=== PATIENT | male | born 1960 | race Caucasian/White ===

== ENCOUNTER 2024-06-30 23:15 | Emergency (ER) | payer BC, SELFPAY ==
[2024-06-30] VITALS (9 sets, daily range): BP systolic 82–135; BP diastolic 63–88; PULSE 52–71; RESP 16–25; TEMP 37; O2SAT 93–100
--- NOTE | ~2024-06-30 | XR_ITS ---
EXAMINATION: XR pelvis 1-2V DATE: 06/30/2024 21:30 INDICATION: Fall. TECHNIQUE: An anteroposterior view of the pelvis was obtained. COMPARISON: None. FINDINGS: Alignment is normal. No fracture. There is mild osteoarthritis of the hips. There is modera te lumbar spondylosis. IMPRESSION: 1. Mild osteoarthritis of the hips. Reviewed, dictated and finalized at location A. ND TRANSPORTATION OPERATOR
--- NOTE | ~2024-06-30 | CT_ITS ---
EXAMINATION: CT brain wo con DATE: 06/30/2024 21:51 INDICATION: Head injury. TECHNIQUE: Computed tomography (CT) of the head was performed without intravenous contrast. The mA wa s adjusted according to patient size. Iterative reconstruction technique was employed. The dose-lengt h product was 681.00 mGy-cm. COMPARISON: None FINDINGS: There is no intracranial hemorrhage, acute infarction, or abnormal intracranial mass lesion . There are scattered areas of low attenuation in the cerebral white matter, which is within normal l imits for the patient's age. The ventricles are normal in size. There is mild mucosal thickening in t he paranasal sinuses. The mastoid air cells are normal. The orbits are normal. IMPRESSION: 1. Normal aging brain. Reviewed, dictated and finalized at location A. PT DEVELOPER IMPRESSION: 1. Normal aging brain.
--- NOTE | ~2024-06-30 | CT_ITS ---
EXAMINATION: CT facial & cervical spine wo DATE: 06/30/2024 21:51 INDICATION: Head injury. TECHNIQUE: Computed tomography (CT) of the maxillofacial region and cervical spine was performed with out intravenous contrast. Automated exposure control and iterative reconstruction technique were empl oyed. The dose-length product was 490.20 mGy-cm. COMPARISON: None FINDINGS: MAXILLOFACIAL CT: There is rightward deviation anterior nasal septum and leftward deviation of posterior nasal septum. No acute fracture. There are old fracture deformities of the nasal bones. There is mild mucosal thick ening in the paranasal sinuses. CERVICAL SPINE CT: There is 9 degrees levocurvature of cervical spine. Vertebral body heights are normal. There is sever cruz decreased disc height at C3-C4, mildly decreased disc height at C4-C5, and severely decreased dis c height at C5-C6 and C6-C7. The following disc levels are specifically discussed: C2-C3: There is no uncovertebral joint osteoarthritis. There is moderate right and mild left facet chapis int osteoarthritis. There is no neural foraminal stenosis. There is no central canal stenosis. C3-C4: There is severe bilateral uncovertebral joint osteoarthritis. There is severe bilateral facet joint osteoarthritis. There is moderate bilateral neural foraminal stenosis. There is mild central ca nal stenosis. C4-C5: There is mild bilateral uncovertebral joint osteoarthritis. There is severe bilateral facet chapis int osteoarthritis. There is mild left neural foraminal stenosis. There is mild central canal stenosi s. C5-C6: There is severe bilateral uncovertebral joint osteoarthritis. There is moderate and severe lef t facet joint osteoarthritis. There is mild bilateral neural foraminal stenosis. There is mild centra l canal stenosis. C6-C7: There is severe bilateral uncovertebral joint osteoarthritis. There is moderate right and mild left facet joint osteoarthritis. There is mild bilateral neural foraminal stenosis. There is mild ce ntral canal stenosis. C7-T1: There is no uncovertebral joint osteoarthritis. There is moderate right and mild left facet chpais int osteoarthritis. There is no neural foraminal stenosis. There is no central canal stenosis. IMPRESSION: 1. No acute fracture. 2. Severe cervical spondylosis. Reviewed, dictated and finalized at location A. INE MEASUREMENTS ENGINEER
--- NOTE | ~2024-06-30 | XR_ITS ---
EXAMINATION: XR chest 1V portable DATE: 06/30/2024 21:30 INDICATION: Syncope. TECHNIQUE: A single frontal view of the chest was obtained. COMPARISON: Chest 2 views 12/14/2018 FINDINGS: The lung volumes are small. No pneumonia, pleural effusion, or pneumothorax. The heart size is normal. IMPRESSION: 1. Small lung volumes. Reviewed, dictated and finalized at location A. UNIT MANAGER IMPRESSION: 1. Small lung volumes.
--- NOTE | 2024-06-30 21:00 | ECG_ITS ---
Test Date: 2024-06-30 21:10:12 Measurements Intervals [place] Rate: 56 P: 28 VA: 145 QRS: 15 QRSD: 114 T: 29 QT: 456 QTc: 442 Interpretive Statements SINUS BRADYCARDIA INCOMPLETE RIGHT BUNDLE BRANCH BLOCK [90+ ms QRS DURATION, TERMINAL R IN V1/V2, 40+ ms S IN I/aVL/V4/V5/V6] MINIMAL ST DEPRESSION [0.025+ mV ST DEPRESSION] No previous ECG available for comparison Electronically Signed On 07-04-2024 16:25:28 AUTO OVERHAULER by Donny Baldwin M.D.
[2024-06-30] MEDS: SODIUM CHLORIDE 0.9% IV 1,000 ML 999 ML IV CONT ×2 (21:11→21:12)
[2024-06-30 21:27] LABS: Basophils Absolute Auto 0.1 K/mm3 (0.0-0.1); Basophils Percent Auto 0.5 % (0.2-1.2); Eosinophils Absolute Auto 0.1 K/mm3 (0-0.3); Eosinophils Percent Auto 0.7 % (0-4.4); Hematocrit 44.8 % (42.0-52.0); Hemoglobin 15.1 g/dL (14.0-18.0); Immature Granulocyte Absolute 0.05 K/mm3 (0.00-0.031); Immature Granulocyte Percent A 0.5 % (0-0.5); Lymphocytes Absolute Auto 2.71 K/mm3 (0.9-3.2); Lymphocytes Percent Auto 24.8 % (18.3-44.2); Mean Corpuscular HGB Conc 33.7 g/dl (32-36); Mean Corpuscular Hemoglobin 31.3 pg (26-34); Mean Corpuscular Volume 92.9 fl (80-100); Mean Platelet Volume 9.7 fl (7.4-10.4); Monocytes Absolute Auto 0.8 K/mm3 (0.1-0.6); Monocytes Percent Auto 6.9 % (2.6-8.5); Neutrophils Absolute Auto 7.3 K/mm3 (1.3-6.7); Neutrophils Percent Auto 66.6 % (45.5-73.1); Platelet Count Result 264 k/mm3 (150-375); Red Blood Count 4.82 M/mm3 (4.6-6.20); Red Cell Distribution Width 12.5 % (11.5-14.5); White Blood Count 10.9 K/mm3 (4.5-10.0)
--- NOTE | 2024-06-30 21:37 | ED_ITS ---
HPI - Syncope General Chief Complaint: Syncope Stated Complaint: SYNCOPAL EPISODE X 2, STRUCK HEAD X 2 History of Present Illness HPI narrative: This is a 64-year-old male with a past medical history including atrial fibrillation on metoprolol and Eliquis. Today presents the emergency depart with several episodes of syncope and head trauma. Patient states that he was at a bar drinking throughout the evening and had several drinks from 4:00 p.m. on words. He went to the bathroom and felt like he was having an episode of lightheadedness while he was urinating. Next thing he knew he was on the ground and had some blood on top of his nasal bridge. Endorses no headache or vision changes but states he had some vague abdominal discomfort. No chest pain, shortness a breath, nausea, vomiting, weakness or fatigue. Was otherwise in his normal state of health. He states he did not take his blood pressure medications are Eliquis this afternoon and presently is awake alert oriented. Does not appear very intoxicated. Has some minor evidence of nasal trauma and a small abrasion to the occipital part of his head but no active bleeding. No epistaxis. Patient is answer all questions appropriately but is noted to be hypotensive with a blood pressure 87/70. Related Data Home Medications ?Medication ?Instructions ?Recorded ?Confirmed ?Last Taken ?Type metoprolol succinate 50 mg 50 mg PO DAILY 07/07/19 03/08/24 Unknown History tablet,extended release 24 hr flecainide 50 mg tablet 50 mg PO Q12H 06/04/20 03/08/24 Unknown History Allergies Allergy/AdvReac Type Severity Reaction Status Date / Time Penicillins Allergy Unknown Skin Verified 06/30/24 21:17 Reaction Review of Systems 2 Review of Systems: As reviewed above in HPI [facility] Surgical History Surgical History H/O vasectomy Social History Social History Smoking status: Never smoker Alcohol intake: current Drinks per week: 5 Substance use: never Substance use type: does not use Do You Feel Safe in your Home?: Yes Lack of Transportation: No Lack of Food: Never True Current Housing: I Have Housing Concerned About Future Housing: No Difficulty Paying Gas/Electric Bills: No Difficulty Paying for Meds: No Currently Unemployed: No Education: High School Diploma/GED Difficulty w/ Childcare or Family Care: No Exam 2 Narrative: GENERAL: Overall well-appearing not in any acute distress, answering all my questions appropriately, slightly intoxicated in appearance. HEAD: [Normocephalic, atraumatic.] EYES: [PERRLA and EOMI.] ENT: Nares clear, no rhinorrhea or epistaxis. Mucous membranes moist. Over the nasal bridge there is a small avulsion flap without any active bleeding, no tissue exposure or any obvious step-offs deformities or displaced fractures. No tenderness over the zygomatic processes, no trismus and had full range of motion of the head neck and jaw NECK: Supple. CHEST: [Clear to auscultation. No respiratory distress.] HEART: [Regular rate and rhythm]. No murmur heard. [Normal peripheral pulses.] ABDOMEN: [Soft, nondistended], [nontender], [No rigidity or guarding] EXTREMITIES: Normal range of motion. [No edema.] SKIN: Warm, dry, no rash. NEURO: [No focal deficits]. Alert and oriented [x3.] Answers all questions appropriately, full strength and sensation throughout arms and legs bilaterally. PSYCH: [Normal mood and affect.] Course Vital Signs Vital signs: Vital Signs Pulse Rate 52 L 06/30/24 20:55 Respiratory Rate 22 H 06/30/24 20:55 Blood Pressure 82/63 L 06/30/24 20:55 Pulse Oximetry 93 06/30/24 20:55 Oxygen Delivery Room Air 06/30/24 20:55 Temperature 37.0 C 06/30/24 21:15 Pulse Rate 70 06/30/24 23:03 Respiratory Rate 16 06/30/24 23:03 Blood Pressure 132/85 06/30/24 23:03 Pulse Oximetry 100 06/30/24 23:03 Oxygen Delivery Room Air 06/30/24 21:15 Procedures Laceration Laceration 1: Date: 07/01/24 Time: 00:21 Site: face Side (If applicable): right Size (cm): 1.0 Description: linear Depth: simple, single layer Local Anesthetic: none Pre-repair: wound explored and irrigated ====== Skin Level ====== Skin layer closed with: dermabond ====== Subcutaneous Layer ====== ====== Muscle Layer ====== ====== Tendon Layer ====== Dressing: Gauze bandage MDM - Syncope MDM Narrative Medical decision making narrative: 64-year-old male with history of delete atrial fibrillation on Eliquis and metoprolol. Today presents to the emergency department after having 2 syncopal events at a bar. Patient states he was drinking throughout the afternoon and went to go the bathroom and while he was having micturition he noted that he got lightheaded and passed out. He woke up on the ground has some minor area of avulsion of the skin to the nasal bridge but no deformity or tenderness in the area. He states he denies any headache, vision changes, nausea vomiting, chest pain, shortness a breath. [place] some abdominal discomfort earlier which is slowly resolved. Is noted to be slightly hypotensive with a blood pressure 87/70 but no tachycardia, tachypnea, fever or hypoxia. He has full strength and sensation of both arms and legs and able to answer all questions appropriately. No signs of focal weakness. No signs of significant trauma aside from the nasal bridge but overall does not appear to have any displaced fractures. Given his intoxication and hypotension a broad workup was ordered to see if there is any trauma potential causes such as chest trauma or pelvic trauma, CT of the head facial bones and spine was ordered. Chest x-ray and pelvis x-ray was ordered as well as a cardiac workup including troponin, EKG a CBC, CMP. He was given a total of 2 L of fluids and alcohol level was also drawn. EKG done at 9:[address] segment elevations, depressions or inversions and appears to be sinus bradycardia without any ectopy or concerning ischemic findings. Workup shows a slight leukocytosis of 10.9 but nonspecific. Normal hemoglobin, normal platelets. Chemistry panel shows a elevated creatinine from baseline likely secondary to pre renal azotemia and dehydration. Normal electrolyte profile. Normal glucose, normal hepatic function panel, negative lactic acid. Alcohol level was negative indicating sobriety. CTs had x-rays were all independently reviewed and interpreted by radiology without any acute process. Patient had significant improvement his blood pressure after a small fluid bolus and he was provide Zofran for nausea which resolved. This time given his remarkably normal workup and improvement vitals I believe he is stable for discharge home at this time given that he likely had an episode of vasovagal syncope probably secondary to micturition and dehydration with alcohol use today based on the historical features. Medical Records Attestation: I reviewed the patient's medical records. Lab Data Attestation: I reviewed the patient's lab results. 06/30/24 21:20 06/30/24 21:20 Labs: Lab Results 06/30/24 Range/Units 21:20 WBC 10.9 H (4.5-10.0) K/mm3 RBC 4.82 (4.6-6.20) M/mm3 Hgb 15.1 (14.0-18.0) g/dL Hct 44.8 (42.0-52.0) % MCV 92.9 (80-100) fl MCH 31.3 (26-34) pg MCHC 33.7 (32-36) g/dl RDW 12.5 (11.5-14.5) % Plt Count 264 (150-375) k/mm3 MPV 9.7 (7.4-10.4) fl Immature Gran % (Auto) 0.5 (0-0.5) % Neut % (Auto) 66.6 (45.5-73.1) % Lymph % (Auto) 24.8 (18.3-44.2) % Valley % (Auto) 6.9 (2.6-8.5) % Eos % (Auto) 0.7 (0-4.4) % Baso % (Auto) 0.5 (0.2-1.2) % Lymph # (Auto) 2.71 (0.9-3.2) K/mm3 Valley # (Auto) 0.8 H (0.1-0.6) K/mm3 Eos # (Auto) 0.1 (0-0.3) K/mm3 Baso # (Auto) 0.1 (0.0-0.1) K/mm3 Abs Immat Gran (auto) 0.05 H (0.00-0.031) K/mm3 Absolute Neuts (auto) 7.3 H (1.3-6.7) K/mm3 Absolute Nucleated RBC 0.000 (0.0-0.012) K/mm3 Nucleated RBC % 0.0 (0.0-0.2) % Sodium 139 (137-145) mmol/L Potassium 3.5 (3.4-5.0) mmol/L Chloride 106 (98-107) mmol/L Carbon Dioxide 23 (22-30) mmol/L Anion Gap 10 (4-12) mmol/L BUN 26 H (9-20) mg/dL Creatinine 1.50 H (0.7-1.3) mg/dL Estim Creat Clear Calc 45 ml/min Estimated GFR 47 L (59 - ) Glucose 123 H (65-110) mg/dL Lactic Acid 1.6 (0.7-2.0) mmol/L Calcium 9.4 (8.4-10.2) mg/dL Magnesium 1.9 (1.6-2.3) mg/dL Total Bilirubin 0.5 (0.2-1.3) mg/dL AST 36 (17-59) U/L ALT 29 (6-50) U/L Alkaline Phosphatase 71 (38-126) U/L Troponin I < 0.012 (0.000-0.034) ng/mL Total Protein 8.0 (6.3-8.2) g/dL Albumin 4.5 (3.5-5.1) g/dL Ethyl Alcohol < 10 (<10) mg/dL Blood Type A Positive Antibody Screen Negative Imaging Data Attestation: I personally reviewed and interpreted this imaging study as follows: My impression: Impressions Chest X-Ray 06/30/24 21:32 IMPRESSION: 1. Small lung volumes. Pelvis X-Ray 06/30/24 21:33 IMPRESSION: 1. Mild osteoarthritis of the hips. Head CT 06/30/24 21:52 IMPRESSION: 1. Normal aging brain. Head/Cervical Spine/Facial Bones CT 06/30/24 21:53 IMPRESSION: 1. No acute fracture. 2. Severe cervical spondylosis. ECG Data EKG #1: Attestation: I personally reviewed and interpreted this ECG as follows: ECG completion date: 07/01/24 ECG completion time: 21:10 Prior ECG tracings: not available for review Interpretation: No ST segment elevations, depressions or inversions. Incomplete right bundle branch block in the septal leads but no acute evidence of ischemia. Regular rate rhythm an axis, QTC 447, LA interval 145, QRS 114 milliseconds. No previous EKG for comparison. Overall sinus bradycardia without acute ischemic changes. Discharge Plan Discharge Clinical Impression: Micturition syncope, Syncope, vasovagal, Acute dehydration, Mild nausea and vomiting, Laceration of nose Patient Disposition: Home, Self-Care Condition: Stable Instructions: Antibiotic Form, Dehydration (ED), Syncope (ED) Additional Instructions: Your cardiac workup and imaging studies are all very normal in reassuring. We have applied some skin glue tear nasal bridge although there are no fractures or significant wound injury. Follow-up with your regular doctor on outpatient basis, return with any new or worsening concerns at any time. Patient Language: Djiboutian Prescriptions: No Action flecainide 50 mg tablet 50 mg PO Q12H metoprolol succinate 50 mg tablet extended release 24 hr 50 mg PO DAILY pantoprazole 40 mg tablet,delayed release (DR/EC) 40 mg PO BID Qty: 180 1RF Eliquis 5 mg tablet 5 mg PO BID Qty: 30 0RF Eliquis 5 mg tablet 5 mg PO BID Qty: 180 1RF Follow-up/Referrals: Galen Osman MD [Primary Care Provider] - Time of Disposition: 00:22
[2024-06-30 21:38] LABS: Alanine Aminotransferase 29 U/L (6-50); Albumin Level 4.5 g/dL (3.5-5.1); Alkaline Phosphatase 71 U/L (38-126); Anion Gap 10 mmol/L (4-12); Aspartate Amino Transferase 36 U/L (17-59); Bilirubin,Total 0.5 mg/dL (0.2-1.3); Blood Urea Nitrogen 26 mg/dL (9-20); Calcium 9.4 mg/dL (8.4-10.2); Carbon Dioxide 23 mmol/L (22-30); Chloride 106 mmol/L (98-107); Estimated CRCL calculation 45 ml/min; Estimated Glomerular Filt Rate 47; Glucose 123 mg/dL (65-110); Magnesium 1.9 mg/dL (1.6-2.3); Potassium 3.5 mmol/L (3.4-5.0); Sodium 139 mmol/L (137-145)
[2024-06-30 21:39] LABS: Ethanol < 10 mg/dL (<10); Lactic Acid Reflex 1.6 mmol/L (0.7-2.0)
[2024-06-30 21:50] LABS: Troponin I < 0.012 ng/mL (0.000-0.034)
[2024-06-30] MEDS: ONDANSETRON INJ 4 MG/2 ML VIAL IV PUSH (22:54)
[2024-07-01 00:01] VITALS: BP 128/74; PULSE 66; RESP 21; O2SAT 98
[2024-07-01 00:16] VITALS: BP 128/69; PULSE 70; RESP 23; O2SAT 99
[2024-07-01 00:31] VITALS: BP 130/85; PULSE 71; RESP 19; O2SAT 99
--- OUTSIDE RECORDS SUMMARY | 2024-07-04 15:18 | XMS_ITS | Encounter Summary ---
Author Organization [facility] Address [address] [place] [address]. [place] [address] [place] [address] Care Team Providers Care Deburrer Name Role Phone Michael Jasso MD Primary Care Provider [phone] Reason for Visit * Auth/Cert Specialty Diagnoses / Procedures Referred By Contac t Referred To Contact Diagnoses APPETITE LOSS WEIGHT LOSS ANOREXIA Procedures EGD/COLON COLONOSCOPY Referral ID Status Reason Start Date Expiration Date Visits Re quested Visits Authorized [id number] 1 1 Encounter Details Date Type Department Care Team (Late st Contact Info) Description 12/22/2018 2:38 PM CDT Anesthesia Event [facility] [place] [address] Michelle Montano MD Anesthesia Record Procedure Summary Procedure Name Responsible Anesthesiologist Anesthesia Start Time Anesthesia Stop Time COLONOSCOPY WITH sigmoid colon and rectal polypectomies Michelle Montano MD 12/22/18 1438 12/22/18 1504 Events Date Time Event Comment 12/22/2018 1331 1331 AN Anesthesia Prepped 1408 AN BOOK JACKET COVER MACHINE OPERATOR Prepped 1438 An Start Patient ID and consent checked and patient reassessed. 1438 An Start Data 1439 Nasal Cannula Applied 1439 Preoxygenation 1441 An Induction 1441 Anesthesia Ready 1501 An Emergence 1503 Nasal Cannula Removed 1504 Post Anesthetic Care Handoff I completed my handoff to the receiving nurse during which we: 1. Identified the patient 2. Identified the responsible provider 3. Reviewed the pertinent medical history 4. Discussed the surgical course 5. Reviewed intra-op anesthesia management and issues during anesthesia 6. Set expectations for post-procedure period 7. Allowed opportunity for questions and acknowledgement of understanding. 1504 an stop data 1504 An Stop Meds Name Total lidocaine (PF) (XYLOCAINE) 2% injection 50 mg propofol (DIPRIVAN) 200 mg/20 mL injecti on 340 mg lactated ringers infusion 300 mL * Agents Name O2 N2O Air Ancillary O2 * Blood No blood administrations on file. Lines, Drains, and Airways Type Details Placement Removal Peripheral IV Placement Date: 01/04; Placement Time: 1342; Placed Outside of This Facility?: No; Size: 20 G; Orientation: Right; Location: Forearm; Site Prep: Chlorhexidine; Local Anesthetic: None; Inserted By: Tia Awad; Removal Date: 12/22/18; Removal Time: 1425; Removal Reason: Infiltrated 12/22/18 1342 by Lawanda Lino RN 12/22/18 1425 by Nereida Starr RN Peripheral IV Placement Date: 01/04; Placement Time: 1425; Placed Outside of This Facility?: No; Size: 20 G; Orientation: Left; Location: Hand; Site Prep: Chlorhexidine, Alcohol; Local Anesthetic: None; Inserted By: nereida starr rn; Insertion attempts: 1; Ultrasound-guided Placement?: No; Patient Tolerance: Tolerated well; Removal Date: 12/22/18; Removal Time: 1538 12/22/18 1425 by Nereida Starr RN 12/22/18 1538 by Farrah Bourne RN documented in this encounter Social History Tobacco Use Types Packs/Day Years Used Date Smoking Tobacco: Never Assessed Sex and Gender Information Value Date Recorded Sex Assigned at Not on file Legal Sex Male 11:04 PM CDT Gender Identity Not on file Sexual Orientation Not on file documented as of this encounter OR Notes * Anesthesia Postprocedure Evaluation - Michelle Montano MD - 12/22/2018 3:25 PM CDT Anesthesia Post-op Note Kulwant Hart Procedure(s): COLONOSCOPY WITH sigmoid colon and rectal polypectomies (N/A ) Anesthesia type: general Vitals: 12/22/18 1525 BP: 115/65 Vitals: 12/22/18 1525 Pulse: 54 Vitals: 12/22/18 1525 Resp: 19 Vitals: 12/22/18 1508 Temp: 36.2 ??C Vitals: 12/22/18 1525 SpO2: 95% Patient Location: Phase II/Outpatient Level of Consciousness: awake, oriented and alert Pain Management: pain being treated or addressed Airway Patency: patent Respiratory Status: spontaneous ventilation, unassisted and room air Cardiovascular Status: acceptable and hemodynamically stable Post-Op Nausea: none Postoperative Hydration: euvolemic Complications: no anesthesia complication * Anesthesia Postprocedure Evaluation - Michelle Montano MD - 12/22/2018 3:02 PM CDT Anesthesia Post-op Note Kulwant Hart Procedure(s): COLONOSCOPY WITH sigmoid colon and rectal polypectomies (N/A ) Anesthesia type: general Vitals: 12/22/18 1502 BP: 98/60 Vitals: 12/22/18 1502 Pulse: 52 Vitals: 12/22/18 1502 Resp: 18 Vitals: 12/22/18 1502 Temp: 36.8 ??C Vitals: 12/22/18 1502 SpO2: 95% Patient Location: PACU Level of Consciousness: awake and alert Pain Management: pain being treated or addressed Airway Patency: patent Respiratory Status: spontaneous ventilation, unassisted and room air Cardiovascular Status: acceptable and hemodynamically stable Post-Op Nausea: none Postoperative Hydration: euvolemic Complications: no anesthesia complication * Anesthesia Preprocedure Evaluation - Michelle Montano MD - 12/22/2018 1:12 PM CDT Anesthesia ROS/MED History Reviewed: Patient summary , Nursing notes , Family history anesthesia, Anesthesia history , Medications Pre-Anesthetic State: alert, awake and responds appropriately no history of anesthetic complications Pulmonary neg pulmonary ROS Cardiovascular (+) arrhythmia (s/p ablation), (A-fib) Neuro/Psych neg neuro/psych ROS GI/Hepatic/Renal (+) GERD Endo/Other neg endo/other ROS GENERAL COMMENTS Physical Evaluation Airway Mallampati: II Neck ROM: normal Dental Pulmonary Cardiovascular Rhythm: regular Anesthesia Plan ASA 2 Induction Anesthesia type: general Informed Consent Anesthetic plan and risks discussed with patient of whom consent was obtained. . documented in this encounter Plan of Treatment Upcoming Encounters Date Type Department Care Team (Late st Contact Info) Description 12/18/2024 3:00 PM CDT Office Visit [facility] - [facility] [address] [place] [address] Sundeep Bernal PA-C [address] [place] [address] documented as of this encounter Visit Diagnoses Not on filedocumented in this encounter Administered Medications Inactive Administered Medications - up to 3 most recent administrations Medication Order MAR Action Action Date Dose Rate Site lactated ringers infusion Intravenous, Continuous PRN, Starting on Alisa 12/22/18 at 1438, Until Alisa 12/22/18 at 1504, Anesthesia Intra-Op New Bag 12/22/2018 2:38 PM CDT lidocaine (PF) (XYLOCAINE) 2 % injection Intravenous, PRN, Starting on Alisa 12/22/18 at 1441, Until Alisa 12/22/18 at 1504, Anesthesia Intra-Op Given 12/22/2018 2:41 PM CDT 50 mg propofol (DIPRIVAN) IV bolus Intravenous, PRN, Starting on Alisa 12/22/18 at 1441, Until Alisa 12/22/18 at 1504, Anesthesia Intra-Op Given 12/22/2018 2:58 PM CDT 30 mg Given 12/22/2018 2:55 PM CDT 20 mg Given 12/22/2018 2:52 PM CDT 50 mg documented in this encounter Care Teams Deburrer Relationship Specialty Start Date End Date Michael Jasso MD [address] [place] [address] PCP - General FAMILY PRACTICE 12/22/18 documented as of this encounter
--- OUTSIDE RECORDS SUMMARY | 2024-07-04 15:18 | XMS_ITS | Encounter Summary ---
Author Organization [facility] Address [address] [place] [address]. [place] [address] [place] [address] Care Team Providers Care Chronic Care Nurse Name Role Phone Michael Jasso MD Primary Care Provider [phone] Reason for Visit * Auth/Cert Specialty Diagnoses / Procedures Referred By Contac t Referred To Contact Diagnoses APPETITE LOSS WEIGHT LOSS ANOREXIA Procedures EGD/COLON COLONOSCOPY Referral ID Status Reason Start Date Expiration Date Visits Re quested Visits Authorized [id number] 1 1 Encounter Details Date Type Department Care Team (Late st Contact Info) Description 12/22/2018 1:40 PM CDT - 12/22/2018 2:10 PM CDT Surgery [facility] [place] [address] Nicola Neri MD [address] [address] COLONOSCOPY WITH sigmoid colon and rectal polypectomies Surgery Details Date/Time Status Location OR Service Patient Class Case Class Case Type Trauma Case? 12/22/2018 1:40 PM Posted [facility] - Elective No Panel 1 Procedure LRB Anes Op Region Wound Class Comments COLONOSCOPY WITH sigmoid colon and rectal polypectomies N/A General Clean Contaminated colon polyps Surgeon Surgeon Role Service Panel Nicola Neri MD Primary Gastroenterology 1 Case Notes SCHEDULED BY FAX 12/16/18 LB documented in this encounter Social History Tobacco Use Types Packs/Day Years Used Date Smoking Tobacco: Never Assessed Sex and Gender Information Value Date Recorded Sex Assigned at Not on file Legal Sex Male 11:04 PM CDT Gender Identity Not on file Sexual Orientation Not on file documented as of this encounter Last Filed Vital Signs Vital Sign Reading Time Taken Comments Blood Pressure 140/67 12/22/2018 1:22 PM CDT Pulse 59 12/22/2018 1:22 PM CDT Temperature 36.2 ??C (97.1 ??F) 12/22/2018 1:22 PM CD T Respiratory Rate 16 12/22/2018 1:22 PM CDT Oxygen Saturation 94% 12/22/2018 1:22 PM CDT Inhaled Oxygen Concentration - - Weight 84.8 kg (187 lb) 12/22/2018 1:22 PM CDT Height 177.8 cm (5' 10 ) 12/22/2018 1:22 PM CDT Body Mass Index 26.83 12/22/2018 1:22 PM CDT documented in this encounter Discharge Instructions * Discharge Instructions* Nicola Neri MD - 12/22/2018 3:05 PM CDT Three polyps removed. Call Dr. Neri for biopsy results in two weeks at [phone] * Attachments The following attachments cannot be sent through Care Everywhere. * Colonoscopy Discharge Instructions ([place]) documented in this encounter Medications at Time of Discharge ELIQUIS 5 MG tablet 1 11/16/2018 flecainide 50 MG tablet 2 11/24/2018 metoprolol succinate ER 50 MG 24 hr tablet Take 50 mg by mouth daily. 0 11/30/2018 pantoprazole EC 40 MG tablet 12/16/2018 documented as of this encounter H&P Notes * Nicola Neri MD - 12/22/2018 3:03 PM CDT Nicola Neri MD, FACG, FACP Attending Provider: Nicola Neri MD PCP: MICHAEL JASSO MD PATIENT: Kulwant Hart : 1960 Date of Visit: 12/22/2018 HPI: Kulwant Hart is an 58-year-old male who presents for anorexia, weight loss and anemia. GI review of systems is negative. No endocarditis risk factors. There is no problem list on file for this patient. Past Medical History: Diagnosis Date ??? GERD (gastroesophageal reflux disease) Past Surgical History: Procedure Laterality Date ??? ATRIAL FIBRILLATION/FLUTTER No family history on file. Social History Socioeconomic History ??? Marital status: Spouse name: Not on file ??? Number of children: Not on file ??? Years of education: Not on file ??? Highest education level: Not on file Occupational History ??? Not on file Social Needs ??? Financial resource strain: Not on file ??? Food insecurity: Worry: Not on file Inability: Not on file ??? Transportation needs: Medical: Not on file Non-medical: Not on file Tobacco Use ??? Smoking status: Not on file Substance and Sexual Activity ??? Alcohol use: Not on file ??? Drug use: Not on file ??? Sexual activity: Not on file Lifestyle ??? Physical activity: Days per week: Not on file Minutes per session: Not on file ??? Stress: Not on file Relationships ??? Social connections: Talks on phone: Not on file Gets together: Not on file Attends confucianism service: Not on file Active member of club or organization: Not on file Attends meetings of clubs or organizations: Not on file Relationship status: Not on file ??? Intimate partner violence: Fear of current or ex partner: Not on file Emotionally abused: Not on file Physically abused: Not on file Forced sexual activity: Not on file Other Topics Concern ??? Not on file Social History Narrative ??? Not on file Current Facility-Administered Medications: ??? lactated ringers infusion, , Intravenous, Continuous, Michelle Montano MD Facility-Administered Medications Ordered in Other Encounters: ??? lactated ringers infusion, , Intravenous, Continuous PRN, Berry P Grove, APPLICATION DEVELOPMENT SPECIALIST ??? lidocaine (PF) (XYLOCAINE) 2 % injection, , Intravenous, PRN, Berry P Grove, APPLICATION DEVELOPMENT SPECIALIST, 50 mg at 12/22/18 1441 ??? propofol (DIPRIVAN) IV bolus, , Intravenous, PRN, Berry P Grove, APPLICATION DEVELOPMENT SPECIALIST, 30 mg at 12/22/18 1458 Allergies Allergen Reactions ??? Penicillins Rash Travel Exposure: Traveled outside of the [place] in the last month: No No current facility-administered medications on file prior to encounter. Current Outpatient Medications on File Prior to Encounter Medication Sig ??? ELIQUIS 5 MG tablet ??? flecainide 50 MG tablet ??? metoprolol succinate ER 50 MG 24 hr tablet Take 50 mg by mouth daily. ??? pantoprazole EC 40 MG tablet Blood pressure 140/67, pulse 59, temperature 97.1 ??F (36.2 ??C), temperature source Temporal, resp. rate 16, height 5' 10 (1.778 m), weight 84.8 kg (187 lb), SpO2 94 %. Physical Exam Constitutional: he appears well-developed and well-nourished. Cardiovascular: Normal rate. Pulmonary/Chest: Breath sounds normal. Abdominal: Soft. There is no tenderness. Musculoskeletal: he exhibits no edema. Assessment & Plan: Colonoscopy NICOLA NERI MD 12/22/2018 documented in this encounter OR Notes * Op Note - Nicola Neri MD - 12/22/2018 3:05 PM CDT NICOLA NERI MD, FACG, FACP COLONOSCOPY This is a 58-year-old male with history of recent Afib ablation and GERD who now presents for colonoscopy for anorexia, weight loss and anemia. GI review of systems is otherwise negative. No endocarditis risk factors. Allergies Allergen Reactions ??? Penicillins Rash Medications: see list. Family history: negative for colon cancer. GENERAL: WDWN patient in NAD. VITALS: Stable. LUNGS: Clear. HEART: RRR S1/S2 normal. ABDOMEN: NABS/NT. The procedure of colonoscopy, its indications, alternatives of barium studies and risks including perforation, bleeding, infection, reaction to medication as well as the possible need for blood or surgery were discussed with the patient prior to the procedure. The patient voices understanding, agrees to proceed and provides informed consent. COLONOSCOPY INDICATION: Anorexia, weight loss and anemia. POST-OP: Three polyps removed. SEDATION: Per Anesthesia PREP: Good. With the patient in the left lateral decubitus position, the Olympus [id number] colonoscope was introduced into the rectum and advanced easily to the Terminal Ileum. Careful inspection of the mucosa was made upon insertion and withdrawal of the endoscope. FINDINGS: Terminal ileum: distal 5 cm normal. Cecum, ascending colon, transverse colon, descending colon: normal. Sigmoid colon: 1.5 cm pedunculated polyp removed with snare polypectomy with excellent hemostasis. Rectum including retroflexion: 1.2 cm and 8 mm sessile polyps removed with snare polypectomy with excellent hemostasis No masses, AVMs, colitis or diverticulosis seen. No complications, blood loss or implants ASSESSMENT AND PLAN: A. Anorexia, weight loss and anemia: no obvious findings to explain; observe. B. Three polyps removed: if adenomatous repeat colonoscopy in three years otherwise screening colonoscopy in 10 years. C. EGD cancelled at request of Cardiology due to proximity to ablation. Thank you very much for allowing me to share in the care of your patient. The patient will follow-up with me in one month. Nicola Neri M.D. documented in this encounter Plan of Treatment Upcoming Encounters Date Type Department Care Team (Late st Contact Info) Description 12/18/2024 3:00 PM CDT Office Visit [facility] Multispecialty Care - [address] [place] [address] Sundeep Bernal PA-C [address] [place] [address] [place] [address] documented as of this encounter Procedures Procedure Name Priority Date/Time Associated Diagnosis Comments COLONOSCOPY WITH BIOPSY 12/22/2018 2:30 PM CDT APPETITE LOSS WEIGHT LOSS ANOREXIA Case Notes SCHEDULED BY FAX 12/16/18 LB PATHOLOGY Routine 12/22/2018 12:00 AM CDT documented in this encounter Results * Pathology (12/22/2018 12:00 AM CDT) COPATH REPORT ? [facility] ? Department of Pathology ? [address] ? [place], [place] ??[address] ? [id number] ? Pathology Report ? Name: KULWANT HART O ? Specimen #: [id number] Age: 7 1960 (Age: 58) ? Location: [facility] Sex: M ? Procedure Date: 12/22/2018 Hospital #: [id number] ? Date Received: 12/23/2018 Date Reported: 12/26/2018 Provider: NICOLA B EDINSON Gross Description: A. ??The specimen is received in formalin labeled with the patient's name (Kulwant Hart), (1960), and sigmoid colon polyp. ??The specimen consists of a nicole-brown, rubbery, nodular, pedunculated polyp that has an overall measurement of 1.3 x 0.7 x 0.6 cm. ??The stalk measures 0.6 cm in length x 0.4 cm in width. ??The resection margin is inked black and the specimen is bisected. The specimen is entirely submitted as A1. B. ??The specimen is received in formalin labeled with the patient's name (Kulwant Hart), (1960), and rectal polyps. ??The specimen consists of two pink-nicole, rubbery, polypoid tissue fragments measuring 0.5 and 0.7 cm in greatest dimension. ??The specimen is intermixed with a scant amount of fecal material. ??The specimen is entirely submitted intact as B1. Microscopic Description: The microscopic examination supports the above ds. FINAL PATHOLOGIC DIAGNOSIS: A. ??SIGMOID COLON POLYP, POLYPECTOMY: ? 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 INKED STALK MARGIN IS NEGATIVE FOR INVOLVEMENT B. ??RECTAL POLYPS, BIOPSY: ? SINGLE FRAGMENT OF TUBULAR ADENOMA WITHOUT HIGH GRADE DYSPLASIA ? SINGLE FRAGMENT OF HYPERPLASTIC POLYP ?? RY VELASQUEZ ??Pathologist lc/12/26/2018 Electronically Signed Out ? [facility] Tissue specimen (specimen) COLON STRUCTURE / Unknown 12/22/2018 2:55 PM CDT Tissue specimen (specimen) COLON STRUCTURE / Unknown 12/22/2018 2:59 PM CDT us Nicola Neri MD PATHOLOGY/CYTOLOGY ORDERABL ES Final Result [facility] [address] [place] [address], [place] [phone] documented in this encounter Visit Diagnoses Not on filedocumented in this encounter Administered Medications Inactive Administered Medications - up to 3 most recent administrations Medication Order MAR Action Action Date Dose Rate Site lactated ringers infusion at 10 mL/hr, Intravenous, Continuous, Starting on Alisa 12/22/18 at 1400, Until Alisa 12/22/18 at 1739, Infuse at TKO rate, Pre-Op documented in this encounter Active and Recently Administered Medications Times are shown in CDT. Continuous Medication Order 12/20/2018 12/21/2018 12/22/2018 lactated ringers infusion at 10 mL/hr, Intravenous, Continuous, Starting on Alisa 12/22/18 at 1400, Until Alisa 12/22/18 at 1739, Infuse at TKO rate, Pre-Op 1400 (Canceled Entry - Provider: Automatic Discharge Provider - Comment: Automatically canceled at discontinue of medication order) documented in this encounter Care Teams Chronic Care Nurse Relationship Specialty Start Date End Date Michael Jasso MD [address] [place] [address] PCP - General FAMILY PRACTICE 12/22/18 documented as of this encounter
--- OUTSIDE RECORDS SUMMARY | 2024-07-04 15:18 | XMS_ITS | Encounter Summary ---
Author Organization [facility] Address [address] [place] [address]. [place] [address] [place] [address] Care Team Providers Care Slasher Name Role Phone Unavailable Primary Care Provider Unavailabl e Encounter Details Date Type Department Care Team (Late st Contact Info) Description 12/05/[address] [facility] Cardiopulmonary Services [address] [place] [address] Santana Arreola MD [address] [place] [address] [id number] Social History Tobacco Use Types Packs/Day Years Used Date Smoking Tobacco: Never Assessed Sex and Gender Information Value Date Recorded Sex Assigned at Not on file Legal Sex Male 11:04 PM CDT Gender Identity Not on file Sexual Orientation Not on file documented as of this encounter Plan of Treatment Upcoming Encounters Date Type Department Care Team (Late st Contact Info) Description 12/18/2024 3:00 PM CDT Office Visit [facility] Medical Group Multispecialty Care - [facility] [address] [facility] [place] [address] Sundeep Bernal PA-C 3 [facility] [address] [place] [address] documented as of this encounter Visit Diagnoses Diagnosis Palpitations documented in this encounter
--- OUTSIDE RECORDS SUMMARY | 2024-07-04 15:18 | XMS_ITS | Clinical Summary ---
Author Organization [facility] Address [address] [place] [address]. [place], [place] [address] [place] [address] Care Team Providers Care Writer Name Role Phone Michael Jasso MD Primary Care Provider [phone] Allergies Active Allergy Reactions Criticality Noted Date Comments Penicillins Rash Low 12/22/2018 Medications ELIQUIS 5 MG tablet 1 11/16/2018 Active flecainide 50 MG tablet 2 11/24/2018 Active metoprolol succinate ER 50 MG 24 hr tablet Take 50 mg by mouth daily. 0 11/30/2018 Active pantoprazole EC 40 MG tablet 12/16/2018 Active Social History Tobacco Use Types Packs/Day Years Used Date Smoking Tobacco: Never Assessed Sex and Gender Information Value Date Recorded Sex Assigned at Not on file Legal Sex Male 11:04 PM CDT Gender Identity Not on file Sexual Orientation Not on file Last Filed Vital Signs Vital Sign Reading Time Taken Comments Blood Pressure 115/65 12/22/2018 3:25 PM CDT Pulse 54 12/22/2018 3:25 PM CDT Temperature 36.2 ??C (97.1 ??F) 12/22/2018 3:08 PM CD T Respiratory Rate 19 12/22/2018 3:25 PM CDT Oxygen Saturation 95% 12/22/2018 3:25 PM CDT Inhaled Oxygen Concentration - - Weight 84.8 kg (187 lb) 12/22/2018 1:22 PM CDT Height 177.8 cm (5' 10 ) 12/22/2018 1:22 PM CDT Body Mass Index 26.83 12/22/2018 1:22 PM CDT Plan of Treatment Upcoming Encounters Date Type Department Care Team (Late st Contact Info) Description 12/18/2024 3:00 PM CDT Office Visit [facility] Medical [facility] Multispecialty Care - [facility] 3 [facility] [address] [place] [address] Sundeep Bernal PA-C 3 [facility] [address] [place] [address] Health Maintenance Due Date Last Done Comments Colorectal Cancer Screening Colonoscopy (10 Years) 1960 Annual Physical 01/28/1963 Hepatitis C 01/28/1978 DTaP, Tdap and Td Vaccines ( 1 - Tdap) 01/28/1979 Zoster Vaccines (1 of 2) 01/28/2010 RSV Immunization or 60+ Years (1 - 1-dose 60+ series) 2020 COVID-19 Vaccine ( - 2023-2 5 season) 2024 Influenza Adult (#1) 2024 Meningococcal Vaccine Aged Out No lizeth demian eligible based on patient's age to complete this topic Pneumococcal Vaccine: Pediat rics (0 to 5 Years) and At-Risk Patients (6 to 64 Years) Aged Out No longer eligible b ased on patient's age to complete this topic RSV Immunizations Under 20 Months Aged Out No longer eligible based on patient's age to complete this topic Insurance Care Teams Writer Relationship Specialty Start Date End Date Michael Jasso MD [address] [place] [address] PCP - General FAMILY PRACTICE 12/22/18
--- OUTSIDE RECORDS SUMMARY | 2024-07-04 15:18 | XMS_ITS | Encounter Summary ---
Author Organization [facility] Address [facility] [place] [address] [place] [address] Care Team Providers Care Remote Sensing Analyst Name Role Phone Unavailable Primary Care Provider Unavailabl e Encounter Details Date Type Department Care Team (Late st Contact Info) Description 09/14/2011 Abstract [facility] [address] [place] [address] Michael Jasso MD [address] [place] [address] Social History Tobacco Use Types Packs/Day Years [...] Description 12/18/2024 3:00 PM CDT Office Visit [facility] Medical [facility] Multispecialty Care - [facility] 3 [facility] [place] [address] Sundeep Bernal PA-C 3 [facility] [address] [place] [address] documented as of this encounter Visit Diagnoses Diagnosis Sensorineural hearing loss Sensorineural hearing loss, unspecified documented in this encounter
--- OUTSIDE RECORDS SUMMARY | 2024-07-04 15:18 | XMS_ITS | Encounter Summary ---
Author Organization [facility] Address [address] [place] [address]. [place] [address] [place] [address] Care Team Providers Care Assistant Grocery Name Role Phone Michael Jasso MD Primary Care Provider [phone] Reason for Visit * Reason Onset Date Comments Surgical Clearance 08/28/2022 Lvm for patie nt to let him know to hold his aspirin for 5 days prior to his procedure. Told patient if he has any questions to please call our office. Encounter Details Date Type Department Care Team (Late st Contact Info) Description 08/28/2022 Telephone [facility] Medical [facility] Multispecialty Care - [facility] 3 [facility] [place] [address] Andres Fowler MD 3 [facility] [address] [place] [address] Surgical Clearance (Lvm for patient to let him know to hold his aspirin for 5 days prior to his procedure. Told patient if he has any questions to please call our office.) Social History Tobacco Use Types Packs/Day Years Used Date Smoking Tobacco: Never Assessed Sex and Gender Information Value Date Recorded Sex Assigned at Not on file Legal Sex Male 11:04 PM CDT Gender Identity Not on file Sexual Orientation Not on file documented as of this encounter Progress Notes * Lavern Cruz MA - 08/28/2022 2:20 PM CST Lvm for patient to let him know to hold his aspirin for 5 days prior to his procedure. Told patientif he has any questions to please call our office. PORT APPLICATION EXAMINER documented in this encounter Plan of Treatment Upcoming Encounters Date Type Department Care Team (Late st Contact Info) Description 12/18/2024 3:00 PM CDT Office Visit [facility] Medical Group Multispecialty Care - [address] [place] [address] Sundeep Bernal PA-C 3 [facility] [address] [place] [address] documented as of this encounter Visit Diagnoses Not on filedocumented in this encounter Care Teams Assistant Grocery Relationship Specialty Start Date End Date Michael Jasso MD [address] [place] [address] PCP - General FAMILY PRACTICE 12/22/18 documented as of this encounter
--- OUTSIDE RECORDS SUMMARY | 2024-07-04 15:18 | XMS_ITS | Encounter Summary ---
Author Organization [facility] Address [address] [place] [address]. [place] [address] [place] [address] Care Team Providers Care Combatant Swimmer Name Role Phone Michael Jasso MD Primary Care Provider [phone] Reason for Visit * Auth/Cert Specialty Diagnoses / Procedures Referred By Contac t Referred To Contact Diagnoses APPETITE LOSS WEIGHT LOSS ANOREXIA Procedures EGD/COLON COLONOSCOPY Referral ID Status Reason Start Date Expiration Date Visits Re quested Visits Authorized [id number] 1 1 Encounter Details Date Type Department Care Team (Latest Contact Info) Description 12/22/2018 12:29 PM CDT - 12/22/2018 3:39 PM CDT Hospital Encounter [facility] [place] [address] Nicola Neri MD [address] [address] Discharge Disposition: Home or Self Care (Routine Discharge) Social History Tobacco Use Types Packs/Day Years [...] for biopsy results in two weeks at [phone] * Attachments The following attachments cannot be sent through Care Everywhere. * Colonoscopy Discharge Instructions (Icelandic) documented in this encounter Medications at Time [...] file Gets together: Not on file Attends taoism service: Not on file Active member of [...] , Intravenous, Continuous PRN, Berry P Grove, BUFFET WAITER/WAITRESS ??? lidocaine (PF) (XYLOCAINE) 2 % injection, , Intravenous, PRN, Berry P Grove, BUFFET WAITER/WAITRESS, 50 mg at 12/22/18 1441 ??? propofol (DIPRIVAN) IV bolus, , Intravenous, PRN, Berry P Grove, BUFFET WAITER/WAITRESS, 30 mg at 12/22/18 1458 Allergies Allergen [...] the left lateral decubitus position, the Olympus [id number] colonoscope was introduced into the rectum and [...] Description 12/18/2024 3:00 PM CDT Office Visit [facility] Multispecialty Care - [facility] 3 [facility] [place] [address] Sundeep Bernal PA-C 3 [facility] [address] [place] [address] documented as of this encounter Procedures Procedure Name Priority Date/Time Associated Diagnosis Comments COLONOSCOPY WITH BIOPSY 12/22/2018 2:30 PM CDT APPETITE LOSS WEIGHT LOSS ANOREXIA Case Notes SCHEDULED BY FAX 12/16/18 LB PATHOLOGY Routine 12/22/2018 12:00 AM CDT documented in this encounter Results * Pathology (12/22/2018 12:00 AM CDT) COPATH REPORT ? [facility] ? Department of Pathology ? [address] [facility]. ? [place], [place] ??[address] ? [id number] ? Pathology Report ? Name: KULWANT HART ? Specimen #: [id number] Age: 7 1960 (Age: 58) ? Location: [facility] Sex: M ? Procedure Date: 12/22/2018 [facility] #: [id number] ? Date Received: 12/23/2018 Date Reported: 12/26/2018 Provider: NICOLA NERI Gross Description: A. ??The specimen is received [...] OF HYPERPLASTIC POLYP ?? RY VELASQUEZ ??Pathologist king/12/26/2018 Electronically Signed Out ? [facility] Tissue specimen (specimen) COLON STRUCTURE / Unknown 12/22/2018 2:55 PM CDT Tissue specimen (specimen) COLON STRUCTURE / Unknown 12/22/2018 2:59 PM CDT Nicola Neri MD PATHOLOGY/CYTOLOGY ORDERABL ES Final Result [facility] [address] [place] [address], documented in this encounter Visit Diagnoses Not [...] order) documented in this encounter Care Teams Combatant Swimmer Relationship Specialty Start Date End Date Michael Jasso MD [address] [place] [address] PCP - General FAMILY PRACTICE 12/22/18 documented as of this encounter
--- OUTSIDE RECORDS SUMMARY | 2024-07-04 15:19 | XMS_ITS | Clinical Summary ---
Author Organization [facility] Address [address], [address] [address] Phone Care Team Providers Care Estate Planning Paralegal Name Role Phone Michael Jasso MD Primary Care Provider [phone] Immunizations Immunization Administration Dates Next Due Covid-19, Mrna, Lnp-s, PF, 5 0 mcg/0.25 mL dose (Moderna) 07/23/2021 Social History Tobacco Use Types Packs/Day Years Used Date Smoking Tobacco: Never Assessed Sex and Gender Information Value Date Recorded Sex Assigned at Not on file Legal Sex Male 3:45 PM CDT Gender Identity Not on file Sexual Orientation Not on file Plan of Treatment Health Maintenance Due Date Last Done Comments Hepatitis C Virus (HCV) Screening 1960 TdaP Immunization 1960 Colonoscopy 01/28/2005 Colorectal Cancer Screening 01/28/2005 Cologuard 01/28/2010 Immunochemical Fecal Occult Blood 01/28/2010 Zoster Immunization (1 of 2) 01/28/2010 PSA Discussion 01/28/2015 Influenza Immunization (#1) 2024 06/04/2020 SARS-COV-2 Immunization ( season) 2024 07/23/2021, 10/08/2020, 09/10/2020 Respiratory Syncytial Virus (RSV) Immunization (Adult) (1 - 1-dose 75+ series) 01/28/2035 DTaP/Tdap/Td Immunization Discontinued 06/04/2020 Hepatitis B Immunization Aged Out No longer eligible based on patient's age to complete this topic Meningococcal Immunization (ACWY) Aged Out No longer eligible based on patient's age to complete this topic Pneumococcal Immunization Combined Aged Out No longer eligible based on patient's age to complete this topic Rotavirus Immunization Aged Out No lo nger eligible based on patient's age to complete this topic Insurance [facility] Care Teams Estate Planning Paralegal Relationship Specialty Start Date End Date Michael Jasso MD [address] [place] [address] PCP - General Family Medicine 12/27/18
--- OUTSIDE RECORDS SUMMARY | 2024-07-04 15:19 | XMS_ITS | Encounter Summary ---
Author Organization [facility] Address [address] [place] [id number] Care Team Providers Care Middle School Technology Teacher Name Role Phone Michael Jasso MD Primary Care Provider [phone] Encounter Details Date Type Department Care Team (Late st Contact Info) Description 07/23/2021 6:00 PM FOOT TENDER Immunization [place] [facility] 2 Mobile Immunization [address] [address] Need for vaccination (Primary Dx) Social History Tobacco Use Types Packs/Day Years Used Date Smoking Tobacco: Never Assessed Sex and Gender Information Value Date Recorded Sex Assigned at Not on file Legal Sex Male 3:45 PM CDT Gender Identity Not on file Sexual Orientation Not on file documented as of this encounter Plan of Treatment Not on file documented as of this encounter Visit Diagnoses Diagnosis Need for vaccination- Primary Need for prophylactic vaccination and inoculation against unspecified single disease documented in this encounter Care Teams Middle School Technology Teacher Relationship Specialty Start Date End Date Michael Jasso MD [address] [place] [address] PCP - General Family Medicine 12/27/18 documented as of this encounter
--- OUTSIDE RECORDS SUMMARY | 2024-07-04 15:20 | XMS_ITS | Encounter Summary ---
Author Organization [facility] Healthcare Address [address] [place] [address] Care Team Providers Care Detective Lieutenant Name Role Phone Nasra Jasso MD Primary Care Provider [phone] Encounter Details Date Type Department Care Team (Late st Contact Info) Description 12/28/2023 2:15 PM CDT Office Visit Arrhythmia Center [address] [facility] [address] [place] [id number] Etelvina Loyola, MIAH [address] [address] Cardiac arrhythmia, unspecified cardiac arrhythmia type (Primary Dx) Social History Tobacco Use Types Packs/Day Years Used Date Smoking Tobacco: Never Smokeless Tobacco: Never Tobacco Cessation:Counseling Given: Not Answered Alcohol Use Standard Drinks/Week Comments Yes 0 (1 standard drink = 0.6 oz pur e alcohol) weekends Sex and Gender Information Value Date Recorded Sex Assigned at Not on file Legal Sex Male 8:32 PM SMASH HAND Gender Identity Not on file Sexual Orientation Not on file documented as of this encounter Last Filed Vital Signs Vital Sign Reading Time Taken Comments Blood Pressure 122/60 12/28/2023 2:23 PM CDT Pulse 54 12/28/2023 2:23 PM CDT Temperature - - Respiratory Rate - - Oxygen Saturation - - Inhaled Oxygen Concentration - - Weight 90.3 kg (199 lb) 12/28/2023 2:23 PM CDT Height 180.3 cm (5' 11 ) 12/28/2023 2:23 PM CDT Body Mass Index 27.75 12/28/2023 2:23 PM CDT documented in this encounter Progress Notes * Etelvina Loyola, CHAPERON - 12/28/2023 2:15 PM CDT Images from the original note were not included. Patient ID: Kulwant Hart is a 63 y.o. male Chief Complaint Atrial fibrillation History of catheter ablation HPI Kulwant Hart presents in follow-up today after his recent ablation. He is a 63-year-old male who has a history of paroxysmal atrial fibrillation status post pulmonary vein isolation in January of 2018. He had experienced multiple episodes of recurrent tachycardia with rates in the 200s. He underwent pulmonary vein isolation and cavotricuspid isthmus ablation previously. He also has a past history of mononucleosis and SVT. He underwent repeat radiofrequency catheter ablation of paroxysmal atrial fibrillation, linear focal left atrial ablation, catheter ablation of left septal atrial tachycardia, and ablation of cavotricuspid isthmus on 11/15/2018. Shortly thereafter on he had an episode of atrial fibrillation and arrived at [facility] for further evaluation. At that time he was rate controlled and will back into sinus rhythm. He was discharged on his same dose of flecainide and anticoagulation as well. He was last seen 1 year ago. Since that time he states he has been doing well. He denies any shortness of breath, dizziness, or syncope. He remains active without difficulty. EKG on my review today demonstrates sinus rhythm (54) with normal QRS duration and QT interval Past Medical History: Diagnosis Date A-fib (CMS/HCC) ([facility]) Arrhythmia Infectious mononucleosis age 18 Mononucleosis; Comments: N 03/21/2014 - Supraventricular tachycardia (HCC) Family History Problem Relation Age of Onset Heart attack Father 53 Myocardial infarction; /Myocardial infarction; Cause of : Myocardial infarction Other Paternal Grandfather Cardiac arrhythmias; Hypertension Mother Hypertension; Sudden Other Sudden ; Cause of : Sudden Social History Tobacco Use Smoking status: Never Smoker Smokeless tobacco: Never Used Substance Use Topics Alcohol use: Yes Comment: weekends Current Outpatient Medications: apixaban (ELIQUIS) 5 mg tablet, Take 1 tablet (5 mg total) by mouth 2 (two) times a day, Disp: 180 tablet, Rfl: 3 flecainide (TAMBOCOR) 50 mg tablet, TAKE 1 TABLET TWICE A DAY, Disp: 180 tablet, Rfl: 3 metoprolol XL (TOPROL-XL) 50 mg extended release tablet, TAKE 1 TABLET DAILY, Disp: 90 tablet, Rfl:[address] (PROTONIX) 40 mg EC tablet, 2 (two) times a day, Disp: , Rfl: Review of Systems Constitutional: Negative. HENT: Negative. Eyes: Negative. Respiratory: Negative. Cardiovascular: Negative. Gastrointestinal: Negative. Endocrine: Negative. Genitourinary: Negative. Skin: Negative. Neurological: Negative. Hematological: Negative. Psychiatric/Behavioral: Negative. Physical Exam Constitutional: No distress. Head: Normocephalic. Nose: Nose normal. Mouth/Throat: Mucous membranes are normal. Eyes: EOM are normal. Neck: Normal range of motion. Cardiovascular: Regular rhythm, S1 normal and S2 normal. Pulmonary/Chest: Effort normal and breath sounds normal. Abdominal: Soft. Normal appearance. Neurological: alert, oriented to person, place, and time and easily aroused. Skin: warm and dry. Psychiatric: normal mood and affect. Musculoskeletal: No joint inflammation Assessment/Plan Diagnoses and all orders for this visit: Cardiac arrhythmia, unspecified cardiac arrhythmia type (Primary) - ECG 12 lead Impression: 1. Paroxysmal atrial fibrillation status post catheter ablation of PAF, linear left focal atrial ablation, and catheter ablation of left septal atrial tachycardia as well as ablation of cavotricuspidisthmus dependent flutter on 11/15/2018. Previously he underwent pulmonary vein isolation in January 2018. Doing well with no recent episodes. 2. Encounter for antiarrhythmic drug monitoring. He remains on flecainide at this time with acceptable EKG intervals. No changes on his EKG today that would prohibit the use of flecainide 3. Encounter for anticoagulation management. He remains anticoagulated on Eliquis 5 mg twice daily.He denies any issues with bleeding remains compliant with his anticoagulation Plan: No changes to his medications were made at this office visit Will check a CBC as he remains on anticoagulation. Will also check a BMP as he remains on flecainide. He can follow up in 1 year for office visit and 12 lead EKG Etelvina Loyola NP [facility] documented in this encounter Plan of Treatment Not on file documented as of this encounter Procedures Procedure Name Priority Date/Time Associated Diagnosis Comments ECG 12-LEAD Routine 12/28/2023 Cardiac arrhythmia, unspecified cardiac arrhythmia type documented in this encounter Results * ECG 12 lead (12/28/2023) Etelvina Loyola NP ECG ORDERABLES Final Resu lt documented in this encounter Visit Diagnoses Diagnosis Cardiac arrhythmia, unspecified cardiac arrhythmia type- Primary documented in this encounter Care Teams Detective Lieutenant Relationship Specialty Start Date End Date Nasra Jasso MD [address] [place] [address] PCP - General 10/16/16 documented as of this encounter
--- OUTSIDE RECORDS SUMMARY | 2024-07-04 15:20 | XMS_ITS | Clinical Summary ---
Author Organization [facility] Address [address] [facility] [address] Care Team Providers Care Associate Sales Representative Name Role Phone Nasra Jasso MD Primary Care Provider [phone] Allergies Active Allergy Reactions Criticality Noted Date Comments Penicillins Rash Medium Reaction: RASH, Medications pantoprazole DR (PROTONIX) 40 mg EC tablet 2 (two) times a day 08/14/2021 Active apixaban (ELIQUIS) 5 mg tabletIndications :atrial fibrillation Take 1 tablet (5 mg total) by mouth 2 (two) times a day 180 tablet 3 12/23/2022 Active metoprolol XL (TOPROL-XL) 50 mg extended release tablet TAKE 1 TABLET DAILY 90 tablet 3 07/20/2023 Active flecainide (TAMBOCOR) 50 mg tablet TAKE 1 TABLET TWICE A DAY 180 tablet 3 08/10/2023 Active Active Problems Problem Noted Date Diagnosed Date Paroxysmal atrial fibrillation ([facility]/HCC) 019 Overview (11/02/2018): Added automatically from request for surgery [id number] S/P ablation of atrial fibrillation 03/04/2018 snf current use of antiarrhythmic drug 05/2017 Assessment & Plan (12/22/2018 10:19 AM CDT): He remains on flecainide 50 mg twice daily. His EKG today does not demonstrate any changes that would prohibit the use of flecainide. Assessment & Plan (10/24/2017 10:42 AM CDT): 12-lead ECG today does not demonstrate any changes that would prohibit continued use of flecainide. We will continue the patient on the same dose and schedule. As long as the patient continues on this medication, an ECG should be performed at least every 6 months to monitor for toxicity. Our goal will be to discontinue this medication 1 month following ablation. Assessment & Plan (03/29/2017 4:03 PM CDT): 12-lead ECG today does not demonstrate any changes that would prohibit continued use of flecainide. We will continue the patient on the same dose and schedule. As long as the patient continues on this medication, an ECG should be performed at least every 6 months to monitor for toxicity. Anticoagulation management encounter 03/29/2017 Assessment & Plan (12/22/2018 10:19 AM CDT): He remains anticoagulated on Eliquis 5 mg twice daily. It is recommended he remain anticoagulated for thromboprophylaxis. Assessment & Plan (03/04/2018 7:48 AM CDT): The patient has a [id number] score of 0 (annualized risk of stroke approximately 0%). 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 I have conceded that he may discontinue apixaban at this time. The patient will follow-up with me in 2 months for an office visit and twelve- lead ECG. Assessment & Plan (10/24/2017 10:44 AM CDT): The patient has a [id number]-BIMs score of 2 (annualized risk of stroke 2%). I have therefore recommended that he remain anticoagulated for thromboprophylaxis. Assessment & Plan (03/29/2017 4:04 PM CDT): The patient has a INZ0VF4-GHSj score of 0 (annualized risk of stroke approximately 0%). The patient will continue on aspirin, and we will re-evaluate the need for anticoagulation in the future. The patient will follow-up with me in 6 months for an office visit and twelve- lead ECG, unless he decides to proceed to ablation. Atrial fibrillation ([facility]/HCC) 01/03/2015 Overview (10/23/2016): A Fib Assessment & Plan (12/22/2018 10:20 AM CDT): He is status post repeat ablation on 11/15/2018 which included catheter ablation of left septal atrial tachycardia. He is also having a workup from GI at this time regarding his abdominal pain that predated his ablation. Would recommend and have spoken with his [facility]cu nurse about holding off on upper endoscopy for another month post ablation. He is going to have a colonoscopy today. Assessment & Plan (08/01/2018 4:37 PM CLINICAL DATA RESEARCH): The patient is 6 months status post ablation for paroxysmal atrial fibrillation/tachycardia. He continues to do well, without recurrent sustained atrial arrhythmia. He is experiencing asymptomatic atrial ectopy. I have conceded that the patient may discontinue metoprolol at this time. We will continue close follow-up for arrhythmia and treat recurrent / new arrhythmia expectantly. The patient has a [id number]-CIDo score of 0 (annualized risk of stroke approximately 0%). The patient will continue on aspirin, and we will re-evaluate the need for anticoagulation in the future. The patient will follow-up with me in 6 months for an office visit and twelve- lead ECG. Assessment & Plan (03/04/2018 7:35 AM CDT): The patient is 1 month status post ablation for paroxysmal atrial fibrillation /atrial tachycardia. He is doing very well and has not experienced recurrent arrhythmia postprocedure. I recommended that he discontinue flecainide at this time. We will continue close follow-up for arrhythmia and treat recurrent / new arrhythmia expectantly. Assessment & Plan (10/24/2017 10:42 AM CDT): The patient has highly symptomatic paroxysmal atrial fibrillation. He has responded well to flecainide, but has experienced intermittent tachycardia. He would like to consider radiofrequency catheter ablation as we discussed in the past. Today, we discussed the rationale for atrial fibrillation ablation, including the steps involved in ablation. I detailed the risks of the procedure, including vascular injury/hematoma, myocardial injury/perforation, stroke, myocardial infarction, pulmonary vein stenosis, thermal esophageal injury, and . I estimated a 70-80% chance of freedom from long-term atrial arrhythmia, and the patient understands that occasionally a second procedure is necessary. Prior to ablation, I recommended that the patient undergo CT scanning with reconstruction of the left atrium, to assist with mapping and ablation. My office will make the appropriate arrangements. Assessment & Plan (03/29/2017 4:03 PM CDT): The patient has paroxysmal atrial fibrillation/tachycardia. He is doing well with flecainide, but he has experienced breakthrough arrhythmia in the past. Previously, we discussed ablation, and the patient is still considering this course of action. We again discussed the risks and benefits of the procedure at length. If the patient wishes to undergo ablation, he will contact my office to schedule. Otherwise, we will continue routine follow-up. Paroxysmal supraventricular tachycardia 01/24/20 14 Overview (10/23/2016): Paroxysmal supraventricular tachycardia Surgical History Surgery Date Site/Laterality Comments CARDIAC ELECTROPHYSIOLOGY MA PPING AND ABLATION 01/16/2018 - 02/15/2018 afib ablation Medical History Medical History Date Comments Infectious mononucleosis age 18 Mononuc leosis; Comments: BCN 03/21/2014 - Arrhythmia A-fib (CMS/HCC) (HCC) Supraventricular tachycardia ([facility]) Family History Medical History Relation Name Comments Heart attack Father Myocardial infa rction; /Myocardial infarction; Cause of : Myocardial infarction Hypertension Mother Hypertension; Sudden Other 2 Sudden ; C ause of : Sudden Other Paternal Grandfather Cardiac arrhythmias; Relation Name Status Comments Father Mother Other 1 Other 2 Paternal Grandfather Social History Tobacco Use Types Packs/Day Years Used Date Smoking Tobacco: Never Smokeless Tobacco: Never Tobacco Cessation:Counseling Given: Not Answered Alcohol Use Standard Drinks/Week Comments Yes 0 (1 standard drink = 0.6 oz pur e alcohol) weekends Sex and Gender Information Value Date Recorded Sex Assigned at Not on file Legal Sex Male 8:32 PM CLINICAL DATA RESEARCH Gender Identity Not on file Sexual Orientation Not on file Obstetrics History Last Filed Vital Signs Vital Sign Reading Time Taken Comments Blood Pressure 122/60 12/28/2023 2:23 PM CDT Pulse 54 12/28/2023 2:23 PM CDT Temperature 36.5 ??C (97.7 ??F) 11/16/2018 8:39 AM CD T Respiratory Rate 19 11/16/2018 8:39 AM CDT Oxygen Saturation 95% 11/16/2018 8:39 AM CDT Inhaled Oxygen Concentration - - Weight 90.3 kg (199 lb) 12/28/2023 2:23 PM CDT Height 180.3 cm (5' 11 ) 12/28/2023 2:23 PM CDT Body Mass Index 27.75 12/28/2023 2:23 PM CDT Plan of Treatment Health Maintenance Due Date Last Done Comments Colon Cancer Screening-Colonoscopy 1960 Depression Screening 1960 Hepatitis C Screening 1960 Prostate Cancer Screening-PSA 1960 Hepatitis B Screening 01/28/1978 Regular Well Visit/Exam 18-64 01/28/1978 Zoster Vaccine (1 of 2) 01/28/2010 DTaP/Tdap/Td Vaccine (1 - Tdap) 06/05/2020 06/04/2020 Influenza Vaccine (#1) 2024 06/04/2020 Covid-19 Vaccine Discontinued 07/23/2021, 09/10/2020 Pneumococcal vaccine <65 Aged Out No longer eligible based on patient's age to complete this topic Insurance [facility] CHOICE OOS BLUE ACC CHOICE OOS Advance Directives For more information, please contact: [phone] * Full Code (Latest Code Status on File) Date Activated Date Inactivated Comments 01/28/2018 6:18 PM 2018 1:46 PM Care Teams Associate Sales Representative Relationship Specialty Start Date End Date Nasra Jasso MD [address] [place] [address] PCP - General 10/16/16
--- OUTSIDE RECORDS SUMMARY | 2024-07-04 15:20 | XMS_ITS | Referral Summary ---
Author Organization [facility] Address [address] [place] [address] Care Team Providers Care Cost Estimating Engineer Name Role Phone Nasra Jasso MD Primary Care Provider [phone] Allergies Active Allergy Reactions Criticality Noted Date [...] Noted Date Diagnosed Date Paroxysmal atrial fibrillation ([facility]/HCC) 019 Overview (11/02/2018): Added automatically from request for surgery [id number] S/P ablation of atrial fibrillation 03/04/2018 residential current use of antiarrhythmic drug 05/2017 Assessment [...] 7:48 AM CDT): The patient has a [id number]-RGAx score of 0 (annualized risk of stroke [...] 10:44 AM CDT): The patient has a MBF5KP7-RWJr score of 2 (annualized risk of stroke 2%). I have therefore recommended that he remain anticoagulated for thromboprophylaxis. Assessment & Plan (03/29/2017 4:04 PM CDT): The patient has a [id number]-RAUb score of 0 (annualized risk of stroke approximately 0%). The patient will continue on aspirin, and we will re-evaluate the need for anticoagulation in the future. The patient will follow-up with me in 6 months for an office visit and twelve- lead ECG, unless he decides to proceed to ablation. Atrial fibrillation ([facility]/HCC) 01/03/2015 Overview (10/23/2016): A Fib Assessment & Plan (12/22/2018 10:20 AM CDT): He is status post repeat ablation on 11/15/2018 which included catheter ablation of left septal atrial tachycardia. He is also having a workup from GI at this time regarding his abdominal pain that predated his ablation. Would recommend and have spoken with his rocket engine mechanic about holding off on upper endoscopy for another month post ablation. He is going to have a colonoscopy today. Assessment & Plan (08/01/2018 4:37 PM SULKY DRIVER): The patient is 6 months status post ablation for paroxysmal atrial fibrillation/tachycardia. He continues to do well, without recurrent sustained atrial arrhythmia. He is experiencing asymptomatic atrial ectopy. I have conceded that the patient may discontinue metoprolol at this time. We will continue close follow-up for arrhythmia and treat recurrent / new arrhythmia expectantly. The patient has a [id number]-GEBf score of 0 (annualized risk of stroke [...] 01/24/20 14 Overview (10/23/2016): Paroxysmal supraventricular tachycardia Social History Tobacco Use Types Packs/Day Years Used Date Smoking Tobacco: Never Smokeless Tobacco: Never Tobacco Cessation:Counseling Given: Not Answered Alcohol Use Standard Drinks/Week Comments Yes 0 (1 standard drink = 0.6 oz pur e alcohol) weekends Sex and Gender Information Value Date Recorded Sex Assigned at Not on file Legal Sex Male 8:32 PM SULKY DRIVER Gender Identity Not on file Sexual Orientation [...] 12/28/2023 2:23 PM CDT Plan of Treatment Not on file Insurance Advance Directives For more information, please contact: [phone] * Full Code (Latest Code Status on File) Date Activated Date Inactivated Comments 01/28/2018 6:18 PM 2018 1:46 PM Care Teams Cost Estimating Engineer Relationship Specialty Start Date End Date Nasra Jasso MD [address] [place] [address] PCP - General 10/16/16
--- OUTSIDE RECORDS SUMMARY | 2024-07-04 15:20 | XMS_ITS | Encounter Summary ---
Author Organization [facility] Healthcare Address [address] [place] [address] Care Team Providers Care Supervisor Electronics Assembly Name Role Phone Nasra Jasso MD Primary Care Provider [phone] Encounter Details Date Type Department Care Team (Late st Contact Info) Description 12/29/2023 Telephone Arrhythmia Center [address] [facility] [address] [place] [phone] Etelvina Loyola, ORACLE FINANCIALS DEVELOPER [address] [facility] [address], [place] [id number] Social History Tobacco Use Types Packs/Day Years Used Date Smoking Tobacco: Never Smokeless Tobacco: Never Alcohol Use Standard Drinks/Week Comments Yes 0 (1 standard drink = 0.6 oz pur e alcohol) weekends Sex and Gender Information Value Date Recorded Sex Assigned at Not on file Legal Sex Male 8:32 PM PHOTOGRAPHIC DEVELOPER AND PRINTER Gender Identity Not on file Sexual Orientation Not on file documented as of this encounter Miscellaneous Notes * Telephone Encounter - Mara Peck MA - 12/29/2023 3:24 PM CDT Spoke with patient he is aware of need to get labs drawn in next couple weeks. Lab orders placed for [facility]. * Telephone Encounter - Mara Peck MA - 12/29/2023 3:24 PM CDT ----- Message from Etelvina Loyola NP sent at 12/29/2023 8:48 AM CDT ----- Regarding: Labs Please call patient and have him get a BMP and CBC in the next 2-3 weeks. I forgot to order them at his office visit. We just made to make sure he still has normal kidney function while on flecainide and that his hemoglobin hematocrit are normal as he remains on a blood thinner documented in this encounter Plan of Treatment Scheduled Orders Name Type Priority Associated Diagnoses Orde r Schedule Basic metabolic panel Lab Routine Paroxysmal atrial fibrillation (CMS/HCC) (HCC) Expected: 12/29/2023 (Approximate), Expires: 02/28/2024 CBC without differential Lab Routine Paroxysmal atrial fibrillation (CMS/HCC) (HCC) Expected: 12/29/2023 (Approximate), Expires: 02/28/2024 documented as of this encounter Visit Diagnoses Diagnosis Paroxysmal atrial fibrillation (CMS/HCC) (HCC)- Primary Atrial fibrillation documented in this encounter Care Teams Supervisor Electronics Assembly Relationship Specialty Start Date End Date Nasra Jasso MD [address] [place] [address] PCP - General 10/16/16 documented as of this encounter
--- OUTSIDE RECORDS SUMMARY | 2024-07-04 15:21 | XMS_ITS | Encounter Summary ---
Author Organization [facility] Medical Group Address [address] [facility] [address] [place] [address] Care Team Providers Care Account Services Representative Name Role Phone Nasra Jasso MD Primary Care Provider [phone] Reason for Referral * (Routine) - Closed Specialty Diagnoses / Procedures Referred By Contac t Referred To Contact Procedures Transthoracic Echo Complete W Doppler/CF [facility] [address] [place] [phone] Phone: tel: fax: Referral ID Status Reason Start Date Expiration Date Visits Re quested Visits Authorized [id number] Closed 12/23/2018 07/03/2020 1 1 Encounter Details Date Type Department Care Team (Late st Contact Info) Description 12/23/2018 Orders Only [facility] [address] [place] [phone] Barbara Currie MD [address] [place] [address] Social History Tobacco Use Types Packs/Day Years Used Date Smoking Tobacco: Never Smokeless Tobacco: Never Alcohol Use Standard Drinks/Week Comments Yes 0 (1 standard drink = 0.6 oz pur e alcohol) weekends Sex and Gender Information Value Date Recorded Sex Assigned at Not on file 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 Gender Identity Not on file Sexual Orientation Not on file documented as of this encounter Plan of Treatment Not on file documented as of this encounter Procedures Procedure Name Priority Date/Time Associated Diagnosis Comments TRANSTHORACIC ECHO (TTE) COM PLETE W DOPPLER/CF Routine 12/15/2018 documented in this encounter Results * Transthoracic Echo Complete W Doppler/CF (12/15/2018) Anatomical Region Laterality Modality Ultrasound us Historical Provider CV ECHO PROCEDURES Final Result documented in this encounter Visit Diagnoses Not on filedocumented in this encounter Care Teams Account Services Representative Relationship Specialty Start Date End Date Nasra Jasso MD [address] [place] [address] PCP - General 10/16/16 documented as of this encounter
--- OUTSIDE RECORDS SUMMARY | 2024-07-04 15:21 | XMS_ITS | Encounter Summary ---
Author Organization [facility] Medical Group Address [address] [facility] [address] [place] [address] Care Team Providers Care Payroll And Benefits Specialist Name Role Phone Nasra Jasso MD Primary Care Provider [phone] Encounter Details Date Type Department Care Team (Late st Contact Info) Description 01/24/2019 Telephone Arrhythmia Center [address] [facility] [address] [place] [address] Betito Luo MD [address] [facility] [place] [address] [place] [address] Social History Tobacco Use Types Packs/Day Years Used Date Smoking Tobacco: Never Smokeless Tobacco: Never Alcohol Use Standard Drinks/Week Comments Yes 0 (1 standard drink = 0.6 oz pur e alcohol) weekends Sex and Gender Information Value Date Recorded Sex Assigned at Not on file 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 Gender Identity Not on file Sexual Orientation Not on file documented as of this encounter Ordered Prescriptions Prescription Sig Dispense Quantity Refills Last Filled Start Date End Date flecainide (TAMBOCOR) 50 mg tablet Take 1 tablet (50 mg total) by mouth 2 (two) times a day 180 tablet 2 01/25/2019 10/04/2019 metoprolol XL (TOPROL-XL) 50 mg 24 hr tablet Take 1 tablet (50 mg total) by mouth daily 90 tablet 2 01/25/2019 10/23/2019 apixaban (ELIQUIS) 5 mg tabletIndications: atrial fibrillation Take 1 tablet (5 mg total) by mouth 2 (two) times a day 180 tablet 2 01/25/2019 05/05/2019 documented in this encounter Miscellaneous Notes * Addendum Note - Mana Batres MA - 01/25/2019 12:14 PM CDTAddended by: MANA BATRES on: 01/25/2019 12:14 PM Modules accepted: Orders * Telephone Encounter - Casandra Chadwick MA - 01/24/2019 10:02 AM CDT Pt needs refills on Metoprolol, Eliquis and Flecanide. He has enough pills to last him until Wednesday. He would prefer to have a 90 day supply from [facility]. Please call him to discuss regarding getting refills by Wednesday. documented in this encounter Plan of Treatment Not on file documented as of this encounter Visit Diagnoses Not on filedocumented in this encounter Discontinued Medications Medication Sig Discontinue Reason Start Date End Da te apixaban (ELIQUIS) 5 mg tabletIndications:atrial fibrillation Take 1 tablet (5 mg total) by mouth 2 (two) times a day Reorder 11/16/2018 01/25/2019 metoprolol XL (TOPROL-XL) 50 mg 24 hr tablet Take 1 tablet (50 mg total) by mouth daily Reorder 11/30/2018 01/25/2019 flecainide (TAMBOCOR) 50 mg tablet Take 50 mg by mouth 2 (two) times a day Reorder 10/27/2018 01/25/2019 documented as of this encounter Care Teams Payroll And Benefits Specialist Relationship Specialty Start Date End Date Nasra Jasso MD [address] [place] [address] PCP - General 10/16/16 documented as of this encounter
--- OUTSIDE RECORDS SUMMARY | 2024-07-04 15:21 | XMS_ITS | Encounter Summary ---
Author Organization [facility] Medical Group Address [address] [facility] [address] [place] [address] Care Team Providers Care Audit Analyst Name Role Phone Nasra Jasso MD Primary Care Provider [phone] Reason for Visit * Reason Comments Atrial Fibrillation Encounter Details Date Type Department Care Team (Late st Contact Info) Description 09/20/2019 2:00 PM CONTROLLED AREA CHECKER Office Visit Arrhythmia Center [address] [facility] [address] [place] [address] Etelvina Loyola, MIAH [address] [facility] [place] [address] [place] [address] Atrial fibrillation, unspecified type (CMS/HCC) (Primary Dx) Social History Tobacco Use Types Packs/Day Years Used Date Smoking Tobacco: Never Smokeless Tobacco: Never Alcohol Use Standard Drinks/Week Comments Yes 0 (1 standard drink = 0.6 oz pur e alcohol) weekends Sex and Gender Information Value Date Recorded Sex Assigned at Not on file Legal 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 male Chief Complaint Atrial fibrillation HPI Kulwant Hart presents in follow-up today after his recent ablation. He is a 59-year-old male who has a history of paroxysmal atrial fibrillation status post pulmonary vein isolation in January of 2018. Recently he had experienced multiple episodes of recurrent tachycardia [...] episode of atrial fibrillation and arrived at [facility] for further evaluation. At that time he was rate controlled and will back into sinus rhythm. He was discharged on his same dose of flecainide and anticoagulation as well. He was last seen in February of 2019. Since that time he states he has been feeling well. He denies any palpitations, shortness of breath, dizziness, or syncope. He remains active without difficulty.. EKG on my review today demonstrates sinus rhythm (79) with normal QRS duration and QT interval Past Medical History: Diagnosis Date ??? A-fib (CMS/HCC) ??? Arrhythmia ??? Infectious mononucleosis age 18 Mononucleosis; Comments: BCN 03/21/2014 - ??? Supraventricular tachycardia (CMS/HCC) Family History Problem Relation Age of Onset ??? Heart attack Father 53 Myocardial infarction; /Myocardial infarction; Cause of : Myocardial infarction ??? Other Paternal Grandfather Cardiac arrhythmias; ??? Hypertension Mother Hypertension; ??? Sudden Other Sudden ; Cause of : Sudden Social History Tobacco Use ??? Smoking status: Never Smoker ??? Smokeless tobacco: Never Used Substance Use Topics ??? Alcohol use: Yes Comment: weekend Current Outpatient Medications: ??? apixaban (ELIQUIS) 5 mg tablet, Take 1 tablet (5 mg total) by mouth 2 (two) times a day, Disp: 180 tablet, Rfl: 2 ??? flecainide (TAMBOCOR) 50 mg tablet, Take 1 tablet (50 mg total) by mouth 2 (two) times a day, Disp: 180 tablet, Rfl: 2 ??? metoprolol XL (TOPROL-XL) 50 mg 24 hr tablet, Take 1 tablet (50 mg total) by mouth daily, Disp:90 tablet, Rfl: 2 ??? omeprazole (PriLOSEC) 20 mg capsule, Take 20 mg by mouth daily , Disp: , Rfl: 1 Review of Systems Constitutional: Negative. HENT: Negative. [...] Diagnoses and all orders for this visit: Atrial fibrillation, unspecified type (CMS/HCC) (Primary) - ECG 12 lead Impression: 1. [...] remains compliant with his anticoagulation Plan: No recent episodes AF per his report Continue current medications including flecainide and anticoagulation Follow-up in 6 months for an office visit and 12 lead EKG ROLLED AREA CHECKER documented in this encounter Plan of Treatment Not on file documented as of this encounter Procedures Procedure Name Priority Date/Time Associated Diagnosis Comments ECG 12-LEAD Routine 09/20/2019 Atrial fibrillation, unspecified type (CMS/HCC) documented in this encounter Results * ECG 12 lead (09/20/2019) Etelvina Loyola NP ECG ORDERABLES Edited Res ult - Final documented in this encounter Visit Diagnoses Diagnosis Atrial fibrillation, unspecified type (HCC)- Primary documented in this encounter Discontinued Medications Medication Sig Discontinue Reason Start Date End Da te aspirin 81 mg enteric coated tablet Take 81 mg by mouth daily Therapy completed 09/20/2019 documented as of this encounter Care Teams Audit Analyst Relationship Specialty Start Date End Date Nasra Jasso MD [address] [place] [address] PCP - General 10/16/16 documented as of this encounter
--- OUTSIDE RECORDS SUMMARY | 2024-07-04 15:21 | XMS_ITS | Encounter Summary ---
Author Organization [facility] Medical Group Address [address] [facility] [address] [place] [address] Care Team Providers Care Installer Name Role Phone Nasra Jasso MD Primary Care Provider [phone] Reason for Visit * Reason Comments Atrial Fibrillation Encounter Details Date Type Department Care Team (Late st Contact Info) Description 11/13/2021 3:00 PM CDT Office Visit Arrhythmia Center [address] [facility] [address] [place] [address] Etelvina Loyola, MIAH [address] [facility] [place] [address], [place] [address] Paroxysmal atrial fibrillation (CMS/HCC) (HCC) Social History Tobacco Use Types Packs/Day Years Used Date Smoking Tobacco: Never Smokeless Tobacco: Never Alcohol Use Standard Drinks/Week Comments Yes 0 (1 standard drink = 0.6 oz pur e alcohol) weekends Sex and Gender Information Value Date Recorded Sex Assigned at Not on file 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 Gender Identity Not on file Sexual Orientation Not on file documented as of this encounter Last Filed Vital Signs Vital Sign Reading Time Taken Comments Blood Pressure 122/60 11/13/2021 3:00 PM CDT Pulse 54 11/13/2021 3:00 PM CDT Temperature - - Respiratory Rate - - Oxygen Saturation - - Inhaled Oxygen Concentration - - Weight 89 kg (196 lb 3.2 oz) 11/13/2021 3:00 PM CDT Height 167.6 cm (5' 6 ) 11/13/2021 3:00 PM CDT Body Mass Index 31.67 11/13/2021 3:00 PM CDT documented in this encounter Progress Notes * Etelvina Loyola, MUFFLE OPERATOR - 11/13/2021 3:00 PM CDT Patient ID: Kulwant Hart is a 61 y.o. male Chief Complaint Atrial fibrillation HPI Kulwant Hart presents in follow-up today after his recent ablation. He is a 61-year-old male who has a history of paroxysmal [...] episode of atrial fibrillation and arrived at [facility] for further evaluation. At that time he was rate controlled and will back into sinus rhythm. He was discharged on his same dose of flecainide and anticoagulation as well. Since he was last seen he has been doing well. He remains on flecainide. No recent episodes of AF. EKG on my review today demonstrates sinus rhythm (58) with normal QRS duration and QT interval He denies any recent hospitalizations or major medical events. He remains active without difficulty. Past Medical History: Diagnosis Date ??? A-fib (CMS/HCC) ??? Arrhythmia ??? Infectious mononucleosis age 18 Mononucleosis; Comments: N 03/21/2014 - ??? Supraventricular tachycardia (CMS/HCC) Family [...] Use Topics ??? Alcohol use: Yes Comment: weekends Current Outpatient Medications: ??? apixaban (ELIQUIS) 5 mg tablet, Take 1 tablet (5 mg total) by mouth 2 (two) times a day, Disp: 180 tablet, Rfl: 2 ??? flecainide (TAMBOCOR) 50 mg tablet, TAKE 1 TABLET TWICE A DAY, Disp: 180 tablet, Rfl: 3 ??? metoprolol XL (TOPROL-XL) 50 mg extended release tablet, TAKE 1 TABLET DAILY, Disp: 90 tablet,Rfl: 3 ??? omeprazole (PriLOSEC) 20 mg capsule, Take [...] and affect. Musculoskeletal: No joint inflammation Assessment/Plan There are no diagnoses linked to this encounter. Impression: 1. Paroxysmal atrial fibrillation status post catheter ablation of PAF, linear left focal atrial ablation, and catheter ablation of left septal atrial tachycardia as well as ablation of cavotricuspidisthmus dependent flutter on 11/15/2018. Previously he underwent pulmonary vein isolation in January 2018. Doing well with no recent episodes. Remains on flecainide 2. Encounter for antiarrhythmic drug monitoring. He [...] medications were made at this office visit He can follow up in 1 year for an office visit and 12 lead EKG documented in this encounter Plan of Treatment Not on file documented as of this encounter Visit Diagnoses Diagnosis Paroxysmal atrial fibrillation (CMS/HCC) (HCC) Atrial fibrillation documented in this encounter Discontinued Medications Medication Sig Discontinue Reason Start Date End Da te omeprazole (PriLOSEC) 20 mg capsule Take 20 mg by mouth daily Therapy completed 10/27/2018 11/13/2021 documented as of this encounter Historical Medications * This list may reflect changes made after this encounter. pantoprazole DR (PROTONIX) 40 mg EC tablet 2 (two) times a day 08/14/2021 added in this encounter Care Teams Installer Relationship Specialty Start Date End Date Nasra Jasso MD [address] [place] [address] PCP - General 10/16/16 documented as of this encounter
--- OUTSIDE RECORDS SUMMARY | 2024-07-04 15:21 | XMS_ITS | Encounter Summary ---
Author Organization [facility] Medical Group Address [address] [facility] [address] [place] [address] Care Team Providers Care Improvement Auditor Name Role Phone Nasra Jasso MD Primary Care Provider [phone] Encounter Details Date Type Department Care Team (Late st Contact Info) Description 08/25/2019 Telephone Arrhythmia Center [address] [facility] [address] [place] [address] Etelvina Loyola, RN [facility] [address] [facility] [place] [address] [place], [place] [id number] Social History Tobacco Use Types Packs/Day Years Used Date Smoking Tobacco: Never Smokeless Tobacco: Never Alcohol Use Standard Drinks/Week Comments Yes 0 (1 standard drink = 0.6 oz pur e alcohol) weekends Sex and Gender Information Value Date Recorded Sex Assigned at Not on file 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 He will call to confirm this because he was driving. STAPLER documented in this encounter Plan of Treatment Not on file documented as of this encounter Visit Diagnoses Not on filedocumented in this encounter Care Teams Improvement Auditor Relationship Specialty Start Date End Date Nasra Jasso MD [address] [place] [address] PCP - General 10/16/16 documented as of this encounter
--- OUTSIDE RECORDS SUMMARY | 2024-07-04 15:21 | XMS_ITS | Encounter Summary ---
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
--- OUTSIDE RECORDS SUMMARY | 2024-07-04 15:21 | XMS_ITS | Encounter Summary ---
Author Organization [facility] Medical Group Address [address] [facility] [address] [place] [address] Care Team Providers Care Director Of Teaching And Learning Name Role Phone Nasra Jasso MD Primary Care Provider [phone] Reason for Visit * Reason Comments Atrial Fibrillation Encounter Details Date Type Department Care Team (Late st Contact Info) Description 09/18/2020 2:00 PM TRANSFER TABLE OPERATOR HELPER Office Visit Arrhythmia Center [address] [facility] [address] [place] [address] Etelvina Loyola, MIAH [address] [facility] [place] [place] [address] Atrial fibrillation, unspecified type (CMS/HCC) (Primary Dx) Social History Tobacco Use Types Packs/Day Years Used Date Smoking Tobacco: Never Smokeless Tobacco: Never Alcohol Use Standard Drinks/Week Comments Yes 0 (1 standard drink = 0.6 oz pur e alcohol) weekends Sex and Gender Information Value Date Recorded Sex Assigned at Not on file Legal Sex Male 8:32 PM TRANSFER TABLE OPERATOR HELPER Gender Identity Not on file Sexual Orientation Not on file documented as of this encounter Last Filed Vital Signs Vital Sign Reading Time Taken Comments Blood Pressure 110/70 09/18/2020 2:07 PM TRANSFER TABLE OPERATOR HELPER Pulse 58 09/18/2020 2:07 PM TRANSFER TABLE OPERATOR HELPER Temperature - - Respiratory Rate - - Oxygen Saturation - - Inhaled Oxygen Concentration - - Weight 85.3 kg (188 lb) 09/18/2020 2:07 PM TRANSFER TABLE OPERATOR HELPER Height 167.6 cm (5' 6 ) 09/18/2020 2:07 PM TRANSFER TABLE OPERATOR HELPER Body Mass Index 30.34 09/18/2020 2:07 PM TRANSFER TABLE OPERATOR HELPER documented in this encounter Progress Notes * Etelvina Loyola, HOUSE WRECKER - 09/18/2020 2:00 PM CST Patient ID: Kulwant Hart is a 60 y.o. male Chief Complaint Atrial fibrillation HPI Kulwant Hart presents in follow-up today after his recent ablation. He is a 60-year-old male who has a history of paroxysmal [...] episode of atrial fibrillation and arrived at [facility] for further evaluation. At that time he was rate controlled and will back into sinus rhythm. He was discharged on his same dose of flecainide and anticoagulation as well. He was last seen 6 months ago. Since that time he had been feeling month. At last office visit I discussed discontinuation of flecainide. At that time he preferred to stay on. EKG on my review today demonstrates sinus rhythm (58) with normal QRS duration and QT interval He denies any recent hospitalizations or major medical events. No orthopnea, PND, dizziness, or syncope. He remains active without difficulty. Past Medical [...] TAKE 1 TABLET DAILY, Disp: 90 tablet, Rfl: 3 ??? omeprazole (PriLOSEC) 20 mg capsule, [...] bleeding remains compliant with his anticoagulation Plan: Continue current medications and management plan Follow-up in 6 months for an office visit and 12 lead EKG SFER TABLE OPERATOR HELPER documented in this encounter Plan of Treatment Not on file documented as of this encounter Procedures Procedure Name Priority Date/Time Associated Diagnosis Comments ECG 12-LEAD Routine 09/18/2020 Atrial fibrillation, unspecified type (CMS/HCC) documented in this encounter Results * ECG 12 lead (09/18/2020) Etelvina Loyola NP ECG ORDERABLES Final Resu lt documented in this encounter Visit Diagnoses Diagnosis Atrial fibrillation, unspecified type (HCC)- Primary documented in this encounter Care Teams Director Of Teaching And Learning Relationship Specialty Start Date End Date Nasra Jasso MD [address] [place] [address] PCP - General 10/16/16 documented as of this encounter
--- OUTSIDE RECORDS SUMMARY | 2024-07-04 15:21 | XMS_ITS | Encounter Summary ---
Author Organization [facility] Address [address] [place] [address] Care Team Providers Care Weights And Measures Sealer Name Role Phone Nasra Jasso MD Primary Care Provider [phone] Reason for Visit * Reason Comments Atrial Fibrillation Encounter Details Date Type Department Care Team (Late st Contact Info) Description 12/23/2022 2:00 PM CDT Office Visit Arrhythmia Center [address] [facility] [facility] [address] [place] [id number] Etelvina Loyola, MIAH [address] [facility] [address], [place] [address] Paroxysmal atrial fibrillation (CMS/HCC) (HCC) (Primary Dx) Social History Tobacco Use Types Packs/Day Years Used Date Smoking Tobacco: Never Smokeless Tobacco: Never Alcohol Use Standard Drinks/Week Comments Yes 0 (1 standard drink = 0.6 oz pur e alcohol) weekends Sex and Gender Information Value Date Recorded Sex Assigned at Not on file 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 Gender Identity Not on file Sexual Orientation Not on file documented as of this encounter Last Filed Vital Signs Vital Sign Reading Time Taken Comments Blood Pressure 102/62 12/23/2022 1:52 PM CDT Pulse 53 12/23/2022 1:52 PM CDT Temperature - - Respiratory Rate - - Oxygen Saturation - - Inhaled Oxygen Concentration - - Weight 91.2 kg (201 lb) 12/23/2022 1:52 PM CDT Height 167.6 cm (5' 6 ) 12/23/2022 1:52 PM CDT Body Mass Index 32.44 12/23/2022 1:52 PM CDT documented in this encounter Ordered Prescriptions Prescription Sig Dispense Quantity Refills Last Filled Start Date End Date apixaban (ELIQUIS) 5 mg tabletIndications:a trial fibrillation Take 1 tablet (5 mg total) by mouth 2 (two) times a day 180 tablet 3 12/23/2022 documented in this encounter Progress Notes * Etelvina Loyola, MIAH - 12/23/2022 2:00 PM CDT Images from the original note were not included. Patient ID: Kulwant Hart is a 62 y.o. male Chief Complaint Atrial fibrillation History of ablation HPI Kulwant Hart presents in follow-up today after his recent ablation. He is a 62-year-old male who has a history of paroxysmal [...] episode of atrial fibrillation and arrived at [facility] for further evaluation. At that time he was rate controlled and will back into sinus rhythm. He was discharged on his same dose of flecainide and anticoagulation as well. Since he was last seen he has been doing well. He remains on flecainide. No recent episodes of AF. Remains active without difficulty. No shortness of breath, dizziness, or syncope. No orthopnea or PND EKG on my review today demonstrates sinus rhythm (54) with normal QRS duration and QT interval Past Medical History: Diagnosis Date A-fib (CMS/HCC) (HCC) Arrhythmia Infectious mononucleosis age 18 Mononucleosis; Comments: [facility] 03/21/2014 - Supraventricular tachycardia (CMS/HCC) (HCC) Family History Problem Relation Age of Onset Heart attack Father 53 Myocardial infarction; /Myocardial infarction; Cause of : Myocardial infarction Other Paternal Grandfather Cardiac arrhythmias; Hypertension Mother Hypertension; Sudden Other Sudden ; Cause of : Sudden Social History Tobacco Use Smoking status: Never Smoker Smokeless tobacco: Never Used Substance Use Topics Alcohol use: Yes Comment: weekends Current Outpatient Medications: flecainide (TAMBOCOR) 50 mg tablet, TAKE 1 TABLET TWICE A DAY, Disp: 180 tablet, Rfl: 3 metoprolol XL (TOPROL-XL) 50 mg extended release tablet, TAKE 1 TABLET DAILY, Disp: 90 tablet, Rfl:[address] (PROTONIX) 40 mg EC tablet, 2 (two) times a day, Disp: , Rfl: apixaban (ELIQUIS) 5 mg tablet, Take 1 tablet (5 mg total) by mouth 2 (two) times a day, Disp: 180 tablet, Rfl: 3 Review of Systems Constitutional: Negative. HENT: Negative. [...] Diagnoses and all orders for this visit: Paroxysmal atrial fibrillation (CMS/HCC) ([facility]) (Primary) - ECG 12 lead Other orders - apixaban (ELIQUIS) 5 mg tablet; Take 1 tablet (5 mg total) by mouth 2 (two) times a day Impression: 1. Paroxysmal atrial fibrillation status post catheter ablation of PAF, linear left focal atrial ablation, and catheter ablation of left septal atrial tachycardia as well as ablation of cavotricuspidisthmus dependent flutter on 11/15/2018. Previously he underwent pulmonary vein isolation in January 2018. Doing well with no recent episodes. Remains on flecainide. [place] remains low 2. Encounter for antiarrhythmic drug monitoring. He [...] an office visit and 12 lead EKG Continue current management plan Etelvina Loyola NP [facility] Arrhythmia Center documented in this encounter Plan of Treatment Not on file documented as of this encounter Procedures Procedure Name Priority Date/Time Associated Diagnosis Comments ECG 12-LEAD Routine 12/28/2022 Paroxysmal atrial fibrillation (CMS/HCC) (HCC) documented in this encounter Results * ECG 12 lead (12/28/2022) Etelvina Loyola NP ECG ORDERABLES Final Resu lt documented in this encounter Visit Diagnoses Diagnosis Paroxysmal atrial fibrillation (CMS/HCC) (HCC)- Primary Atrial fibrillation documented in this encounter Discontinued Medications Medication Sig Discontinue Reason Start Date End Da te apixaban (ELIQUIS) 5 mg tabletIndications:atrial fibrillation Take 1 tablet (5 mg total) by mouth 2 (two) times a day Reorder 05/08/2019 12/23/2022 documented as of this encounter Care Teams Weights And Measures Sealer Relationship Specialty Start Date End Date Nasra Jasso MD [address] [place] [address] PCP - General 10/16/16 documented as of this encounter
--- OUTSIDE RECORDS SUMMARY | 2024-07-04 15:21 | XMS_ITS | Encounter Summary ---
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
--- OUTSIDE RECORDS SUMMARY | 2024-07-04 15:21 | XMS_ITS | Encounter Summary ---
Author Organization [facility] Address [address] [place] [address] Care Team Providers Care Dock Hand Name Role Phone Nasra Jasso MD Primary Care Provider [phone] Reason for Visit * Reason Comments Atrial Fibrillation Encounter Details Date Type Department Care Team (Late st Contact Info) Description 03/01/2019 2:30 PM CDT Office Visit Arrhythmia Center [address] [place] [address] Etelvina Loyola, MIAH [address] [facility] [address] [place] [address] Atrial fibrillation, unspecified type (CMS/HCC) (Primary Dx) Social History Tobacco Use Types Packs/Day Years Used Date Smoking Tobacco: Never Smokeless Tobacco: Never Alcohol Use Standard Drinks/Week Comments Yes 0 (1 standard drink = 0.6 oz pur e alcohol) weekends Sex and Gender Information Value Date Recorded Sex Assigned at Not on file Legal Sex Male 8:[address] Gender Identity Not on file Sexual Orientation Not on file documented as of this encounter Last Filed Vital Signs Vital Sign Reading Time Taken Comments Blood Pressure 110/78 03/01/2019 2:43 PM CDT Pulse - - Temperature - - Respiratory Rate - - Oxygen Saturation - - Inhaled Oxygen Concentration - - Weight 85.3 kg (188 lb) 03/01/2019 2:43 PM CDT Height 167.6 cm (5' 6 ) 03/01/2019 2:43 PM CDT Body Mass Index 30.34 03/01/2019 2:43 PM CDT documented in this encounter Progress Notes * Etelvina Loyola, BRAZE OPERATOR - 03/01/2019 2:30 PM CDT Patient ID: Kulwant Hart is a 59 y.o. male Chief Complaint Atrial fibrillation HPI Kulwant Hart presents in follow-up today after his recent ablation. He is a 58-year-old male who has a history of paroxysmal [...] episode of atrial fibrillation and arrived at [facility] for further evaluation. At that time he was rate controlled and will back into sinus rhythm. He was discharged on his same dose of flecainide and anticoagulation as well. He was last seen in December of 2018. Since that time he states he has been feeling well. He denies anyrecent episodes of atrial fibrillation. EKG on my review today demonstrates sinus rhythm (82) with normal QRS duration and QT interval Past Medical History: Diagnosis Date ??? A-fib (CMS/HCC) ??? Arrhythmia ??? Infectious mononucleosis age 18 Mononucleosis; Comments: [facility] 03/21/2014 - ??? Supraventricular tachycardia (CMS/HCC) Family [...] by mouth 2 (two) times a day, Disp:180 tablet, Rfl: 2 ??? aspirin 81 mg enteric coated tablet, Take 81 mg by mouth daily, Disp: , Rfl: ??? flecainide (TAMBOCOR) 50 mg tablet, Take [...] at this time with acceptable EKG intervals. 3. Encounter for anticoagulation management. He remains anticoagulated on Eliquis 5 mg twice daily.He denies any issues with bleeding remains compliant with his anticoagulation Plan: Continue current medications Follow-up in 6 months for an office visit and 12 lead EKG documented in this encounter Plan of Treatment Not on file documented as of this encounter Procedures Procedure Name Priority Date/Time Associated Diagnosis Comments ECG 12-LEAD Routine 03/01/2019 Atrial fibrillation, unspecified type (CMS/HCC) documented in this encounter Results * ECG 12 lead (03/01/2019) Etelvina Loyola BRAZE OPERATOR ECG ORDERABLES Edited Res ult - Final documented in this encounter Visit Diagnoses Diagnosis Atrial fibrillation, unspecified type (HCC)- Primary documented in this encounter Care Teams Dock Hand Relationship Specialty Start Date End Date Nasra Jasso MD [address] [place] [address] PCP - General 10/16/16 documented as of this encounter
--- OUTSIDE RECORDS SUMMARY | 2024-07-04 15:21 | XMS_ITS | Encounter Summary ---
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
--- OUTSIDE RECORDS SUMMARY | 2024-07-04 15:21 | XMS_ITS | Encounter Summary ---
Author Organization [facility] Address [address] [place] [address] Care Team Providers Care Welt Wheeler Name Role Phone Nasra Jasso MD Primary Care Provider [phone] Reason for Visit * Reason Comments Atrial Fibrillation Encounter Details Date Type Department Care Team (Latest Contact Info) Description 12/22/2018 9:30 AM CDT Office Visit Arrhythmia Center [address] [place] [address] Etelvina Loyola, MIAH [address] [facility] [address] [place] [address] S/P ablation of atrial fibrillation (Primary Dx); Atrial fibrillation, unspecified type (CMS/HCC); jail current use of antiarrhythmic drug; Anticoagulation management encounter Social History Tobacco Use Types Packs/Day Years Used Date Smoking Tobacco: Never Smokeless Tobacco: Never Alcohol Use Standard Drinks/Week Comments Yes 0 (1 standard drink = 0.6 oz pur e alcohol) weekends Sex and Gender Information Value Date Recorded Sex Assigned at Not on file 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 male. Kulwant Hart presents in follow-up today after [...] episode of atrial fibrillation and arrived at [facility] for further evaluation. At that time he was rate controlled and will back into sinus rhythm. He was discharged on his same dose of flecainide and anticoagulation as well. He also had complained of some abdominal pain that predated his ablation. He was followed by GI during that hospitalization. I received a call last week from him stating he was going to undergo an upper and lower endoscopy today actually. I recommended the patient hold off on upper endoscopy because of his recent ablation for another month. Currently he remains in sinus rhythm. EKG on my review today demonstrates sinus rhythm (58) with normal QRS duration and QT interval. Review of Systems Constitutional: Negative. HENT: Negative. Eyes: Negative. Respiratory: Negative. Cardiovascular: Negative. Gastrointestinal: Positive for abdominal pain. Endocrine: Negative. Genitourinary: Negative. Musculoskeletal: Negative. Skin: Negative. Allergic/Immunologic: Negative. Neurological: Negative. Hematological: Negative. Psychiatric/Behavioral: Negative. Physical Exam Constitutional: He is oriented to person, place, and time. He appears well- developed and well-nourished. HENT: Head: Normocephalic and atraumatic. Eyes: Conjunctivae and EOM are normal. Neck: Normal range of motion. Neck supple. Cardiovascular: Normal rate, regular rhythm, normal heart sounds and intact distal pulses. Pulmonary/Chest: Effort normal and breath sounds normal. Abdominal: Soft. Bowel sounds are normal. Musculoskeletal: Normal range of motion. Neurological: He is alert and oriented to person, place, and time. Skin: Skin is warm and dry. Psychiatric: He has a normal mood and affect. His behavior is normal. Judgment and thought content normal. Vitals reviewed. documented in this encounter Miscellaneous Notes * Assessment & Plan Note - Etelvina Loyola NP - 12/22/2018 10:19 AM CDT Associated Problem(s): Atrial fibrillation (CMS/HCC) (HCC) He is status post repeat ablation on 11/15/2018 which included catheter ablation of left septal atrial tachycardia. He is also having a workup from GI at this time regarding his abdominal pain that predated his ablation. Would recommend and have spoken with his jewelry estimator about holding off on upper endoscopy for another month post ablation. He is going to have a colonoscopy today. * Assessment & Plan Note - Etelvina Loyola NP - 12/22/2018 10:19 AM CDT Associated Problem(s): Anticoagulation management encounter He remains anticoagulated on Eliquis 5 mg twice daily. It is recommended he remain anticoagulated for thromboprophylaxis. * Assessment & Plan Note - Etelvina Loyola NP - 12/22/2018 10:19 AM CDT Associated Problem(s): jail current use of antiarrhythmic drug He remains on flecainide 50 mg twice daily. His EKG today does not demonstrate any changes that would prohibit the use of flecainide. documented in this encounter Plan of Treatment Not on file documented as of this encounter Visit Diagnoses Diagnosis S/P ablation of atrial fibrillation- Primary Other postprocedural status Atrial fibrillation, unspecified type (HCC) jail current use of antiarrhythmic drug Anticoagulation management encounter Encounter for therapeutic drug monitoring documented in this encounter Care Teams Welt Wheeler Relationship Specialty Start Date End Date Nasra Jasso MD [address] [place] [address] PCP - General 10/16/16 documented as of this encounter
--- OUTSIDE RECORDS SUMMARY | 2024-07-04 15:21 | XMS_ITS | Encounter Summary ---
Author Organization [facility] Address [address] [place] [address] Care Team Providers Care Kaiawhina Name Role Phone Nasra Jasso MD Primary Care Provider [phone] Reason for Visit * Reason Onset Date Comments Eliquis samples 06/07/2019 Encounter Details Date Type Department Care Team (Late st Contact Info) Description 06/07/2019 Telephone Arrhythmia Center [address] [place] [address] Betito Luo MD [address] [facility] [address] [place] [address] Eliquis samples Social History Tobacco Use Types Packs/Day Years Used Date Smoking Tobacco: Never Smokeless Tobacco: Never Alcohol Use Standard Drinks/Week Comments Yes 0 (1 standard drink = 0.6 oz pur e alcohol) weekends Sex and Gender Information Value Date Recorded Sex Assigned at Not on file 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 Told him I have samples for him but he wants to see if his pcp has samples. It is [place] to home. SHEET CLEANER * Telephone Encounter - Malathi Shields - 06/07/2019 3:34 PM CST Pt in need of Eliquis samples if available until Rx is received Mon per [facility]. SHEET CLEANER documented in this encounter Plan of Treatment Not on file documented as of this encounter Visit Diagnoses Not on filedocumented in this encounter Care Teams Kaiawhina Relationship Specialty Start Date End Date Nasra Jasso MD [address] [place] [address] PCP - General 10/16/16 documented as of this encounter
--- OUTSIDE RECORDS SUMMARY | 2024-07-04 15:21 | XMS_ITS | Encounter Summary ---
Author Organization [facility] Address [address] [place] [address] Care Team Providers Care Bladder Changer Name Role Phone Nasra Jasso MD Primary Care Provider [phone] Reason for Visit * Reason Onset Date Comments hold AC 09/03/2022 Encounter Details Date Type Department Care Team (Late st Contact Info) Description 09/03/2022 Telephone Arrhythmia Center [address] [place] [phone] Betito Luo MD [address] [facility] [address], [place] [address] hold AC Social History Tobacco Use Types Packs/Day Years Used Date Smoking Tobacco: Never Smokeless Tobacco: Never Alcohol Use Standard Drinks/Week Comments Yes 0 (1 standard drink = 0.6 oz pur e alcohol) weekends Sex and Gender Information Value Date Recorded Sex Assigned at Not on file 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 PUNCHER * Telephone Encounter - Etelvina Loyola NP - 09/04/2022 10:00 AM HOOP PUNCHER Yes, hold for 2 days PUNCHER * Telephone Encounter - JaylancarlosMalathi - 09/03/2022 2:12 PM CST Pt to have tooth extraction, needs ok to hold Eliquis prior and how long? PUNCHER documented in this encounter Plan of Treatment Not on file documented as of this encounter Visit Diagnoses Not on filedocumented in this encounter Care Teams Bladder Changer Relationship Specialty Start Date End Date Nasra Jasso MD [address] [place] [address] PCP - General 10/16/16 documented as of this encounter
--- OUTSIDE RECORDS SUMMARY | 2024-07-04 15:22 | XMS_ITS | Encounter Summary ---
Author Organization [facility] Facility Care Team Providers Care Resourcing Consultant Name Role Phone Nasra Jasso MD Primary Care Provider [phone] Encounter Details Date Type Department Care Team (Latest Contact Info) Description 05/23/2014 6:26 AM CARBIDE TOOL DIE MAKER - 05/23/2014 6:00 PM CARBIDE TOOL DIE MAKER Hospital Encounter [facility] Valerio, Betito Morillo MD [address] [address] Paroxysmal supraventricular tachycardia (HCC); Atrial fibrillation (CMS/HCC) (HCC); Personal history of allergy to penicillin Social History Tobacco Use Types Packs/Day Years Used Date Smoking Tobacco: Never Assessed Sex and Gender Information Value Date Recorded Sex Assigned at Not on file Legal Sex Male 8:32 PM CARBIDE TOOL DIE MAKER Gender Identity Not on file Sexual Orientation Not on file documented as of this encounter Last Filed Vital Signs Vital Sign Reading Time Taken Comments Blood Pressure - - Pulse - - Temperature - - Respiratory Rate - - Oxygen Saturation - - Inhaled Oxygen Concentration - - Weight 87.9 kg (193 lb 12.8 oz) 05/23/2014 7:14 AM CARBIDE TOOL DIE MAKER Height 180.3 cm (5' 10.98 ) 05/23/2014 7:14 AM Silvestre WATT Body Mass Index 27.04 05/23/2014 7:14 AM CARBIDE TOOL DIE MAKER documented in this encounter Medications at Time of Discharge flecainide (TAMBOCOR) 150 mg tablet take 1 tablet by oral route every 12 hours 180 3 05/23/2014 09/26/2017 documented as of this encounter Plan of Treatment Not on file documented as of this encounter Procedures Procedure Name Priority Date/Time Associated Diagnosis Comments PLASMA BASIC METABOLIC PANEL Routine 05/23/2014 7:10 AM CARBIDE TOOL DIE MAKER BLOOD CELL COUNT (CBC), MORPHOLOGIC EXAM Routine 05/23/2014 7:09 AM CARBIDE TOOL DIE MAKER PLASMA PROTHROMBIN TIME (PT) Routine 05/23/2014 7:08 AM CARBIDE TOOL DIE MAKER PLASMA PARTIAL THROMBOPLASTIN TIME (PTT) Routine 05/23/2014 7:08 AM CARBIDE TOOL DIE MAKER ELECTROCARDIOGRAPHY (ECG) 05/23/2014 DISCHARGE LABORATORY CUMULATIVE REPORT 05/23/2014 documented in this encounter Results * (ABNORMAL) Plasma basic metabolic panel (05/23/2014 7:10 AM CARBIDE TOOL DIE MAKER) Sodium 137 136 - 146 mmol/L HISTORICAL RESULTS K, pl 4.5 3.3 - 4.9 mmol/L HISTORICAL RESULTS Chloride 105 98 - 108 mmol/L HISTORICAL RESULTS CO2 25 22 - 33 mmol/L HISTORICAL RESULTS BUN 19(H) 7 - 18 mg/dl HISTORICAL RESULTS Glucose 101 70 - 140 mg/dl HISTORICAL RESULTS Comment: Glucose is assumed to be non-fasting. ?? Fasting Glucose normal ranges are: 0 days - 2 months: ? 40 mg/dL - 100 mg/dL 2 months - 999 years: ?70 mg/dL - 99 mg/dL Creatinine 0.99 0.50 - 1.50 mg/dl HISTORICAL RESULTS eGFR >60 ml/min/1.7 3 m2 HISTORICAL RESULTS Comment: GFR Reference Range: = > 60 mL/min/1.73 m2 This result has been calculated assuming the patient is Non-. ??If the patient is , please multiply this result by 1.21. The GFR value is not recommended for medication dose adjustment for renal function, creatinine clearance values should be used. Calcium 9.6 8.5 - 10.5 mg/dl HISTORICAL RESULTS Plasma 05/23/2014 7:10 AM CARBIDE TOOL DIE MAKER Betito Luo MD LAB BLOOD ORDERABLES Fi nal Result HISTORICAL RESULTS * (ABNORMAL) Blood cell count (CBC), morphologic exam (05/23/2014 7:09 AM CARBIDE TOOL DIE MAKER) WBC 7.8 4.5 - 11.0 K/cumm HISTORICAL RESULTS RBC 4.84 4.50 - 6.20 M/cumm HISTORICAL RESULTS Hgb 15.2 13.0 - 17.0 g/dl HISTORICAL RESULTS Hct 44.8 39.0 - 52.0 % HISTORICAL RESULTS MCV 92.6 80.0 - 100.0 fl HISTORICAL RESULTS MCH 31.3 27.0 - 33.0 pg HISTORICAL RESULTS MCHC 33.8 32.0 - 36.0 g/dl HISTORICAL RESULTS Rdw 12.6 11.5 - 14.5 % HISTORICAL RESULTS Platelets 222 140 - 400 K/cumm HISTORICAL RESULTS MPV 8.1 7.4 - 10.4 fl HISTORICAL RESULTS Neutrophils 65.1 42.0 - 75.0 % HISTORICAL RESULTS Lymphocytes 20.1(L) 21.0 - 51.0 % HISTORICAL RESULTS Monos 11.1(H) 2.0 - 9.0 % HISTORICAL RESULTS Eosinophils 2.1 0.0 - 10.0 % HISTORICAL RESULTS Basophils 1.6(H) 0.0 - 1.0 % HISTORICAL RESULTS Neutrophils, abs 5.1 1.8 - 7.7 K/cumm HISTORICAL RESULTS Lymphocytes, abs 1.6 1.0 - 4.8 K/cumm HISTORICAL RESULTS Monocytes, absolute 0.9(H) 0.0 - 0.8 K/cumm HISTORICAL RESULTS Eosinophils, abs 0.2 0.0 - 0.5 K/cumm HISTORICAL RESULTS Basophils, abs 0.1 0.0 - 0.2 K/cumm HISTORICAL RESULTS Blood specimen (specimen) 05/23/2014 7:09 AM CARBIDE TOOL DIE MAKER Betito Luo MD LAB BLOOD ORDERABLES Fi nal Result HISTORICAL RESULTS * Plasma prothrombin time (PT) (05/23/2014 7:08 AM CARBIDE TOOL DIE MAKER) Pathologist [facility] Prothrombin time (PT) 13.2 11.7 - 14.8 seconds HISTORICAL RESULTS INR 1.0 0.9 - 1.2 HISTORICAL RESULTS Comment: INDICATION: ORTHOPEDIC Total Hip and Knee Arthroplasty ?1.8 to 2.6 Hip Fracture ?1.8 to 2.6 CARDIOLOGY Atrial Fibrillation ? 2.0 to 3.0 Cardiomyopathy ?2.0 to 3.0 Myocardial Infarction ?2.0 to 3.0 Bioprosthetic Heart Valve ? 2.0 to 3.0 Mechanical Valve Replacement ?2.[address] Eren Mechanical Aortic Valve ?2.0 to 3.0 TREATMENT OF VENOUS THRMBOSIS Deep Vein Thrombosis ? 2.0 to 3.0 Pulmonary Embolism ? 2.0 to 3.0 Plasma 05/23/2014 7:08 AM CARBIDE TOOL DIE MAKER us Betito Luo MD LAB BLOOD ORDERABLES Fi nal Result HISTORICAL RESULTS * Plasma partial thromboplastin time (PTT) (05/23/2014 7:08 AM CARBIDE TOOL DIE MAKER) Pathologist [facility] APTT 30.5 24.0 - 36.1 seconds HISTORICAL RESULTS Comment: ? Therapeutic Heparin Range: ??60-100 seconds Plasma 05/23/2014 7:08 AM CARBIDE TOOL DIE MAKER us Betito Luo MD LAB BLOOD ORDERABLES Fi nal Result HISTORICAL RESULTS * DISCHARGE LABORATORY CUMULATIVE REPORT (05/23/2014) Narrative 05/23/2014 Ordered by an unspecified provider. Historical Provider LAB BLOOD ORDERABLES Jayla l Result * ELECTROCARDIOGRAPHY (ECG) (05/23/2014) Narrative 05/23/2014 Ordered by an unspecified provider. Historical Provider ECG ORDERABLES Final Res ult documented in this encounter Visit Diagnoses Diagnosis Paroxysmal supraventricular tachycardia (HCC) Paroxysmal supraventricular tachycardia Atrial fibrillation (CMS/HCC) (HCC) Atrial fibrillation Personal history of allergy to penicillin documented in this encounter Care Teams Resourcing Consultant Relationship Specialty Start Date End Date Nasra Jasso MD [address] [place] [address] PCP - General 03/22/14 01/02/15 documented as of this encounter
--- OUTSIDE RECORDS SUMMARY | 2024-07-04 15:22 | XMS_ITS | Encounter Summary ---
Author Organization [facility] Address [address] [place] [address] Care Team Providers Care Shank Tapper Name Role Phone Nasra Jasso MD Primary Care Provider [phone] Encounter Details Date Type Department Care Team (Late st Contact Info) Description 03/01/2018 Telephone Ar[facility]hythmia [facility] [address] [facility] [facility] [address] [place] [address] Mana Bautista RMA Social History Tobacco Use Types Packs/Day Years Used Date Smoking Tobacco: Never Smokeless Tobacco: Never Alcohol Use Standard Drinks/Week Comments Yes 0 (1 standard drink = 0.6 oz pur e alcohol) weekends Sex and Gender Information Value Date Recorded Sex Assigned at Not on file Legal Sex Male 8:32 PM COAL HANDLER Gender Identity Not on file Sexual Orientation Not on file documented as of this encounter Miscellaneous Notes * Telephone Encounter - Mana Bautista MA - 03/01/2018 11:11 AM CDT Nile has been approved documented in this encounter Plan of Treatment Not on file documented as of this encounter Visit Diagnoses Not on filedocumented in this encounter Care Teams Shank Tapper Relationship Specialty Start Date End Date Nasra Jasso MD [address] [place] [address] PCP - General 10/16/16 documented as of this encounter
--- OUTSIDE RECORDS SUMMARY | 2024-07-04 15:22 | XMS_ITS | Encounter Summary ---
Author Organization [facility] Address [address] [place] [address] Care Team Providers Care Fox Raiser Name Role Phone Nasra Jasso MD Primary Care Provider [phone] Encounter Details Date Type Department Care Team (Late st Contact Info) Description 10/31/2018 Telephone Arrhythmia Center [address] [place] [address] Betito Luo MD [address] [place] [address] Social History Tobacco Use Types Packs/Day Years Used Date Smoking Tobacco: Never Smokeless Tobacco: Never Alcohol Use Standard Drinks/Week Comments Yes 0 (1 standard drink = 0.6 oz pur e alcohol) weekends Sex and Gender Information Value Date Recorded Sex Assigned at Not on file Legal Sex Male 8:32 PM GRADUATE NURSE Gender Identity Not on file Sexual Orientation Not on file documented as of this encounter Miscellaneous Notes * Telephone Encounter - Mana Bautista MA - 11/02/2018 2:55 PM CDT Monitor rewsults scanned in. Dr. Keven sanchez(Afib) * Telephone Encounter - Mana Bautista MA - 10/31/2018 9:16 AM CDT I spoke with Mr. Hart and he called over the weekend HCG(exchange line) do to racing HR. He was put back on Flecainide 50 mg bid and ASA 325 mg qd. I will check with Dr. Luo and see if we need to do his EKG before OV on 11/10 or to see him sooner. documented in this encounter Plan of Treatment Not on file documented as of this encounter Visit Diagnoses Not on filedocumented in this encounter Care Teams Fox Raiser Relationship Specialty Start Date End Date Nasra Jasso MD [address] [place] [address] PCP - General 10/16/16 documented as of this encounter
--- OUTSIDE RECORDS SUMMARY | 2024-07-04 15:22 | XMS_ITS | Encounter Summary ---
Author Organization [facility] Facility Care Team Providers Care Emergency Detail Driver Name Role Phone Nasra Jasso MD Primary Care Provider [phone] Encounter Details Date Type Department Care Team (Latest Contact Info) Description 10/27/2018 Travel Social History Tobacco Use Types Packs/Day Years Used Date Smoking Tobacco: Never Smokeless Tobacco: Never Alcohol Use Standard Drinks/Week Comments Yes 0 (1 standard drink = 0.6 oz pur e alcohol) weekends Sex and Gender Information Value Date Recorded Sex Assigned at Not on file Legal Sex Male 8:32 PM DRAFTER DETAIL Gender Identity Not on file Sexual Orientation Not on file documented as of this encounter Plan of Treatment Not on file documented as of this encounter Visit Diagnoses Not on filedocumented in this encounter Care Teams Emergency Detail Driver Relationship Specialty Start Date End Date Nasra Jasso MD [address] [place] [address] PCP - General 10/16/16 documented as of this encounter
--- OUTSIDE RECORDS SUMMARY | 2024-07-04 15:22 | XMS_ITS | Encounter Summary ---
Author Organization [facility] Address [address] [place] [address] Care Team Providers Care Dope Maintenance Worker Name Role Phone Nasra Jasso MD Primary Care Provider [phone] Encounter Details Date Type Department Care Team (Late st Contact Info) Description 01/28/2018 7:52 AM CDT Anesthesia Event [facility] [place] [address] Tony Mcconnell MD [address] [place], [place] [id number] Anesthesia Record Procedure Summary Procedure Name Responsible Anesthesiologist Anesthesia Start Time Anesthesia Stop Time ABLATION ATRIAL FIBRILLATION (A-FIB) VIA PULMONARY VEIN ISOLATION 04224 with Carto and ICE Tony Mcconnell MD 01/28/18 0752 01/28/18 1151 Events Date Time Event Comment 01/28/2018 0655 0752 An Start 0752 An Start Data 0808 An Induction The patient was reevaluated immediately before moderate or deep sedation use and before anesthesia induction. 0810 An Intubation 0816 Anesthesia Ready 0836 Quick Note Catheter transe ptal 0852 Quick Note ACT 107 0905 Quick Note Ablation begun 0925 Quick Note ACT 351 1005 Quick Note ACT 402 1127 An Extubation 1142 an stop data 1146 Handoff to RN I completed my handoff to the receiving nurse during which we: 1. Patient identified 2. Responsible provider identified 3. Pertinent medical history reviewed 4. Procedure type and surgical course discussed 5. Intraoperative anesthetic management and any significant issues discussed 6. Expectations and concerns for postop period discussed 7. Questions solicited from receiving nurse 8. Patient disposition at the time of handoff: PACU 1151 An Stop 1209 Release from care Meds Name Total fentaNYL 100 mcg propofol 250 mg rocuronium 70 mg ePHEDrine 10 mg glycopyrrolate 0.4 mg neostigmine 2.5 mg ondansetron 4 mg dexamethasone 4 mg/ml 10 mg heparin 1,000 unit/ml 18,000 Units famotidine 20 mg protamine 50 mg sodium chloride 0.9% infusion 500 mL * Agents Name O2% Inspired O2 Air Sevoflurane Inspired Sevoflurane * Blood No blood administrations on file. Lines, Drains, and Airways Type Details Placement Removal Peripheral IV Placement Date: 01/28/18; Placement Time: 700; Catheter Size: 20 G; Orientation: Left; Location: Forearm; Site Prep: Chlorhexidine; Inserted by: PATRIC AGUILA; Insertion Attempts: 1; Patient Tolerance: Tolerated well; Removal Date: 01/29/18; Removal Time: 1034 01/28/18 07 by Dale Littlejohn RN 01/29/18 103 by Marty Gale RN ETT Placement Date: 01/28/18; Placement Time: 809 (created via procedure documentation); Mask Ventilation: 2; Technique: Direct laryngoscopy; Type: ETT - single; Single Lumen Tube Size: 8 mm; Cuffed: Yes; Laryngoscope: Anna; Blade Size: 4; Location: Oral; Grade View: Grade IIa; Insertion Attempts: 1; Placement Verification: Auscultation, Capnometry; Airway Comment: One attempt by Dr. Cabello; Removal Date: 01/28/18; Removal Time: 11301/28/18 0810 by Carri Chester CRNA 01/28/18 113 by Carri Chester CRNA Venous Sheath Placement Date: 01/28/18; Placement Time: 827; Hand Hygiene: Yes; Site Prep: Chlorhexidine; Sterile Barrier Used: Yes; Inserted by: Dr. Luo; Removal Date: 01/28/18; Removal Time: 1116 01/28/18 0828 by Dale Littlejohn RN 01/28/18 111 by Lynne Vu RN Venous Sheath Placement Date: 01/28/18; Placement Time: 0828; Hand Hygiene: Yes; Site Prep: Chlorhexidine; Sterile Barrier Used: Yes; Inserted by: Dr. Luo; Removal Date: 01/28/18; Removal Time: 1116 01/28/18 0828 by Dale Littlejohn RN 01/28/18 1116 by Lynne Vu RN Venous Sheath Placement Date: 01/28/18; Placement Time: 0833; Hand Hygiene: Yes; Site Prep: Chlorhexidine; Sterile Barrier Used: Yes; Inserted by: Dr. Luo; Removal Date: 01/28/18; Removal Time: 1112 01/28/18 0833 by Dale Littlejohn RN 01/28/18 1112 by Lynne Vu RN Venous Sheath Placement Date: 01/28/18; Placement Time: 0836; Hand Hygiene: Yes; Site Prep: Chlorhexidine; Sterile Barrier Used: Yes; Inserted by: Dr. Luo; Removal Date: 01/28/18; Removal Time: 1112 01/28/18 0836 by Dale Littlejohn RN 01/28/18 1112 by Lynne Vu RN Oral/Nasal Airway Placement Date: 01/28/18; Placement Time: 1124; Airway Size: 10; Insertion Attempts: 1; Removal Date: 01/28/18; Removal Time: 1130 01/28/18 1124 by Carri Chester CRNA 01/28/18 1130 by Carri Chester CRNA RETIRED Surgical Site 01/28/18; 1148; Right; Groin; 01/29/18; 1035 01/28/18 1148 by Mamta Escalante RN 01/29/18 1035 by Marty Gale RN documented in this encounter Social History Tobacco Use Types Packs/Day Years Used Date Smoking Tobacco: Never Smokeless Tobacco: Never Alcohol Use Standard Drinks/Week Comments Yes 0 (1 standard drink = 0.6 oz pur e alcohol) weekends Sex and Gender Information Value Date Recorded Sex Assigned at Not on file 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 Gender Identity Not on file Sexual Orientation Not on file documented as of this encounter OR Notes * Anesthesia Postprocedure Evaluation - Tony Mcconnell MD - 01/28/2018 12:08 PM CDT Patient: Kulwant Hart Procedure Summary Date: 01/28/18 Room / Location: [facility] CATH/EP LAB C / [facility] CARDIAC BIAS 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 VERTICAL Anesthesia Start: 075 Anesthesia Stop: 115 Procedures: ABLATION ATRIAL FIBRILLATION (A-FIB) VIA PULMONARY VEIN ISOLATION 09516 with Carto and ICE (N/A ) 3D MAPPING OF TACHYCARDIA (+) 23667 (N/A ) LEFT VENTRICLE PACING AND RECORDING 31064 (N/A ) ABLATION ATRIAL FIBRILLATION ADDITIONAL LINE OR FOCI (+) 32089 (N/A ) ABLATE ADDTN'L ARRHYTHMIA, ATRIAL OR VENTRICULAR (+) 63241 (N/A ) Diagnosis: (AFIB) Provider: Betito Luo MD Responsible Provider: Tony Mcconnell MD Anesthesia Type: general ASA Status: 3 Anesthesia Type: general Last vitals BP 122/94 (01/28/18 1200) Temp 36.9 ??C (98.4 ??F) (01/28/18 1148) Pulse 72 (01/28/18 1200) Resp 15 (01/28/18 1200) SpO2 100 % (01/28/18 1200) Anesthesia Post Evaluation Patient location during evaluation: PACU Level of consciousness: follows simple commands and fully awake Pain management: adequate Airway patency: adequate Anesthetic complications: no Cardiovascular status: acceptable and hemodynamically stable Respiratory status: acceptable Hydration status: acceptable Pt is: normothermic Nausea/Vomiting status: none * Anesthesia Postprocedure Evaluation - Tony Mcconnell MD - 01/28/2018 12:08 PM CDT Patient: Kulwant Hart Procedure Summary Date: 01/28/18 Room / Location: [facility] CATH/EP LAB C / [facility] 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 VERTICAL Anesthesia Start: 751 Anesthesia Stop: 1151 Procedures: ABLATION ATRIAL FIBRILLATION (A-FIB) VIA PULMONARY VEIN ISOLATION 36531 with Carto and ICE (N/A ) 3D MAPPING OF TACHYCARDIA (+) 96691 (N/A ) LEFT VENTRICLE PACING AND RECORDING 92528 (N/A ) ABLATION ATRIAL FIBRILLATION ADDITIONAL LINE OR FOCI (+) 39904 (N/A ) ABLATE ADDTN'L ARRHYTHMIA, ATRIAL OR VENTRICULAR (+) 62630 (N/A ) Diagnosis: (AFIB) Provider: Betito Luo MD Responsible Provider: Tony Mcconnell MD Anesthesia Type: general ASA Status: 3 Anesthesia Type: general Last vitals BP 122/94 (01/28/18 1200) Temp 36.9 ??C (98.4 ??F) (01/28/18 1148) Pulse 72 (01/28/18 1200) Resp 15 (01/28/18 1200) SpO2 100 % (01/28/18 1200) Anesthesia Post Evaluation * Anesthesia Procedure Notes - Carri Chester CRNA - 01/28/2018 8:19 AM CDT Associated Order(s): ANESTHESIA INTUBATION Airway Patient location: OR Urgency: elective Date/time: 01/28/2018 8:10 AM Indications for airway management: anesthesia Difficult airway: no Staff: Placed by: SR. LOGISTICS ANALYST: CARRI CHESTER Emergent airway documentation: Risks and benefits discussed: yes Consent obtained: yes Consent given by: patient Airway prep: Preoxygenated: yes Patient position: sniffing Mask difficulty assessment: 2 - vent by mask + OA or adjuvant Spontaneous ventilation during airway: absent Sedation level during airway: GA Final airway details: Final airway type: endotracheal airway Tube type: ETT ETT size: 8.0 mm Cuffed: yes Technique used for successful ETT placement: direct laryngoscopy Insertion site: oral Blade type: Anna Blade size: 4 Cormack-Lehane (direct): grade IIa - partial view of glottis Cuff inflated with: air ETT to lips: 24 cm Placement verified by: auscultation and CO2 detection Airway secured with: silk tape Number of attempts: 1 Additional comments: One attempt by Dr. Cabello * Anesthesia Preprocedure Evaluation - Tony Mcconnell MD - 01/28/2018 6:55 AM CDT Anesthesia Evaluation Kulwant Hart is a 58 y.o. male Procedure(s): ABLATION ATRIAL FIBRILLATION (A-FIB) VIA PULMONARY VEIN ISOLATION 45695 with Carto and ICE Patient Active Problem List Diagnosis ??? Paroxysmal supraventricular tachycardia (CMS/HCC) ??? Atrial fibrillation (CMS/HCC) ??? 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 Anticoagulation management encounter Past Medical History: Diagnosis Date ??? A-fib (CMS/HCC) ??? Arrhythmia ??? Infectious mononucleosis age 18 Mononucleosis; Comments: BCN 03/21/2014 - History reviewed. No pertinent surgical history. Allergies Allergen Reactions ??? Penicillins Rash Reaction: RASH, HOME MEDICATIONS : flecainide (TAMBOCOR) 150 mg tablet metoprolol XL (TOPROL-XL) 25 mg [address] (PROTONIX) 40 mg EC tablet Current Facility-Administered Medications: ??? sodium chloride 0.9% infusion, 15 mL/hr, intravenous, Continuous Social History Smoking Status ??? Never Smoker Smokeless Tobacco ??? Never Used Alcohol Use ??? Yes Comment: weekends Drug Use No Family History Problem Relation Age of Onset ??? Heart attack Father 53 Myocardial infarction; /Myocardial infarction; Cause of : Myocardial infarction ??? Other Paternal Grandfather Cardiac arrhythmias; ??? Hypertension Mother Hypertension; ??? Sudden Other Sudden ; Cause of : Sudden PAT Physical Exam Airway Exam: Mallampati: I Cervical ROM: FROM Cardiovascular Exam: Rate: bradycardia Pulmonary Exam: LCTA EENT Exam: trachea midline Dental Exam: Appears intact Current state: Patient's current state is cooperative. There were no vitals filed for this visit. PT: No results found for requested labs within last 720 hours. INR: No results found for requested labs within last 720 hours. APTT: No results found for requested labs within last 720 hours. Hgb A1C: No results found for requested labs within last 720 hours. CBC RBC: No results found for requested labs within last 720 hours. RDW: No results found for requested labs within last 720 hours. MCHC: No results found for requested labs within last 720 hours. MCH: No results found for requested labs within last 720 hours. MCV: No results found for requested labs within last 720 hours. Hct: No results found for requested labs within last 720 hours. Hgb: No results found for requested labs within last 720 hours. WBC: No results found for requested labs within last 720 hours. MPV: No results found for requested labs within last 720 hours. Platelets: No results found for requested labs within last 720 hours. RDW CV: No results found for requested labs within last 720 hours. RDW Sd: No results found for requested labs within last 720 hours. BMP Glucose: No results found for requested labs within last 720 hours. Calcium: No results found for requested labs within last 720 hours. Sodium: No results found for requested labs within last 720 hours. Potassium: No results found for requested labs within last 720 hours. CO2: No results found for requested labs within last 720 hours. Chloride: No results found for requested labs within last 720 hours. BUN: No results found for requested labs within last 720 hours. Creatinine: 01/26/2018: 1.5 mg/dL* DOS Physical Exam Medical history, medications, and allergies reviewed. Attestation: This PAT evaluation 01/28/2018. Airway Exam: Mallampati: III Cervical ROM: FROM Cardiovascular Exam: Rate: bradycardia Pulmonary Exam: LCTA EENT Exam: trachea midline Anesthesia Plan ASA 3 My patient is approved for the Anesthesia Controlled Medication protocol when under care of a SR. LOGISTICS ANALYST Planned anesthesia: General/TIVA Team communication plan: LMA and mask Induction: Induction: intravenous. Postoperative Plan: No plan for postoperative opioid use. No postoperative mechanical ventilation intended. Informed Consent: Discussed plan with SR. LOGISTICS ANALYST. Anesthesia plan and risks discussed with patient. Consent and Attending signature: I and/or my designee have discussed the anesthesia plan, benefits, possible alternatives, parental presence at time of induction (if indicated), and clinically relevant risks that may include dental injury, unintentional awareness, and/or other complications. The patient and/or parent/legal guardian understand, and agree to proceed. All questions answered. documented in this encounter Plan of Treatment Not on file documented as of this encounter Procedures Procedure Name Priority Date/Time Associated Diagnosis Comments SD AN ELECTIVE ENDOTRACHEAL AIRWAY Routine 01/28/2018 8:19 AM CDT Procedure Note - Carri Chester CRNA - 01/28/2018 8:19 AM CDTThis note is in progress. Airway Patient location: OR Urgency: elective Date/time: 01/28/2018 8:10 AM Indications for airway management: anesthesia Difficult airway: no Staff: Placed by: SR. LOGISTICS ANALYST: CARRI CHESTER Emergent airway documentation: Risks and benefits discussed: yes Consent obtained: yes Consent given by: patient Airway prep: Preoxygenated: yes Patient position: sniffing Mask difficulty assessment: 2 - vent by mask + OA or adjuvant Spontaneous ventilation during airway: absent Sedation level during airway: GA Final airway details: Final airway type: endotracheal airway Tube type: ETT ETT size: 8.0 mm Cuffed: yes Technique used for successful ETT placement: direct laryngoscopy Insertion site: oral Blade type: Anna Blade size: 4 Cormack-Lehane (direct): grade IIa - partial view of glottis Cuff inflated with: air ETT to lips: 24 cm Placement verified by: auscultation and CO2 detection Airway secured with: silk tape Number of attempts: 1 Additional comments: One attempt by Dr. Cabello documented in this encounter Visit Diagnoses Not on filedocumented in this encounter Administered Medications Inactive Administered Medications - up to 3 most recent administrations Medication Order MAR Action Action Date Dose Rate Site dexamethasone (DECADRON) injection intravenous, Administer over 1 Minutes, As needed, Starting on Wed01/28/18 at 0815, Anesthesia Intra-op Given 01/28/2018 8:15 AM CDT 10 mg ePHEDrine injection intravenous, As needed, Starting on Wed01/28/18 at 1007, Anesthesia Intra-op Given 01/28/2018 10:07 AM CDT 10 mg famotidine (PEPCID) injection Administer over 2 Minutes, As needed, heartburn, Starting on Wed01/28/18 at 0938, Anesthesia Intra-op Given 01/28/2018 9:38 AM CDT 20 mg fentaNYL (SUBLIMAZE) preservative free injection intravenous, As needed, Starting on Wed01/28/18 at 0800, Anesthesia Intra-op Given 01/28/2018 8:11 AM CDT 50 mcg Given 01/28/2018 8:00 AM CDT 50 mcg glycopyrrolate (ROBINUL) injection intravenous, As needed, Starting on Wed01/28/18 at 1107, Anesthesia Intra-op Given 01/28/2018 11:07 AM CDT 0.4 mg heparin 1,000 unit/mL injection As needed, Starting on Wed01/28/18 at 0831, Anesthesia Intra-op Given 01/28/2018 8:52 AM CDT 3,000 Units Given 01/28/2018 8:31 AM CDT 15,000 Units neostigmine injection intravenous, As needed, Starting on Wed01/28/18 at 1107, Anesthesia Intra-op Given 01/28/2018 11:07 AM CDT 2.5 mg ondansetron (ZOFRAN) injection intravenous, As needed, nausea, vomiting, Starting on Wed01/28/18 at 1112, Anesthesia Intra-op Given 01/28/2018 11:12 AM CDT 4 mg propofol (DIPRIVAN) IV intravenous, As needed, Starting on Wed01/28/18 at 0808, Anesthesia Intra-op Given 01/28/2018 9:06 AM CDT 50 mg Given 01/28/2018 8:11 AM CDT 50 mg Given 01/28/2018 8:08 AM CDT 150 mg protamine injection As needed, Starting on Wed01/28/18 at 1050, Anesthesia Intra-op, Indications: Heparin ToxicityIndications:Heparin Toxicity Given 01/28/2018 10:50 AM CDT 50 mg rocuronium (ZEMURON) injection intravenous, As needed, Starting on Wed01/28/18 at 0809, Anesthesia Intra-op Given 01/28/2018 8:56 AM CDT 20 mg Given 01/28/2018 8:09 AM CDT 50 mg sodium chloride 0.9% infusion 15 mL/hr, intravenous, Continuous, Starting on Wed01/28/18 at 0830 New Bag 01/28/2018 11:30 AM CDT New Bag 01/28/2018 7:01 AM CDT documented in this encounter Orders Procedures Count Last Ordered Date First Orde red Date ANESTHESIA INTUBATION 01/28/2018 documented in this encounter Care Teams Dope Maintenance Worker Relationship Specialty Start Date End Date Nasra Jasso MD [address] [place] [address] PCP - General 10/16/16 documented as of this encounter
--- OUTSIDE RECORDS SUMMARY | 2024-07-04 15:22 | XMS_ITS | Encounter Summary ---
Author Organization [facility] Address [address] [place] [address] Care Team Providers Care Electrical Transmission Engineer Name Role Phone Nasra Jasso MD Primary Care Provider [phone] Reason for Referral * Diagnostic Imaging (Routine) - Closed Specialty Diagnoses / Procedures Referred By Contac t Referred To Contact Radiology Diagnoses Paroxysmal atrial fibrillation (CMS/HCC) (HCC) Procedures CT Heart Morphology W Contrast Betito Luo MD Phone: tel: fax: [facility] [address] [place] [address] Referral ID Status Reason Start Date Expiration Date Visits Re quested Visits Authorized [id number] Closed 01/06/2018 07/18/2019 1 1 Encounter Details Date Type Department Care Team (Late st Contact Info) Description 01/06/2018 Orders Only Arrhythmia Center 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 ??Dimensions as detailed above. ??No thrombus in the left atrium. Electronically signed by: MD Yanick OTOOLE 01/27/2018 3:18 PM CDT EXAM: ??CT HEART, PRE-ABLATION HISTORY: ??Atrial fibrillation. ??Assess pulmonary vein anatomy. COMPARISON: ??No prior studies available. TECHNIQUE: CT images were obtained of the chest using cardiac gated acquisition after intravenous infusion of 95 mL of Optiray 350. Thin-section axial images were sent to a separate 3-D workstation for three-dimensional reconstructions of the left atrial anatomy. Thin-slab map imaging was performed as well. FINDINGS: LEFT ATRIAL ANATOMY: The patient has variant left atrial anatomy with 3 right and 2 left pulmonary veins. ??The right inferior pulmonary vein measures 2.2 x 2.2 cm at its orifice. ??The distance from its orifice to the 1st major branch vessel is 3.5 mm. ??The right middle pulmonary vein measures 1.1 x 0.9 cm at its orifice. ??The distance from its orifice to the 1st major branch vessel is 3.8 mm. ??The right superior pulmonary vein measures 2.4 x 2.6 cm at its orifice. ??The distance from its orifice to the 1st major branch vessel is 4.1 mm. ??The left inferior pulmonary vein measures 1.0 x 1.3 cm. ??The distance from the orifice to the 1st major branch vessel is 5.2 mm. ??The left superior pulmonary vein measures 1.3 x 2.4 cm. ??The distance from the orifice to the 1st major branch vessel is 12.7 mm. There is no thrombus in the left atrial appendage or within the left atrium itself. CHEST FINDINGS: Dependent atelectasis. ??No mass or consolidation in the visualized lungs. ??No mediastinal or hilar lymphadenopathy. ??Heart size is normal. ??No significant coronary artery calcification. ??No pericardial effusion. ??The upper abdomen is unremarkable as visualized. ??There are mild degenerative changes in the spine. ??There are no destructive osseous lesions. Procedure Note Gilberto Flores MD - 01/27/2018 EXAM: CT HEART, PRE-ABLATION HISTORY: Atrial fibrillation. Assess pulmonary vein anatomy. COMPARISON: No prior studies available. TECHNIQUE: CT images were obtained of the chest using cardiac gated acquisition after intravenous infusion of 95 mL of Optiray 350. Thin-section axial images were sent to a separate 3-D workstation for three-dimensional reconstructions of the left atrial anatomy. Thin-slab map imaging was performed as well. FINDINGS: LEFT ATRIAL ANATOMY: The patient has variant left atrial anatomy with 3 right and 2 left pulmonary veins. The right inferior pulmonary vein measures 2.2 x 2.2 cm at its orifice. The distance from its orifice to the 1st major branch vessel is 3.5 mm. The right middle pulmonary vein measures 1.1 x 0.9 cm at its orifice. The distance from its orifice to the 1st major branch vessel is 3.8 mm. The right superior pulmonary vein measures 2.4 x 2.6 cm at its orifice. The distance from its orifice to the 1st major branch vessel is 4.1 mm. The left inferior pulmonary vein measures 1.0 x 1.3 cm. The distance from the orifice to the 1st major branch vessel is 5.2 mm. The left superior pulmonary vein measures 1.3 x 2.4 cm. The distance from the orifice to the 1st major branch vessel is 12.7 mm. There is no thrombus in the left atrial appendage or within the left atrium itself. CHEST FINDINGS: Dependent atelectasis. No mass or consolidation in the visualized lungs. No mediastinal or hilar lymphadenopathy. Heart size is normal. No significant coronary artery calcification. No pericardial effusion. The upper abdomen is unremarkable as visualized. There are mild degenerative changes in the spine. There are no destructive osseous lesions. IMPRESSION: 1. 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 Dimensions as detailed above. No thrombus in the left atrium. Electronically signed by: GILBERTO FLORES MD us Betito Luo MD IMG CT PROCEDURES Final Result documented in this encounter Visit Diagnoses Diagnosis Paroxysmal atrial fibrillation (CMS/HCC) (HCC)- Primary Atrial fibrillation Paroxysmal atrial fibrillation (CMS/HCC) (HCC) Atrial fibrillation documented in this encounter Care Teams Electrical Transmission Engineer Relationship Specialty Start Date End Date Nasra Jasso MD [address] [place] [id number] PCP - General 10/16/16 documented as of this encounter
--- OUTSIDE RECORDS SUMMARY | 2024-07-04 15:22 | XMS_ITS | Encounter Summary ---
Author Organization [facility] Address [address] [place] [address] Care Team Providers Care Water Pump Assembler Name Role Phone Nasra Jasso MD Primary Care Provider [phone] Encounter Details Date Type Department Care Team (Late st Contact Info) Description 10/22/2017 Telephone Arrhythmia Center [address] [place] [address] Betito Luo MD [address] [place] [address] Social History Tobacco Use Types Packs/Day Years Used Date Smoking Tobacco: Never Smokeless Tobacco: Never Alcohol Use Standard Drinks/Week Comments Yes 0 (1 standard drink = 0.6 oz pur e alcohol) Sex and Gender Information Value Date Recorded Sex Assigned at Not on file 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 documented in this encounter Plan of Treatment Not on file documented as of this encounter Visit Diagnoses Not on filedocumented in this encounter Care Teams Water Pump Assembler Relationship Specialty Start Date End Date Nasra Jasso MD [address] [place] [address] PCP - General 10/16/16 documented as of this encounter
--- OUTSIDE RECORDS SUMMARY | 2024-07-04 15:22 | XMS_ITS | Encounter Summary ---
Author Organization [facility] Address [address] [place] [address] Care Team Providers Care Craps Dealer Name Role Phone Nasra Jasso MD Primary Care Provider [phone] Encounter Details Date Type Department Care Team (Late st Contact Info) Description 11/15/2018 12:38 PM CDT Anesthesia Event [facility] [address] [place] [address] Gamal Saldivar MD [address] [place], [place] [id number] Christen Moon CRNA [address] [place], [place] [id number] Anesthesia Record Procedure Summary Procedure Name Responsible Anesthesiologist Anesthesia Start Time Anesthesia Stop Time ABLATION ATRIAL FIBRILLATION (A-FIB) VIA PULMONARY VEIN ISOLATION 19157 Gamal Saldivar MD 11/15/18 1238 11/15/18 1618 Events Date Time Event Comment 11/15/2018 1141 1238 An Start 1239 An Start Data 1248 An Induction The patient was reevaluated immediately before moderate or deep sedation use and before anesthesia induction. 1250 An Intubation 1252 Anesthesia Ready 1333 Quick Note Intermittent pa cing 1556 An Extubation 1605 an stop data 1614 Handoff to RN I completed my handoff [...] disposition at the time of handoff: PACU 1614 An Stop Meds Name Total midazolam 2 mg fentaNYL 25 mcg propofol 200 mg rocuronium 90 mg phenylephrine syringe 100 mcg/ml 200 mcg glycopyrrolate 0.8 mg neostigmine 5 mg ondansetron 4 mg heparin 1,000 unit/ml 23,000 Units isoproterenol (ISUPREL) 1,00 0 mcg in sodium chloride 0.9% 250 mL (4 mcg/mL) infusion 106 mcg protamine 50 mg sodium chloride 0.9% infusion 1,350 mL * Agents Name O2 Air Sevoflurane Inspired Sevoflurane * Blood No blood administrations on file. Lines, Drains, and Airways Type Details Placement Removal Peripheral IV Placement Date: 11/15/18; Placement Time: 1206; Catheter Size: 20 G; Orientation: Left; Location: Forearm; Removal Date: 11/16/18; Removal Time: 1109 11/15/18 1206 by Fiordaliza Martinez RN 11/16/18 1109 by Malathi Hoskins NP ETT Placement Date: 11/15/18; Placement Time: 1250 (created via procedure documentation); Mask Ventilation: 1; Technique: Direct laryngoscopy; Type: ETT - single; Single Lumen Tube Size: 8 mm; Cuffed: Yes; Laryngoscope: Anna; Blade Size: 4; Location: Oral; Grade View: Grade I; Insertion Attempts: 1; Placement Verification: Auscultation, Capnometry; Removal Date: 11/15/18; Removal Time: 1556 11/15/18 1250 by Christen Moon CRNA 11/15/18 1556 by Christen Moon CRNA External Urinary Device 11/15/18; 1258; Randal Littlejohn; 11/16/18 11/15/18 1258 by Dale Littlejohn RN 11/16/18 0000 by Malathi Hoskins NP Venous Sheath Placement Date: 11/15/18; Placement Time: 1313; Hand Hygiene: Yes; Site Prep: Chlorhexidine; Sterile Barrier Used: Yes; Inserted by: Dr. Luo; Removal Date: 11/15/18; Removal Time: 1541 11/15/18 1313 by Dale Littlejohn RN 11/15/18 1541 by Iris Higuera RT Venous Sheath Placement Date: 11/15/18; Placement Time: 1313; Hand Hygiene: Yes; Site Prep: Chlorhexidine; Sterile Barrier Used: Yes; Inserted by: Dr. Luo; Removal Date: 11/15/18; Removal Time: 1540 11/15/18 1313 by Dale Littlejohn, RN 11/15/18 1540 by Iris Higuera RT Venous Sheath Placement Date: 11/15/18; Placement Time: 1319; Hand Hygiene: Yes; Site Prep: Chlorhexidine; Sterile Barrier Used: Yes; Inserted by: Dr. Luo; Removal Date: 11/15/18; Removal Time: 1535 11/15/18 1319 by Dale Littlejohn, RN 11/15/18 1535 by Iris Higuera RT Venous Sheath Placement Date: 11/15/18; Placement Time: 1323; Hand Hygiene: Yes; Site Prep: Chlorhexidine; Sterile Barrier Used: Yes; Inserted by: Dr. Luo; Removal Date: 11/15/18; Removal Time: 1535 11/15/18 1323 by Dale Littlejohn, RN 11/15/18 1535 by Iris Higuera, RT documented in this encounter Social History Tobacco Use Types Packs/Day Years Used Date Smoking Tobacco: Never Smokeless Tobacco: Never Alcohol Use Standard Drinks/Week Comments Yes 0 (1 standard drink = 0.6 oz pur e alcohol) weekends Sex and Gender Information Value Date Recorded Sex Assigned at Not on file Legal Sex Male 8:32 PM CONTRACT ASSOCIATE Gender Identity Not on file Sexual Orientation Not on file documented as of this encounter OR Notes * Anesthesia Postprocedure Evaluation - Benji Lindsey MD - 11/15/2018 4:54 PM CDT Patient: Kulwant Hart Procedure Summary Date: 11/15/18 Room / Location: [facility] CATH/EP LAB C / [facility] CARDIAC BLOCK GREASER Anesthesia Start: 1238 Anesthesia Stop: 1614 Procedures: ABLATION ATRIAL FIBRILLATION (A-FIB) VIA PULMONARY VEIN ISOLATION 87186 (N/A ) 3D MAPPING OF TACHYCARDIA (+) 94161 (N/A ) LEFT VENTRICLE PACING AND RECORDING 16190 (N/A ) ABLATION ATRIAL FIBRILLATION ADDITIONAL LINE OR FOCI (+) 14014 (N/A ) POST DRUG PROGRAM STIM AND PACING (+) 31741 (N/A ) ABLATE ADDTN'L ARRHYTHMIA, ATRIAL OR VENTRICULAR (+) 09971 (N/A ) Diagnosis: Paroxysmal atrial fibrillation (CMS/HCC) (Paroxysmal atrial fibrillation (CMS/HCC) [I48.0]) Provider: Betito Luo MD Responsible Provider: Gamal Saldivar MD Anesthesia Type: general ASA Status: 3 Anesthesia Type: general Last vitals BP 126/86 Pulse 60 Temp 36.1 ??C (97 ??F) (Temporal) Resp 14 SpO2 97% Anesthesia Post Evaluation Patient location during evaluation: PACU Patient participation: complete - patient participated Level of consciousness: fully awake Pain score: 0 Pain management: adequate Airway patency: adequate Evidence of recall: no Anesthetic complications: no Cardiovascular status: acceptable and hemodynamically stable Respiratory status: acceptable Hydration status: acceptable Pt is: normothermic Nausea/Vomiting status: none * Anesthesia Procedure Notes - Christen Moon CRNA - 11/15/2018 1:05 PM CDTAssociated Order(s): Airway Airway Patient location: OR Urgency: elective Date/time: 11/15/2018 12:50 PM Indications for airway management: anesthesia Difficult airway: no Staff: Placed by: INDUSTRIAL TRUCK OPERATOR: Christen Moon CRNA Emergent airway documentation: Consent given by: patient Airway prep: Preoxygenated: yes Patient position: sniffing Mask difficulty assessment: 1 - vent by mask Spontaneous ventilation during airway: absent Sedation level during airway: GA Final airway details: Final airway type: endotracheal airway Tube type: ETT ETT size: 8.0 mm Cuffed: yes Technique used for successful ETT placement: direct laryngoscopy Devices/Methods used in placement: intubating stylet Insertion site: oral Blade type: Anna Blade size: 4 Cormack-Lehane (direct): grade I - full view of glottis Cuff volume: 6 mL Cuff inflated with: air ETT to teeth: 23 cm Placement verified by: auscultation and CO2 detection Airway secured with: silk tape Number of attempts: 1no * Anesthesia Preprocedure Evaluation - Gamal Saldivar MD - 11/15/2018 11:30 AM CDT Anesthesia Evaluation Kulwant Hart is a 58 y.o. male Procedure(s): Atrial Flutter ablation(SVT) 14678 NPO after MN HISTORY Past Medical History Neurological Neuro/Psych system: negative Cardiovascular + Atrial fibrillation/flutter (prior EP study/Afib Ablation, 01/28/18) - Gastrointestinal + GERD - on daily therapy. Functional Capacity Functional capacity: 6-10 METs Review of Systems Pertinent negatives: productive cough; wheezing; SOB; recent cold/flu; fever; chest pain; heartburnand nausea Patient Active Problem List Diagnosis ??? Paroxysmal supraventricular tachycardia (CMS/HCC) ??? Atrial fibrillation (CMS/HCC) ??? FDC current use of antiarrhythmic drug ??? Anticoagulation management encounter ??? S/P ablation of atrial fibrillation ??? Paroxysmal atrial fibrillation (CMS/HCC) Past Medical History: Diagnosis Date ??? A-fib (CMS/HCC) ??? Arrhythmia ??? Infectious mononucleosis age 18 Mononucleosis; Comments: BCN 03/21/2014 - ??? Supraventricular tachycardia (CMS/HCC) Past Surgical History: Procedure Laterality Date ??? CARDIAC ELECTROPHYSIOLOGY MAPPING AND ABLATION 01/2018 afib ablation Allergies Allergen Reactions ??? Penicillins Rash Reaction: RASH, HOME MEDICATIONS : aspirin 81 mg enteric coated tablet flecainide (TAMBOCOR) 50 mg tablet metoprolol XL (TOPROL-XL) 25 mg 24 hr tablet omeprazole (PriLOSEC) 20 mg capsule No current outpatient medications on file. Social History Tobacco Use Smoking Status Never Smoker Smokeless Tobacco Never Used Substance and Sexual Activity Alcohol Use Yes Comment: weekends Substance and Sexual Activity Drug Use No Family History Problem Relation [...] requested labs within last 720 hours. Creatinine: No results found for requested labs within last 720 hours. DOS Physical Exam Medical history, medications, and allergies reviewed. Attestation: This PAT evaluation 11/15/2018. Airway Exam: Mallampati: II Cervical ROM: FROM TM distance: >4 Cardiovascular Exam: Rate: regular Rhythm: regular Pulmonary Exam: LCTA, bilat EENT Exam: trachea midline Dental Exam: Appears intact Current state: Patient's current state is cooperative and interactive. Anesthesia Plan ASA 3 My patient is approved for the Anesthesia Controlled Medication protocol when under care of a INDUSTRIAL TRUCK OPERATOR Planned anesthesia: General Team communication plan: oral ET tube Induction: Induction: intravenous. Postoperative Plan: No plan for postoperative opioid use. No postoperative mechanical ventilation intended. Informed Consent: Anesthesia plan and risks discussed with patient. [...] Procedure Name Priority Date/Time Associated Diagnosis Comments CO AN PROCEDURE PLACEHOLDER Routine 11/15/2018 1:05 PM CDT Procedure Note - Christen Moon CRNA - 11/15/2018 1:05 PM CDTThis note is in progress. Airway Patient location: OR Urgency: elective Date/time: 11/15/2018 12:50 PM Indications for airway management: anesthesia Difficult airway: no Staff: Placed by: INDUSTRIAL TRUCK OPERATOR: Christen Moon CRNA Emergent airway documentation: Consent given by: patient Airway prep: Preoxygenated: yes Patient position: sniffing Mask difficulty assessment: 1 - vent by mask Spontaneous ventilation during airway: absent Sedation level during airway: GA Final airway details: Final airway type: endotracheal airway Tube type: ETT ETT size: 8.0 mm Cuffed: yes Technique used for successful ETT placement: direct laryngoscopy Devices/Methods used in placement: intubating stylet Insertion site: oral Blade type: Anna Blade size: 4 Cormack-Lehane (direct): grade I - full view of glottis Cuff volume: 6 mL Cuff inflated with: air ETT to teeth: 23 cm Placement verified by: auscultation and CO2 detection Airway secured with: silk tape Number of attempts: 1no CO AN ELECTIVE ENDOTRACHEAL AIRWAY Routine 11/15/2018 1:05 PM CDT Procedure Note - Christen Moon CRNA - 11/15/2018 1:05 PM CDTThis note is in progress. Airway Patient location: OR Urgency: elective Date/time: 11/15/2018 12:50 PM Indications for airway management: anesthesia Difficult airway: no Staff: Placed by: INDUSTRIAL TRUCK OPERATOR: Christen Moon CRNA Emergent airway documentation: Consent given by: patient Airway prep: Preoxygenated: yes Patient position: sniffing Mask difficulty assessment: 1 - vent by mask Spontaneous ventilation during airway: absent Sedation level during airway: GA Final airway details: Final airway type: endotracheal airway Tube type: ETT ETT size: 8.0 mm Cuffed: yes Technique used for successful ETT placement: direct laryngoscopy Devices/Methods used in placement: intubating stylet Insertion site: oral Blade type: Anna Blade size: 4 Cormack-Lehane (direct): grade I - full view of glottis Cuff volume: 6 mL Cuff inflated with: air ETT to teeth: 23 cm Placement verified by: auscultation and CO2 detection Airway secured with: silk tape Number of attempts: 1no documented in this encounter Visit Diagnoses Not on filedocumented in this encounter Administered Medications Inactive Administered Medications - up to 3 most recent administrations Medication Order MAR Action Action Date Dose Rate Site fentaNYL (SUBLIMAZE) preservative free injection intravenous, As needed, Starting on Wed11/15/18 at 1248, Anesthesia Intra-op Given 11/15/2018 12:48 PM CDT 25 mcg glycopyrrolate (ROBINUL) injection intravenous, Administer over 1 Minutes, As needed, Starting on Wed11/15/18 at 1545, Anesthesia Intra-op Given 11/15/2018 3:55 PM CDT 0.4 mg Given 11/15/2018 3:45 PM CDT 0.4 mg heparin 1,000 unit/mL injection As needed, Starting on Wed11/15/18 at 1314, Anesthesia Intra-op Given 11/15/2018 2:25 PM CDT 3,000 Units Given 11/15/2018 1:57 PM CDT 3,000 Units Given 11/15/2018 1:39 PM CDT 5,000 Units isoproterenol (ISUPREL) 1,000 mcg in sodium chloride 0.9% 250 mL (4 mcg/mL) infusion Continuous PRN, Starting on Wed11/15/18 at 1457, Anesthesia Intra-op Rate/Dose Change 11/15/2018 3:16 PM CDT 10 mcg/min 150 mL/hr Rate/Dose Change 11/15/2018 3:10 PM CDT 5 mcg/min 75 mL/h r New Bag 11/15/2018 2:57 PM CDT 2 mcg/min 30 mL/hr midazolam (VERSED) preservative free injection intravenous, Administer over 2 Minutes, As needed, Starting on Wed11/15/18 at 1242, Anesthesia Intra-op Given 11/15/2018 12:42 PM CDT 2 mg neostigmine injection intravenous, Administer over 3 Minutes, As needed, Starting on Wed11/15/18 at 1545, Anesthesia Intra-op Given 11/15/2018 3:55 PM CDT 2 mg Given 11/15/2018 3:45 PM CDT 3 mg ondansetron (ZOFRAN) injection intravenous, Administer over 2 Minutes, As needed, Starting on Wed11/15/18 at 1530, Anesthesia Intra-op Given 11/15/2018 3:30 PM CDT 4 mg phenylephrine (JASMIN-SYNEPHRINE) 1 mg/10 mL (100 mcg/mL) in sodium chloride 0.9% (premix) intravenous, As needed, Starting on Wed11/15/18 at 1357, Anesthesia Intra-op Given 11/15/2018 1:57 PM CDT 200 mcg propofol (DIPRIVAN) IV intravenous, As needed, Starting on Wed11/15/18 at 1248, Anesthesia Intra-op Given 11/15/2018 12:48 PM CDT 200 mg protamine injection As needed, Starting on Wed11/15/18 at 1526, Anesthesia Intra-op, Indications: Heparin ToxicityIndications:Heparin Toxicity Given 11/15/2018 3:26 PM CDT 50 mg rocuronium (ZEMURON) injection intravenous, As needed, Starting on Wed11/15/18 at 1248, Anesthesia Intra-op Given 11/15/2018 3:04 PM CDT 20 mg Given 11/15/2018 2:04 PM CDT 10 mg Given 11/15/2018 1:29 PM CDT 20 mg sodium chloride 0.9% infusion 15 mL/hr, intravenous, Continuous, Starting on Wed11/15/18 at 1230 New Bag 11/15/2018 3:43 PM CDT New Bag 11/15/2018 2:17 PM CDT New Bag 11/15/2018 12:39 PM CDT documented in this encounter Orders Procedures Count Last Ordered Date First Orde red Date Airway 1 11/15/2018 documented in this encounter Care Teams Craps Dealer Relationship Specialty Start Date End Date Nasra Jasso MD [address] [place] [address] PCP - General 10/16/16 documented as of this encounter
--- OUTSIDE RECORDS SUMMARY | 2024-07-04 15:22 | XMS_ITS | Encounter Summary ---
Author Organization [facility] Address [address] [place] [address] Care Team Providers Care Commercial Real Estate Attorney Name Role Phone Nasra Jasso MD Primary Care Provider [phone] Reason for Visit * (Routine) - Closed Specialty Diagnoses / Procedures Referred By Contac t Referred To Contact Diagnoses Paroxysmal atrial fibrillation (CMS/HCC) (HCC) Procedures [facility] Mobile Cardiac Telemetry Event Monitor Deirdre Baca MD Phone: tel: fax: [facility] Referral ID Status Reason Start Date Expiration Date Visits Re quested Visits Authorized [id number] Closed 10/27/2018 05/07/2020 1 1 Encounter Details Date Type Department Care Team (Latest Contact Info) Description 10/27/2018 11:45 AM CDT Ancillary Procedure [facility] Cardiology [address] [place] [id number] Paroxysmal atrial fibrillation (CMS/HCC) Social History Tobacco Use Types Packs/Day Years Used Date Smoking Tobacco: Never Smokeless Tobacco: Never Alcohol Use Standard Drinks/Week Comments Yes 0 (1 standard drink = 0.6 oz pur e alcohol) weekends Sex and Gender Information Value Date Recorded Sex Assigned at Not on file Legal Sex Male 8:32 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 Indication Paroxysmal atrial fibrillation. Ordering Physician Dr. Baca. A total of 16 transmissions were posted. The patient was enrolled for 7 days with initial baseline transmission showing sinus rhythm, heart rate of 70 beats per minute. High average heart rate of 240 beats per minute and low average heart rate of 60 beats per minute. Nine mainly triggered events were posted including symptoms of dizziness/lightheadedness, rapid heart rate/palpitations/flutter, other. Highest average heart rate for atrial fibrillation/flutter was 240 beats per minute. No pauses greater than 3 seconds. Occasional premature atrial contractions, atrial couplets, atrial runs as well as episodes of atrial fibrillation with rapid ventricular response as well as wide complex tachycardia were noted. Wide complex tachycardia was up to a rate of 240 beats per minute. All of the his symptom events were correlated of wide complex tachycardia with elevated heart rate near or above 200 beats per minute. Conclusion Sinus rhythm with PACs, atrial runs, atrial fibrillation with rapid ventricular response, atrial flutter, as well as wide complex tachycardia which is likely atrial fibrillation/flutter with aberrancy, but cannot exclude ventricular tachycardia. These were associated with his symptom events. Of note, he is scheduled for ablation/EP study tomorrow by Dr. Luo. Job ID/VF Job ID: [id number] documented in this encounter Plan of Treatment Pending Results Name Type Priority Associated Diagnoses Date /Time [facility] Mobile Cardiac Telemetry Event Monitor Cardiac Services Routine Paroxysmal atrial fibrillation (CMS/HCC) 10/27/2018 11:06 AM CDT documented as of this encounter Visit Diagnoses Diagnosis Paroxysmal atrial fibrillation (CMS/HCC) (HCC) Atrial fibrillation documented in this encounter Care Teams Commercial Real Estate Attorney Relationship Specialty Start Date End Date Nasra Jasso MD [address] [place] [address] PCP - General 10/16/16 documented as of this encounter
--- OUTSIDE RECORDS SUMMARY | 2024-07-04 15:22 | XMS_ITS | Encounter Summary ---
Author Organization [facility] Address [address] [place] [address] Care Team Providers Care Skidder Name Role Phone Nasra Jasso MD Primary Care Provider [phone] Encounter Details Date Type Department Care Team (Late st Contact Info) Description 12/19/2018 Telephone Arrhythmia Center [address] [place] [address] Etelvina Loyola NP [address] [place], [place] [id number] Social History Tobacco Use Types Packs/Day Years Used Date Smoking Tobacco: Never Smokeless Tobacco: Never Alcohol Use Standard Drinks/Week Comments Yes 0 (1 standard drink = 0.6 oz pur e alcohol) weekends Sex and Gender Information Value Date Recorded Sex Assigned at Not on file Legal Sex Male 8:32 PM CROP ROLLER Gender Identity Not on file Sexual Orientation Not on file documented as of this encounter Miscellaneous Notes * Telephone Encounter - Betty Eaton MA - 12/19/2018 4:25 PM CDT Spoke with pt and advised of Etelvina Loyola NP's response. Pt voiced understanding * Telephone Encounter - Etelvina Loyola NP - 12/19/2018 2:16 PM CDT Please let patient know I have spoken with his GI doctor. He will not have the EGD on . He will go ahead and have the colonoscopy. I have spoken with the GI doctor and I have not recommended an EGD for 1 more month. Please let patient know he should continue to hold his Eliquis as he will still be having his colonoscopy. * Telephone Encounter - Betty Eaton MA - 12/19/2018 1:16 PM CDT Pt called to let Etelvina know that Dr. Neri at [facility] is the physician who wants toschedule his EGD & Colonoscopy. documented in this encounter Plan of Treatment Not on file documented as of this encounter Visit Diagnoses Not on filedocumented in this encounter Care Teams Skidder Relationship Specialty Start Date End Date Nasra Jasso MD [address] [place] [address] PCP - General 10/16/16 documented as of this encounter
--- OUTSIDE RECORDS SUMMARY | 2024-07-04 15:22 | XMS_ITS | Encounter Summary ---
Author Organization [facility] Address [address] [place] [address] Care Team Providers Care Brim Stitcher Name Role Phone Nasra Jasso MD Primary Care Provider [phone] Reason for Visit * Reason Comments Atrial Fibrillation Encounter Details Date Type Department Care Team (Late st Contact Info) Description 07/28/2018 4:00 PM OVEN TECHNICIAN Office Visit Ar[facility] [address] [place] [address] Betito Luo MD [address] [place] [address] Paroxysmal atrial fibrillation (CMS/HCC) (Primary Dx); S/P ablation of atrial fibrillation Social History Tobacco Use Types Packs/Day Years Used Date Smoking Tobacco: Never Smokeless Tobacco: Never Alcohol Use Standard Drinks/Week Comments Yes 0 (1 standard drink = 0.6 oz pur e alcohol) weekends Sex and Gender Information Value Date Recorded Sex Assigned at Not on file Legal Sex Male 8:32 PM OVEN TECHNICIAN Gender Identity Not on file Sexual Orientation Not on file documented as of this encounter Last Filed Vital Signs Vital Sign Reading Time Taken Comments Blood Pressure 130/88 07/28/2018 4:20 PM OVEN TECHNICIAN Pulse 72 07/28/2018 4:20 PM OVEN TECHNICIAN Temperature - - Respiratory Rate - - Oxygen Saturation - - Inhaled Oxygen Concentration - - Weight 89.8 kg (198 lb) 07/28/2018 4:20 PM OVEN TECHNICIAN Height 180.3 cm (5' 11 ) 07/28/2018 4:20 PM OVEN TECHNICIAN Body Mass Index 27.62 07/28/2018 4:20 PM OVEN TECHNICIAN documented in this encounter Progress Notes * Betito Luo MD - 07/28/2018 4:00 PM CST [facility] [address] [place] [address], [address] [place], [place] [address] Patient Name: Kulwant Hart Date of : 1960 Primary Physician: Nasra Jasso MD This note was dictated with voice-recognition software, and systems mechanic errors may be present. Subjective/Objective Patient ID: Kulwant Hart is a 58 y.o. male Chief Complaint Atrial Fibrillation HPI Mr. Hart presented to the [facility] on 07/28/2018, for follow-up regarding his atrial tachycardia/fibrillation. He is a 58 y.o. male with a history of dyslipidemia and reflux. On 05/23/2014, the patient underwent EP study for narrow complex tachycardia. This demonstrated thepresence of left atrial tachycardia transitioning to atrial fibrillation. We did not target this arrhythmia for ablation, and the patient was started on flecainide. The patient did well until recently, when he experienced increasingly frequent symptoms of atrial arrhythmia while on flecainide. On 01/28/2018, the patient underwent radiofrequency catheter ablation for atrial fibrillation. The lesion set consisted of bilateral pulmonary vein isolation and linear left atrial ablation (roof line, posterior line). Ablation was also performed in the cavotricuspid isthmus. We last saw the patient in February 2018. Interim history has not been significant for any additionalhospitalizations, emergency room visits, or other major medical events. The patient presents today for scheduled routine outpatient followup. Presently, the patient is doing well. He has been off flecainide for the last 6 months. He has experienced atrial ectopy, but this is asymptomatic. He has not noted episodes of atrial fibrillation/flutter. He denies syncope, near syncope, dizziness. He believes that his beta-marbella is causing fatigue. ... 12-lead ECG & Rhythm Strip: 07/28/2018: Sinus rhythm with PACs (72). Normal MT, QRS, and QT interval ECG HISTORY: 03/03/2018: Sinus rhythm (55). Normal MT, QRS duration, and QT interval. 10/21/2017: Sinus rhythm (50). Normal MT, QRS, and QT interval 03/25/2017: Sinus rhythm (47). Normal MT, QRS duration (118 msec). Normal QT interval. Allergies Allergen Reactions ??? Penicillins Rash Reaction: RASH, No current outpatient prescriptions on file. Past Medical History: Past Medical History: Diagnosis Date ??? A-fib (CMS/HCC) ??? Arrhythmia ??? Infectious mononucleosis age 18 Mononucleosis; Comments: BCN 03/21/2014 - ??? Supraventricular tachycardia (CMS/HCC) Family History: Family History Problem Relation Age of Onset ??? Heart attack Father 53 Myocardial infarction; /Myocardial infarction; Cause of : Myocardial infarction ??? Other Paternal Grandfather Cardiac arrhythmias; ??? Hypertension Mother Hypertension; ??? Sudden Other Sudden ; Cause of : Sudden Social History: Social History Social History ??? Marital status: Spouse name: N/A ??? Number of children: N/A ??? Years of education: N/A Occupational History ??? Not on file. Social History Main Topics ??? Smoking status: Never Smoker ??? Smokeless tobacco: Never Used ??? Alcohol use Yes Comment: weekends ??? Drug use: No ??? Sexual activity: Not on file Other Topics Concern ??? Not on file Social History Narrative ??? No narrative on file Review of Systems Constitutional: Negative. HENT: Negative. Eyes: Negative. Respiratory: Negative. Cardiovascular: Negative. Gastrointestinal: Negative. Genitourinary: Negative. Musculoskeletal: Negative. Neurological: Negative. Hematological: Negative. Physical Exam BP 130/88 Pulse 72 Ht 180.3 cm (5' 11 ) Wt 89.8 kg (198 lb) BMI 27.62 kg/m?? GENERAL: No distress. Pleasant and cooperative with the examination and interview HEENT: Pupils are equal and round. Oropharynx clear and moist. NECK: No JVD. Carotids are normal in volume, contour, and upstroke CARDIOVASCULAR: LV apical impulse nondisplaced. Rhythm is regular. No S3, S4, or murmur. PULMONARY: Clear to auscultation bilaterally, without wheeze. ABDOMEN: Soft, nontender, nondistended, normal bowel sounds. No rebound or guarding. EXTREMITIES: No edema. Pulses are 2+ and symmetric. NEURO: Alert and oriented x3. Cranial nerves II-XII intact and symmetric. No focal findings. PSYCHIATRIC: Normal mood and affect. Assessment/Plan Diagnoses and all orders for this visit: Paroxysmal atrial fibrillation (CMS/HCC) (Primary) Assessment & Plan: The patient is 6 months status post ablation for paroxysmal atrial fibrillation/tachycardia. He continues to do well, without recurrent sustained atrial arrhythmia. He is experiencing asymptomatic atrial ectopy. I have conceded that the patient may discontinue metoprolol at this time. We will continue close follow-up for arrhythmia and treat recurrent / new arrhythmia expectantly. The patient has a [id number] score of 0 (annualized risk of stroke approximately 0%). The patientwill continue on aspirin, and we will re-evaluate the need for anticoagulation in the future. The patient will follow-up with me in 6 months for an office visit and twelve- lead ECG. Orders: - ECG 12 lead; Future S/P ablation of atrial fibrillation Betito Luo MD 07/28/2018 TECHNICIAN documented in this encounter Miscellaneous Notes * Assessment & Plan Note - Betito Luo MD - 08/01/2018 4:35 PM OVEN TECHNICIAN Associated Problem(s): Atrial fibrillation (CMS/HCC) (HCC) The patient is 6 months status post ablation for paroxysmal atrial fibrillation/tachycardia. He continues to do well, without recurrent sustained atrial arrhythmia. He is experiencing asymptomatic atrial ectopy. I have conceded that the patient may discontinue metoprolol at this time. We will continue close follow-up for arrhythmia and treat recurrent / new arrhythmia expectantly. The patient has a [id number] score of 0 (annualized risk of stroke approximately 0%). The patientwill continue on aspirin, and we will re-evaluate the need for anticoagulation in the future. The patient will follow-up with me in 6 months for an office visit and twelve- lead ECG. TECHNICIAN documented in this encounter Plan of Treatment Not on file documented as of this encounter Visit Diagnoses Diagnosis Paroxysmal atrial fibrillation (CMS/HCC) (HCC)- Primary Atrial fibrillation S/P ablation of atrial fibrillation Other postprocedural status documented in this encounter Discontinued Medications Medication Sig Discontinue Reason Start Date End Da te metoprolol XL (TOPROL-XL) 25 mg 24 hr tablet Take 1 tablet (25 mg total) by mouth daily. Therapy completed 05/30/2018 07/28/2018 documented as of this encounter Care Teams Brim Stitcher Relationship Specialty Start Date End Date Nasra Jasso MD [address] [place] [address] PCP - General 10/16/16 documented as of this encounter
--- OUTSIDE RECORDS SUMMARY | 2024-07-04 15:22 | XMS_ITS | Encounter Summary ---
Author Organization [facility] Healthcare Address [address] [place] [address] Care Team Providers Care Anime Artist Name Role Phone Nasra Jasso MD Primary Care Provider [phone] Encounter Details Date Type Department Care Team (Latest Contact Info) Description 01/28/2018 6:10 AM CDT - 2018 11:41 AM CDT Hospital Encounter [facility] [address] [place] [id number] Betito Luo MD [address] [address] Paroxysmal supraventricular tachycardia (CMS/HCC) (Primary Dx) Discharge Disposition: Discharge to home or self care Social History Tobacco Use Types Packs/Day Years Used Date Smoking Tobacco: Never Smokeless Tobacco: Never Alcohol Use Standard Drinks/Week Comments Yes 0 (1 standard drink = 0.6 oz pur e alcohol) weekends Sex and Gender Information Value Date Recorded Sex Assigned at Not on file Legal Sex Male 8:32 PM [employer] Gender Identity Not on file Sexual Orientation Not on file documented as of this encounter Last Filed Vital Signs Vital Sign Reading Time Taken Comments Blood Pressure 119/71 2018 8:39 AM CDT Pulse 60 2018 8:39 AM CDT Temperature 36.6 ??C (97.8 ??F) 2018 4:55 AM CD T Respiratory Rate 16 2018 4:55 AM CDT Oxygen Saturation 97% 2018 4:55 AM CDT Inhaled Oxygen Concentration - - Weight 87.1 kg (192 lb) 01/28/2018 7:06 AM CDT Height 180.3 cm (5' 11 ) 01/28/2018 7:06 AM CDT Body Mass Index 26.78 01/28/2018 7:06 AM CDT documented in this encounter Discharge Instructions * Discharge Instructions* Marty Gale RN - 2018 11:21 AM CDT Images from the original note were not included. Apixaban (By mouth) Apixaban (a-PIX-a-ban) Treats and prevents blood clots. This medicine is a blood thinner. Brand Name(s):Nile There may be other brand names for this medicine. When This Medicine Should Not Be Used: This medicine is not right for everyone. Do not use it if you had an allergic reaction to apixaban or you have active bleeding. How to Use This Medicine: Tablet ?? Your doctor will tell you how much medicine to use. Do not use more than directed. ?? If you are not able to swallow the tablets whole, they may be crushed and mixed in water, 5% dextrose in water (D5W), apple juice, or applesauce. The crushed tablets may be mixed with 60 mL of water or D5W dose and given through a nasogastric tube (NGT). ?? This medicine should come with a Medication Guide. Ask your pharmacist for a copy if you do not have one. ?? Missed dose: Take a dose as soon as you remember. If it is almost time for your next dose, wait until then and take a regular dose. Do not take extra medicine to make up for a missed dose. ?? Store the medicine in a closed container at room temperature, away from heat, moisture, and direct light. Drugs and Foods to Avoid: Ask your doctor or pharmacist before using any other medicine, including sgew-ein-ciawgyr medicines, vitamins, and herbal products. ?? Some medicines can affect how apixaban works. Tell your doctor if you are using any of the following: ?? Carbamazepine, clarithromycin, itraconazole, ketoconazole, phenytoin, rifampin, ritonavir, Daren's wort ?? Blood thinner (including clopidogrel, heparin, prasugrel, warfarin) ?? Medicine to treat depression ?? NSAID pain or arthritis medicine (including aspirin, celecoxib, diclofenac, ibuprofen, naproxen) Warnings While Using This Medicine: ?? Tell your doctor if you are or , or if you have kidney disease, liver disease, bleeding problems, or an artificial heart valve. ?? Do not stop using this medicine suddenly without asking your doctor. You might have a higher risk of stroke for a short time after you stop using this medicine. ?? This medicine increases your risk for bleeding that can become serious if not controlled. You may also bruise easily, and it may take longer than usual for bleeding to stop. ?? This medicine may increase your risk for blood clots in your spine or back if you undergo an epidural or spinal puncture. This could lead to paralysis. Tell your doctor if you ever had spine problems or back surgery. ?? Tell any doctor or dentist who treats you that you are using this medicine. With your doctor's supervision, you may need to stop using this medicine several days before you have surgery or medicaltests. ?? Your doctor will do lab tests at regular visits to check on the effects of this medicine. Keep all appointments. ?? Keep all medicine out of the reach of children. Never share your medicine with anyone. Possible Side Effects While Using This Medicine: Call your doctor right away if you notice any of these side effects: ?? Allergic reaction: Itching or hives, swelling in your face or hands, swelling or tingling in your mouth or throat, chest tightness, trouble breathing ?? Change in how much or how often you urinate, red or pink urine ?? Chest pain, trouble breathing ?? Coughing up blood, vomiting blood or material that looks like coffee grounds ?? Numbness, tingling, or muscle weakness in your legs or feet ?? Red or black, tarry stools ?? Unusual bleeding, bruising, or weakness If you notice other side effects that you think are caused by this medicine, tell your doctor. Call your doctor for medical advice about side effects. You may report side effects to FDA at 6-665-KCF-6134 ?? 2016 [employer]. Information is for End User's use only and may not be sold, redistributed or otherwise used for commercial purposes. The above information is an rehab aid only. It is not intended as medical advice for individual conditions or treatments. Talk to your doctor, nurse or pharmacist before following any medical regimen to see if it is safe and effective for you. Cardiac Ablation WHAT YOU NEED TO KNOW: A cardiac ablation is a procedure to treat an arrhythmia, or abnormal heart rhythm. Your heart rhythm is controlled by electrical pathways in your heart. During cardiac ablation, energy is sent to the area of your heart that has an electrical problem. The energy causes a tiny area of the heart muscle to scar. This stops the electrical problem and allows your heart to beat regularly. DISCHARGE INSTRUCTIONS: Medicines: You may need any of the following: ?? Pain medicine takes away or decreases pain. Do not wait until the pain is severe before you takeyour medicine. ?? Blood thinners help prevent blood clots. A clot can cause a life-threatening problem, such as a stroke or heart attack. You will need both injections and pills. Once your blood tests show that thepills are working, you may be able to stop the injections. ?? Antiarrhythmics help slow your heartbeat and make it more normal. ?? Steroids decrease inflammation. ?? Antiulcer medicine helps decrease the amount of acid that is normally made by the stomach. You may need to take this medicine to help the lining of your stomach heal or prevent an ulcer. ?? Take your medicine as directed. Contact your healthcare provider if you think your medicine is not helping or if you have side effects. Tell him or her if you are allergic to any medicine. Keep a list of the medicines, vitamins, and herbs you take. Include the amounts, and when and why you take them. Bring the list or the pill bottles to follow-up visits. Carry your medicine list with you in case of an emergency. Follow up with your healthcare provider or paper grader in 7 to 10 days or as directed: You will need regular blood clotting tests to monitor your blood thinner medications. You will also need EKGs to check your heart rate and rhythm. Write down your questions so you remember to ask them during your visits. Wound care: Carefully wash your catheter insertion site as directed. Dry the area and put on new, clean bandages. Change your bandages when they get wet or dirty. You may bathe 24 hours after your procedure, or as directed. Holter monitor: You may need to use a Holter monitor to check your heart rate and rhythm at home. Ask how and when to use it. If you have questions, ask your healthcare provider for more information about Holter monitors. Activity: Do not lift anything heavier than 20 pounds or climb stairs for up to 2 days after the procedure, or as directed. Contact your healthcare provider or paper grader if: ?? You have a fever or chills. ?? Your catheter site is red, swollen, or draining pus. ?? You have a cough that does not go away. ?? You have questions or concerns about your condition or care. Seek care immediately or call 911 if: ?? Blood soaks through your bandage. ?? The bruise at the catheter site starts to get bigger, or the area has new swelling. ?? Your heartbeat is fast or irregular. ?? Your arm or leg feels warm, tender, and painful. It may look swollen and red. ?? You feel lightheaded or faint. ?? You cough up blood. ?? You have a seizure. ?? You have trouble thinking or speaking clearly. ?? You become weak on one side of your face or body. ?? You feel short of breath or have chest pain. ?? 2016 [employer]. Information is for End User's use only and may not be sold, redistributed or otherwise used for commercial purposes. All illustrations and images included in CareNotes?? are the copyrighted property of [employer]. or [employer]. The above information is an rehab aid only. It is not intended as medical advice for individual conditions or treatments. Talk to your doctor, nurse or pharmacist before following any medical regimen to see if it is safe and effective for you. documented in this encounter Medications at Time of Discharge apixaban (ELIQUIS) 5 mg tabletIndications: atrial fibrillation Take 1 tablet (5 mg total) by mouth 2 (two) times a day. 120 tablet 2018 02/22/2018 flecainide (TAMBOCOR) 150 mg tablet Take 1 tablet (150 mg total) by mouth every 12 (twelve) hours. 180 tablet 3 10/21/2017 03/03/2018 metoprolol XL (TOPROL-XL) 25 mg 24 hr tablet Take 1 tablet (25 mg total) by mouth daily. 90 tablet 3 10/21/2017 05/30/[address] (PROTONIX) 40 mg EC tablet Take 1 tablet (40 mg total) by mouth daily. 90 tablet 1 12/02/2017 03/03/2018 documented as of this encounter Ordered Prescriptions Prescription Sig Dispense Quantity Refills Last Filled Start Date End Date apixaban (ELIQUIS) 5 mg tabletIndications: atrial fibrillation Take 1 tablet (5 mg total) by mouth 2 (two) times a day. 120 tablet 2018 02/22/2018 documented in this encounter Discharge Disposition Disposition Code Departure Means Destination Discharge to home or self care documented in this encounter Progress Notes * Rosales Larsen MD - 2018 9:53 AM CDT Progress Note Patient Name: Kulwant Hart Date of : 1960 Primary Physician: Nasra Jasso MD Admission Date: 01/28/2018 Subjective CHIEF COMPLAINT--- I HAD ATRIAL FIBRILLATION AND ABLATION YESTERDAY Patient had no acute events overnight, and denies palpitations or shortness of breath. No palpitations no chest pain no shortness of breath no lightheadedness. Ambulated. Voided. Feels great after ablation. I confirmed patient received Eliquis last night and this morning. The patient given detailed discharge instructions. Greater than 30 min spent Current Facility-Administered Medications: ??? acetaminophen (TYLENOL) tablet 650 mg, 650 mg, oral, Q4H PRN, Betito Luo MD ??? apixaban (ELIQUIS) tablet 5 mg, 5 mg, oral, BID, Betito Luo MD, 5 mg at 01/29/18838 ??? flecainide (TAMBOCOR) tablet 150 mg, 150 mg, oral, Q12H, Betito Luo MD, 150 mg at 01/29/18838 ??? metoprolol XL (TOPROL-XL) extended release tablet 25 mg, 25 mg, oral, Daily, Betito Luo MD, 25 mg at 07/14/18 0839 ??? ondansetron (ZOFRAN) injection 4 mg, 4 mg, intravenous, Q4H PRN, Betito Luo MD ??? oxyCODONE (ROXICODONE) tablet 5 mg, 5 mg, oral, Q4H PRN, Betito Luo MD ??? pantoprazole DR (PROTONIX) extended release tablet 40 mg, 40 mg, oral, BID, Betito Luo MD, 40 mg at 01/29/18 0839 ??? sodium chloride 0.9% flush 0.5-20 mL, 0.5-20 mL, intra-catheter, Q8H CLEMENT, Betito Luo MD, 10 mL at 01/29/18 0843 ??? sodium chloride 0.9% flush 0.5-20 mL, 0.5-20 mL, intra-catheter, PRN, Betito Luo MD Objective Intake/Output Summary (Last 24 hours) at 01/29/18 0953 Last data filed at 01/29/18 0458 Gross per 24 hour Intake 730 ml Output 200 ml Net 530 ml Physical Exam Vitals: 01/29/18 0040 01/29/18 0300 01/29/18 0455 01/29/18 0839 BP: 104/59 99/72 119/71 BP Location: Right arm Left arm Patient Position: Pulse: 64 61 65 60 Resp: 17 16 Temp: 36.9 ??C (98.4 ??F) 36.6 ??C (97.8 ??F) TempSrc: Oral Oral SpO2: 99% 97% Weight: Height: Constitutional: No distress. Comfortable sitting in chair Head: Normocephalic. Nose: Nose normal. Mouth/Throat: Mucous membranes are normal. Eyes: EOM are normal. Neck: Normal range of motion. Cardiovascular: Regular rhythm, S1 normal and S2 normal. No rub no murmur. Pulmonary/Chest: Effort normal and breath sounds normal. A few rales right base clear with cough Abdominal: Soft. Normal appearance. Neurological: alert, oriented to person, place, and time and easily aroused. Skin: warm and dry. Psychiatric: normal mood and affect. Musculoskeletal: No joint inflammation Right and left groin sites without hematoma bleeding or swelling. No leg swelling Diagnostics Recent Labs Lab Units 01/28/18 0656 WHITE BLOOD CELLS K/cumm 6.4 HEMOGLOBIN g/dL 15.2 HEMATOCRIT % 45.2 PLATELETS K/cumm 206 Recent Labs Lab Units 01/28/18 0656 SODIUM mmol/L 141 POTASSIUM PLASMA mmol/L 4.7 CHLORIDE mmol/L 103 CO2 mmol/L 27 ANIONGAP mmol/L 11 GLUCOSE mg/dL 109 BUN SERUM mg/dL 27* CREATININE mg/dL 1.11 CALCIUM mg/dL 9.8 Telemetry shows sinus rhythm and intermittent junctional rhythm. No AF Assessment/Plan Impression: 1. Atrial fibrillation. Doing well now status post PVI. Satisfactory progress. Importance of anticoagulation and warning signs outlined to the patient. He understands. I have given patient a prescription for Eliquis and samples have been given. Patient instructed to contact me at any time for any problems after discharge Plan: 1. Discharge today 2. Eliquis 5 mg b.i.d. 3. Continue flecainide 4. Follow-up [address] Valerio Larsen MD 2018 9:53 AM documented in this encounter H&P Notes * Etelvina Loyola, MIAH - 01/28/2018 7:28 AM CDT H&P Note Patient Name: Kulwant Hart Date of : 1960 Primary Physician: Nasra Jasso MD Admission Date: 01/28/2018 Problem List Patient Active Problem List Diagnosis ??? Paroxysmal supraventricular tachycardia (CMS/HCC) ??? Atrial fibrillation (CMS/HCC) ??? [facility] current use of antiarrhythmic drug ??? Anticoagulation management encounter HPI Kulwant Hart is a 58 y.o. male here for AF and ablation. He has a history of PAF and EP study in 2013 demonstrating narrow complex tachycardia, left atrial tachycardia, transitioning into afib,. He was then started on flecainide. He has recently experienced intermittent symptoms on flecainide. Past Medical History Past Medical History: Diagnosis Date ??? A-fib (CMS/HCC) ??? Arrhythmia ??? Infectious mononucleosis age 18 Mononucleosis; Comments: ODILIA 03/21/2014 - Past Surgical History History reviewed. No pertinent surgical history. Medications Scheduled Meds: Home Meds: HOME MEDICATIONS : flecainide (TAMBOCOR) 150 mg tablet metoprolol XL (TOPROL-XL) 25 mg [address] (PROTONIX) 40 mg EC tablet Continuous Infusions: sodium chloride 0.9% 15 mL/hr PRN Meds:. Allergies Allergies Allergen Reactions ??? Penicillins Rash Reaction: RASH, Family History Family History Problem Relation Age of Onset ??? Heart attack Father 53 Myocardial infarction; /Myocardial infarction; Cause of : Myocardial infarction ??? Other Paternal Grandfather Cardiac arrhythmias; ??? Hypertension Mother Hypertension; ??? Sudden Other Sudden ; Cause of : Sudden Social History Social History Social History ??? Marital status: [...] No narrative on file Review of Systems Review of Systems Constitutional: Negative. HENT: Negative. Eyes: Negative. Respiratory: Negative. Cardiovascular: Negative. Gastrointestinal: Negative. Genitourinary: Negative. Musculoskeletal: Negative. Skin: Negative. Neurological: Negative. Endo/Heme/Allergies: Negative. Psychiatric/Behavioral: Negative. Objective BP 129/89 Pulse (!) 45 Resp 16 Ht 180.3 cm (5' 11 ) Wt 87.1 kg (192 lb) SpO2 98% BMI 26.78 kg/m?? Condition: Alert, appears in no acute distress Physical Exam Physical Exam Constitutional: He is oriented to [...] is normal. Judgment and thought content normal. Diagnostics ECG SR(47) IVCD Assessment/Plan 58 y.o. male seen for symptomatic paroxysmal atrial fibrillation PLAN:EPS/AF RFA. The risks and benefits have been explained to the patient and he is agreeable to proceed. Care plan discussed with the patient. Etelvina Loyola NP 01/28/2018 7:28 AM documented in this encounter Miscellaneous Notes * Plan of Care - Casper Jason RN - 2018 12:59 AM CDT Goals: Telemonitoring continuous, monitor puncture sites, VS Q4. Summary: Cardiac: ??? Ability to maintain an adequate cardiac output will improve Progressing ??? Complications related to the disease process, condition or treatment will be avoided or minimized Progressing Health Behavior: ??? Understanding of discharge needs will improve Progressing Lack of Knowledge: ??? Ability to develop a pain control plan will improve Progressing ??? Ability to identify pain intensity on a pain scale and rate it consistently will improve Progressing ??? Ability to notify healthcare provider of pain before it becomes unmanageable or unbearable willimprove Progressing Lack of Knowledge: ??? Ability to state ways to decrease the risk of falls will improve Progressing Medication: ??? Satisfaction with pain management regimen will improve Progressing Safety: ??? Will remain free from falls Progressing ??? Will remain free from injury from falls Progressing ??? Will remain free from falls and injury in home environment Progressing Sensory: ??? Ability to identify factors that increase the pain will improve Progressing ??? Pain level will decrease Progressing * Plan of Care - Hair Ceron RN - 01/28/2018 5:51 PM CDT Cardiac: ??? Ability to maintain an adequate cardiac output will improve Not Progressing ??? Complications related to the disease process, condition or treatment will be avoided or minimized Not Progressing Health Behavior: ??? Understanding of discharge needs will improve Not Progressing Lack of Knowledge: ??? Ability to develop a pain control plan will improve Not Progressing ??? Ability to identify pain intensity on a pain scale and rate it consistently will improve Not Progressing ??? Ability to notify healthcare provider of pain before it becomes unmanageable or unbearable willimprove Not Progressing Lack of Knowledge: ??? Ability to state ways to decrease the risk of falls will improve Not Progressing Medication: ??? Satisfaction with pain management regimen will improve Not Progressing Safety: ??? Will remain free from falls Not Progressing ??? Will remain free from injury from falls Not Progressing ??? Will remain free from falls and injury in home environment Not Progressing Sensory: ??? Ability to identify factors that increase the pain will improve Not Progressing ??? Pain level will decrease Not Progressing Goals: Clinical Goals for the Shift: remain pain free sob fee - off bedrest - free of falls Summary: pt denies pain or sob - off bedrest - free of falls - poss dc tmrew * Perioperative Nursing Note - Mamta Lester RN - 01/28/2018 2:56 PM CDT Family notified of room * Perioperative Nursing Note - Mamta Lester RN - 01/28/2018 1:15 PM CDT Family updated * Op Note - Betito Luo MD - 01/28/2018 7:52 AM CDT Images from the original note were not included. Patient Name: Kulwant Hart Date of : 1960 Primary Physician: Nasra Jasso MD Procedure Date: 01/28/2018 Procedure Electrophysiology Study, with RA, LA, CS, and LV Pacing Radiofrequency Catheter Ablation of Paroxysmal Atrial Fibrillation / Pulmonary Vein Isolation Linear/focal Left Atrial Ablation Radiofrequency Catheter Ablation of Cavotricuspid Isthmus-dependent flutter Three-dimensional Electroanatomic Mapping and Navigation Transseptal left heart catheterization Intracardiac Echocardiography Patient History Mr. Hart is a 58-year-old male with a history of paroxysmal atrial fibrillation/atypical atrial flutter that has been refractory to flecainide therapy. He presents today for ablation of his atrial arrhythmia. We discussed the risks and benefits, and the patient would like to proceed. As the patient presented in sinus rhythm, transesophageal echocardiography was not necessary prior to the procedure. Method After informed consent was obtained, the patient was brought to the EP lab in a post-absorptive, non-sedated state. The patient was found to be in NSR at the study???s outset. Peripheral IV access was established. Continuous electrocardiography, blood pressure, and pulse oximetry monitoring was initiated and cardioversion patch electrodes were positioned on the chest and back. Anesthesia servicesinitiated sedation and general endotracheal anesthesia. An esophageal temperature probe was placed.The patient???s bilateral inguinal areas were prepared and draped in sterile fashion. Local anesthesia was given at the bilateral femoral access sites. Venous access was achieved with modified Seldinger technique. Four venous sheaths were placed. A multipolar catheter was advanced to the coronary sinus. Heparin was administered and a strict ACT timer was maintained to achieve ACT greater than or equal to 350 seconds. An 8 Arabic deflectable phased-array ultrasound catheter was advanced to the center right atrium, and intracardiac echocardiography (ICE) was used to visualize the intraatrial septum and fossa ovalis in preparation for transseptalleft heart catheterization. Two transseptal punctures were performed using a SafeSept Needle-free transseptal wire with ICE and fluoroscopic guidance. After entrance into left atrium was confirmed, two sheaths (Mobicath deflectable and SL1) were advanced into the left atrium. The sheaths were flushed with a constant infusion of heparinized saline throughout the case. A 20-pole mapping catheter (Lasso) and Smart Touch irrigated pressure- sensing ablation catheter were positioned in the left atrium. Electroanatomic 3D mapping (of the LA and PVs) and catheter ablation were performed as described below. The CARTO3 mapping system and fast-anatomical contact mapping (FAM) were used to define the anatomy of the pulmonary veins, their ostia, and the left atrial appendage. Radiofrequency ablation was performed, and two wide-area circumferential lesions were created around the left and right pulmonary veins. Additional linear ablation was performed as described below. The ablation catheter was navigated into the LV, and an electrophysiology study to exclude additional arrhythmia was performed. Additional ablation in the RA / cavotricuspid isthmus was performed. Catheters and sheaths were pulled back from the left atrium and a duodecapolar catheter (Aternity) was advanced to the lateral and high right atrium. FAM was used to define the relevant right atrial anatomy. Radiofrequency ablation was performed in the cavotricuspid isthmus and continued until bidirectional block was confirmed. Prior to the procedure???s conclusion, the ultrasound catheter was used to confirm that significantpericardial effusion was not present. Catheters were withdrawn, the sheaths were repositioned to the IVC, and a test dose of protamine sulfate was given. A total dose of 50 mg was administered (titrated to ACT < 200). All sheaths were removed, hemostasis was assured with manual compression, and the patient was taken to the recovery area in stable condition. Access Sites: Right femoral vein: 2 sheaths (11.5 Fr Mobicath deflectable, 8.5 Fr SL1 long) Left femoral vein: 2 sheaths (6.5 Fr, 8.5 Fr) Conduction Intervals Post-ablation A-A A-H H-V P-R QRS dur QT V-V 988 - - 180 82 422 988 AV Conduction Post-ablation VA Block at 650 msec (concentric, decremental) AVWB at 400 msec Refractory Periods Post-ablation Retro VA ERP 700/500 AVN ERP 600/450, 450/220 No arrhythmia was inducible post-ablation. Electroanatomic Mapping / Voltage mapping After transseptal access was obtained, a manually-deflected 3.5mm Smart Touch Thermocool irrigated ablation catheter was placed in the left atrium. A three- dimensional map of the left atrium, appendage, and pulmonary veins was constructed (using both the mapping catheter and ablation catheter) withfast anatomical mapping. Continuous voltage mapping of the left atrium was performed using the CONFIDENSE module of CARTO3. Healthy tissue was defined by areas of greater than 0.4 mV; dense scar was defined by areas of less than 0.1 mV. The patient was found to have minimal scarring involving the posterior left atrium. Following ablation, voltage mapping was repeated, demonstrating electrical sile nce of the areas ablated. Radiofrequency Ablation Radiofrequency energy was applied to create two wide-area circumferential lesions encircling the right and left pulmonary ostia. RF was applied in power control mode (temperature limit = 43 deg C, irrigation = 30cc/min) with a target power 30-40W. RF was applied until a force-time integral (FTI) >400 was achieved (with attention to abatement of local electrogram and appropriate impedance changes). All lesions were limited to <30 sec at a single site. Special attention was given to identifying the location of the PV ostia (using impedance mapping and electroanatomic mapping) to ensure ablation in the antral region. Ablation continued until the lasso catheter, positioned sequentially in each targeted pulmonary vein antrum, demonstrated electrical silence. During ablation along the posterior left atrium, an esophageal temperature probe was advanced to closest fluoroscopic proximity to the ablation catheter. Temperature was monitored in order to preventthermal esophageal injury. When temperature increases were noted, ablation was discontinued immediately and did not resume until the temperature regressed to normal. Prior to ablation at the anterior aspect of the RSPV, high output pacing was performed along the intended path of ablation. Phrenic nerve stimulation was not found. Post ablation, the ablation catheter was navigated into the pulmonary vein ostia on the distal sideof the circumferential lesions. Exit block was demonstrated with high output pacing, showing dissociation of the atria. Voltage mapping was repeated. The Lasso catheter demonstrated that all pulmonary veins were electrically silent. PA and PA/superior views of the left atrium following ablation. Bilateral pulmonary vein isolation/wide area circumferential ablation and linear ablation lesions are shown. Left Atrial Roof line / Posterior line Additional substrate modification / left atrial ablation was deemed necessary and was performed. Linear ablation was performed, with a roof line constructed connecting the superior excursions of the bilateral pulmonary vein isolation lesions. Linear ablation was also performed in the posterior left atrium, with a line connecting the inferior aspects of the bilateral WACA lesions (roughly parallel to the roof line). Following linear ablation, electrical silence was observed and documented throughout the area of the posterior left atrium bounded by these lesions. Isthmus-dependent Right Atrial Flutter / Cavotricuspid Isthmus Ablation As right atrial flutter was intermittently present during the study, we proceeded to map and ablatein the RA. A duodecapolar catheter was positioned in the high and lateral RA. FAM was used to define the right atrial anatomy, including the tricuspid valve annulus, SVC, IVC, and coronary sinus. Using the ablation catheter via the long sheath, a line was constructed from the tricuspid annulus to the IVC in the 6:00 position (STATELESS clock). The line was constructed during CS pacing, and bidirectional block was achieved. The ablation line was mapped to ensure widely spaced double potentials. KELLER view of the electroanatomic maps of the RA and LA following ablation. In addition to ablation in the left atrium, cavotricuspid isthmus ablation is shown. Ablation Summary Total ablation time: 3014 seconds (50.2 minutes) Estimated Blood Loss <50 mL Complications None Conclusions 1. Successful ablation for AF with electrical isolation of all four pulmonary veins 2. Linear/focal left atrial ablation 3. Successful ablation of cavotricuspid isthmus 4. Electrophysiology study (with CS, RA, LA and LV pacing), negative for sustained inducible arrhythmia Recommendations 1. Admit to monitored bed for observation overnight 2. Bedrest / straight leg precautions for 4 hours 3. Start apixaban 5 mg twice daily; continue at least one month 4. Continue flecainide at least one month 5. Anticipate discharge in AM; Will follow-up in the [facility] in 4-6 weeks Betito Luo MD [facility] documented in this encounter Plan of Treatment Not on file documented as of this encounter Procedures Procedure Name Priority Date/Time Associated Diagnosis Comments ECG 12-LEAD Routine 2018 10:40 AM CDT Paroxysmal supraventricular tachycardia (CMS/HCC) ECG 12-LEAD Routine 01/28/2018 12:18 PM CDT ACTIVATED CLOTTING TIME Routine 01/29/20 11:14 AM CDT ABLATE ADDTL ARRHYTHMIA ATRIA OR VENT Routine 01/28/2018 10:48 AM CDT ATRIAL FIBRILLATION ABLATION ADDITIONAL LINE OR FOCI Routine 01/28/2018 10:48 AM CDT LEFT VENTRICLE PACING AND RECORDING Routine 01/28/2018 10:48 AM CDT 3D MAPPING OF TACHYCARDIA Routine 01/28/2018 10:48 AM CDT ELECTROPHYSIOLOGIC EVALUATION (EPS) / ATRIAL FIBRILLATION ABLATION VIA PULMONARY VEIN ISOLATION Routine 01/28/2018 10:48 AM CDT ACTIVATED CLOTTING TIME Routine 01/29/20 18 10:06 AM CDT ACTIVATED CLOTTING TIME Routine 01/29/20 18 9:29 AM CDT ACTIVATED CLOTTING TIME Routine 01/29/20 18 8:55 AM CDT EGFR STAT 01/28/2018 6:56 AM CDT DIFFERENTIAL AUTO STAT 01/28/2018 6:5 6 AM CDT CBC WITH AUTO DIFFERENTIAL STAT 01/28/2018 6:56 AM CDT BASIC METABOLIC PANEL STAT 01/28/2018 6:56 AM CDT ECG 12-LEAD STAT 01/28/2018 6:33 AM CDT documented in this encounter Results * ECG 12 lead (2018 10:40 AM CDT) Patient age 58 years [facility] Interpretation Text SUPRAVENTRICULAR BRADYCARDIANONSPECIFIC ST ABNORMALITYABNORMAL RHYTHM ECGPREVIOUS TRACIN01/28/[address] ABNORMALITY is now improved [facility] Comment:Physician Interprete r Dr. Benji Pierson M.D. [facility] Ventricular Rate EKG/Min 58 /min [facility] P Wave Duration ms [facility] QRS-Interval (MSEC) 105 ms [facility] NV-Interval (MSEC) ms [facility] QT Interval 444 ms [facility] QTc 440 ms [facility] QTC Interval ms [facility] P Simpson deg [facility] QRS Simpson -4 deg [facility] T Simpson 25 deg [facility] 2018 10:4 0 AM CDT Betito Luo MD ECG ORDERABLES Final R esult [facility] * ECG 12 lead (01/28/2018 12:18 PM CDT) Patient age 58 years [facility] Interpretation Text SUPRAVENTRICULAR RHYTHMLEFT AXIS DEVIATIONMODERATE INTRAVENTRICULAR CONDUCTION DELAYMODERATE ST DEPRESSION,, CONSIDER ANTERIOR/ANTEROLATE RAL ISCHEMIAPROLONGED QT INTERVALABNORMAL ECGPREVIOUS TRACIN01/28/2018 06.33 [facility] Comment:Physician Interprete r Dr. Santana Bazan M.D. Ventricular Rate EKG/Min 74 /min [facility] P Wave Duration ms [facility] QRS-Interval (MSEC) 116 ms [facility] NV-Interval (MSEC) ms [facility] QT Interval 447 ms [facility] QTc 471 ms [facility] QTC Interval ms [facility] P Simpson deg [facility] QRS Simpson -38 deg [facility] T Simpson -5 deg [facility] 01/28/2018 12:1 8 PM CDT Notinfile Unknown ECG ORDERABLES Final Result Performing Organization Address [facility] Co de Phone Number [facility] * Activated Clotting Time (01/28/2018 11:14 AM CDT) ACT, POC 185 sec [facility] Comment: The normal clotting time for nonheparinized individual is approximately 120 seconds.Most Cardiac Cath / PTCA heparinized patients average 300-400 seconds. An ACT <200 seconds is necessary in order to pull the arterial sheath in PTCA. The normal range of ACT for the heparinized patient to be placed CPB is 400-800 seconds. Blood specimen (specimen) 01/28/2018 11:14 AM CDT 01/28/2018 11:14 AM CDT Narrative [facility] - 01/28/2018 11:53 AM CDT us Betito Luo MD LAB BLOOD ORDERABLES Fi nal Result Performing Organization Address [facility] Co de Phone Number [facility] [address] [place] [place] [address] * ELECTROPHYSIOLOGIC EVALUATION (EPS) / ATRIAL FIBRILLATION ABLATION VIA PULMONARY VEIN ISOLATION, 3DMAPPING OF TACHYCARDIA, LEFT VENTRICLE PACING AND RECORDING, ATRIAL FIBRILLATION ABLATION ADDITIONAL LINE OR FOCI, ABLATE ADDTL ARRHYTHMIA ATRIA OR VENT (01/28/2018 10:48 AM CDT) Anatomical Region Laterality Modality X-Ray Angiograph y Betito Luo MD CV ELECTROPHYSIOLOGY [facility] Final Result * Activated Clotting Time (01/28/2018 10:06 AM CDT) ACT, POC 402 sec [facility] Comment: The normal clotting time for nonheparinized individual is approximately 120 seconds.Most Cardiac Cath / PTCA heparinized patients average 300-400 seconds. An ACT <200 seconds is necessary in order to pull the arterial sheath in PTCA. The normal range of ACT for the heparinized patient to be placed CPB is 400-800 seconds. Blood specimen (specimen) 01/28/2018 10:06 AM CDT 01/28/2018 10:06 AM CDT Narrative [facility] - 01/28/2018 11:53 AM CDT Betito Luo MD LAB BLOOD ORDERABLES Fi nal Result Performing Organization Address [facility] Co de Phone Number [facility] [address] [place] [address] * Activated Clotting Time (01/28/2018 9:29 AM CDT) ACT, POC 351 sec [facility] Comment: The normal clotting time for nonheparinized individual is approximately 120 seconds.Most Cardiac Cath / PTCA heparinized patients average 300-400 seconds. An ACT <200 seconds is necessary in order to pull the arterial sheath in PTCA. The normal range of ACT for the heparinized patient to be placed CPB is 400-800 seconds. Blood specimen (specimen) 01/28/2018 9:29 AM CDT 01/28/2018 9:29 AM CDT Narrative [facility] - 01/28/2018 11:53 AM CDT Betito Luo MD LAB BLOOD ORDERABLES Fi nal Result Performing Organization Address [facility] de Phone Number [facility] [address] [facility] [place] [address] * Activated Clotting Time (01/28/2018 8:55 AM CDT) [facility] ACT, POC 307 sec [facility] Comment: The normal clotting time for nonheparinized individual is approximately 120 seconds.Most Cardiac Cath / PTCA heparinized patients average 300-400 seconds. An ACT <200 seconds is necessary in order to pull the arterial sheath in PTCA. The normal range of ACT for the heparinized patient to be placed CPB is 400-800 seconds. Blood specimen (specimen) 01/28/2018 8:55 AM CDT 01/28/2018 8:55 AM CDT Narrative [facility] - 01/28/2018 11:53 AM CDT Betito Luo MD LAB BLOOD ORDERABLES Fi nal Result Performing Organization Address [facility] de Phone Number [facility] [address] [facility] [place] [address] * eGFR (01/28/2018 6:56 AM CDT) [facility] eGFR 73 mL/min/1.7 3 m2 [facility] Comment: Interpretive Data Reference Interval Normal ?>/= 90 mL/min/1.73m2 Mildly decreased* ? 60 - 89 mL/min/1.73m2 Mildly to moderately decreased ?45 - 59 mL/min/1.73m2 Moderately to severely decreased ??30 - 44 mL/min/1.73m2 Severely decreased ?15 - 29 mL/min/1.73m2 Kidney Failure ?< 15 ??mL/min/1.73m2 *Relative to young adult level If -Montserratian multiply value by 1.16. Estimated glomerular filtration rate is determined by the CKD-EPI equation recommended by the National Kidney Foundation (KDIGO 2012 Clinical Practice Guideline for the Evaluation and Management of Chronic Kidney Disease. Kidney Intnl Suppl Jul 2012;3:1). The CKD-EPI equation should not be used for patients with unstable renal function and has not been validated in children and those over 70. Current interpretive data was last reviewed 2016. Blood specimen (specimen) 01/28/2018 6:56 AM CDT 01/28/2018 6:58 AM CDT Narrative [facility] - 01/28/2018 7:26 AM CDT us Betito Luo MD LAB BLOOD ORDERABLES Fi nal Result [facility] [address] Department [place] [address] * Differential, auto (01/28/2018 6:56 AM CDT) Neutrophil abs 3.4 1.7 - 6.5 K/cumm [facility] Imm gran abs 0.0 0.0 - 0.1 K/cumm [facility] Lymphocyte abs 1.9 0.8 - 3.3 K/cumm [facility] Monocyte abs 0.8 0.2 - 0.8 K/cumm [facility] Eosinophil abs 0.2 0.0 - 0.5 K/cumm [facility] Basophil abs 0.0 0.0 - 0.1 K/cumm [facility] Neutrophil pct 53.4 % [facility] Comment: Interpretive Data Percent cell count reference ranges are not reported, since discordance with absolute values may lead to misinterpretation of CBC data. Current Interpretive Data was last revised on 2017. Imm gran pct 0.6 % [facility] Comment: Interpretive Data Percent cell count reference ranges are not reported, since discordance with absolute values may lead to misinterpretation of CBC data. Current Interpretive Data was last revised on 2017. Lymphocyte pct 29.6 % [facility] Comment: Interpretive Data Percent cell count reference ranges are not reported, since discordance with absolute values may lead to misinterpretation of CBC data. Current Interpretive Data was last revised on 2017. Monocyte pct 13.1 % [facility] Comment: Interpretive Data Percent cell count reference ranges are not reported, since discordance with absolute values may lead to misinterpretation of CBC data. Current Interpretive Data was last revised on 2017. Eosinophil pct 2.5 % [facility] Comment: Interpretive Data Percent cell count reference ranges are not reported, since discordance with absolute values may lead to misinterpretation of CBC data. Current Interpretive Data was last revised on 2017. Basophil pct 0.8 % [facility] Comment: Interpretive Data Percent cell count reference ranges are not reported, since discordance with absolute values may lead to misinterpretation of CBC data. Current Interpretive Data was last revised on 2017. Blood specimen (specimen) 01/28/2018 6:56 AM CDT 01/28/2018 6:58 AM CDT Narrative [facility] - 01/28/2018 7:05 AM CDT us Betito Luo MD LAB BLOOD ORDERABLES Fi nal Result [facility] [address] Department [place] [address] * CBC with auto differential (01/28/2018 6:56 AM CDT) WBC 6.4 3.8 - 9.9 K/cumm [facility] Hgb 15.2 13.0 - 17.5 g/dL [facility] Hct 45.2 38.9 - 50.3 % [facility] Plt 206 150 - 400 K/cumm [facility] MPV 10.1 9.1 - 12.3 fL [facility] RBC 4.79 4.30 - 5.80 M/cumm [facility] MCV 94.4 81.3 - 96.4 fL [facility] MCH 31.7 27.1 - 33.3 pg [facility] MCHC 33.6 32.3 - 35.7 g/dL [facility] RDW CV 12.9 11.1 - 14.9 % [facility] RDW SD 44.2 35.7 - 48.1 fL [facility] NRBC abs 0.00 0.00 - 0.01 K/cumm [facility] Blood specimen (specimen) 01/28/2018 6:56 AM CDT 01/28/2018 6:58 AM CDT Narrative [facility] - 01/28/2018 7:05 AM CDT If most recent labs were drawn prior to 4 AM, draw only prior to initiating procedure. us Betito Luo MD LAB BLOOD ORDERABLES nal Result [facility] [address] Department [place] [address] * (ABNORMAL) Basic metabolic panel (01/28/2018 6:56 AM CDT) Sodium 141 135 - 145 mmol/L [facility] Potassium, pl 4.7 3.3 - 4.9 mmol/L [facility] Chloride 103 97 - 110 mmol/L [facility] CO2 27 22 - 32 mmol/L [facility] Anion gap 11 2 - 15 mmol/L [facility] BUN 27(H) 8 - 25 mg/dL [facility] Creatinine 1.11 0.80 - 1.30 mg/dL [facility] Glucose 109 70 - 199 mg/dL [facility] Comment: Interpretive Data Fasting glucose >/= 126 mg/dl is diagnostic for diabetes. ?? Fasting is defined as no caloric intake for at least 8 hours. Fasting glucose between 100 mg/dl to 125 mg/dl is diagnostic of prediabetes. In a patient with classic symptoms of hyperglycemia or hyperglycemic crisis, a random glucose >/= 200 mg/dl is diagnostic for diabetes. In the absence of unequivocal hyperglycemia, results should be confirmed by repeat testing. The classification and Diagnosis of Diabetes Diabetes Care 2017;40 (Suppl. 1):S11. Current interpretive data was last revised 2017. Calcium 9.8 8.5 - 10.3 mg/dL [facility] Blood specimen (specimen) 01/28/2018 6:56 AM CDT 01/28/2018 6:58 AM CDT Narrative [facility] - 01/28/2018 7:26 AM CDT us Betito Luo MD LAB BLOOD ORDERABLES Fi nal Result Performing Organization Address [facility] Co de Phone Number [facility] [address] Department [place] [address] * ECG 12 lead (01/28/2018 6:33 AM CDT) Patient age 58 years [facility] Interpretation Text SINUS BRADYCARDIAINCOMPLETE RIGHT BUNDLE BRANCH BLOCKBORDERLINE ECGPREVIOUS TRACIN05/23/2014 06.56 [facility] Comment:Physician Interprete r Dr. Santana Bazan M.D. Ventricular Rate EKG/Min 44 /min [facility] P Wave Duration 151 ms [facility] QRS-Interval (MSEC) 117 ms [facility] NV-Interval (MSEC) 195 ms [facility] QT Interval 497 ms [facility] QTc 469 ms [facility] QTC Interval ms [facility] P Simpson 37 deg [facility] QRS Simpson 1 deg [facility] T Simpson 13 deg [facility] 01/28/2018 6:33 AM CDT us Betito Luo MD ECG ORDERABLES Final R esult Performing Organization Address [facility] Co de Phone Number [facility] documented in this encounter Visit Diagnoses Diagnosis Paroxysmal supraventricular tachycardia (HCC)- Primary Paroxysmal supraventricular tachycardia documented in this encounter Administered Medications Inactive Administered Medications - up to 3 most recent administrations Medication Order MAR Action Action Date Dose Rate Site apixaban (ELIQUIS) tablet 5 mg 5 mg, oral, 2 times daily, First dose on Wed01/28/18 at 2100, Recovery (CV), May crush and suspend in 60 ml of water, D5W, apple juice or apple sauce. If on heparin infusion, discontinue heparin infusion upon first administration of apixaban., Indications: atrial fibrillationIndications:atrial fibrillation Given 2018 8:39 AM CDT 5 mg Given 01/28/2018 9:47 PM CDT 5 mg flecainide (TAMBOCOR) tablet 150 mg 150 mg, oral, Every 12 hours, First dose (after last modification) on Wed01/28/18 at 2100, Recovery (CV) Given 2018 8:39 AM CDT 150 mg Given 01/28/2018 9:47 PM CDT 150 mg metoprolol XL (TOPROL-XL) extended release tablet 25 mg 25 mg, oral, Daily, First dose on Wed01/28/18 at 1700, Recovery (CV), Do not crush or chew Given 2018 8:39 AM CDT 25 mg Given 01/28/2018 6:06 PM CDT [address] (PROTONIX) extended release tablet 40 mg 40 mg, oral, 2 times daily, First dose on Wed01/28/18 at 2100, Recovery (CV), Do not crush or chew, Indications: Mucositis ProphylaxisIndications:Mucositis Prophylaxis Given 2018 8:39 AM CDT 40 mg Given 01/28/2018 9:47 PM CDT 40 mg sodium chloride 0.9% flush 0.5-20 mL 0.5-20 mL, intra-catheter, Every 8 hours scheduled, First dose on Wed01/28/18 at 1400, Recovery (CV), Flush volume based on line type and size. , Indications: FlushingIndications:Flushing Given 2018 8:43 AM CDT 10 mL Given 01/28/2018 10:00 PM CDT 10 mL Given 01/28/2018 6:06 PM CDT 10 mL documented in this encounter Active and Recently Administered Medications Times are shown in CDT. Scheduled Medication Order 01/27/2018 01/28/2018 2018 apixaban (ELIQUIS) tablet 5 mg 5 mg, oral, 2 times daily, First dose on Wed01/28/18 at 2100, Recovery (CV), May crush and suspend in 60 ml of water, D5W, apple juice or apple sauce. If on heparin infusion, discontinue heparin infusion upon first administration of apixaban., Indications: atrial fibrillation 2146 (Given - Provider: Casper Jason RN) 0839 (Given - Provider: Marty Gale RN) flecainide (TAMBOCOR) tablet 150 mg 150 mg, oral, Every 12 hours, First dose (after last modification) on Wed01/28/18 at 2100, Recovery (CV) 214 (Given - Provider: Casper Jason RN) 0839 (Given - Provider: Marty Gale RN) metoprolol XL (TOPROL-XL) extended release tablet 25 mg 25 mg, oral, Daily, First dose on Wed01/28/18 at 1700, Recovery (CV), Do not crush or chew 180 (Given - Provider: Hair Ceron RN) 0839 (Given - Provider: Marty Gale RN) pantoprazole DR (PROTONIX) extended release tablet 40 mg 40 mg, oral, 2 times daily, First dose on Wed01/28/18 at 2100, Recovery (CV), Do not crush or chew, Indications: Mucositis Prophylaxis 2146 (Given - Provider: Casper Jason RN) 0839 (Given - Provider: Marty Gale RN) sodium chloride 0.9% flush 0.5-20 mL 0.5-20 mL, intra-catheter, Every 8 hours scheduled, First dose on Wed01/28/18 at 1400, Recovery (CV), Flush volume based on line type and size. , Indications: Flushing 1806 (Given - Provider: Hair Ceron RN)2200 (Given - Provider: Casper Jason RN) 0843 (Given - Provider: Marty Gale RN) Continuous Medication Order 01/27/2018 01/28/2018 2018 sodium chloride 0.9% infusion (CANCELED) 15 mL/hr, intravenous, Continuous, Starting on Wed01/28/18 at 0830 0701 (New Bag - Provider: Rosa Chester CRNA)1130 (New Bag - Provider: Carri Chester CRNA) PRN Medication Order 01/27/2018 01/28/2018 2018 acetaminophen (TYLENOL) tablet 650 mg 650 mg, oral, Every 4 hours PRN, 1st line for pain, Starting on Wed01/28/18 at 1059, Recovery (CV), Indications: Pain heparin 2 unit/mL in sodium chloride 0.9% (CANCELED) As needed, Starting on Wed01/28/18 at 1106, Intra-Procedure (CV) 1106 (Given - Provider: Betito Luo MD - Comment: Side port flushes and irrigation for ablation) heparin 2,000 unit/1,000 mL (2 unit/mL) sodium chloride 0.9% (premix) (CANCELED) As needed, Starting on Wed01/28/18 at 0837, Intra-Procedure (CV) 0837 (Given - Provider: Betito Luo MD - Comment: Back table flush) ioversol (OPTIRAY 320) injection (CANCELED) As needed, Starting on Wed01/28/18 at 0837, Intra-Procedure (CV) 0837 (Given - Provider: Betito Luo MD) lidocaine (XYLOCAINE) 20 mg/mL (2 %) injection (CANCELED) As needed, Starting on Wed01/28/18 at 0825, Intra-Procedure (CV), Indications: Administration of Local Anesthesia 0825 (Given - Provider: Betito Luo MD - Comment: eliceo iverson) ondansetron (ZOFRAN) injection 4 mg 4 mg, intravenous, Every 4 hours PRN, nausea, vomiting, Starting on Wed01/28/18 at 1059, Recovery (CV), Indications: Nausea and Vomiting oxyCODONE (ROXICODONE) tablet 5 mg 5 mg, oral, Every 4 hours PRN, 2nd line for pain, Starting on Wed01/28/18 at 1059, Recovery (CV), May administer 1 hour after 1st line agent for uncontrolled or increasing pain., Indications: Pain sodium chloride 0.9% flush 0.5-20 mL 0.5-20 mL, intra-catheter, As needed, line care, Starting on Wed01/28/18 at 1059, Recovery (CV), Flush volume based on line type and size. Flush before and after each use. , Indications: Flushing documented in this encounter Orders Medications Ordered That Michael ht Not Have Been Administered Count Last Ordered Date First Ordered Date acetaminophen (TYLENOL) tablet 650 mg 1 flecainide (TAMBOCOR) tablet 150 mg 1 01/28 heparin 2 unit/mL in sodium chloride 0.9% 1 01/28/2018 heparin 2,000 unit/1,000 mL (2 unit/mL) sodium chloride 0.9% (premix) 1 01/28/2018 ioversol (OPTIRAY 320) injection 1 01/29/20 lidocaine (XYLOCAINE) 20 mg/ mL (2 %) injection 1 01/28/2018 ondansetron (ZOFRAN) injection 4 mg 1 01/28 oxyCODONE (ROXICODONE) tablet 5 mg 1 2017 sodium chloride 0.9% flush 0.5-20 mL 1 01/16 sodium chloride 0.9% infusion 1 01/28/2018 Diet Count Last Ordered Date First Orde red Date ADULT DISCHARGE DIET 1 2018 Nursing Count Last Ordered Date First Orde red Date DISCHARGE ACTIVITY 2 2018 DISCHARGE CALL PROVIDER 6 2018 DISCHARGE DRESSING 1 2018 FOLLOW UP WITH PROVIDER 1 2018 Admission Count Last Ordered Date First Orde red Date ASSIGN PATIENT STATUS 1 01/28/2018 Transfer Count Last Ordered Date First Orde red Date TRANSFER PATIENT 2 01/28/2018 CORE MEASURES Count Last Ordered Date First Ord ered Date REASON FOR NO VTE PROPHYLAXIS AT ADMISSION 1 01/28/2018 documented in this encounter Care Teams Anime Artist Relationship Specialty Start Date End Date Nasra Jasso MD [address] [place] [address] PCP - General 10/16/16 documented as of this encounter
--- OUTSIDE RECORDS SUMMARY | 2024-07-04 15:22 | XMS_ITS | Encounter Summary ---
Author Organization [facility] Healthcare Address [address] [place] [address] Care Team Providers Care Bioinformatics Research Technician Name Role Phone Nasra Jasso MD Primary Care Provider [phone] Encounter Details Date Type Department Care Team (Latest Contact Info) Description 11/15/2018 10:57 AM CDT - 11/16/2018 11:56 AM CDT Hospital Encounter [facility] [address] [place] [id number] Betito Luo MD [address] [address] Paroxysmal atrial fibrillation ([facility]/HCC) Discharge Disposition: Discharge to home or self care Social History Tobacco Use Types Packs/Day Years Used Date Smoking Tobacco: Never Smokeless Tobacco: Never Alcohol Use Standard Drinks/Week Comments Yes 0 (1 standard drink = 0.6 oz pur e alcohol) weekends Sex and Gender Information Value Date Recorded Sex Assigned at Not on file 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 Gender Identity Not on file Sexual Orientation Not on file documented as of this encounter Last Filed Vital Signs Vital Sign Reading Time Taken Comments Blood Pressure 105/73 11/16/2018 8:39 AM CDT Pulse 58 11/16/2018 8:39 AM CDT Temperature 36.5 ??C (97.7 ??F) 11/16/2018 8:39 AM CD T Respiratory Rate 19 11/16/2018 8:39 AM CDT Oxygen Saturation 95% 11/16/2018 8:39 AM CDT Inhaled Oxygen Concentration - - Weight 85.3 kg (188 lb) 11/15/2018 5:49 PM CDT Height 167.6 cm (5' 6 ) 11/15/2018 5:49 PM CDT Body Mass Index 30.34 11/15/2018 5:49 PM CDT documented in this encounter Discharge Instructions * Attachments The following attachments cannot be sent through Care Everywhere. * Apixaban (By mouth) (Bangladeshi) * Cardiac Ablation (Discharge Care) (Bangladeshi) documented in this encounter Medications at Time of Discharge apixaban (ELIQUIS) 5 mg tabletIndications: atrial fibrillation Take 1 tablet (5 mg total) by mouth 2 (two) times a day 60 tablet 1 11/16/2018 01/25/2019 aspirin 81 mg enteric coated tablet Take 81 mg by mouth daily 09/20/2019 flecainide (TAMBOCOR) 50 mg tablet Take 50 mg by mouth 2 (two) times a day 2 10/27/2018 01/25/2019 metoprolol XL (TOPROL-XL) 25 mg 24 hr tablet Take 50 mg by mouth daily 11/25/2018 omeprazole (PriLOSEC) 20 mg capsule Take 20 mg by mouth daily 1 10/27/2018 11/13/2021 documented as of this encounter Ordered Prescriptions Prescription Sig Dispense Quantity Refills Last Filled Start Date End Date apixaban (ELIQUIS) 5 mg tabletIndications: atrial fibrillation Take 1 tablet (5 mg total) by mouth 2 (two) times a day 60 tablet 1 11/16/2018 01/25/2019 documented in this encounter Discharge Disposition Disposition Code Departure Means Destination Discharge to home or self care documented in this encounter Progress Notes * Etelvina Loyola NP - 11/16/2018 9:24 AM CDT Progress Note Patient Name: Kulwant Hart Date of : 1960 Primary Physician: Nasra Jasso MD Admission Date: 11/15/2018 Subjective Kulwant Hart is a 58 y.o. male seen on rounds this morning. He had no acute events overnight, and denies chest pain or shortness of breath at this time. Follow up today for atrial flutter. Post EPS and ablation Objective Intake/Output Summary (Last 24 hours) at 11/16/2018 0924 Last data filed at 11/16/2018 0850 Gross per 24 hour Intake 1590 ml Output 745 ml Net 845 ml Review of Systems Constitutional: Negative. HENT: Negative. Eyes: Negative. Respiratory: Negative. Cardiovascular: Negative. Gastrointestinal: Negative. Genitourinary: Negative. Musculoskeletal: Negative. Skin: Negative. Neurological: Negative. Endo/Heme/Allergies: Negative. Psychiatric/Behavioral: Negative. BP 105/73 (BP Location: Right arm) Pulse 58 Temp 36.5 ??C (97.7 ??F) (Oral) Resp 19 Ht 167.6 cm (5' 6 ) Wt 85.3 kg (188 lb) SpO2 95% BMI 30.34 kg/m?? Physical Exam Constitutional: He is oriented to [...] is normal. Judgment and thought content normal. Bilateral groin sites wnl, no bleeding, sutures removed without difficulty Diagnostics Recent Labs Lab Units 11/15/18 1212 WBC K/cumm 5.8 HEMOGLOBIN g/dL 14.5 HEMATOCRIT % 42.7 Recent Labs Lab Units 11/15/18 1212 CO2 mmol/L 24 CREATININE mg/dL 0.99 GLUCOSE mg/dL 98 CALCIUM mg/dL 9.9 Problem List 1. Atrial flutter, post ablation Assessment/Plan Discharge home. Follow up in 4 weeks will be arranged. Eliquis 5mg BID Care plan discussed with the patient. Etelvina Loyola NP 11/16/2018 9:24 AM documented in this encounter H&P Notes * Betito Luo MD - 11/15/2018 12:30 PM CDT [facility] [address] [facility], [address] [place] [address] Patient Name: Kulwant Hart Date of : 1960 Primary Physician: Nasra Jasso MD Admission Date: 11/15/2018 This note was dictated with voice-recognition software, and high school library media specialist errors may be present. . . . Clinical Cardiac Electrophysiology Consultation Chief Complaint / Reason for Consultation: Atrial tachycardia/fibrillation History of Present Illness: Mr. Hart is a 58 y.o. male with a history of paroxysmal atrial fibrillation/status post pulmonaryvein isolation in January 2018. The patient presents today for repeat ablation. Previously, the patient underwent pulmonary vein isolation, posterior wall box isolation, and cavotricuspid isthmus ablation. Recently, he has experienced multiple episodes of recurrent tachycardia. Allergies Allergen Reactions ??? Penicillins Rash Reaction: RASH, Current Facility-Administered Medications: ??? Saline lock IV, , , Once AND sodium chloride 0.9% flush 0.5-20 mL, 0.5- 20 mL, intra-catheter, Q8H CLEMENT AND sodium chloride 0.9% flush 0.5-20 mL, 0.5-20 mL, intra-catheter, PRN, Betito Luo MD ??? sodium chloride 0.9% infusion, 15 mL/hr, intravenous, Continuous, Betito Luo MD Past Medical History: Past Medical History: Diagnosis [...] of : Sudden Social History: Social History Socioeconomic History ??? Marital status: [...] on file Tobacco Use ??? Smoking status: Never Smoker ??? Smokeless tobacco: Never Used Substance and Sexual Activity ??? Alcohol use: Yes Comment: weekends ??? Drug use: No ??? Sexual activity: Not on file Lifestyle ??? Physical activity: Days per week: Not on file Minutes per session: Not on file ??? Stress: Not on file Relationships ??? Social connections: Talks on phone: Not on file Gets together: Not on file Attends hoahaoism service: Not on file Active member of [...] Social History Narrative ??? Not on file Review of Systems: CONST: No fevers, chills, fatigue. No weight loss or gain. EENT: No blurred vision or diplopia. No cough, coryza, or congestion. HEART: As per HPI LUNGS: No shortness of breath, hemoptysis, recent URI or pneumonia. GI: No nausea, vomiting, abdominal pain, diarrhea, constipation, melena or hematochezia. : No irritative or obstructive urinary symptoms. MUSCULOSKELETAL: No warm or effusive joints, arthritic pains. Ambulatory. NEURO: No numbness, paresthesia, history of seizure, stroke, or TIA. PSYCHIATRIC: No mood or affective disorders DERM/INTEGUMENTARY: No rash. ENDOCRINE: No polyuria, polyphagia, polydipsia. No warm or cold intolerance. All other systems were reviewed and found to be negative, except as per HPI. Physical Examination: BP 122/88 Pulse 63 Temp 36.5 ??C (97.7 ??F) (Tympanic) Resp 18 GENERAL: No distress. Pleasant and cooperative with [...] focal findings. PSYCHIATRIC: Normal mood and affect. Labs: Recent Labs Lab Units 11/15/18 1212 WBC K/cumm 5.8 HEMOGLOBIN g/dL 14.5 HEMATOCRIT % 42.7 Telemetry: Sinus rhythm Impression: Post-ablation atrial tachycardia, paroxysmal Plan: 1. EP study and ablation today. We will plan on evaluating the previous ablation lesion set and correcting any areas of breakthrough. We will also plan on induction with isoproterenol. Risks and benefits were discussed. Betito Luo M.D., M.P.H., [facility] 11/15/2018 12:30 PM documented in this encounter Miscellaneous Notes * Plan of Care - Malathi Hoskins NP - 11/16/2018 11:35 AM CDT Problem: Health Behavior: Goal: Understanding of discharge needs will improve Outcome: Completed Goal: Ability to state signs and symptoms to report to health care provider will improve Outcome: Completed Problem: Activity: Goal: Risk for activity intolerance will decrease Outcome: Completed Problem: Lack of Knowledge: Goal: Knowledge of diagnostic tests will improve Outcome: Completed Goal: Knowledge of disease or condition will improve Outcome: Completed Goal: Knowledge of safety precautions will improve Outcome: Completed Goal: Knowledge of the prescribed therapeutic regimen will improve Outcome: Completed Problem: Physical Regulation: Goal: Ability to maintain clinical measurements within normal limits will improve Outcome: Completed Problem: Safety: Goal: Ability to remain free from injury will improve Outcome: Completed Goal: Will remain free from falls Outcome: Completed Problem: Self-Care: Goal: Ability to participate in self-care as condition permits will improve Outcome: Completed Problem: Sensory: Goal: Pain level will decrease Outcome: Completed Goal: Ability to develop a pain control plan will improve Outcome: Completed Summary: VSS, patient denies pain. Discussed precautions and care for bilateral groin site. Pt advised to call surgeons office if oozing continues or if he begins to develop a hematoma. Pt and verbalizes understanding. * Plan of Care - Kenyetta Jaime RN - 11/16/2018 11:29 AM CDT Met w/ patient and at bedside as noted per chart patient being discharged home on Eliquis. Patient s/p ablation yesterday. Awake and alert. Patient and state Eliquis is new medication for patient and Dr. Luo gave patient > one month supply of Eliquis samples. Patient stated Dr. Luo informed him he will likely be on Eliquis x 1 month. No further intervention By this case manage r regarding Eliquis required. * Plan of Care - Malathi Hoskins NP - 11/16/2018 10:56 AM CDT Goals: Clinical Goals for the Shift: VSS, monitor HR/Rhythm, bedrest until 2200- monitor groin sites, get sleep Summary: VSS, no c/o pain. * Plan of Care - Kylah Elena RN - 11/16/2018 4:16 AM CDT Goals: Clinical Goals for the Shift: VSS, monitor HR/Rhythm, bedrest until 2200- monitor groin sites, get sleep Summary: VSS, Sinus Donald, RA . Bedrest until 2200- patient moving well. Groin sites- clean, dry, intact- soft, nontender. Tylenol for mild headache, adequate urine output. Discharge today. Problem: Health Behavior: Goal: Understanding of discharge needs will improve Outcome: Progressing Goal: Ability to state signs and symptoms to report to health care provider will improve Outcome: Progressing Problem: Activity: Goal: Risk for activity intolerance will decrease Outcome: Progressing Problem: Lack of Knowledge: Goal: Knowledge of diagnostic tests will improve Outcome: Progressing Goal: Knowledge of disease or condition will improve Outcome: Progressing Goal: Knowledge of safety precautions will improve Outcome: Progressing Goal: Knowledge of the prescribed therapeutic regimen will improve Outcome: Progressing Problem: Physical Regulation: Goal: Ability to maintain clinical measurements within normal limits will improve Outcome: Progressing Problem: Safety: Goal: Ability to remain free from injury will improve Outcome: Progressing Goal: Will remain free from falls Outcome: Progressing Problem: Self-Care: Goal: Ability to participate in self-care as condition permits will improve Outcome: Progressing Problem: Sensory: Goal: Pain level will decrease Outcome: Progressing Goal: Ability to develop a pain control plan will improve Outcome: Progressing * Perioperative Nursing Note - Berkley Mallory RN - 11/15/2018 4:35 PM CDT EKG done in PACU as ordered. * Op Note - Betito Luo MD - 11/15/2018 12:38 PM CDT Images from the original note were not included. Patient Name: Kulwant Hart Date of : 1960 Primary Physician: Nasra Jasso MD Procedure Date: 11/15/2018 Procedure Repeat Radiofrequency Catheter Ablation of Paroxysmal Atrial Fibrillation / Pulmonary Vein Isolation Linear/focal Left Atrial Ablation Radiofrequency Catheter Ablation of Left Septal Atrial Tachycardia Radiofrequency Catheter Ablation of Cavotricuspid Isthmus Three-dimensional Electroanatomic Mapping and Navigation Transseptal left heart catheterization Intracardiac Echocardiography Electrophysiology Study, with RA, LA, CS, and LV Pacing, negative for inducible arrhythmia Isoproterenol infusion Patient History Mr. Hart is a 58-year-old male with a history of highly symptomatic paroxysmal atrial fibrillation. In January 2018, the patient underwent ablation for his atrial arrhythmia after he continued to experience symptoms despite ongoing flecainide therapy. The lesion set consisted of bilateral pulmonary vein isolation, left posterior wall isolation (box), and cavotricuspid isthmus ablation. Recently, th e patient experienced recurrence of post-ablation atrial tachycardia, and he presents today for repeat ablation. We discussed the risks and benefits, and the patient would like to proceed. As the patient presented in sinus rhythm, transesophageal echocardiography was not necessary prior to the procedure. Method After informed consent was obtained, the patient was brought to the EP lab in a post-absorptive, non-sedated state. The patient was in sinus rhythm at the study's outset. Peripheral IV access was established. Continuous electrocardiography, blood pressure, and pulse oximetry monitoring was initiated and cardioversion patch electrodes were positioned on the chest and back. Anesthesia services initiated sedation and general endotracheal anesthesia. An esophageal temperature probe was placed. The patient???s bilateral inguinal areas were prepared and [...] or equal to 350 seconds. An 8 German deflectable phased-array ultrasound catheter was advanced to [...] throughout the case. A 20-pole mapping catheter (Aldagen) and Smart Touch irrigated pressure-sensing ablation catheter were positioned in the left atrium. Electroanatomic 3D mapping (of the LA and PVs) and catheter ablation were performed as described below. The CARTO3 mapping system and fast-anatomical contact mapping (FAM) were used to define the anatomy of the pulmonary veins, their ostia, and the left atrial appendage. Radiofrequency ablation was performed, and and the pulmonary veins were re-isolate in by segmental circumferential ablation. Additional linear ablation was performed as described below. The patient had spontaneous atrial tachycardia throughout the procedure. This was thought to represent his clinical tachycardia. Activation mapping was performed during tachycardia using the proximalcoronary sinus electrogram as a reference. Earliest activation was found in the anterior/septal aspect of the left atrium. Ablation was performed here, with termination of tachycardia. This arrhythmia was no longer present throughout the remainder of the procedure. Following ablation, the ablation catheter was navigated into the LV, and an electrophysiology studyto exclude additional arrhythmia was performed. No additional arrhythmia was inducible. Isoproterenol was started and titrated to a high dose (10 mcg/minute). Tachycardia remained noninducible. Additional ablation in the RA / cavotricuspid isthmus was performed. Catheters and sheaths were pulled back from the left atrium and a duodecapolar catheter (Swipp) was advanced to the lateral and high [...] A-H H-V P-R QRS dur QT V-V 1264 - - 158 99 425 1264 AV Conduction Post-ablation VA Block at 600 ms (concentric, decremental) AVWB at 340 ms Refractory Periods Post-ablation Retro VA ERP </= 700/260 AVN ERP </= 600/230, </= 450/220 AERP 400/210/210 Post-ablation / Isoproterenol AERP 350/180/180 No arrhythmia was inducible post-ablation. Electroanatomic Mapping [...] areas of less than 0.1 mV. The previous ablation lesion set was evaluated for competence: - The LSPV/LIPV pair were completely isolated - The RIPV and tl RIPV/RSPV had conduction; the RSPV proper appeared to be isolated - The roof line (connecting the superior aspects of the right and left WACA lesions) had conduction - The posterior line (connecting the inferior aspects of the right and left WACA lesions) had bidirectional block. - Conduction was present across the previously-ablated cavotricuspid isthmus The patient was found to have minimal scarring involving the left atrium. Following ablation, voltage mapping was repeated, demonstrating electrical silence of the areas ablated. PA views of the electroanatomic map prior to ablation. Voltage data is depicted, with areas in purple having normal electrical activity (greater than 0.3 mV). Areas in red have voltage less than 0.1 mV. Following ablation, electrical silence of the pulmonary veins was confirmed. Radiofrequency Ablation Pulmonary Vein Isolation Radiofrequency energy was applied to segmentally re-isolate the RIPV and tl the RIPV/RSPV. RF was applied in power control mode (temperature limit = 43 deg C, irrigation = 8-15 cc/min)with a target power 25-35W. RF was applied until a force-time integral (FTI) >400 was achieved (with attention to abatement of local electrogram and appropriate impedance changes). All lesions were limited to <30 sec at a single site. Special attention was given to identifying the location ofthe PV ostia (using impedance mapping and electroanatomic mapping) to ensure ablation in the antralregion. Ablation continued until the Pentaray catheter, positioned sequentially in each targeted area, demonstrated electrical silence. During ablation along the [...] that all pulmonary veins were electrically silent. Left Atrial Roof line / Posterior line As conduction was found to be present across the previously-ablated roof line, additional linear left atrial ablation was deemed necessary and was performed. Linear ablation was performed, with a roof line constructed connecting the superior excursions of the bilateral pulmonary vein isolation lesions. Following ablation of the roof line, the entirety of the posterior left atrium was electricallysilent. As the previously-ablated posterior line was found to be competent with bidirectional block, ablation was not required here. Focal Left Atrial Tachycardia / Left Septum The patient was found to have multiple episodes of atrial tachycardia with 1:1 av conduction. Thisarrhythmia occurred spontaneously throughout the procedure. Activation mapping was performed duringtachycardia, and the earliest site of activation was found on the anterior left atrium, left septum. Ablation was performed here, with power titrated to 30-40 W. Tachycardia terminated during ablation. Radiofrequency was applied at adjacent sites. Following ablation, this tachycardia was no longer inducible during the remainder the procedure, despite induction, both on and off high-dose isoproterenol. Left atrial tachycardia, with earliest activation seen on the left atrial aspect of the intra-atrial septum. Isthmus-dependent Right Atrial Flutter / Cavotricuspid Isthmus Ablation As conduction was present in the previously-ablated cavotricuspid isthmus, we proceeded to map and ablate in the RA. A duodecapolar catheter was positioned in the high and lateral RA. FAM was used todefine the right atrial anatomy, including the tricuspid valve annulus, SVC, IVC, and coronary sinus. Using the ablation catheter via the long sheath, a line was constructed from the tricuspid annulus to the IVC in the 6:00 position (MARTA clock). The line was constructed during CS pacing, and bidirectional block was achieved. The ablation line was mapped to ensure widely spaced double potentials. Ablation Summary Total ablation time: 1379 seconds (23.0 minutes) Estimated Blood Loss <50 mL Complications None Conclusions 1. Successful ablation for AF with electrical isolation of all four pulmonary veins 2. Linear/focal left atrial ablation 3. Successful ablation of cavotricuspid isthmus 4. Electrophysiology study (with CS, RA, LA and LV pacing), on and off isoproterenol, negative for sustained inducible arrhythmia Recommendations 1. Admit to monitored bed for observation overnight 2. Bedrest / straight leg precautions for 4 hours 3. Start anticoagulation tonight 4. Anticipate discharge in AM; Will follow-up in the Arrhythmia Center in 4-6 weeks Betito Luo MD MPH [facility] documented in this encounter Plan of Treatment Not on file documented as of this encounter Procedures Procedure Name Priority Date/Time Associated Diagnosis Comments ECG 12-LEAD Routine 11/15/2018 4:34 PM CDT ACTIVATED CLOTTING TIME Routine 11/16/19 19 3:46 PM CDT ABLATE ADDTL ARRHYTHMIA ATRIA OR VENT Routine 11/15/2018 3:27 PM CDT Paroxysmal atrial fibrillation (CMS/HCC) POST DRUG PROGRAM STIM AND PACING Routine 11/15/2018 3:27 PM CDT Paroxysmal atrial fibrillation (CMS/HCC) ATRIAL FIBRILLATION ABLATION ADDITIONAL LINE OR FOCI Routine 11/15/2018 3:27 PM CDT Paroxysmal atrial fibrillation (CMS/HCC) LEFT VENTRICLE PACING AND RECORDING Routine 11/15/2018 3:27 PM CDT Paroxysmal atrial fibrillation (CMS/HCC) 3D MAPPING OF TACHYCARDIA Routine 2018 3:27 PM CDT Paroxysmal atrial fibrillation (CMS/HCC) ELECTROPHYSIOLOGIC EVALUATION (EPS) / ATRIAL FIBRILLATION ABLATION VIA PULMONARY VEIN ISOLATION Routine 11/15/2018 3:27 PM CDT Paroxysmal atrial fibrillation (CMS/HCC) ACTIVATED CLOTTING TIME Routine 11/16/19 19 3:00 PM CDT ACTIVATED CLOTTING TIME Routine 11/16/19 19 2:29 PM CDT ACTIVATED CLOTTING TIME Routine 11/16/19 19 2:01 PM CDT ACTIVATED CLOTTING TIME Routine 11/16/19 1:44 PM CDT EGFR STAT 11/15/2018 12:12 PM CDT DIFFERENTIAL AUTO STAT 11/15/2018 12: 12 PM CDT CBC WITH AUTO DIFFERENTIAL STAT 11/15/2018 12:12 PM CDT BASIC METABOLIC PANEL STAT 11/15/2018 12:12 PM CDT ECG 12-LEAD STAT 11/15/2018 11:58 AM CDT documented in this encounter Results * ECG 12 lead (11/15/2018 4:34 PM CDT) 11/15/2018 4:34 PM CDT Narrative [facility] - 11/16/2018 10:41 AM CDT Vent Rate: 58 bpm RR Interval: 1021 msec MS Interval: 169 msec QRS Duration: 110 msec QT Interval: 447 msec QTC Interval: 444 msec P-R-T [place]: 73 - 61 - 32 degrees SINUS BRADYCARDIA INCOMPLETE RIGHT BUNDLE BRANCH BLOCK MODERATE ST DEPRESSION ABNORMAL ECG Compared with 11/15/2018 at 11:58 a.m. heart rate is faster and PACs are no longer present Electronically Signed By: Raquel Leo MD us Betito Luo MD ECG ORDERABLES Final R esult [facility] * Activated Clotting Time (11/15/2018 3:46 PM CDT) ACT, POC 187 sec [facility] Comment: The normal clotting time for nonheparinized individual is approximately 120 seconds.Most Cardiac Cath / PTCA heparinized patients average 300-400 seconds. An ACT <200 seconds is necessary in order to pull the arterial sheath in PTCA. The normal range of ACT for the heparinized patient to be placed CPB is 400-800 seconds. Blood specimen (specimen) 11/15/2018 3:46 PM CDT 11/15/2018 3:46 PM CDT Narrative [facility] - 11/15/2018 4:14 PM CDT Betito Luo MD LAB BLOOD ORDERABLES Fi nal Result Performing Organization Address [facility] de Phone Number [facility] [address] Department [place] [address] * ELECTROPHYSIOLOGIC EVALUATION (EPS) / ATRIAL FIBRILLATION ABLATION VIA PULMONARY VEIN ISOLATION, 3DMAPPING OF TACHYCARDIA, LEFT VENTRICLE PACING AND RECORDING, ATRIAL FIBRILLATION ABLATION ADDITIONAL LINE OR FOCI, POST DRUG PROGRAM STIM AND PACING, ABLATE ADDTL ARRHYTHMIA ATRIA OR VENT (11/15/20183:27 PM CDT) Anatomical Region Laterality Modality X-Ray Angiograph y Betito Luo MD CV ELECTROPHYSIOLOGY MS OCS Final Result * Activated Clotting Time (11/15/2018 3:00 PM CDT) ACT, POC 362 sec [facility] Comment: The normal clotting time for nonheparinized individual is approximately 120 seconds.Most Cardiac Cath / PTCA heparinized patients average 300-400 seconds. An ACT <200 seconds is necessary in order to pull the arterial sheath in PTCA. The normal range of ACT for the heparinized patient to be placed CPB is 400-800 seconds. Blood specimen (specimen) 11/15/2018 3:00 PM CDT 11/15/2018 3:00 PM CDT Narrative [facility] - 11/15/2018 4:14 PM CDT Betito Luo MD LAB BLOOD ORDERABLES Fi nal Result Performing Organization Address [facility] Co de Phone Number [facility] [address] [place] [address] * Activated Clotting Time (11/15/2018 2:29 PM CDT) Pathologist [facility] ACT, POC 328 sec [facility] Comment: The normal clotting time for nonheparinized individual is approximately 120 seconds.Most Cardiac Cath / PTCA heparinized patients average 300-400 seconds. An ACT <200 seconds is necessary in order to pull the arterial sheath in PTCA. The normal range of ACT for the heparinized patient to be placed CPB is 400-800 seconds. Blood specimen (specimen) 11/15/2018 2:29 PM CDT 11/15/2018 2:29 PM CDT [facility]ative [facility] - 11/15/2018 4:14 PM CDT Betito Luo MD LAB BLOOD ORDERABLES Fi nal Result Performing Organization Address [facility] de Phone Number [facility] [address] [place] [address] * Activated Clotting Time (11/15/2018 2:01 PM CDT) [facility] ACT, POC 328 sec [facility] Comment: The normal clotting time for nonheparinized individual is approximately 120 seconds.Most Cardiac Cath / PTCA heparinized patients average 300-400 seconds. An ACT <200 seconds is necessary in order to pull the arterial sheath in PTCA. The normal range of ACT for the heparinized patient to be placed CPB is 400-800 seconds. Blood specimen (specimen) 11/15/2018 2:01 PM CDT 11/15/2018 2:01 PM CDT Narrative [facility] - 11/15/2018 4:14 PM CDT Betito Luo MD LAB BLOOD ORDERABLES Fi nal Result Performing Organization Address [facility] Co de Phone Number [facility] [address] [place] [address] * Activated Clotting Time (11/15/2018 1:44 PM CDT) [facility] ACT, POC 265 sec [facility] Comment: The normal clotting time for nonheparinized individual is approximately 120 seconds.Most Cardiac Cath / PTCA heparinized patients average 300-400 seconds. An ACT <200 seconds is necessary in order to pull the arterial sheath in PTCA. The normal range of ACT for the heparinized patient to be placed CPB is 400-800 seconds. Blood specimen (specimen) 11/15/2018 1:44 PM CDT 11/15/2018 1:44 PM CDT Narrative [facility] - 11/15/2018 4:14 PM CDT us Betito Luo MD LAB BLOOD ORDERABLES Fi nal Result [facility] [address] Department [place] [address] * eGFR (11/15/2018 12:12 PM CDT) [facility] eGFR 84 mL/min/1.7 3 m2 [facility] Comment: Interpretive Data Reference Interval Normal ?>/= 90 mL/min/1.73m2 Mildly decreased* ? 60 - 89 mL/min/1.73m2 Mildly to moderately decreased ?45 - 59 mL/min/1.73m2 Moderately to severely decreased ??30 - 44 mL/min/1.73m2 Severely decreased ?15 - 29 mL/min/1.73m2 Kidney Failure ?< 15 ??mL/min/1.73m2 *Relative to young adult level If -Mongolian multiply value by 1.16. Estimated glomerular filtration [...] was last reviewed 2016. Blood specimen (specimen) 11/15/2018 12:12 PM CDT 11/15/2018 12:12 PM CDT Narrative [facility] - 11/15/2018 12:43 PM CDT us Betito Luo MD LAB BLOOD ORDERABLES Fi nal Result [facility] [address] Department [place] [address] * Differential, auto (11/15/2018 12:12 PM CDT) Neutrophil abs 3.2 1.7 - 6.5 K/cumm [facility] Imm gran abs 0.0 0.0 - 0.1 K/cumm [facility] Lymphocyte abs 1.9 0.8 - 3.3 K/cumm [facility] Monocyte abs 0.6 0.2 - 0.8 K/cumm [facility] Eosinophil abs 0.1 0.0 - 0.5 K/cumm [facility] Basophil abs 0.0 0.0 - 0.1 K/cumm [facility] Neutrophil pct 54.8 % [facility] Comment: Interpretive Data Percent cell count reference ranges are not reported, since discordance with absolute values may lead to misinterpretation of CBC data. Current Interpretive Data was last revised on 2017. Imm gran pct 0.5 % [facility] Comment: Interpretive Data Percent cell count reference ranges are not reported, since discordance with absolute values may lead to misinterpretation of CBC data. Current Interpretive Data was last revised on 2017. Lymphocyte pct 32.4 % [facility] Comment: Interpretive Data Percent cell count reference ranges are not reported, since discordance with absolute values may lead to misinterpretation of CBC data. Current Interpretive Data was last revised on 2017. Monocyte pct 10.6 % [facility] Comment: Interpretive Data Percent cell count reference ranges are not reported, since discordance with absolute values may lead to misinterpretation of CBC data. Current Interpretive Data was last revised on 2017. Eosinophil pct 1.2 % [facility] Comment: Interpretive Data Percent cell count reference ranges are not reported, since discordance with absolute values may lead to misinterpretation of CBC data. Current Interpretive Data was last revised on 2017. Basophil pct 0.5 % [facility] Comment: Interpretive Data Percent cell count reference ranges are not reported, since discordance with absolute values may lead to misinterpretation of CBC data. Current Interpretive Data was last revised on 2017. Blood specimen (specimen) 11/15/2018 12:12 PM CDT 11/15/2018 12:12 PM CDT Narrative [facility] - 11/15/2018 12:18 PM CDT us Betito Luo MD LAB BLOOD ORDERABLES Fi nal Result [facility] [address] Department [place] [address] * CBC with auto differential (11/15/2018 12:12 PM CDT) WBC 5.8 3.8 - 9.9 K/cumm [facility] Hgb 14.5 13.0 - 17.5 g/dL [facility] Hct 42.7 38.9 - 50.3 % [facility] Plt 186 150 - 400 K/cumm [facility] MPV 10.4 9.1 - 12.3 fL [facility] RBC 4.62 4.30 - 5.80 M/cumm [facility] MCV 92.4 81.3 - 96.4 fL [facility] MCH 31.4 27.1 - 33.3 pg [facility] MCHC 34.0 32.3 - 35.7 g/dL [facility] RDW CV 12.6 11.1 - 14.9 % [facility] RDW SD 43.1 35.7 - 48.1 fL [facility] NRBC abs 0.00 0.00 - 0.01 K/cumm [facility] Blood specimen (specimen) 11/15/2018 12:12 PM CDT 11/15/2018 12:12 PM CDT Narrative [facility] - 11/15/2018 12:18 PM CDT Betito Luo MD LAB BLOOD ORDERABLES Fi nal Result [facility] [address] Department [place] [address] * Basic metabolic panel (11/15/2018 12:12 PM CDT) Sodium 140 135 - 145 mmol/L [facility] Potassium, pl 4.3 3.3 - 4.9 mmol/L [facility] Chloride 105 97 - 110 mmol/L [facility] CO2 24 22 - 32 mmol/L [facility] Anion gap 11 2 - 15 mmol/L [facility] BUN 18 8 - 25 mg/dL [facility] Creatinine 0.99 0.80 - 1.30 mg/dL [facility] Glucose 98 70 - 199 mg/dL [facility] Comment: Interpretive Data Fasting glucose >/= 126 [...] interpretive data was last revised 2017. Calcium 9.9 8.5 - 10.3 mg/dL [facility] Blood specimen (specimen) 11/15/2018 12:12 PM CDT 11/15/2018 12:12 PM CDT Narrative [facility] - 11/15/2018 12:43 PM CDT us Betito Luo MD LAB BLOOD ORDERABLES Fi nal Result Performing Organization Address [facility] Co de Phone Number [facility] [id number] Department [place] [address] * ECG 12 lead (11/15/2018 11:58 AM CDT) 11/15/2018 11:5 8 AM CDT Narrative [facility] - 11/16/2018 9:27 AM CDT Vent Rate: 48 bpm RR Interval: 1225 msec MS Interval: 165 msec QRS Duration: 104 msec QT Interval: 454 msec QTC Interval: 422 msec P-R-T [place]: 54 - -5 - 10 degrees SINUS BRADYCARDIA WITH OCCASIONAL SUPRAVENTRICULAR PREMATURE COMPLEXES INCOMPLETE RIGHT BUNDLE BRANCH BLOCK BORDERLINE ECG Compared with 2018 P-waves are newly seen Electronically Signed By: Raquel Leo MD Betito Luo MD ECG ORDERABLES Final R esult Performing Organization Address [facility] Co de Phone Number [facility] [employer] [facility] documented in this encounter Visit Diagnoses Diagnosis Paroxysmal atrial fibrillation (CMS/HCC) (HCC)- Primary Atrial fibrillation documented in this encounter Admitting Diagnoses Diagnosis Paroxysmal atrial fibrillation (CMS/HCC) (HCC) Atrial fibrillation documented in this encounter Administered Medications Inactive Administered Medications - up to 3 most recent administrations Medication Order MAR Action Action Date Dose Rate Site acetaminophen (TYLENOL) tablet 650 mg 650 mg, oral, Every 4 hours PRN, 1st line for pain, Starting on Wed11/15/18 at 1542, Recovery (CV), Indications: PainIndications:Pain Given 11/16/2018 5:33 AM CDT 650 mg Given 11/15/2018 9:33 PM CDT 650 mg apixaban (ELIQUIS) tablet 5 mg 5 mg, oral, 2 times daily, First dose on Wed11/15/18 at 1945, May crush and suspend in 60 ml of water, D5W, apple juice or apple sauce. If on heparin infusion, discontinue heparin infusion upon first administration of apixaban., Indications: atrial fibrillationIndications:atrial fibrillation Given 11/16/2018 9:31 AM CDT 5 mg Given 11/15/2018 9:29 PM CDT 5 mg flecainide (TAMBOCOR) tablet 50 mg 50 mg, oral, 2 times daily, First dose on Wed11/15/18 at 2100 Given 11/16/2018 9:31 AM CDT 50 mg Given 11/15/2018 9:29 PM CDT 50 mg metoprolol XL (TOPROL-XL) extended release tablet 50 mg 50 mg, oral, Daily, First dose on Wed11/16/18 at 0900, Tablets that are scored may be split, but do not crush, chew, dissolve, open or otherwise manipulate tablet/capsule. Given 11/16/2018 9:31 AM CDT [address] (PROTONIX) extended release tablet 40 mg 40 mg, oral, 2 times daily, First dose on Wed11/15/18 at 2100, Do not crush, chew, cut, dissolve, open or otherwise manipulate tablet/capsule., Indications: Mucositis ProphylaxisIndications:Mucositis Prophylaxis Given 11/16/2018 9:32 AM CDT 40 mg Given 11/15/2018 9:29 PM CDT 40 mg sodium chloride 0.9% flush 0.5-20 mL 0.5-20 mL, intra-catheter, As needed, line care, Starting on Wed11/15/18 at 1542, Recovery (CV), Flush volume based on line type and size. Flush before and after each use. , Indications: FlushingIndications:Flushing Given 11/16/2018 5:34 AM CDT 10 mL Given 11/15/2018 9:33 PM CDT 10 mL sodium chloride 0.9% infusion 15 mL/hr, intravenous, Continuous, Starting on Wed11/15/18 at 1230 New Bag 11/15/2018 3:43 PM CDT New Bag 11/15/2018 2:17 PM CDT New Bag 11/15/2018 12:39 PM CDT documented in this encounter Discontinued Medications Medication Sig Discontinue Reason Start Date End Da te metoprolol XL (TOPROL-XL) 25 mg 24 hr tablet Take 1 tablet (25 mg total) by mouth daily. 09/16/2018 11/14/2018 documented as of this encounter Historical Medications * This list may reflect changes made after this encounter. metoprolol XL (TOPROL-XL) 25 mg 24 hr tablet Take 50 mg by mouth daily 11/25/2018 aspirin 81 mg enteric coated tablet Take 81 mg by mouth daily 09/20/2019 omeprazole (PriLOSEC) 20 mg capsule Take 20 mg by mouth daily 1 10/27/2018 11/13/2021 flecainide (TAMBOCOR) 50 mg tablet Take 50 mg by mouth 2 (two) times a day 2 10/27/2018 01/25/2019 added in this encounter Active and Recently Administered Medications Times are shown in CDT. Scheduled Medication Order 11/14/2018 11/15/2018 11/16/2018 apixaban (ELIQUIS) tablet 5 mg 5 mg, oral, 2 times daily, First dose on Wed11/15/18 at 1945, May crush and suspend in 60 ml of water, D5W, apple juice or apple sauce. If on heparin infusion, discontinue heparin infusion upon first administration of apixaban., Indications: atrial fibrillation 2128 (Given - Provider: Kylah Elena RN - Comment: rescheduled by dayshift) 0931 (Given - Provider: Malathi Hoskins NP) flecainide (TAMBOCOR) tablet 50 mg 50 mg, oral, 2 times daily, First dose on Wed11/15/18 at 2100 2128 (Given - Provider: Kylah Elena RN) 0931 (Given - Provider: Malathi Hoskins NP) metoprolol XL (TOPROL-XL) extended release tablet 50 mg 50 mg, oral, Daily, First dose on Wed11/16/18 at 0900, Tablets that are scored may be split, but do not crush, chew, dissolve, open or otherwise manipulate tablet/capsule. 0931 (Given - Provid er: Malathi Hoskins NP) pantoprazole DR (PROTONIX) extended release tablet 40 mg 40 mg, oral, 2 times daily, First dose on Wed11/15/18 at 2100, Do not crush, chew, cut, dissolve, open or otherwise manipulate tablet/capsule., Indications: Mucositis Prophylaxis 2128 (Given - Provider: Kylah Elena RN) 0932 (Given - Provider: Malathi Hoskins NP) sodium chloride 0.9% flush 0.5-20 mL 0.5-20 mL, intra-catheter, Every 8 hours scheduled, First dose on Wed11/15/18 at 1615, Recovery (CV), Flush volume based on line type and size. , Indications: Flushing 1615 (Due)2135 (Not Given - Provider: Kylah Elena RN - Reason: Other - Comment: recently given) 0534 (Not Given - Provider: Kylah Elena RN - Reason: Other - Comment: Recently given) Continuous Medication Order 11/14/2018 11/15/2018 11/16/2018 sodium chloride 0.9% infusion 15 mL/hr, intravenous, Continuous, Starting on Wed11/15/18 at 1230 1239 (New Bag - Provider: Christen Moon CRNA)1303 (Anesthesia Volume Adjustment - Provider: Christen Moon CRNA)1330 (Anesthesia Volume Adjustment - Provider: Christen Moon CRNA)1416 (Anesthesia Volume Adjustment - Provider: Chrisetn Moon CRNA)1417 (New Bag - Provider: Christen Moon CRNA)1521 (Anesthesia Volume Adjustment - Provider: Christen Moon CRNA)1542 (Anesthesia Volume Adjustment - Provider: Christen Moon CRNA)1543 (New Bag - Provider: Christen Moon CRNA)1614 (Anesthesia Volume Adjustment - Provider: Christen Moon CRNA) PRN Medication Order 11/14/2018 11/15/2018 11/16/2018 acetaminophen (TYLENOL) tablet 650 mg 650 mg, oral, Every 4 hours PRN, 1st line for pain, Starting on Wed11/15/18 at 1542, Recovery (CV), Indications: Pain 2132 (Given - Provider: Kylah Elena RN) 0533 (Given - Provider: Kylah Elena RN) heparin in 0.9% sodium chloride 1000 units/500 mL (2 unit/mL) infusion (premix) (CANCELED) As needed, Starting on Wed11/15/18 at 1301, Intra-Procedure (CV) 1301 (Given - Provider: Betito Luo MD - Comment: pentaray)1301 (Given - Provider: Betito Luo MD - Comment: LA flush line) heparin in 0.9% sodium chloride 2,000 unit/1,000 mL (2 unit/mL) infusion (premix) (CANCELED) As needed, Starting on Wed11/15/18 at 1300, Intra-Procedure (CV) 1300 (Given - Provider: Betito Luo MD - Comment: back table flush)1302 (Given - Provider: Betito Luo MD - Comment: ablation catheter irrigation) ioversol (OPTIRAY 320) injection (CANCELED) As needed, Starting on Wed11/15/18 at 1323, Intra-Procedure (CV) 1323 (Given - Provider: Betito Luo MD - Comment: LA injection) lidocaine (XYLOCAINE) 20 mg/mL (2 %) injection (CANCELED) As needed, Starting on Wed11/15/18 at 1411, Intra-Procedure (CV), Indications: Administration of Local Anesthesia 1310 (Given - Provider: Betito Luo MD)1311 (Given - Provider: Betito Luo MD) ondansetron (ZOFRAN) injection 4 mg 4 mg, intravenous, Administer over 2 Minutes, Every 4 hours PRN, nausea, vomiting, Starting on Wed11/15/18 at 1542, Recovery (CV), Indications: Nausea and Vomiting oxyCODONE (ROXICODONE) tablet 5 mg 5 mg, oral, Every 4 hours PRN, 2nd line for pain, Starting on Wed11/15/18 at 1542, Recovery (CV), May administer 1 hour after 1st line agent for uncontrolled or increasing pain., Indications: Pain sodium chloride 0.9% flush 0.5-20 mL 0.5-20 mL, intra-catheter, As needed, line care, Starting on Wed11/15/18 at 1542, Recovery (CV), Flush volume based on line type and size. Flush before and after each use. , Indications: Flushing 3 (Given - Provider: Kylah Elena MINGO) 0534 (Given - Provider: Kylah Elean, RN) documented in this encounter Orders Medications Ordered That Michael ht Not Have Been Administered Count Last Ordered Date First Ordered Date heparin in 0.9% sodium chlor morelia 1000 units/500 mL (2 unit/mL) infusion (premix) 1 11/15/2018 heparin in 0.9% sodium chlor morelia 2,000 unit/1,000 mL (2 unit/mL) infusion (premix) 1 11/15/2018 ioversol (OPTIRAY 320) injection 1 11/16/19 19 lidocaine (XYLOCAINE) 20 mg/ mL (2 %) injection 1 11/15/2018 ondansetron (ZOFRAN) injection 4 mg 1 11/15 oxyCODONE (ROXICODONE) tablet 5 mg 1 2018 sodium chloride 0.9% flush 0.5-20 mL 3 10/19 sodium chloride 0.9% infusion 1 11/15/2018 Admission Count Last Ordered Date First Orde red Date ASSIGN PATIENT STATUS 1 11/15/2018 Transfer Count Last Ordered Date First Orde red Date TRANSFER PATIENT 2 11/15/2018 CORE MEASURES Count Last Ordered Date First Ord ered Date REASON FOR NO VTE PROPHYLAXIS AT ADMISSION 1 11/15/2018 documented in this encounter Care Teams Bioinformatics Research Technician Relationship Specialty Start Date End Date Nasra Jasso MD [address] [place] [address] PCP - General 10/16/16 documented as of this encounter
--- OUTSIDE RECORDS SUMMARY | 2024-07-04 15:22 | XMS_ITS | Encounter Summary ---
Author Organization [facility] Address [address] [place] [address] Care Team Providers Care Equity Trader Name Role Phone Nasra Jasso MD Primary Care Provider [phone] Reason for Visit * Reason Onset Date Comments Medication question 09/15/2018 Encounter Details Date Type Department Care Team (Late st Contact Info) Description 09/15/2018 Telephone [facility] [address] [place] [address] Betito Luo MD [address] [place] [address] Medication question Social History Tobacco Use Types Packs/Day Years Used Date Smoking Tobacco: Never Smokeless Tobacco: Never Alcohol Use Standard Drinks/Week Comments Yes 0 (1 standard drink = 0.6 oz pur e alcohol) weekends Sex and Gender Information Value Date Recorded Sex Assigned at Not on file Legal 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 Luo it is okay to go back on Metoprolol 25 mg qd. Rx was send to [facility] per patient request. 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 Please advise. 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 He states he's been feeling a little bit of an irregular heart beat off and on and states that Dr. Luo told him this could happen when he saw him last. 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
--- OUTSIDE RECORDS SUMMARY | 2024-07-04 15:22 | XMS_ITS | Encounter Summary ---
Author Organization [facility] Medical Group Address [address] [place] [address] Care Team Providers Care Endless Bed Drum Sander Name Role Phone Nasra Jasso MD Primary Care Provider [phone] Reason for Visit * Reason Comments Atrial Fibrillation Encounter Details Date Type Department Care Team (Late st Contact Info) Description 03/03/2018 4:45 PM CDT Office Visit Arrhythmia Center [address] [place] [address] Betito Luo MD [address] [facility] [address] [place] [address] Paroxysmal atrial fibrillation (CMS/HCC) (Primary Dx); S/P ablation of atrial fibrillation; Anticoagulation management encounter Social History Tobacco Use Types Packs/Day Years Used Date Smoking Tobacco: Never Smokeless Tobacco: Never Alcohol Use Standard Drinks/Week Comments Yes 0 (1 standard drink = 0.6 oz pur e alcohol) weekends Sex and Gender Information Value Date Recorded Sex Assigned at Not on file 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 Gender Identity Not on file Sexual Orientation Not on file documented as of this encounter Last Filed Vital Signs Vital Sign Reading Time Taken Comments Blood Pressure 142/70 03/03/2018 4:29 PM CDT Pulse 55 03/03/2018 4:29 PM CDT Temperature - - Respiratory Rate - - Oxygen Saturation - - Inhaled Oxygen Concentration - - Weight 90.1 kg (198 lb 9.6 oz) 03/03/2018 4:29 P M CDT Height 180.3 cm (5' 11 ) 03/03/2018 4:29 PM CDT Body Mass Index 27.7 03/03/2018 4:29 PM CDT documented in this encounter Progress Notes * Betito Luo MD - 03/03/2018 4:45 PM CDT [facility] [address] [place] [address], [address] [place], [place] [address] Patient Name: Kulwant Hart Date of : 1960 Primary Physician: Nasra Jasso MD This note was dictated with voice-recognition software, and anodizing line operator errors may be present. Subjective/Objective Patient ID: Kulwant Hart is a 58 y.o. male Chief Complaint Atrial Fibrillation HPI Mr. Hart presented to the [facility] on 03/03/2018, for follow-up regarding his atrial tachycardia/fibrillation. He [...] cavotricuspid isthmus. We last saw the patient at the time of his procedure. Interim history has not been significant for any additional hospitalizations, emergency room visits, or other major medical events. The patient presents today for scheduled routine outpatient followup. Presently, the patient is doing well. He is in sinus rhythm. Since his procedure, he reports no complaints. The patient denies palpitations, presyncope, dizziness, or any other symptoms that would suggest the recurrence of atrial fibrillation. He states that his energy level has been noticeably impr ariela and he is far less fatigued at work. ... 12-lead ECG & Rhythm Strip: 03/03/2018: Sinus rhythm (55). Normal GA, QRS duration, and QT interval. ECG HISTORY: 10/21/2017: Sinus rhythm (50). Normal GA, QRS, and QT interval 03/25/2017: Sinus rhythm (47). Normal GA, QRS duration (118 msec). Normal QT interval. Allergies Allergen Reactions ??? Penicillins Rash Reaction: RASH, Current Outpatient Prescriptions: ??? metoprolol XL (TOPROL-XL) 25 mg 24 hr tablet, Take 1 tablet (25 mg total) by mouth daily., Disp: 90 tablet, Rfl: 3 Past Medical History: Past Medical History: Diagnosis Date ??? A-fib (CMS/HCC) ??? Arrhythmia ??? Infectious mononucleosis age 18 Mononucleosis; Comments: ODILIA 03/21/2014 - ??? Supraventricular tachycardia (CMS/HCC) Family [...] Negative. Gastrointestinal: Negative. Endocrine: Negative. Genitourinary: Negative. Musculoskeletal: Negative. Neurological: Negative. Hematological: Negative. Psychiatric/Behavioral: Negative. Physical Exam BP 142/70 (BP Location: Left arm, Patient Position: Sitting) Pulse 55 Ht 180.3 cm (5' 11 ) Wt90.1 kg (198 lb 9.6 oz) BMI 27.70 kg/m?? GENERAL: No distress. Pleasant and cooperative [...] (Primary) Assessment & Plan: The patient is 1 month status post ablation for paroxysmal atrial fibrillation /atrial tachycardia.He is doing very well and has not experienced recurrent arrhythmia postprocedure. I recommended that he discontinue flecainide at this time. We will continue close follow-up for arrhythmia and treat recurrent / new arrhythmia expectantly. Orders: - ECG 12 lead S/P ablation of atrial fibrillation Anticoagulation management encounter Assessment & Plan: The patient has a [id number]-URAa score of 0 (annualized risk of stroke approximately 0%). 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 I have conceded that he may discontinue apixaban at this time. The patient will follow-up with me in 2 months for an office visit and twelve- lead ECG. Betito Luo MD 03/03/2018 documented in this encounter Miscellaneous Notes * Assessment & Plan Note - Betito Luo MD - 03/04/2018 7:35 AM CDT Associated Problem(s): Anticoagulation management encounter The patient has a [id number] score of 0 (annualized risk of stroke approximately 0%). 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 I have conceded that he may discontinue apixaban at this time. The patient will follow-up with me in 2 months for an office visit and twelve- lead ECG. * Assessment & Plan Note - Betito Luo MD - 03/04/2018 7:32 AM CDT Associated Problem(s): Atrial fibrillation (CMS/HCC) (HCC) The patient is 1 month status post ablation for paroxysmal atrial fibrillation /atrial tachycardia.He is doing very well and has not experienced recurrent arrhythmia postprocedure. I recommended that he discontinue flecainide at this time. We will continue close follow-up for arrhythmia and treat recurrent / new arrhythmia expectantly. documented in this encounter Plan of Treatment Not on file documented as of this encounter Procedures Procedure Name Priority Date/Time Associated Diagnosis Comments ECG 12-LEAD Routine 03/03/2018 Paroxysmal atrial fibrillation (CMS/HCC) documented in this encounter Results * ECG 12 lead (03/03/2018) us Betito Luo MD ECG ORDERABLES Final R esult documented in this encounter Visit Diagnoses Diagnosis Paroxysmal atrial fibrillation (CMS/HCC) (HCC)- Primary Atrial fibrillation S/P ablation of atrial fibrillation Other postprocedural status Anticoagulation management encounter Encounter for therapeutic drug monitoring documented in this encounter Discontinued Medications Medication Sig Discontinue Reason Start Date End Da te apixaban (ELIQUIS) 5 mg tabletIndications:atrial fibrillation Take 1 tablet (5 mg total) by mouth 2 (two) times a day. Therapy completed 02/22/2018 03/03/2018 flecainide (TAMBOCOR) 150 mg tablet Take 1 tablet (150 mg total) by mouth every 12 (twelve) hours. Therapy completed 10/21/2017 03/03/[address] (PROTONIX) 40 mg EC tablet Take 1 tablet (40 mg total) by mouth daily. Therapy completed 12/02/2017 03/03/2018 documented as of this encounter Care Teams Endless Bed Drum Sander Relationship Specialty Start Date End Date Nasra Jasso MD [address] [place] [address] PCP - General 10/16/16 documented as of this encounter
--- OUTSIDE RECORDS SUMMARY | 2024-07-04 15:22 | XMS_ITS | Encounter Summary ---
Author Organization [facility] Medical [facility] Address [address] [place] [address] Care Team Providers Care Design Drafter Name Role Phone Nasra Jasso MD Primary Care Provider [phone] Reason for Visit * Reason Onset Date Comments Advice Only 03/15/2018 sx lightheadedne ss Encounter Details Date Type Department Care Team (Late st Contact Info) Description 03/15/2018 Telephone [facility] Cardiology [address] [place] [address] Betito Luo MD [address] [facility] [address] [place] [address] Advice Only (sx lightheadedness ) Social History Tobacco Use Types Packs/Day Years Used Date Smoking Tobacco: Never Smokeless Tobacco: Never Alcohol Use Standard Drinks/Week Comments Yes 0 (1 standard drink = 0.6 oz pur e alcohol) weekends Sex and Gender Information Value Date Recorded Sex Assigned at Not on file 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 Hart back LVM to watch for any longer episodes and give us a call to see if he need to come in for EKG or to see the DrAnabelljust to make sure to take enough fluid. * Telephone Encounter - Merry Herman MA - 03/15/2018 9:08 AM CDT Pt c/o being lightheaded this morning lasted approximately 3 seconds. Pt stated that he has not experienced any other symptoms and feels pretty good. Please advise. documented in this encounter Plan of Treatment Not on file documented as of this encounter Visit Diagnoses Not on filedocumented in this encounter Care Teams Design Drafter Relationship Specialty Start Date End Date Nasra Jasso MD [address] [address] PCP - General 10/16/16 documented as of this encounter
--- OUTSIDE RECORDS SUMMARY | 2024-07-04 15:22 | XMS_ITS | Encounter Summary ---
Author Organization [facility] Medical [facility] Address [address] [place] [address] Care Team Providers Care Bass Singer Name Role Phone Nasra Jasso MD Primary Care Provider [phone] Encounter Details Date Type Department Care Team (Late st Contact Info) Description 10/25/2018 Telephone Arrhythmia Center [address] [place] [address] Betito Luo MD [address] [facility] [address] [place] [address] Social History Tobacco Use Types Packs/Day Years Used Date Smoking Tobacco: Never Smokeless Tobacco: Never Alcohol Use Standard Drinks/Week Comments Yes 0 (1 standard drink = 0.6 oz pur e alcohol) weekends Sex and Gender Information Value Date Recorded Sex Assigned at Not on file 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 Hart and he said here and there he is having some irregular HR that least 2-3 sec. I encourage him to come in for EKG or just take additional 25 mg Metoprolol as needed to see if is helping. He verbalize understand but insist to be seen. I reschedule his appointment to see ST 11/10. documented in this encounter Plan of Treatment Not on file documented as of this encounter Visit Diagnoses Not on filedocumented in this encounter Care Teams Bass Singer Relationship Specialty Start Date End Date Nasra Jasso MD [address] [place] [address] PCP - General 10/16/16 documented as of this encounter
--- OUTSIDE RECORDS SUMMARY | 2024-07-04 15:22 | XMS_ITS | Encounter Summary ---
Author Organization [facility] Medical [facility] Address [address] [place] [address] Care Team Providers Care Fruit Checker Name Role Phone Nasra Jasso MD Primary Care Provider [phone] Reason for Visit * Reason Onset Date Comments Med Refill 02/22/2018 Encounter Details Date Type Department Care Team (Late st Contact Info) Description 02/22/2018 Telephone [facility]hythmia Center [address] [facility] [address] [place] [address] Mana Bautista RMA Med Refill Social History Tobacco Use Types Packs/Day Years Used Date Smoking Tobacco: Never Smokeless Tobacco: Never Alcohol Use Standard Drinks/Week Comments Yes 0 (1 standard drink = 0.6 oz pur e alcohol) weekends Sex and Gender Information Value Date Recorded Sex Assigned at Not on file 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 56 tablet 02/22/2018 03/03/2018 documented in this encounter Miscellaneous Notes * Telephone Encounter - Mana Bautista MA - 03/01/2018 10:36 AM CDT Eliquis has been approved PA# [id number] from 01/30/18 till 02/19/19 * Telephone Encounter - Debbie Ch MA - 02/24/2018 10:54 AM CDT Refill line: [facility] requests status update on PA for Eliquis. I will forward to Mana for further assistance. * Telephone Encounter - Mana Bautista MA - 02/22/2018 8:54 AM CDT Sample given documented in this encounter Plan of Treatment Not on file documented as of this encounter Visit Diagnoses Not on filedocumented in this encounter Discontinued Medications Medication Sig Discontinue Reason Start Date End Da te apixaban (ELIQUIS) 5 mg tabletIndications:atrial fibrillation Take 1 tablet (5 mg total) by mouth 2 (two) times a day. Reorder 2018 02/22/2018 documented as of this encounter Care Teams Fruit Checker Relationship Specialty Start Date End Date Nasra Jasso MD [address] [address] PCP - General 10/16/16 documented as of this encounter
--- OUTSIDE RECORDS SUMMARY | 2024-07-04 15:22 | XMS_ITS | Encounter Summary ---
Author Organization [facility] Medical [facility] Address [address] [place] [address] Care Team Providers Care Forestry Faculty Member Name Role Phone Nasra Jasso MD Primary Care Provider [phone] Encounter Details Date Type Department Care Team (Late st Contact Info) Description 11/01/2018 Telephone [facility] [address] [address] [facility] [address] [place] [id number] Sherrell Weiner NP [address] [place] [address] Social History Tobacco Use Types Packs/Day Years Used Date Smoking Tobacco: Never Smokeless Tobacco: Never Alcohol Use Standard Drinks/Week Comments Yes 0 (1 standard drink = 0.6 oz pur e alcohol) weekends Sex and Gender Information Value Date Recorded Sex Assigned at Not on file 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 Patient appears to be having wide complex tachycardia, afib, SVT, SR, PAC's junctional escape beats. Spoke with Martina at Dr. Luo's office and notified them of patients arrhythmias. Faxed strips attention to Martina at [phone]. * Telephone Encounter - Jigna Paniagua RN - 11/01/2018 11:58 AM CDT Spoke with [facility]. States that patient had an episode of wide complex tachycardia at 240 beats per minutes today at 1107. They will fax strips. * Telephone Encounter - Rimma Olivo - 11/01/2018 11:19 AM CDT [facility] called to report abnormal EKG, cb [phone] documented in this encounter Plan of Treatment Not on file documented as of this encounter Visit Diagnoses Not on filedocumented in this encounter Care Teams Forestry Faculty Member Relationship Specialty Start Date End Date Nasra Jasso MD [address] [place] [address] PCP - General 10/16/16 documented as of this encounter
--- OUTSIDE RECORDS SUMMARY | 2024-07-04 15:22 | XMS_ITS | Encounter Summary ---
Author Organization [facility] Medical [facility] Address [address] [place] [address] Care Team Providers Care Political Science Chair Name Role Phone Nasra Jasso MD Primary Care Provider [phone] Encounter Details Date Type Department Care Team (Late st Contact Info) Description 12/01/2017 Telephone [facility]hythmia Center [address] [facility] [address] [place] [address] Betito Luo MD [address] [facility] [address] [place] [address] Social History Tobacco Use Types Packs/Day Years Used Date Smoking Tobacco: Never Smokeless Tobacco: Never Alcohol Use Standard Drinks/Week Comments Yes 0 (1 standard drink = 0.6 oz pur e alcohol) Sex and Gender Information Value Date Recorded Sex Assigned at Not on file 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 documented in this encounter Plan of Treatment Not on file documented as of this encounter Visit Diagnoses Not on filedocumented in this encounter Care Teams Political Science Chair Relationship Specialty Start Date End Date Nasra Jasso MD [address] [place] [address] PCP - General 10/16/16 documented as of this encounter
--- OUTSIDE RECORDS SUMMARY | 2024-07-04 15:22 | XMS_ITS | Encounter Summary ---
Author Organization [facility] Medical [facility] Address [address] [place] [address] Care Team Providers Care Senior Infrastructure Architect Name Role Phone Nasra Jasso MD Primary Care Provider [phone] Encounter Details Date Type Department Care Team (Late st Contact Info) Description 11/16/2018 Telephone Ar[facility]hythmia Center [address] [facility] [address] [place] [address] Betito Luo MD [address] [facility] [address] [place] [address] Social History Tobacco Use Types Packs/Day Years Used Date Smoking Tobacco: Never Smokeless Tobacco: Never Alcohol Use Standard Drinks/Week Comments Yes 0 (1 standard drink = 0.6 oz pur e alcohol) weekends Sex and Gender Information Value Date Recorded Sex Assigned at Not on file 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 documented in this encounter Plan of Treatment Not on file documented as of this encounter Visit Diagnoses Not on filedocumented in this encounter Care Teams Senior Infrastructure Architect Relationship Specialty Start Date End Date Nasra Jasso MD [address] [place] [address] PCP - General 10/16/16 documented as of this encounter
--- OUTSIDE RECORDS SUMMARY | 2024-07-04 15:22 | XMS_ITS | Encounter Summary ---
Author Organization [facility] Healthcare Address [address] [place] [address] Care Team Providers Care Prosthetic Assistant Name Role Phone Nasra Jasso MD Primary Care Provider Encounter Details Date Type Department Care Team (Late st Contact Info) Description 11/15/2018 12:30 PM CDT - 11/15/2018 2:30 PM CDT Surgery [facility] [address] [place] [id number] Betito Luo MD [address] [address] ABLATION ATRIAL FIBRILLATION (A-FIB) VIA PULMONARY VEIN ISOLATION [address]1606 Surgery Details Date/Time Status Location OR Service Patient Class Case Class Case Type Trauma Case? 11/15/2018 12:30 PM Posted [facility] C[facility] [place] [facility] CCL/ EP C Cardiovascular Outpatient Elective Panel 1 Procedure LRB Anes Op Region Wound Class Comments ABLATION ATRIAL FIBRILLATION (A-FIB) VIA PULMONARY VEIN ISOLATION 34006 N/A General 3D MAPPING OF TACHYCARDIA (+) 42462 N/A LEFT VENTRICLE PACING AND RECORDING 94110 N/A ABLATION ATRIAL FIBRILLATION ADDITIONAL LINE OR FOCI (+) 38610 N/A POST DRUG PROGRAM STIM AND P ACING (+) 99343 N/A ABLATE ADDTN'L ARRHYTHMIA, A TRIAL OR VENTRICULAR (+) 35442 N/A Surgeon Surgeon Role Service Panel Betito Luo MD Primary Cardiovascular 1 Case Notes Orders In BCBS NPR / ref# [id number] / CARTOAflutter Ablation documented in this encounter Social History Tobacco Use Types Packs/Day Years Used Date Smoking Tobacco: Never Smokeless Tobacco: Never Alcohol Use Standard Drinks/Week Comments Yes 0 (1 standard drink = 0.6 oz pur e alcohol) weekends Sex and Gender Information Value Date Recorded Sex Assigned at Not on file 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 * Apixaban (By mouth) (Greenlandic) * Cardiac Ablation (Discharge Care) (Greenlandic) documented in this encounter Medications at Time [...] documented in this encounter Progress Notes * NirEtelvina Pacheco, MIAH - 11/16/2018 9:24 AM CDT Progress Note [...] Luo MD - 11/15/2018 12:30 PM CDT [facility] [address] [place] [address], [address] [address] Patient Name: Kulwant Hart Date of : 1960 Primary Physician: Nasra Jasso MD Admission Date: 11/15/2018 This note was dictated with voice-recognition software, and lawn care specialist errors may be present. . . [...] file Gets together: Not on file Attends jehovah's witness service: Not on file Active member of [...] benefits were discussed. Betito Luo M.D., M.P.H., [facility] 11/15/2018 12:30 PM [...] or equal to 350 seconds. An 8 Sami deflectable phased-array ultrasound catheter was advanced to the center right atrium, and intracardiac echocardiography (ICE) was used to visualize the intraatrial septum and fossa ovalis in preparation for transseptalleft heart catheterization. Two transseptal punctures were performed using a SafeSept Needle-free transseptal wire with ICE and fluoroscopic guidance. After entrance into left atrium was confirmed, two sheaths (MobiTraff Technologyth deflectable and SL1) were advanced into the left atrium. The sheaths were flushed with a constant infusion of heparinized saline throughout the case. A 20-pole mapping catheter (VtagO) and Smart Touch irrigated pressure-sensing ablation catheter [...] the left atrium and a duodecapolar catheter (Enerpulse) was advanced to the lateral and high [...] of atrial tachycardia with 1:1 av conduction. This arrhythmia occurred spontaneously throughout the procedure. Activation mapping was performed during tachycardia, and the earliest site of activation was found on the anterior left atrium, left septum.Ablation was performed here, with power titrated to [...] to the IVC in the 6:00 position (SERBIAN clock). The line was constructed during CS [...] Center in 4-6 weeks Betito Luo MD [facility] documented in this encounter Plan of [...] CDT ACTIVATED CLOTTING TIME Routine 11/16/19 19 1:44 PM CDT EGFR STAT 11/15/2018 12:12 PM CDT DIFFERENTIAL AUTO STAT 11/15/2018 12: 12 PM CDT CBC WITH AUTO DIFFERENTIAL STAT 11/15/2018 12:12 PM CDT BASIC METABOLIC PANEL STAT 11/15/2018 12:12 PM CDT ECG 12-LEAD STAT 11/15/2018 11:58 AM CDT documented in this encounter Results * ECG 12 lead (11/15/2018 4:34 PM CDT) 11/15/2018 4:34 PM CDT Narrative [facility] - 11/16/2018 10:41 AM CDT Vent Rate: 58 bpm RR Interval: 1021 msec HI Interval: 169 msec QRS Duration: 110 msec QT Interval: 447 msec QTC Interval: 444 msec P-R-T [place]: 73 - 61 - 32 degrees SINUS BRADYCARDIA INCOMPLETE RIGHT BUNDLE BRANCH BLOCK MODERATE ST DEPRESSION ABNORMAL ECG Compared with 11/15/2018 at 11:58 a.m. heart rate is faster and PACs are no longer present Electronically Signed By: Raquel Leo MD Betito Luo MD ECG ORDERABLES Final R esult Performing Organization Address [facility] Co de Phone Number [facility] * Activated Clotting Time (11/15/2018 3:46 PM CDT) ACT, POC 187 sec [facility] Comment: The normal clotting time for [...] PM CDT 11/15/2018 3:46 PM CDT Narrative [facility] - 11/15/2018 4:14 PM CDT Betito Luo MD LAB BLOOD ORDERABLES Fi nal Result Performing Organization Address [facility] Co de Phone Number [facility] [address] Department [place] [address] * ELECTROPHYSIOLOGIC EVALUATION (EPS) / ATRIAL FIBRILLATION ABLATION VIA PULMONARY VEIN ISOLATION, 3DMAPPING OF TACHYCARDIA, LEFT VENTRICLE PACING AND RECORDING, ATRIAL FIBRILLATION ABLATION ADDITIONAL LINE OR FOCI, POST DRUG PROGRAM STIM AND PACING, ABLATE ADDTL ARRHYTHMIA ATRIA OR VENT (11/15/20183:27 PM CDT) Anatomical Region Laterality Modality X-Ray Angiograph y Betito Luo MD CV ELECTROPHYSIOLOGY HI OCS Final Result * Activated Clotting Time (11/15/2018 3:00 PM CDT) ACT, POC 362 sec [facility] Comment: The normal clotting time for [...] 3:00 PM CDT 11/15/2018 3:00 PM CDT [facility] - 11/15/2018 4:14 PM CDT Betito Luo MD LAB BLOOD ORDERABLES Fi nal Result Performing Organization Address [facility] de Phone Number [facility] [address] [facility] [employer] [address] * Activated Clotting Time (11/15/2018 2:29 PM CDT) ACT, POC 328 sec [facility] Comment: The normal clotting time for [...] 2:29 PM CDT 11/15/2018 2:29 PM CDT Yanick [facility] - 11/15/2018 4:14 PM CDT Betito Luo MD LAB BLOOD ORDERABLES nal Result Performing Organization Address [facility] de Phone Number [facility] [address] [facility] [place] [place] [address] * Activated Clotting Time (11/15/2018 2:01 PM CDT) ACT, POC 328 sec [facility] Comment: The normal clotting time for [...] PM CDT 11/15/2018 2:01 PM CDT Narrative [facility] - 11/15/2018 4:14 PM CDT Result [facility] Betito Luo MD LAB BLOOD ORDERABLES Fi nal Result Performing Organization Address [facility] de Phone Number [facility] [address] [facility] [place] [place] [address] * Activated Clotting Time (11/15/2018 1:44 PM CDT) [facility] ACT, POC 265 sec [facility] Comment: The normal clotting time for [...] PM CDT 11/15/2018 1:44 PM CDT Narrative [facility] - 11/15/2018 4:14 PM CDT Result [facility] Betito Luo MD LAB BLOOD ORDERABLES Fi nal Result Performing Organization Address [facility] de Phone Number [facility] [address] [facility] [place] [place] [address] * eGFR (11/15/2018 12:12 PM CDT) [facility] eGFR 84 mL/min/1.7 3 m2 [facility] Comment: Interpretive Data Reference Interval Normal ?>/= 90 mL/min/1.73m2 Mildly decreased* ? 60 - 89 mL/min/1.73m2 Mildly to moderately decreased ?45 - 59 mL/min/1.73m2 Moderately to severely decreased ??30 - 44 mL/min/1.73m2 Severely decreased ?15 - 29 mL/min/1.73m2 Kidney Failure ?< 15 ??mL/min/1.73m2 *Relative to young adult level If -[place] multiply value by 1.16. Estimated glomerular filtration [...] PM CDT 11/15/2018 12:12 PM CDT Narrative [facility] - 11/15/2018 12:43 PM CDT us Betito Luo MD LAB BLOOD ORDERABLES Fi nal Result [facility] [address] Department [place] [address] * Differential, auto (11/15/2018 12:12 PM CDT) Neutrophil abs 3.2 1.7 - 6.5 K/cumm [facility] Imm gran abs 0.0 0.0 - 0.1 K/cumm [facility] Lymphocyte abs 1.9 0.8 - 3.3 K/cumm [facility] Monocyte abs 0.6 0.2 - 0.8 K/cumm [facility] Eosinophil abs 0.1 0.0 - 0.5 K/cumm [facility] Basophil abs 0.0 0.0 - 0.1 K/cumm [facility] Neutrophil pct 54.8 % [facility] Comment: Interpretive Data Percent cell count reference ranges are not reported, since discordance with absolute values may lead to misinterpretation of CBC data. Current Interpretive Data was last revised on 2017. Imm gran pct 0.5 % [facility] Comment: Interpretive Data Percent cell count reference ranges are not reported, since discordance with absolute values may lead to misinterpretation of CBC data. Current Interpretive Data was last revised on 2017. Lymphocyte pct 32.4 % [facility] Comment: Interpretive Data Percent cell count reference ranges are not reported, since discordance with absolute values may lead to misinterpretation of CBC data. Current Interpretive Data was last revised on 2017. Monocyte pct 10.6 % [facility] Comment: Interpretive Data Percent cell count reference ranges are not reported, since discordance with absolute values may lead to misinterpretation of CBC data. Current Interpretive Data was last revised on 2017. Eosinophil pct 1.2 % [facility] Comment: Interpretive Data Percent cell count reference ranges are not reported, since discordance with absolute values may lead to misinterpretation of CBC data. Current Interpretive Data was last revised on 2017. Basophil pct 0.5 % [facility] Comment: Interpretive Data Percent cell count reference ranges are not reported, since discordance with absolute values may lead to misinterpretation of CBC data. Current Interpretive Data was last revised on 2017. Blood specimen (specimen) 11/15/2018 12:12 PM CDT 11/15/2018 12:12 PM CDT Narrative [facility] - 11/15/2018 12:18 PM CDT us Betito Luo MD LAB BLOOD ORDERABLES Fi nal Result [facility] [address] Department [place] [address] * CBC with auto differential (11/15/2018 12:12 PM CDT) WBC 5.8 3.8 - 9.9 K/cumm [facility] Hgb 14.5 13.0 - 17.5 g/dL [facility] Hct 42.7 38.9 - 50.3 % [facility] Plt 186 150 - 400 K/cumm [facility] MPV 10.4 9.1 - 12.3 fL [facility] RBC 4.62 4.30 - 5.80 M/cumm [facility] MCV 92.4 81.3 - 96.4 fL [facility] MCH 31.4 27.1 - 33.3 pg [facility] MCHC 34.0 32.3 - 35.7 g/dL [facility] RDW CV 12.6 11.1 - 14.9 % [facility] RDW SD 43.1 35.7 - 48.1 fL [facility] NRBC abs 0.00 0.00 - 0.01 K/cumm [facility] Blood specimen (specimen) 11/15/2018 12:12 PM CDT 11/15/2018 12:12 PM CDT Narrative [facility] - 11/15/2018 12:18 PM CDT us Betito Luo MD LAB BLOOD ORDERABLES Fi nal Result [facility] [address] Department [place] [address] * Basic metabolic panel (11/15/2018 12:12 PM CDT) Sodium 140 135 - 145 mmol/L [facility] Potassium, pl 4.3 3.3 - 4.9 mmol/L [facility] Chloride 105 97 - 110 mmol/L [facility] CO2 24 22 - 32 mmol/L [facility] Anion gap 11 2 - 15 mmol/L [facility] BUN 18 8 - 25 mg/dL [facility] Creatinine 0.99 0.80 - 1.30 mg/dL [facility] Glucose 98 70 - 199 mg/dL [facility] Comment: Interpretive Data Fasting glucose >/= 126 [...] 2017. Calcium 9.9 8.5 - 10.3 mg/dL [facility] Blood specimen (specimen) 11/15/2018 12:12 PM CDT 11/15/2018 12:12 PM CDT Narrative [facility] - 11/15/2018 12:43 PM CDT us Betito Luo MD LAB BLOOD ORDERABLES Fi nal Result Performing Organization Address [facility] Co de Phone Number [facility] [address] Department [place] [address] * ECG 12 lead (11/15/2018 11:58 AM CDT) 11/15/2018 11:5 8 AM CDT Narrative [facility] - 11/16/2018 9:27 AM CDT Vent Rate: 48 bpm RR Interval: 1225 msec HI Interval: 165 msec QRS Duration: 104 msec QT Interval: 454 msec QTC Interval: 422 msec P-R-T [place]: 54 - -5 - 10 degrees SINUS BRADYCARDIA WITH OCCASIONAL SUPRAVENTRICULAR PREMATURE COMPLEXES INCOMPLETE RIGHT BUNDLE BRANCH BLOCK BORDERLINE ECG Compared with 2018 P-waves are newly seen Electronically Signed By: Raquel Leo MD us Betito Luo MD ECG ORDERABLES Final R esult Performing Organization Address [facility] Co de Phone Number [facility] documented in this encounter Visit Diagnoses Diagnosis Paroxysmal atrial fibrillation (CMS/HCC) (HCC)- Primary Atrial fibrillation Paroxysmal atrial fibrillation (CMS/HCC) (HCC) Atrial fibrillation documented in this encounter Admitting [...] Given 11/15/2018 9:29 PM CDT 50 mg heparin in 0.9% sodium chloride 1000 units/500 mL (2 unit/mL) infusion (premix) As needed, Starting on Wed11/15/18 at 1301, Intra-Procedure (CV) Given 11/15/2018 1:01 PM CDT 500 mL Given 11/15/2018 1:01 PM CDT 500 mL heparin in 0.9% sodium chloride 2,000 unit/1,000 mL (2 unit/mL) infusion (premix) As needed, Starting on Wed11/15/18 at 1300, Intra-Procedure (CV) Given 11/15/2018 1:02 PM CDT 1,000 mL Surgical Site Given 11/15/2018 1:00 PM CDT 1,000 mL ioversol (OPTIRAY 320) injection As needed, Starting on Wed11/15/18 at 1323, Intra-Procedure (CV) Given 11/15/2018 1:23 PM CDT 6 mL lidocaine (XYLOCAINE) 20 mg/mL (2 %) injection As needed, Starting on Wed11/15/18 at 1411, Intra-Procedure (CV), Indications: Administration of Local AnesthesiaIndications:Administration of Local Anesthesia Given 11/15/2018 1:11 PM CDT 10 mL Left Groin Given 11/15/2018 1:10 PM CDT 10 mL Ri ght Groin metoprolol XL (TOPROL-XL) extended release tablet 50 [...] Elena RN - Comment: rescheduled by dayshift) 31 (Given - Provider: Malathi Hoskins NP) flecainide [...] Every 8 hours scheduled, First dose on 4/30/19 at 1615, Recovery (CV), Flush volume based [...] Moon CRNA)1416 (Anesthesia Volume Adjustment - Provider: Christen Moon CRNA)1417 (New Bag - Provider: Christen [...] Wed11/15/18 at 1542, Recovery (CV), Indications: Pain 2133 (Given - Provider: Kylah Elena, MINGO) 0533 (Given - Provider: Kylah Elena RN) [...] and after each use. , Indications: Flushing 2133 (Given - Provider: Kylah Elena, MINGO) 0534 (Given - Provider: Kylah Elena RN) documented in this encounter Orders Medications Ordered That Michael ht Not Have Been Administered Count Last Ordered Date First Ordered Date ondansetron (ZOFRAN) injection 4 mg 1 11/15 [...] 11/15/2018 documented in this encounter Care Teams Prosthetic Assistant Relationship Specialty Start Date End Date Nasra Jsaso MD [address] [place] [address] PCP - General 10/16/16 documented as of this encounter
--- OUTSIDE RECORDS SUMMARY | 2024-07-04 15:22 | XMS_ITS | Encounter Summary ---
Author Organization [facility] Address [address] [place] [address] Care Team Providers Care Toilet Products Molder Name Role Phone Nasra Jasso MD Primary Care Provider [phone] Reason for Visit * Reason Comments Atrial Fibrillation Encounter Details Date Type Department Care Team (Latest Contact Info) Description 10/21/2017 4:45 PM CDT Office Visit Ar[facility]ia [facility] 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 Gender Identity Not on file Sexual Orientation Not on file documented as of this encounter Last Filed Vital Signs Vital Sign Reading Time Taken Comments Blood Pressure 138/84 10/21/2017 5:03 PM CDT Pulse 51 10/21/2017 5:03 PM CDT Temperature - - Respiratory Rate - - Oxygen Saturation - - Inhaled Oxygen Concentration - - Weight 90.4 kg (199 lb 3.2 oz) 10/21/2017 5:03 P M CDT Height 177.8 cm (5' 10 ) 10/21/2017 5:03 PM CDT Body Mass Index 28.58 10/21/2017 5:03 PM CDT documented in this encounter Progress Notes * Betito Luo MD - 10/21/2017 4:45 PM CDT This note was dictated with voice-recognition software, and tool setter apprentice errors may be present. Subjective/Objective Patient ID: Kulwant Hart is a 57 y.o. male Chief Complaint Atrial Fibrillation HPI Mr. Hart presented to the [facility] on 10/21/2017, for follow-up regarding atrial tachycardia/fibrillation. He is a 57 y.o. male with a history of dyslipidemia and reflux. On 05/23/2014, the patient underwent EP study for narrow complex tachycardia. This demonstrated thepresence of left atrial tachycardia transitioning to atrial fibrillation. We did not target this arrhythmia for ablation, and the patient was started on flecainide. He has done well, for the most part, but has experienced recurrence on several occasions despite ongoing therapy with flecainide. We last saw the patient in March 2017. Interim history has not been significant for any additional hospitalizations, emergency room visits, or other major medical events. The patient presents today for scheduled routine outpatient followup. At present, the patient is doing well, and presents in sinus rhythm. He reports intermittent shortness of breath (which previously characterized his tachycardia). Palpitations are occasional. He denies syncope, near syncope, or dizziness. He has not experienced chest discomfort. ... 12-lead ECG & Rhythm Strip: 10/21/2017: Sinus rhythm (50). Normal TX, QRS, and QT interval ECG HISTORY: 03/25/2017: Sinus rhythm (47). Normal TX, QRS duration (118 msec). Normal QT interval. Allergies Allergen Reactions ??? Penicillins Rash Reaction: RASH, Current Outpatient Prescriptions: ??? pantoprazole DR (PROTONIX) 40 mg EC tablet, take 1 tablet by oral route every day, Disp: 0, Rfl: 0 ??? flecainide (TAMBOCOR) 150 mg tablet, Take 1 tablet (150 mg total) by mouth every 12 (twelve) hours., Disp: 180 tablet, Rfl: 3 ??? metoprolol XL (TOPROL-XL) 25 mg 24 hr tablet, Take 1 tablet (25 mg total) by mouth daily., Disp: 90 tablet, Rfl: 3 Review of Systems Constitutional: Negative. HENT: Negative. Eyes: Negative. Respiratory: Negative. Cardiovascular: Negative. Endocrine: Negative. Genitourinary: Negative. Musculoskeletal: Negative. Allergic/Immunologic: Negative. Neurological: Negative. Physical Exam BP 138/84 Pulse 51 Ht 177.8 cm (5' 10 ) Wt 90.4 kg (199 lb 3.2 oz) BMI 28.58 kg/m?? GENERAL: No distress. Pleasant and cooperative [...] and all orders for this visit: Paroxysmal SVT (supraventricular tachycardia) (CMS/HCC) (Primary) - ECG 12 lead Paroxysmal atrial fibrillation (CMS/HCC) Assessment & Plan: The patient has highly symptomatic paroxysmal atrial fibrillation. He has responded well to flecainide, but has experienced intermittent tachycardia. He would like to consider radiofrequency catheter ablation as we discussed in the past. Today, we discussed the rationale for atrial fibrillation ablation, including the steps involved in ablation. Idetailed the risks of the procedure, including vascular injury/hematoma, myocardial injury/perforation, stroke, myocardial infarction, pulmonary vein stenosis, thermal esophageal injury, and . Iestimated a 70-80% chance of freedom from long-term atrial arrhythmia, and the patient understands that occasionally a second procedure is necessary. Prior to ablation, I recommended that the patientundergo CT scanning with reconstruction of the left atrium, to assist with mapping and ablation. 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 As long as the patient continues on this medication, an ECG should be performed at least every 6 months to monitor for toxicity. Our goal will be to discontinue this medication 1 month following ablation. Anticoagulation management encounter Assessment & Plan: The patient has a [id number] score of 2 (annualized risk of stroke 2%). I have therefore recommended that he remain anticoagulated for thromboprophylaxis. Betito Luo MD 10/21/2017 documented in this encounter Miscellaneous Notes * Assessment & Plan Note - Betito Luo MD - 10/24/2017 10:42 AM CDT Associated Problem(s): Anticoagulation management encounter The patient has a [id number] score of 2 (annualized risk of stroke 2%). I have therefore recommended that he remain anticoagulated for thromboprophylaxis. * Assessment & Plan Note - Betito Luo MD - 10/24/2017 10:42 AM CDT Associated Problem(s): [facility] current use of antiarrhythmic drug 12-lead ECG today does not demonstrate any changes that would prohibit continued use of flecainide.We will continue the patient on the same dose and schedule. As long as the patient continues on this medication, an ECG should be performed at least every 6 months to monitor for toxicity. Our goal will be to discontinue this medication 1 month following ablation. * Assessment & Plan Note - Betito Luo MD - 10/24/2017 10:39 AM CDT Associated Problem(s): Atrial fibrillation (CMS/HCC) (HCC) The patient has highly symptomatic paroxysmal atrial fibrillation. He has responded well to flecainide, but has experienced intermittent tachycardia. He would like to consider radiofrequency catheter ablation as we discussed in the past. Today, we discussed the rationale for atrial fibrillation ablation, including the steps involved in ablation. Idetailed the risks of the procedure, including vascular injury/hematoma, myocardial injury/perforation, stroke, myocardial infarction, pulmonary vein stenosis, thermal esophageal injury, and . Iestimated a 70-80% chance of freedom from long-term atrial arrhythmia, and the patient understands that occasionally a second procedure is necessary. Prior to ablation, I recommended that the patientundergo CT scanning with reconstruction of the left atrium, to assist with mapping and ablation. My office will make the appropriate arrangements. documented in this encounter Plan of Treatment Not on file documented as of this encounter Procedures Procedure Name Priority Date/Time Associated Diagnosis Comments ECG 12-LEAD Routine 10/21/2017 Paroxysmal SVT (supraventricular tachycardia) (CMS/HCC) documented in this encounter Results * ECG 12 lead (10/21/2017) us Betito Luo MD ECG ORDERABLES Final R esult documented in this encounter Visit Diagnoses Diagnosis Paroxysmal SVT (supraventricular tachycardia) (HCC)- Primary Paroxysmal atrial fibrillation (CMS/HCC) (HCC) Atrial fibrillation penit[facility]iary current use of antiarrhythmic drug Anticoagulation management encounter Encounter for therapeutic drug monitoring documented in this encounter Care Teams Toilet Products Molder Relationship Specialty Start Date End Date Nasra Jasso MD [address] [place] [address] PCP - General 10/16/16 documented as of this encounter
--- OUTSIDE RECORDS SUMMARY | 2024-07-04 15:22 | XMS_ITS | Encounter Summary ---
Author Organization [facility] Address [address] [place] [address] Care Team Providers Care Machine Whitener Name Role Phone Nasra Jasso MD Primary Care Provider [phone] Reason for Referral * Diagnostic Imaging (Routine) - Closed Specialty Diagnoses / Procedures Referred By Contac t Referred To Contact Radiology Diagnoses Paroxysmal atrial fibrillation (CMS/HCC) (HCC) Procedures CT Heart Morphology W Betito Hernandez MD Phone: tel: fax: [id number] [place] [address] Referral ID Status Reason Start Date Expiration Date Visits Re quested Visits Authorized [id number] Closed 01/06/2018 07/18/2019 1 1 Reason for Visit * Diagnostic Imaging (Routine) - Closed Specialty Diagnoses / Procedures Referred By Contwillie t Referred To Contact Radiology Diagnoses Paroxysmal atrial fibrillation (CMS/HCC) (HCC) Procedures CT Heart Morphology W Betito Hernnadez MD Phone: tel: fax: [id number] [place] [address] Referral ID Status Reason Start Date Expiration Date Visits Re quested Visits Authorized [id number] Closed 01/06/2018 07/18/2019 1 1 Encounter Details Date Type Department Care Team (Latest Contact Info) Description 01/26/2018 1:00 PM CDT - 01/26/2018 11:59 PM CDT Hospital Encounter [facility] - [facility] [address] [place] [address] Betito Luo MD [address] [place] [address] Paroxysmal atrial fibrillation (CMS/HCC) Discharge Disposition: Discharge to home or self care Social History Tobacco Use Types Packs/Day Years Used Date Smoking Tobacco: Never Smokeless Tobacco: Never Alcohol Use Standard Drinks/Week Comments Yes 0 (1 standard drink = 0.6 oz pur e alcohol) weekends Sex and Gender Information Value Date Recorded Sex Assigned at Not on file 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 Gender Identity Not on file Sexual Orientation Not on file documented as of this encounter Medications at Time of Discharge [...] 12/02/2017 03/03/2018 documented as of this encounter Discharge Disposition Disposition Code Departure Means Destination Discharge to home or self care documented in this encounter Plan of Treatment Not on file documented as of this encounter Procedures Procedure Name Priority Date/Time Associated Diagnosis Comments CT HEART MORPHOLOGY W CONTRAST Schedule Routine, Read Routine (OP Routine) 01/26/2018 1:57 PM CDT Paroxysmal atrial fibrillation (CMS/HCC) POCT CREATININE FOR CONTRAST EVALUATION Routine 01/26/2018 1:23 PM CDT documented in this encounter Results * CT Heart Morphology W Contrast (01/26/2018 1:57 PM CDT) Anatomical Region Laterality Modality Chest N/A Computed Tomogra phy 01/27/2018 8:22 AM CDT Impressions 01/27/2018 3:18 PM CDT 1. 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 ??Dimensions as detailed above. ??No thrombus in the left atrium. Electronically signed by: GILBERTO FLORES MD Narrative 01/27/2018 3:18 PM CDT EXAM: ??CT HEART, [...] GILBERTO FLORES MD us Betito Luo MD IM CT PROCEDURES Final Result * (ABNORMAL) POCT creatinine for contrast evaluation (01/26/2018 1:23 PM CDT) Creatinine, POC 1.5(A) 0.6 - 1.3 mg/dL QC Pass/Fail Pass Blood specimen (specimen) 01/26/2018 1:23 PM CDT Betito Luo MD POINT OF CARE TEST ZENIA ZHENG Final Result documented in this encounter Visit Diagnoses Diagnosis Paroxysmal atrial fibrillation (CMS/HCC) (HCC) Atrial fibrillation documented in this encounter Administered Medications Inactive Administered Medications - up to 3 most recent administrations Medication Order MAR Action Action Date Dose Rate Site ioversol (OPTIRAY 350) syringe syringe 100 mL 100 mL, intravenous, Once in imaging, contrast, Starting on Wed01/26/18 at 1336, For 1 dose Given 01/26/2018 1:58 PM CDT 95 mL sodium chloride 0.9% flush 125 mL 125 mL, intravenous, Once in imaging, line care, Starting on Wed01/26/18 at 1336, For 1 dose Given 01/26/2018 1:58 PM CDT 40 mL documented in this encounter Care Teams Machine Whitener Relationship Specialty Start Date End Date Nasra Jasso MD [address] [place] [address] PCP - General 10/16/16 documented as of this encounter
--- OUTSIDE RECORDS SUMMARY | 2024-07-04 15:22 | XMS_ITS | Encounter Summary ---
Author Organization [facility] Healthcare Address [address] [place] [address] Care Team Providers Care Truck Driver Flatbed Name Role Phone Nasra Jasso MD Primary Care Provider Encounter Details Date Type Department Care Team (Late st Contact Info) Description 01/28/2018 8:00 AM CDT - 01/28/2018 12:00 PM CDT Surgery [facility] [address] [place] [id number] Betito Luo MD [address] [address] ABLATION ATRIAL FIBRILLATION (A-FIB) VIA PULMONARY VEIN ISOLATION [address] with Carto and ICE Surgery Details Date/Time Status Location OR Service Patient Class Case Class Case Type Trauma Case? 01/28/2018 8:00 AM Posted [facility] MEDICAL OFFICE SECRETARY CCL/ EP C Cardiovascular Outpatient Elective Panel 1 Procedure LRB Anes Op Region Wound Class Comments ABLATION ATRIAL FIBRILLATION (A-FIB) VIA PULMONARY VEIN ISOLATION 58203 with Carto and ICE N/A General 3D MAPPING OF TACHYCARDIA (+) 12556 N/A LEFT VENTRICLE PACING AND RECORDING 59457 N/A ABLATION ATRIAL FIBRILLATION ADDITIONAL LINE OR FOCI (+) 17585 N/A ABLATE ADDTN'L ARRHYTHMIA, A TRIAL OR VENTRICULAR (+) 96856 N/A Surgeon Surgeon Role Service Panel Betito Luo MD Primary Cardiovascular 1 Case Notes Orders InBCBS no auth required per Hugo Cardoza ref# [id number] / CORONER / ICE Special Needs 01/28/2018 at 8:00am documented in this encounter Social History Tobacco Use Types Packs/Day Years Used Date Smoking Tobacco: Never Smokeless Tobacco: Never Alcohol Use Standard Drinks/Week Comments Yes 0 (1 standard drink = 0.6 oz pur e alcohol) weekends Sex and Gender Information Value Date Recorded Sex Assigned at Not on file 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 Brand Name(s):Eliquis There may be other brand names for [...] pharmacist before using any other medicine, including [id number] medicines, vitamins, and herbal products. ?? Some [...] may report side effects to FDA at 4-613-RTC-7044 ?? 2016 [employer]. Information is for End User's use only and may not be sold, redistributed or otherwise used for commercial purposes. The above information is an occupational therapy aide only. It is not intended as medical [...] Follow up with your healthcare provider or astronomy professor in 7 to 10 days or as [...] as directed. Contact your healthcare provider or astronomy professor if: ?? You have a fever or [...] breath or have chest pain. ?? 2016 [employer]. Information is for End User's use only and may not be sold, redistributed or otherwise used for commercial purposes. All illustrations and images included in CareNotes?? are the copyrighted property of [employer] or [employer]. The above information is an occupational therapy aide only. It is not intended as medical [...] BID, Betito Luo MD, 5 mg at 01/29/18 0839 ??? flecainide (TAMBOCOR) tablet 150 mg, 150 mg, oral, Q12H, Betito Luo MD, 150 mg at 01/29/18 0839 ??? metoprolol XL (TOPROL-XL) extended release tablet 25 mg, 25 mg, oral, Daily, Betito Luo MD, 25 mg at 01/29/18 0839 ??? ondansetron (ZOFRAN) injection 4 mg, [...] documented in this encounter H&P Notes * Nir Etelvnia Pacheco, MIAH - 01/28/2018 7:28 AM CDT H&P Note Patient Name: Kulwant Hart Date of : 1960 Primary Physician: Nasra Jasso MD Admission Date: 01/28/2018 Problem List Patient Active Problem List Diagnosis ??? Paroxysmal supraventricular tachycardia (CMS/HCC) ??? Atrial fibrillation (CMS/HCC) ??? buttermaker current use of antiarrhythmic drug ??? Anticoagulation [...] or equal to 350 seconds. An 8 [place] deflectable phased-array ultrasound catheter was advanced to [...] the left atrium and a duodecapolar catheter (Fluorofinder) was advanced to the lateral and high [...] to the IVC in the 6:00 position (ESTONIAN clock). The line was constructed during CS [...] in 4-6 weeks Betito Luo MD MPH [facility] Arrhythmia Center [facility] documented in this encounter Plan of Treatment [...] AM CDT ACTIVATED CLOTTING TIME Routine 01/29/20 9:29 AM CDT ACTIVATED CLOTTING TIME Routine 01/29/20 8:55 AM CDT EGFR STAT 01/28/2018 6:56 AM CDT DIFFERENTIAL AUTO STAT 01/28/2018 6:5 6 AM CDT CBC WITH AUTO DIFFERENTIAL STAT 01/28/2018 6:56 AM CDT BASIC METABOLIC PANEL STAT 01/28/2018 6:56 AM CDT ECG 12-LEAD STAT 01/28/2018 6:33 AM CDT documented in this encounter Results * ECG 12 lead (2018 10:40 AM CDT) Patient age 58 years [facility] Interpretation Text SUPRAVENTRICULAR BRADYCARDIANONSPECIFIC ST ABNORMALITYABNORMAL RHYTHM ECGPREVIOUS TRACIN01/28/[address] ABNORMALITY is now improved [facility] Comment:Physician Interprete r Dr. Benji Pierson M.D. [facility] Ventricular Rate EKG/Min 58 /min [facility] P Wave Duration ms [facility] QRS-Interval (MSEC) 105 ms [facility] IA-Interval (MSEC) ms [facility] QT Interval 444 ms [facility] QTc 440 ms [facility] QTC Interval ms [facility] P [place] deg [facility] QRS [place] -4 deg [facility] T [place] 25 deg [facility] 2018 10:4 0 AM CDT us Betito Luo MD ECG ORDERABLES Final R esult [facility] * ECG 12 lead (01/28/2018 12:18 PM CDT) Patient age 58 years [facility] Interpretation Text SUPRAVENTRICULAR RHYTHMLEFT AXIS DEVIATIONMODERATE INTRAVENTRICULAR CONDUCTION DELAYMODERATE ST DEPRESSION,, CONSIDER ANTERIOR/ANTEROLATE RAL ISCHEMIAPROLONGED QT INTERVALABNORMAL ECGPREVIOUS TRACIN01/28/[address] [facility] Comment:Physician Interprete r Dr. Santana Bazan M.D. Ventricular Rate EKG/Min 74 /min [facility] P Wave Duration ms [facility] QRS-Interval (MSEC) 116 ms [facility] IA-Interval (MSEC) ms [facility] QT Interval 447 ms [facility] QTc 471 ms [facility] QTC Interval ms [facility] P [place] deg [facility] QRS [place] -38 deg [facility] T [place] -5 deg [facility] 01/28/2018 12:1 8 PM CDT us Notinfile Unknown ECG ORDERABLES Final Result Performing Organization Address City/[facility] de Phone Number [facility] * Activated Clotting Time (01/28/2018 11:14 AM CDT) ACT, POC 185 sec [facility] Comment: The normal clotting time for nonheparinized [...] AM CDT 01/28/2018 11:14 AM CDT Narrative [facility] - 01/28/2018 11:53 AM CDT Betito Luo MD LAB BLOOD ORDERABLES Fi nal Result Performing Organization Address [facility] de Phone Number [facility] [address] Department [place] [address] * ELECTROPHYSIOLOGIC EVALUATION (EPS) / ATRIAL FIBRILLATION ABLATION VIA PULMONARY VEIN ISOLATION, 3DMAPPING OF TACHYCARDIA, LEFT VENTRICLE PACING AND RECORDING, ATRIAL FIBRILLATION ABLATION ADDITIONAL LINE OR FOCI, ABLATE ADDTL ARRHYTHMIA ATRIA OR VENT (01/28/2018 10:48 AM CDT) Anatomical Region Laterality Modality X-Ray Angiograph y Betito Luo MD CV ELECTROPHYSIOLOGY IA OCS Final Result * Activated Clotting Time (01/28/2018 10:06 AM CDT) ACT, POC 402 sec [facility] Comment: The normal clotting time for nonheparinized [...] AM CDT 01/28/2018 10:06 AM CDT Narrative [facility] - 01/28/2018 11:53 AM CDT Betito Luo MD LAB BLOOD ORDERABLES Fi nal Result Performing Organization Address [facility] de Phone Number [facility] [address] [place] [address] * Activated Clotting Time (01/28/2018 9:29 AM CDT) ACT, POC 351 sec [facility] Comment: The normal clotting time for nonheparinized [...] AM CDT 01/28/2018 9:29 AM CDT Narrative [facility] 01/28/2018 11:53 AM CDT Betito Luo MD LAB BLOOD ORDERABLES Fi nal Result Performing Organization Address [facility] de Phone Number [facility] [address] [place] [address] * Activated Clotting Time (01/28/2018 8:55 AM CDT) ACT, POC 307 sec [facility] Comment: The normal clotting time for nonheparinized [...] AM CDT 01/28/2018 8:55 AM CDT Narrative [facility] 01/28/2018 11:53 AM CDT us Betito Luo MD LAB BLOOD ORDERABLES Fi nal Result Performing Organization Address [facility] Co la Phone Number [facility] [address] Department [place] [address] * eGFR (01/28/2018 6:56 AM CDT) eGFR 73 mL/min/1.7 3 m2 [facility] Comment: Interpretive Data Reference Interval Normal ?>/= 90 mL/min/1.73m2 Mildly decreased* ? 60 - 89 mL/min/1.73m2 Mildly to moderately decreased ?45 - 59 mL/min/1.73m2 Moderately to severely decreased ??30 - 44 mL/min/1.73m2 Severely decreased ?15 - 29 mL/min/1.73m2 Kidney Failure ?< 15 ??mL/min/1.73m2 *Relative to young adult level If -[place] multiply value by 1.16. Estimated glomerular filtration [...] AM CDT 01/28/2018 6:58 AM CDT Narrative [facility] - 01/28/2018 7:26 AM CDT us Betito Luo MD LAB BLOOD ORDERABLES Fi nal Result [facility] [address] Department [place] [address] * Differential, auto (01/28/2018 6:56 AM CDT) Neutrophil abs 3.4 1.7 - 6.5 K/cumm [facility] Imm gran abs 0.0 0.0 - 0.1 K/cumm [facility] Lymphocyte abs 1.9 0.8 - 3.3 K/cumm [facility] Monocyte abs 0.8 0.2 - 0.8 K/cumm [facility] Eosinophil abs 0.2 0.0 - 0.5 K/cumm [facility] Basophil abs 0.0 0.0 - 0.1 K/cumm [facility] Neutrophil pct 53.4 % [facility] Comment: Interpretive Data Percent cell count reference ranges are not reported, since discordance with absolute values may lead to misinterpretation of CBC data. Current Interpretive Data was last revised on 2017. Imm gran pct 0.6 % [facility] Comment: Interpretive Data Percent cell count reference ranges are not reported, since discordance with absolute values may lead to misinterpretation of CBC data. Current Interpretive Data was last revised on 2017. Lymphocyte pct 29.6 % [facility] Comment: Interpretive Data Percent cell count reference ranges are not reported, since discordance with absolute values may lead to misinterpretation of CBC data. Current Interpretive Data was last revised on 2017. Monocyte pct 13.1 % [facility] Comment: Interpretive Data Percent cell count reference ranges are not reported, since discordance with absolute values may lead to misinterpretation of CBC data. Current Interpretive Data was last revised on 2017. Eosinophil pct 2.5 % [facility] Comment: Interpretive Data Percent cell count reference ranges are not reported, since discordance with absolute values may lead to misinterpretation of CBC data. Current Interpretive Data was last revised on 2017. Basophil pct 0.8 % [facility] Comment: Interpretive Data Percent cell count reference ranges are not reported, since discordance with absolute values may lead to misinterpretation of CBC data. Current Interpretive Data was last revised on 2017. Blood specimen (specimen) 01/28/2018 6:56 AM CDT 01/28/2018 6:58 AM CDT Narrative [facility] - 01/28/2018 7:05 AM CDT Betito Luo MD LAB BLOOD ORDERABLES Fi nal Result Performing Organization Address [facility] Co de Phone Number [facility] [address] Department [place] [address] * CBC with auto differential (01/28/2018 6:56 AM CDT) WBC 6.4 3.8 - 9.9 K/cumm [facility] Hgb 15.2 13.0 - 17.5 g/dL [facility] Hct 45.2 38.9 - 50.3 % [facility] Plt 206 150 - 400 K/cumm [facility] MPV 10.1 9.1 - 12.3 fL [facility] RBC 4.79 4.30 - 5.80 M/cumm [facility] MCV 94.4 81.3 - 96.4 fL [facility] MCH 31.7 27.1 - 33.3 pg [facility] MCHC 33.6 32.3 - 35.7 g/dL [facility] RDW CV 12.9 11.1 - 14.9 % [facility] RDW SD 44.2 35.7 - 48.1 fL [facility] NRBC abs 0.00 0.00 - 0.01 K/cumm [facility] Blood specimen (specimen) 01/28/2018 6:56 AM CDT 01/28/2018 6:58 AM CDT Yanick [facility] - 01/28/2018 7:05 AM CDT If most recent labs were drawn prior to 4 AM, draw only prior to initiating procedure. Betito Luo MD LAB BLOOD ORDERABLES Fi nal Result Performing Organization Address [facility] Co de Phone Number [facility] [address] Department [place] [address] * (ABNORMAL) Basic metabolic panel (01/28/2018 6:56 AM CDT) [facility] Sodium 141 135 - 145 mmol/L [facility] Potassium, pl 4.7 3.3 - 4.9 mmol/L [facility] Chloride 103 97 - 110 mmol/L [facility] CO2 27 22 - 32 mmol/L [facility] Anion gap 11 2 - 15 mmol/L [facility] BUN 27(H) 8 - 25 mg/dL [facility] Creatinine 1.11 0.80 - 1.30 mg/dL [facility] Glucose 109 70 - 199 mg/dL [facility] Comment: Interpretive Data Fasting glucose >/= 126 [...] 2017. Calcium 9.8 8.5 - 10.3 mg/dL [facility] Blood specimen (specimen) 01/28/2018 6:56 AM CDT 01/28/2018 6:58 AM CDT Narrative [facility] - 01/28/2018 7:26 AM CDT us Betito Luo MD LAB BLOOD ORDERABLES Fi nal Result [facility] [address] Department [place] [address] * ECG 12 lead (01/28/2018 6:33 AM CDT) [facility] Patient age 58 years [facility] Interpretation Text SINUS BRADYCARDIAINCOMPLETE RIGHT BUNDLE BRANCH BLOCKBORDERLINE ECGPREVIOUS TRACIN05/23/[address] [facility] Comment:Physician Interprete r Dr. Santana Bazan M.D. Ventricular Rate EKG/Min 44 /min [facility] P Wave Duration [address] [facility] QRS-Interval (MSEC) [address] [facility] IA-Interval (MSEC) [address] [facility] QT Interval [address] [facility] QTc [address] [facility] QTC Interval ms [facility] P [place] [address] [facility] QRS [place] [address] [facility] T [place] [address] [facility] 01/28/2018 6:33 AM CDT us Betito Luo MD ECG ORDERABLES Final R esult [facility] [place] documented in this encounter Visit Diagnoses Not [...] Given 01/28/2018 9:47 PM CDT 150 mg heparin 2 unit/mL in sodium chloride 0.9% As needed, Starting on Wed01/28/18 at 1106, Intra-Procedure (CV) Given 01/28/2018 11:06 AM CDT 820 mL heparin 2,000 unit/1,000 mL (2 unit/mL) sodium chloride 0.9% (premix) As needed, Starting on Wed01/28/18 at 0837, Intra-Procedure (CV) Given 01/28/2018 8:37 AM CDT 1,000 mL ioversol (OPTIRAY 320) injection As needed, Starting on Wed01/28/18 at 0837, Intra-Procedure (CV) Given 01/28/2018 8:37 AM CDT 6 mL lidocaine (XYLOCAINE) 20 mg/mL (2 %) injection As needed, Starting on Wed01/28/18 at 0825, Intra-Procedure (CV), Indications: Administration of Local AnesthesiaIndications:Administra tion of Local Anesthesia Given 01/28/2018 8:25 AM CDT 20 mL Other (Comment) metoprolol XL (TOPROL-XL) extended release tablet 25 [...] flecainide (TAMBOCOR) tablet 150 mg 1 01/28 ondansetron (ZOFRAN) injection 4 mg 1 01/28 [...] 01/28/2018 documented in this encounter Care Teams Truck Driver Flatbed Relationship Specialty Start Date End Date Nasra Jasso MD [address] [place] [address] PCP - General 10/16/16 documented as of this encounter
--- OUTSIDE RECORDS SUMMARY | 2024-07-04 15:22 | XMS_ITS | Encounter Summary ---
Author Organization [facility] Medical Group Address [address] [place] [address] Care Team Providers Care Fresh Work Inspector Name Role Phone Nasra Jasso MD Primary Care Provider [phone] Reason for Visit * Reason Onset Date Comments Appointment 12/21/2018 Encounter Details Date Type Department Care Team (Late st Contact Info) Description 12/21/2018 Telephone Arrhythmia Center [address] [place] [address] Etelvina Loyola, MIAH [address] [place] [address] Appointment Social History Tobacco Use Types Packs/Day Years Used Date Smoking Tobacco: Never Smokeless Tobacco: Never Alcohol Use Standard Drinks/Week Comments Yes 0 (1 standard drink = 0.6 oz pur e alcohol) weekends Sex and Gender Information Value Date Recorded Sex Assigned at Not on file 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 * Telephone Encounter - Malathi Shields - 12/21/2018 3:19 PM CDT Pt states he can not make f/u appt with ST 12/22 at 3:30 because he has his colonoscopy. Is there anyway he can do a morning appt? Otherwise need to find a new time soon for his post ablation f/u. documented in this encounter Plan of Treatment Not on file documented as of this encounter Visit Diagnoses Not on filedocumented in this encounter Care Teams Fresh Work Inspector Relationship Specialty Start Date End Date Nasra Jasso MD [address] [place] [address] PCP - General 10/16/16 documented as of this encounter
--- OUTSIDE RECORDS SUMMARY | 2024-07-04 15:22 | XMS_ITS | Encounter Summary ---
Author Organization [facility] Medical Group Address [address] [place] [address] Care Team Providers Care Physical Science Technician Name Role Phone Nasra Jasso MD Primary Care Provider [phone] Encounter Details Date Type Department Care Team (Late st Contact Info) Description 06/22/2018 Telephone Arrhythmia Center [address] [place] [address] Betito Luo MD [address] 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 Hart called with CC about having some episodes here and there for few min(lightheaded)I will check with Dr. Luo tomorrow and will call him back. WOOD CUTTER documented in this encounter Plan of Treatment Not on file documented as of this encounter Visit Diagnoses Not on filedocumented in this encounter Care Teams Physical Science Technician Relationship Specialty Start Date End Date Nasra Jasso MD [address] [place] [address] PCP - General 10/16/16 documented as of this encounter
--- OUTSIDE RECORDS SUMMARY | 2024-07-04 15:22 | XMS_ITS | Encounter Summary ---
Author Organization [facility] Address [address] [place] [address] Care Team Providers Care National Secretary Name Role Phone Nasra Jasso MD Primary Care Provider [phone] Reason for Visit * Reason Comments Atrial Fibrillation Encounter Details Date Type Department Care Team (Latest Contact Info) Description 03/25/2017 4:30 PM CDT Office Visit Arr[facility]ia Center [address] [address] Betito Luo MD [address] [facility] [address] [place] [address] Paroxysmal atrial fibrillation (CMS/HCC) (Primary Dx); 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; Anticoagulation management encounter Social History Tobacco Use Types Packs/Day Years Used Date Smoking Tobacco: Never Smokeless Tobacco: Never Alcohol Use Standard Drinks/Week Comments Yes 0 (1 standard drink = 0.6 oz pur e alcohol) Sex and Gender Information Value Date Recorded Sex Assigned at Not on file Legal Sex Male 8:32 PM FLIGHT RADIO OPERATOR Gender Identity Not on file Sexual Orientation Not on file documented as of this encounter Last Filed Vital Signs Vital Sign Reading Time Taken Comments Blood Pressure 130/80 03/25/2017 4:39 PM CDT Pulse 47 03/25/2017 4:39 PM CDT Temperature - - Respiratory Rate - - Oxygen Saturation - - Inhaled Oxygen Concentration - - Weight 88.5 kg (195 lb) 03/25/2017 4:39 PM CDT Height 177.8 cm (5' 10 ) 03/25/2017 4:39 PM CDT Body Mass Index 27.98 03/25/2017 4:39 PM CDT documented in this encounter Progress Notes * Betito Luo MD - 03/25/2017 4:30 PM CDT This note was dictated with voice-recognition software, and nurse advisor errors may be present. Subjective/Objective Patient ID: Kulwant Hart is a 57 y.o. male Chief Complaint Atrial Fibrillation HPI Mr. Hart presented to the [facility] on 03/25/2017, for follow-up regarding atrial tachycardia/fibrillation. He is [...] flecainide. We last saw the patient in September 2016. Interim history has not been significant for any additional hospitalizations, emergency room visits, or other major medical events. The patient presents today for scheduled routine outpatient followup. Presently, the patient is doing well. He admits to occasional palpitations and shortness of breath.He has not experienced syncope, near syncope, or dizziness, and he denies chest pain. ... 12-lead ECG & Rhythm Strip: 03/25/2017: Sinus rhythm (47). Normal CA, QRS duration (118 msec). Normal QT interval. Allergies Allergen Reactions ??? Penicillins Rash Reaction: RASH, Current Outpatient Prescriptions: ??? flecainide (TAMBOCOR) 150 mg tablet, take 1 tablet by oral route every 12 hours, Disp: 180, Rfl: 3 ??? metoprolol XL (TOPROL-XL) 25 mg 24 hr tablet, take 1 tablet by oral route every day, Disp: 90, Rfl: 3 ??? pantoprazole DR (PROTONIX) 40 mg EC tablet, take 1 tablet by oral route every day, Disp: 0, Rfl: 0 Review of Systems Constitutional: Negative. HENT: Negative. Eyes: Negative. Respiratory: Negative. Cardiovascular: Negative. Gastrointestinal: Negative. Endocrine: Negative. Genitourinary: Negative. Neurological: Negative. Hematological: Negative. Physical Exam BP 130/80 (BP Location: Right arm, Patient Position: Sitting) Pulse (!) 47 Ht 177.8 cm (5' 10 ) Wt 88.5 kg (195 lb) BMI 27.98 kg/m?? GENERAL: No distress. Pleasant and cooperative [...] Diagnoses and all orders for this visit: 1. Paroxysmal atrial fibrillation (CMS/HCC) (Primary) Assessment & Plan: The patient has paroxysmal atrial fibrillation/tachycardia. He [...] schedule. Otherwise, we will continue routine follow-up. Orders: - ECG 12 lead Clinic Performed 2. 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 As long as the patient continues on this medication, an ECG should be performed at least every 6 months to monitor for toxicity. 3. Anticoagulation management encounter Assessment & Plan: The patient has a LTH7ES1-CZHc score of 0 (annualized risk of stroke approximately 0%). The patientwill continue on aspirin, and we will re-evaluate the need for anticoagulation in the future. The patient will follow-up with me in 6 months for an office visit and twelve- lead ECG, unless he decides to proceed to ablation. Betito Luo MD 03/25/2017 documented in this encounter Miscellaneous Notes * Assessment & Plan Note - Betito Luo MD - 03/29/2017 4:03 PM CDT Associated Problem(s): Anticoagulation management encounter The patient has a LTR1HI5-MEIw score of 0 (annualized risk of stroke approximately 0%). The patientwill continue on aspirin, and we will re-evaluate the need for anticoagulation in the future. The patient will follow-up with me in 6 months for an office visit and twelve- lead ECG, unless he decides to proceed to ablation. * Assessment & Plan Note - Betito Luo MD - 03/29/2017 4:03 PM CDT Associated Problem(s): half-way current use of antiarrhythmic drug 12-lead ECG today does not demonstrate any changes that would prohibit continued use of flecainide.We will continue the patient on the same dose and schedule. As long as the patient continues on this medication, an ECG should be performed at least every 6 months to monitor for toxicity. * Assessment & Plan Note - Betito Luo MD - 03/29/2017 4:02 PM CDT Associated Problem(s): Atrial fibrillation (CMS/HCC) (HCC) The patient has paroxysmal atrial fibrillation/tachycardia. He [...] schedule. Otherwise, we will continue routine follow-up. 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
--- OUTSIDE RECORDS SUMMARY | 2024-07-04 15:22 | XMS_ITS | Encounter Summary ---
Author Organization [facility] Care Team Providers Care Grain Oilseed Or Pasture Farm Worker Name Role Phone Nasra Jasso MD Primary Care Provider [phone] Encounter Details Date Type Department Care Team (Latest Contact Info) Description 11/14/2018 Travel Social History Tobacco Use Types Packs/Day Years Used Date Smoking Tobacco: Never Smokeless Tobacco: Never Alcohol Use Standard Drinks/Week Comments Yes 0 (1 standard drink = 0.6 oz pur e alcohol) weekends Sex and Gender Information Value Date Recorded Sex Assigned at Not on file 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
--- OUTSIDE RECORDS SUMMARY | 2024-07-04 16:43 | XMS_ITS | Encounter Summary ---
Author Organization [facility] Address [address] [place] [address]. [place] [address] [place] [address] Care Team Providers Care Track Hoe Operator Name Role Phone Michael Jasso MD Primary Care Provider [phone] Reason for Visit * Reason Onset Date Comments Surgical Clearance 08/28/2022 Lvm for patie nt to let him know to hold his aspirin for 5 days prior to his procedure. Told patient if he has any questions to please call our office. Encounter Details Date Type Department Care Team (Late st Contact Info) Description 08/28/2022 Telephone [facility] Multispecialty Care - [facility] [address] [place] [id number] Andres Fowler MD [address] [facility] [address] [place] [address] Surgical Clearance (Lvm for patient to let [...] any questions to please call our office. ER AND WRAPPER PACKER documented in this encounter Plan of Treatment Upcoming Encounters Date Type Department Care Team (Late st Contact Info) Description 12/18/2024 3:00 PM CDT Office Visit [facility] Multispecialty Care - [address] [place] [address] Sundeep Bernal PA-C [address] [facility] [address] [place] [address] documented as of this encounter Visit Diagnoses Not on filedocumented in this encounter Care Teams Track Hoe Operator Relationship Specialty Start Date End Date Michael Jasso MD [address] [place] [address] PCP - General FAMILY PRACTICE 12/22/18 documented as of this encounter
--- OUTSIDE RECORDS SUMMARY | 2024-07-04 16:43 | XMS_ITS | Encounter Summary ---
Author Organization [facility] Address [address] [place] [address]. [place] [address] [place] [address] Care Team Providers Care Treatment Plant Mechanic Name Role Phone Michael Jasso MD Primary Care Provider [phone] Reason for Visit * Auth/Cert Specialty Diagnoses / Procedures Referred By Contac t Referred To Contact Diagnoses APPETITE LOSS WEIGHT LOSS ANOREXIA Procedures EGD/COLON COLONOSCOPY Referral ID Status Reason Start Date Expiration Date Visits Re quested Visits Authorized [id number] 1 1 Encounter Details Date Type Department Care Team (Latest Contact Info) Description 12/22/2018 12:29 PM CDT - 12/22/2018 3:39 PM CDT Hospital Encounter [facility] [place] [address] Nicola Neri MD [address] [address] Discharge Disposition: Home or Self Care (Routine [...] for biopsy results in two weeks at [phone] * Attachments The following attachments cannot be sent through Care Everywhere. * Colonoscopy Discharge Instructions (Korean) documented in this encounter Medications at Time [...] file Gets together: Not on file Attends christian service: Not on file Active member of [...] , Intravenous, Continuous PRN, Berry P Grove, FINISHED HARDWARE ERECTOR ??? lidocaine (PF) (XYLOCAINE) 2 % injection, , Intravenous, PRN, Berry P Grove, FINISHED HARDWARE ERECTOR, 50 mg at 12/22/18 1441 ??? propofol (DIPRIVAN) IV bolus, , Intravenous, PRN, Berry P Grove, FINISHED HARDWARE ERECTOR, 30 mg at 12/22/18 1458 Allergies Allergen [...] the left lateral decubitus position, the Olympus [id number] colonoscope was introduced into the rectum and [...] Description 12/18/2024 3:00 PM CDT Office Visit [facility] Multispecialty Care - [facility] [address] [place] [address] Sundeep Bernal PA-C [address] [facility] [address] [place] [address] documented as of this encounter Procedures Procedure Name Priority Date/Time Associated Diagnosis Comments COLONOSCOPY WITH BIOPSY 12/22/2018 2:30 PM CDT APPETITE LOSS WEIGHT LOSS ANOREXIA Case Notes SCHEDULED BY FAX 12/16/18 [facility] PATHOLOGY Routine 12/22/2018 12:00 AM CDT documented in this encounter Results * Pathology (12/22/2018 12:00 AM CDT) COPATH REPORT ? [facility] ? Department of Pathology ? [address] [facility] ? [place], [place] ??[address] ? [id number] ? Pathology Report ? Name: KULWANT HART ? Specimen #: [id number] Age: 7 1960 (Age: 58) ? Location: [facility] Sex: M ? Procedure Date: 12/22/2018 [facility] #: [id number] ? Date Received: 12/23/2018 Date Reported: 12/26/2018 [...] VELASQUEZ ??Pathologist king/12/26/2018 Electronically Signed Out ? [facility] Tissue specimen (specimen) COLON STRUCTURE / Unknown 12/22/2018 2:55 PM CDT Tissue specimen (specimen) COLON STRUCTURE / Unknown 12/22/2018 2:59 PM CDT Nicola Neri MD PATHOLOGY/CYTOLOGY ORDERABL ES Final Result [facility] 3 [place] [address], documented in this encounter Visit Diagnoses Not [...] order) documented in this encounter Care Teams Treatment Plant Mechanic Relationship Specialty Start Date End Date Michael Jasso MD [address] [place] [address] PCP - General FAMILY PRACTICE 12/22/18 documented as of this encounter
--- OUTSIDE RECORDS SUMMARY | 2024-07-04 16:43 | XMS_ITS | Clinical Summary ---
Author Organization [facility] Address [address] [place] [address]. [place], [place] [address] [place] [address] Care Team Providers Care Buggy Driver Name Role Phone Michael Jasso MD Primary Care Provider [phone] Allergies Active Allergy Reactions Criticality Noted Date [...] Description 12/18/2024 3:00 PM CDT Office Visit [facility] Multispecialty Care - [facility] [address] [facility] [place] [address] Sundeep Bernal PA-C [address] [facility] [address] [place] [address] Health Maintenance Due Date Last Done Comments [...] to complete this topic Insurance Care Teams Buggy Driver Relationship Specialty Start Date End Date Michael Jasso MD [address] [place] [address] PCP - General FAMILY PRACTICE 12/22/18
--- OUTSIDE RECORDS SUMMARY | 2024-07-04 16:43 | XMS_ITS | Encounter Summary ---
Author Organization [facility] Address [address] [place] [address]. [place] [address] [place] [address] Care Team Providers Care Biogeographer Name Role Phone Michael Jasso MD Primary Care Provider Reason for Visit * Auth/Cert Specialty Diagnoses / Procedures Referred By Contac t Referred To Contact Diagnoses APPETITE LOSS WEIGHT LOSS ANOREXIA Procedures EGD/COLON COLONOSCOPY Referral ID Status Reason Start Date Expiration Date Visits Re quested Visits Authorized [id number] 1 1 Encounter Details Date Type Department Care Team (Late st Contact Info) Description 12/22/2018 2:38 PM CDT Anesthesia Event [facility] [address] Michelle Montano MD Anesthesia Record Procedure Summary Procedure Name Responsible Anesthesiologist Anesthesia Start Time Anesthesia Stop Time COLONOSCOPY WITH sigmoid colon and rectal polypectomies Michelle Montano MD 12/22/18 1438 12/22/18 1504 Events Date Time Event Comment 12/22/2018 1331 1331 AN Anesthesia Prepped 1408 AN SCRAP IRON LOADER Prepped 1438 An Start Patient ID and [...] 12/18/2024 3:00 PM CDT Office Visit [facility] Mult[facility]pecialty Care - [facility] [address] [facility] [place] [address] Sundeep Bernal PA-C [address] [facility] [address] [place] [address] documented as of this encounter Visit Diagnoses [...] mg documented in this encounter Care Teams Biogeographer Relationship Specialty Start Date End Date Michael Jasso MD [address] [place] [address] PCP - General FAMILY PRACTICE 12/22/18 documented as of this encounter
--- OUTSIDE RECORDS SUMMARY | 2024-07-04 16:43 | XMS_ITS | Encounter Summary ---
Author Organization [facility] Address [facility] [facility] [place] [address] [place] [address] Care Team Providers Care Stockroom Clerk Name Role Phone Unavailable Primary Care Provider Unavailabl e Encounter Details Date Type Department Care Team (Late st Contact Info) Description 09/14/2011 Abstract [facility] [address] [place] [address] Michael Jasso MD [address] [place] [address] Social History Tobacco Use Types Packs/Day Years [...] Description 12/18/2024 3:00 PM CDT Office Visit [facility] Multispecialty Care - [facility] [address] [facility] [place] [address] Sundeep Bernal PA-C [address] [facility] [address] [place] [address] documented as of this encounter Visit Diagnoses Diagnosis Sensorineural hearing loss Sensorineural hearing loss, unspecified documented in this encounter
--- OUTSIDE RECORDS SUMMARY | 2024-07-04 16:43 | XMS_ITS | Encounter Summary ---
Author Organization [facility] Address [address] [place] [address]. [place] [address] [place] [address] Care Team Providers Care Radioactive Waste Disposal Dispatcher Name Role Phone Michael Jasso MD Primary Care Provider [phone] Reason for Visit * Auth/Cert Specialty Diagnoses / Procedures Referred By Contac t Referred To Contact Diagnoses APPETITE LOSS WEIGHT LOSS ANOREXIA Procedures EGD/COLON COLONOSCOPY Referral ID Status Reason Start Date Expiration Date Visits Re quested Visits Authorized [id number] 1 1 Encounter Details Date Type Department Care Team (Late st Contact Info) Description 12/22/2018 1:40 PM CDT - 12/22/2018 2:10 PM CDT Surgery [facility] [place] [address] Nicola Neri MD [address] [address] COLONOSCOPY WITH sigmoid colon and rectal polypectomies Surgery Details Date/Time Status Location OR Service Patient Class Case Class Case Type Trauma Case? 12/22/2018 1:40 PM Posted [facility] 3 [facility] - Elective No Panel [...] for biopsy results in two weeks at [phone] * Attachments The following attachments cannot be sent through Care Everywhere. * Colonoscopy Discharge Instructions (Serbian) documented in this encounter Medications at Time [...] file Gets together: Not on file Attends cheondoism service: Not on file Active member of [...] , Intravenous, Continuous PRN, Berry P Grove, ASSEMBLER SEAT ??? lidocaine (PF) (XYLOCAINE) 2 % injection, , Intravenous, PRN, Berry P Grove, ASSEMBLER SEAT, 50 mg at 12/22/18 1441 ??? propofol (DIPRIVAN) IV bolus, , Intravenous, PRN, Berry P Grove, ASSEMBLER SEAT, 30 mg at 12/22/18 1458 Allergies Allergen [...] the left lateral decubitus position, the Olympus [id number] colonoscope was introduced into the rectum and [...] Description 12/18/2024 3:00 PM CDT Office Visit [facility] Multispecialty Care - [address] [place] [address] Sundeep Bernal PA-C [address] [place] [address] [place] [address] documented as of this encounter Procedures Procedure Name Priority Date/Time Associated Diagnosis Comments COLONOSCOPY WITH BIOPSY 12/22/2018 2:30 PM CDT APPETITE LOSS WEIGHT LOSS ANOREXIA Case Notes SCHEDULED BY FAX 12/16/18 LB PATHOLOGY Routine 12/22/2018 12:00 AM CDT documented in this encounter Results * Pathology (12/22/2018 12:00 AM CDT) COPATH REPORT ? [facility] ? Department of Pathology ? [address] ? [place], [place] ??[address] ? [id number] ? Pathology Report ? Name: KULWANT HART O ? Specimen #: [id number] Age: 7 1960 (Age: 58) ? Location: [facility] Sex: M ? Procedure Date: 12/22/2018 Hospital #: [id number] ? Date Received: 12/23/2018 Date Reported: 12/26/2018 [...] VELASQUEZ ??Pathologist lc/12/26/2018 Electronically Signed Out ? [facility] Tissue specimen (specimen) COLON STRUCTURE / Unknown 12/22/2018 2:55 PM CDT Tissue specimen (specimen) COLON STRUCTURE / Unknown 12/22/2018 2:59 PM CDT us Nicola Neri MD PATHOLOGY/CYTOLOGY ORDERABL ES Final Result [facility] [address] [place] [address], [place] [phone] documented in this encounter Visit Diagnoses Not [...] order) documented in this encounter Care Teams Radioactive Waste Disposal Dispatcher Relationship Specialty Start Date End Date Michael Jasso MD [address] [place] [address] PCP - General FAMILY PRACTICE 12/22/18 documented as of this encounter
--- OUTSIDE RECORDS SUMMARY | 2024-07-04 16:43 | XMS_ITS | Encounter Summary ---
Author Organization [facility] Address [address] [place] [address]. [place] [address] [place] [address] Care Team Providers Care Supervisor Graphite Name Role Phone Unavailable Primary Care Provider Unavailabl e Encounter Details Date Type Department Care Team (Late st Contact Info) Description 12/05/2013 Abstract [facility] Cardiopulmonary Services [address] [place] [address] Santana Arreola MD [address] [place] [address] [id number] Social History Tobacco Use Types Packs/Day Years [...] Description 12/18/2024 3:00 PM CDT Office Visit [facility] Multispecialty Care - [facility] [address] [facility] [place] [address] Sundeep Bernal PA-C [address] [facility] [address] [place] [address] documented as of this encounter Visit Diagnoses Diagnosis Palpitations documented in this encounter
--- OUTSIDE RECORDS SUMMARY | 2024-07-04 16:45 | XMS_ITS | Encounter Summary ---
Author Organization [facility] Address [address] [place] [address] Care Team Providers Care Hammer Driver Name Role Phone Michael Jasso MD Primary Care Provider [phone] Encounter Details Date Type Department Care Team (Late st Contact Info) Description 07/23/2021 6:00 PM PRE KINDERGARTEN TEACHER Immunization [place] [facility] PED - [facility] 2 Mobile Immunization [phone] [address] Need for vaccination (Primary Dx) Social History [...] disease documented in this encounter Care Teams Hammer Driver Relationship Specialty Start Date End Date Michael Jasso MD [address] [place] [address] PCP - General Family Medicine 12/27/18 documented as of this encounter
--- OUTSIDE RECORDS SUMMARY | 2024-07-04 16:45 | XMS_ITS | Clinical Summary ---
Author Organization [facility] Address [address], [address] [address] Phone Care Team Providers Care Switch Engineer Name Role Phone Michael Jasso MD Primary Care Provider [phone] Immunizations Immunization Administration Dates Next Due Covid-19, [...] patient's age to complete this topic Insurance [facility] Care Teams Switch Engineer Relationship Specialty Start Date End Date Michael Jasso MD [address] [place] [address] PCP - General Family Medicine 12/27/18
--- OUTSIDE RECORDS SUMMARY | 2024-07-04 16:46 | XMS_ITS | Encounter Summary ---
Author Organization [facility] Medical Group Address [address] [place] [address] Care Team Providers Care Network Control Supervisor Name Role Phone Nasra Jasso MD Primary Care Provider [phone] Reason for Visit * Reason Comments Atrial Fibrillation Encounter Details Date Type Department Care Team (Late st Contact Info) Description 09/18/2020 2:00 PM NURSING TECH Office Visit [facility] [address] [place] [address] Etelvina Loyola, MIAH [address] [facility] [address] [place] [address] Atrial fibrillation, unspecified type (CMS/HCC) (Primary Dx) Social History Tobacco Use Types Packs/Day Years Used Date Smoking Tobacco: Never Smokeless Tobacco: Never Alcohol Use Standard Drinks/Week Comments Yes 0 (1 standard drink = 0.6 oz pur e alcohol) weekends Sex and Gender Information Value Date Recorded Sex Assigned at Not on file Legal Sex Male 8:32 PM NURSING TECH Gender Identity Not on file Sexual Orientation Not on file documented as of this encounter Last Filed Vital Signs Vital Sign Reading Time Taken Comments Blood Pressure 110/70 09/18/2020 2:07 PM NURSING TECH Pulse 58 09/18/2020 2:07 PM NURSING TECH Temperature - - Respiratory Rate - - Oxygen Saturation - - Inhaled Oxygen Concentration - - Weight 85.3 kg (188 lb) 09/18/2020 2:07 PM NURSING TECH Height 167.6 cm (5' 6 ) 09/18/2020 2:07 PM NURSING TECH Body Mass Index 30.34 09/18/2020 2:07 PM NURSING TECH documented in this encounter Progress Notes * Etelvina Loyola, WHITE SHOE EXAMINER - 09/18/2020 2:00 PM CST Patient ID: [...] episode of atrial fibrillation and arrived at [facility] for further evaluation. At that time he [...] an office visit and 12 lead EKG ING TECH documented in this encounter Plan of Treatment [...] Primary documented in this encounter Care Teams Network Control Supervisor Relationship Specialty Start Date End Date Nasra Jasso MD [address] [place] [address] PCP - General 10/16/16 documented as of this encounter
--- OUTSIDE RECORDS SUMMARY | 2024-07-04 16:46 | XMS_ITS | Encounter Summary ---
Author Organization [facility] Medical Group Address [address] [place] [address] Care Team Providers Care Project Crew Worker Name Role Phone Nasra Jasso MD Primary Care Provider [phone] Reason for Visit * Reason Onset Date Comments Appointment 12/21/2018 Encounter Details Date Type Department Care Team (Late st Contact Info) Description 12/21/2018 Telephone Arrhythmia Center [address] [place] [address] Etelvina Loyola, MIAH [address] [facility] [address] [place] [address] Appointment Social History Tobacco Use Types Packs/Day Years Used Date Smoking Tobacco: Never Smokeless Tobacco: Never Alcohol Use Standard Drinks/Week Comments Yes 0 (1 standard drink = 0.6 oz pur e alcohol) weekends Sex and Gender Information Value Date Recorded Sex Assigned at Not on file Legal Sex Male 8:32 PM TOBACCO GROWER Gender Identity Not on file Sexual Orientation [...] on filedocumented in this encounter Care Teams Project Crew Worker Relationship Specialty Start Date End Date Nasra Jasso MD [address] [place] [address] PCP - General 10/16/16 documented as of this encounter
--- OUTSIDE RECORDS SUMMARY | 2024-07-04 16:46 | XMS_ITS | Encounter Summary ---
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
--- OUTSIDE RECORDS SUMMARY | 2024-07-04 16:46 | XMS_ITS | Encounter Summary ---
Author Organization [facility] Address [address] [place] [address] Care Team Providers Care Clinical Nurse Leader Name Role Phone Nasra Jasso MD Primary Care Provider [phone] Encounter Details Date Type Department Care Team (Late st Contact Info) Description 12/19/2018 Telephone Arrhythmia Center [address] [place] [address] Etelvina Loyola NP [address] [facility] [address] [place], [place] [id number] Social History Tobacco Use Types Packs/Day Years Used Date Smoking Tobacco: Never Smokeless Tobacco: Never Alcohol Use Standard Drinks/Week Comments Yes 0 (1 standard drink = 0.6 oz pur e alcohol) weekends Sex and Gender Information Value Date Recorded Sex Assigned at Not on file Legal Sex Male 8:32 PM SHOPPER'S AIDE Gender Identity Not on file Sexual Orientation [...] let Etelvina know that Dr. Neri at [facility] is the physician who wants toschedule his EGD & Colonoscopy. documented in this encounter Plan of Treatment Not on file documented as of this encounter Visit Diagnoses Not on filedocumented in this encounter Care Teams Clinical Nurse Leader Relationship Specialty Start Date End Date Nasra Jasso MD [address] [place] [address] PCP - General 10/16/16 documented as of this encounter
--- OUTSIDE RECORDS SUMMARY | 2024-07-04 16:46 | XMS_ITS | Encounter Summary ---
Author Organization [facility] Healthcare Address [address] [place] [address] Care Team Providers Care Information Assurance Analyst Name Role Phone Nasra Jasso MD Primary Care Provider [phone] Encounter Details Date Type Department Care Team (Late st Contact Info) Description 12/29/2023 Telephone Arrhythmia Center [address] [facility] [address] [place] [address] Etelvina Loyola, LEASE PURCHASE DRIVER [address] [facility] [address], [place] [id number] Social History Tobacco Use Types Packs/Day Years Used Date Smoking Tobacco: Never Smokeless Tobacco: Never Alcohol Use Standard Drinks/Week Comments Yes 0 (1 standard drink = 0.6 oz pur e alcohol) weekends Sex and Gender Information Value Date Recorded Sex Assigned at Not on file Legal Sex Male 8:32 PM INSULATION TECHNICIAN Gender Identity Not on file Sexual [...] fibrillation documented in this encounter Care Teams Information Assurance Analyst Relationship Specialty Start Date End Date Nasra Jasso MD [address] [place] [address] PCP - General 10/16/16 documented as of this encounter
--- OUTSIDE RECORDS SUMMARY | 2024-07-04 16:46 | XMS_ITS | Encounter Summary ---
Author Organization [facility] Facility Care Team Providers Care Economic Analysis Director Name Role Phone Nasra Jasso MD Primary Care Provider [phone] Encounter Details Date Type Department Care Team (Latest Contact Info) Description 12/22/2018 Travel Social History Tobacco Use Types Packs/Day Years Used Date Smoking Tobacco: Never Smokeless Tobacco: Never Alcohol Use Standard Drinks/Week Comments Yes 0 (1 standard drink = 0.6 oz pur e alcohol) weekends Sex and Gender Information Value Date Recorded Sex Assigned at Not on file Legal Sex Male 8:32 PM CATALYST IMPREGNATOR Gender Identity Not on file Sexual Orientation Not on file documented as of this encounter Plan of Treatment Not on file documented as of this encounter Visit Diagnoses Not on filedocumented in this encounter Care Teams Economic Analysis Director Relationship Specialty Start Date End Date Nasra Jasso MD [address] [place] [address] PCP - General 10/16/16 documented as of this encounter
--- OUTSIDE RECORDS SUMMARY | 2024-07-04 16:46 | XMS_ITS | Encounter Summary ---
Author Organization [facility] Medical Group Address [address] [place] [address] Care Team Providers Care Certification Technician Name Role Phone Nasra Jasso MD Primary Care Provider [phone] Encounter Details Date Type Department Care Team (Late st Contact Info) Description 08/25/2019 Telephone Arrhythmia Center [address] [facility] [address] [place] [address] Etelvina Loyola, HATCH BOSS [address] [facility] [address] [place], [place] [id number] Social History Tobacco Use Types Packs/Day Years Used Date Smoking Tobacco: Never Smokeless Tobacco: Never Alcohol Use Standard Drinks/Week Comments Yes 0 (1 standard drink = 0.6 oz pur e alcohol) weekends Sex and Gender Information Value Date Recorded Sex Assigned at Not on file Legal Sex Male 8:32 PM ANIME DESIGNER Gender Identity Not on file Sexual Orientation Not on file documented as of this encounter Miscellaneous Notes * Telephone Encounter - Kennedi Narayan MA - 08/25/2019 2:36 PM CST I spoke with patient that I moved his apt from 09/05 to 09/13 at 3:00 pm. He will call to confirm this because he was driving. E DESIGNER documented in this encounter Plan of Treatment Not on file documented as of this encounter Visit Diagnoses Not on filedocumented in this encounter Care Teams Certification Technician Relationship Specialty Start Date End Date Nasra Jasso MD [address] [place] [address] PCP - General 10/16/16 documented as of this encounter
--- OUTSIDE RECORDS SUMMARY | 2024-07-04 16:46 | XMS_ITS | Encounter Summary ---
Author Organization [facility] Medical Group Address [address] [place] [address] Care Team Providers Care Metal Ceiling Hanger Name Role Phone Nasra Jasso MD Primary Care Provider [phone] Reason for Visit * Reason Comments Atrial Fibrillation Encounter Details Date Type Department Care Team (Late st Contact Info) Description 03/01/2019 2:30 PM CDT Office Visit Arrhythmia Center [address] [facility] [address] [place] [address] Etelvina Loyola, MIAH [address] [facility] [address] [place] [address] Atrial fibrillation, unspecified type (CMS/HCC) (Primary Dx) Social History Tobacco Use Types Packs/Day Years Used Date Smoking Tobacco: Never Smokeless Tobacco: Never Alcohol Use Standard Drinks/Week Comments Yes 0 (1 standard drink = 0.6 oz pur e alcohol) weekends Sex and Gender Information Value Date Recorded Sex Assigned at Not on file Legal Sex Male 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 At that time [...] ??? Infectious mononucleosis age 18 Mononucleosis; Comments: [facility] 03/21/2014 - ??? Supraventricular tachycardia (CMS/HCC) Family [...] * ECG 12 lead (03/01/2019) Etelvina Loyola YOUTH DEVELOPMENT PROFESSIONAL ECG ORDERABLES Edited Res ult - Final documented in this encounter Visit Diagnoses Diagnosis Atrial fibrillation, unspecified type (HCC)- Primary documented in this encounter Care Teams Metal Ceiling Hanger Relationship Specialty Start Date End Date Nasra Jasso MD [address] [place] [address] PCP - General 10/16/16 documented as of this encounter
--- OUTSIDE RECORDS SUMMARY | 2024-07-04 16:46 | XMS_ITS | Clinical Summary ---
Author Organization [facility] Address [address] [place] [address] Care Team Providers Care Stave Hewer Name Role Phone Nasra Jasso MD Primary Care Provider [phone] Allergies Active Allergy Reactions Criticality Noted Date [...] Noted Date Diagnosed Date Paroxysmal atrial fibrillation ([facility]/HCC) 019 Overview (11/02/2018): Added automatically from request for surgery [id number] S/P ablation of atrial fibrillation 03/04/2018 half-way current use of antiarrhythmic drug 05/2017 Assessment [...] 7:48 AM CDT): The patient has a IRO1HE7-VEAa score of 0 (annualized risk of stroke [...] 10:44 AM CDT): The patient has a XFO9ZP0-KTVv score of 2 (annualized risk of stroke 2%). I have therefore recommended that he remain anticoagulated for thromboprophylaxis. Assessment & Plan (03/29/2017 4:04 PM CDT): The patient has a COG1ZF4-WUNc score of 0 (annualized risk of stroke approximately 0%). The patient will continue on aspirin, and we will re-evaluate the need for anticoagulation in the future. The patient will follow-up with me in 6 months for an office visit and twelve- lead ECG, unless he decides to proceed to ablation. Atrial fibrillation ([facility]/HCC) 01/03/2015 Overview (10/23/2016): A Fib Assessment & Plan (12/22/2018 10:20 AM CDT): He is status post repeat ablation on 11/15/2018 which included catheter ablation of left septal atrial tachycardia. He is also having a workup from GI at this time regarding his abdominal pain that predated his ablation. Would recommend and have spoken with his manager testing about holding off on upper endoscopy for another month post ablation. He is going to have a colonoscopy today. Assessment & Plan (08/01/2018 4:37 PM TRAFFIC WORKFORCE REPRESENTATIVE): The patient is 6 months status post ablation for paroxysmal atrial fibrillation/tachycardia. He continues to do well, without recurrent sustained atrial arrhythmia. He is experiencing asymptomatic atrial ectopy. I have conceded that the patient may discontinue metoprolol at this time. We will continue close follow-up for arrhythmia and treat recurrent / new arrhythmia expectantly. The patient has a CGT3BZ9-ETDn score of 0 (annualized risk of stroke [...] - Arrhythmia A-fib (CMS/HCC) (HCC) Supraventricular tachycardia ([facility]) Family History Medical History Relation [...] on file Legal Sex Male 8:32 PM TRAFFIC WORKFORCE REPRESENTATIVE Gender Identity Not on file Sexual Orientation [...] patient's age to complete this topic Insurance [facility] CHOICE OOS BLUE ACC CHOICE OOS Advance Directives For more information, please contact: [phone] * Full Code (Latest Code Status on File) Date Activated Date Inactivated Comments 01/28/2018 6:18 PM 2018 1:46 PM Care Teams Stave Hewer Relationship Specialty Start Date End Date Nasra Jasso MD [address] [place] [address] PCP - General 10/16/16
--- OUTSIDE RECORDS SUMMARY | 2024-07-04 16:46 | XMS_ITS | Encounter Summary ---
Author Organization [facility] Address [address] [place] [address] Care Team Providers Care Mold Preparer Name Role Phone Nasra Jasso MD Primary Care Provider [phone] Reason for Visit * Reason Onset Date Comments Eliquis samples 06/07/2019 Encounter Details Date Type Department Care Team (Late st Contact Info) Description 06/07/2019 Telephone Arrhythmia Center [address] [facility] [address] [place] [address] Betito Luo MD [address] [facility] [address] [place] [address] Eliquis samples Social History Tobacco Use Types Packs/Day Years Used Date Smoking Tobacco: Never Smokeless Tobacco: Never Alcohol Use Standard Drinks/Week Comments Yes 0 (1 standard drink = 0.6 oz pur e alcohol) weekends Sex and Gender Information Value Date Recorded Sex Assigned at Not on file Legal Sex Male 8:32 PM 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 Told him I have samples for him but he wants to see if his pcp has samples. It is closer to home. COMMUNICATIONS INSTRUCTOR * Telephone Encounter - Malathi Shields - 06/07/2019 3:34 PM CST Pt in need of Eliquis samples if available until Rx is received Mon per [facility]. COMMUNICATIONS INSTRUCTOR documented in this encounter Plan of Treatment Not on file documented as of this encounter Visit Diagnoses Not on filedocumented in this encounter Care Teams Mold Preparer Relationship Specialty Start Date End Date Nasra Jasso MD [address] [place] [address] PCP - General 10/16/16 documented as of this encounter
--- OUTSIDE RECORDS SUMMARY | 2024-07-04 16:46 | XMS_ITS | Encounter Summary ---
Author Organization [facility] Address [address] [facility] [address] [place] [address] Care Team Providers Care Supply Assistant Name Role Phone Nasra Jasso MD Primary Care Provider [phone] Reason for Visit * Reason Comments Atrial Fibrillation Encounter Details Date Type Department Care Team (Late st Contact Info) Description 12/23/2022 2:00 PM CDT Office Visit Arrhythmia Center [address] [facility] [address] [place] [address] Etelvina Loyola, MIAH [address] [facility] [address] [address] Paroxysmal atrial fibrillation (CMS/HCC) (HCC) (Primary Dx) Social History Tobacco Use Types Packs/Day Years Used Date Smoking Tobacco: Never Smokeless Tobacco: Never Alcohol Use Standard Drinks/Week Comments Yes 0 (1 standard drink = 0.6 oz pur e alcohol) weekends Sex and Gender Information Value Date Recorded Sex Assigned at Not on file Legal Sex Male 8:32 PM DEVELOPER DESIGNER Gender Identity Not on file Sexual [...] episode of atrial fibrillation and arrived at [facility] for further evaluation. At that time he [...] for this visit: Paroxysmal atrial fibrillation (CMS/HCC) ([facility]) (Primary) - ECG 12 lead Other orders [...] with no recent episodes. Remains on flecainide. [place] remains low 2. Encounter for antiarrhythmic drug [...] Continue current management plan Etelvina Loyola NP [facility] Arrhythmia Center documented in this [...] documented as of this encounter Care Teams Supply Assistant Relationship Specialty Start Date End Date Nasra Jasso MD [address] [place] [address] PCP - General 10/16/16 documented as of this encounter
--- OUTSIDE RECORDS SUMMARY | 2024-07-04 16:46 | XMS_ITS | Encounter Summary ---
Author Organization [facility] Medical Group Address [address] [facility] [address] [facility] [address] [place] [address] Care Team Providers Care Shook Machine Operator Name Role Phone Nasra Jasso MD Primary Care Provider [phone] Reason for Visit * Reason Comments Atrial Fibrillation Encounter Details Date Type Department Care Team (Late st Contact Info) Description 09/20/2019 2:00 PM GUT SNATCHER Office Visit [facility]ia Center [address] [facility] [facility] [address] [place] [address] Etelvina Loyola, MIAH [address] [facility] [address] [place] [address] Atrial fibrillation, unspecified type (CMS/HCC) (Primary Dx) Social History Tobacco Use Types Packs/Day Years Used Date Smoking Tobacco: Never Smokeless Tobacco: Never Alcohol Use Standard Drinks/Week Comments Yes 0 (1 standard drink = 0.6 oz pur e alcohol) weekends Sex and Gender Information Value Date Recorded Sex Assigned at Not on file Legal Sex Male 8:32 PM GUT SNATCHER Gender Identity Not on file Sexual Orientation Not on file documented as of this encounter Progress Notes * Etelvina Loyola NP - 09/20/2019 2:00 PM CST [...] episode of atrial fibrillation and arrived at [facility] for further evaluation. At that time [...] an office visit and 12 lead EKG SNATCHER documented in this encounter Plan of Treatment [...] documented as of this encounter Care Teams Shook Machine Operator Relationship Specialty Start Date End Date Nasra Jasso MD [address] [place] [address] PCP - General 10/16/16 documented as of this encounter
--- OUTSIDE RECORDS SUMMARY | 2024-07-04 16:46 | XMS_ITS | Encounter Summary ---
Author Organization [facility] Medical Group Address [address] [place] [address] Care Team Providers Care Carpet Technician Name Role Phone Nasra Jasso MD Primary Care Provider [phone] Reason for Referral * (Routine) - Closed Specialty Diagnoses / Procedures Referred By Contac t Referred To Contact Procedures Transthoracic Echo Complete W Doppler/CF [facility] [address] [place] [address] Phone: tel: fax: Referral ID Status Reason Start Date Expiration Date Visits Re quested Visits Authorized [id number] Closed 12/23/2018 07/03/2020 1 1 Encounter Details Date Type Department Care Team (Late st Contact Info) Description 12/23/2018 Orders Only [facility] [address] [place] [phone] Barbara Currie MD [address] [place] [address] Social History Tobacco Use Types Packs/Day Years Used Date Smoking Tobacco: Never Smokeless Tobacco: Never Alcohol Use Standard Drinks/Week Comments Yes 0 (1 standard drink = 0.6 oz pur e alcohol) weekends Sex and Gender Information Value Date Recorded Sex Assigned at Not on file Legal Sex Male 8:32 PM DIGITAL CONTENT PRODUCER Gender Identity Not on file Sexual Orientation [...] on filedocumented in this encounter Care Teams Carpet Technician Relationship Specialty Start Date End Date Nasra Jasso MD [address] [address] PCP - General 10/16/16 documented as of this encounter
--- OUTSIDE RECORDS SUMMARY | 2024-07-04 16:46 | XMS_ITS | Encounter Summary ---
Author Organization [facility] Healthcare Address [address] [place] [address] Care Team Providers Care Software Implementation Specialist Name Role Phone Nasra Jasso MD Primary Care Provider [phone] Encounter Details Date Type Department Care Team (Late st Contact Info) Description 12/28/2023 2:15 PM CDT Office Visit Arrhythmia Center [address] [facility] [address] [place] [address] Etelvina Loyola, MIAH [address] [address] Cardiac arrhythmia, unspecified cardiac arrhythmia [...] on file Legal Sex Male 8:32 PM SPORTS APPAREL INTERNSHIP Gender Identity Not on file Sexual Orientation [...] this encounter Progress Notes * Etelvina Loyola, ACCOUNTS PAYABLE OR RECEIVABLE CLERK - 12/28/2023 2:15 PM CDT Images from [...] episode of atrial fibrillation and arrived at [facility] for further evaluation. At that time [...] Past Medical History: Diagnosis Date A-fib (CMS/HCC) ([facility]) Arrhythmia Infectious mononucleosis age 18 Mononucleosis; Comments: [...] and 12 lead EKG Etelvina Loyola NP [facility] Medical [facility] Arrhythmia Center documented in this [...] Primary documented in this encounter Care Teams Software Implementation Specialist Relationship Specialty Start Date End Date Nasra Jasso MD [address] [place] [address] PCP - General 10/16/16 documented as of this encounter
--- OUTSIDE RECORDS SUMMARY | 2024-07-04 16:46 | XMS_ITS | Encounter Summary ---
Author Organization [facility] Address [address] [facility] [facility] [address] [place] [address] Care Team Providers Care Check Clerk Name Role Phone Nasra Jasso MD Primary Care Provider [phone] Encounter Details Date Type Department Care Team (Late st Contact Info) Description 01/24/2019 Telephone Arrhythmia Center [address] [facility] [address] [place] [address] Betito Luo MD [address] [facility] [address] [place] [address] Social History Tobacco Use Types Packs/Day Years Used Date Smoking Tobacco: Never Smokeless Tobacco: Never Alcohol Use Standard Drinks/Week Comments Yes 0 (1 standard drink = 0.6 oz pur e alcohol) weekends Sex and Gender Information Value Date Recorded Sex Assigned at Not on file Legal Sex Male 8:32 PM 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 Please call him to discuss regarding getting [...] documented as of this encounter Care Teams Check Clerk Relationship Specialty Start Date End Date Nasra Jasso MD [address] [place] [address] PCP - General 10/16/16 documented as of this encounter
--- OUTSIDE RECORDS SUMMARY | 2024-07-04 16:46 | XMS_ITS | Encounter Summary ---
Author Organization [facility] Medical [facility] Address [address] [facility] [address] [place] [address] Care Team Providers Care Assistant To The Vice President Name Role Phone Nasra Jasso MD Primary Care Provider Reason for Visit * Reason Comments Atrial Fibrillation Encounter Details Date Type Department Care Team (Late st Contact Info) Description 11/13/2021 3:00 PM CDT Office Visit Arrhythmia Center [address] [facility] [address] [place] [address] Etelvina Loyola, MIAH [address] [facility] [address], [place] [address] Paroxysmal atrial fibrillation (CMS/HCC) (HCC) Social History Tobacco Use Types Packs/Day Years Used Date Smoking Tobacco: Never Smokeless Tobacco: Never Alcohol Use Standard Drinks/Week Comments Yes 0 (1 standard drink = 0.6 oz pur e alcohol) weekends Sex and Gender Information Value Date Recorded Sex Assigned at Not on file Legal Sex Male 8:32 PM DEALER SALES 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 At that time [...] 08/14/2021 added in this encounter Care Teams Assistant To The Vice President Relationship Specialty Start Date End Date Nasra Jasso MD [address] [place] [address] PCP - General 10/16/16 documented as of this encounter
--- OUTSIDE RECORDS SUMMARY | 2024-07-04 16:46 | XMS_ITS | Referral Summary ---
Author Organization [facility] Address [address] [place] [address] Care Team Providers Care Office Specialist Name Role Phone Nasra Jasso MD Primary Care Provider [phone] Allergies Active Allergy Reactions Criticality Noted Date [...] Noted Date Diagnosed Date Paroxysmal atrial fibrillation ([facility]/HCC) 019 Overview (11/02/2018): Added automatically from request for surgery [id number] S/P ablation of atrial fibrillation 03/04/2018 long-term current use of antiarrhythmic drug 05/2017 Assessment [...] 7:48 AM CDT): The patient has a [id number]-GHGj score of 0 (annualized risk of stroke [...] 10:44 AM CDT): The patient has a BJH7RP8-WARg score of 2 (annualized risk of stroke 2%). I have therefore recommended that he remain anticoagulated for thromboprophylaxis. Assessment & Plan (03/29/2017 4:04 PM CDT): The patient has a GPT8PF0-SDUy score of 0 (annualized risk of stroke approximately 0%). The patient will continue on aspirin, and we will re-evaluate the need for anticoagulation in the future. The patient will follow-up with me in 6 months for an office visit and twelve- lead ECG, unless he decides to proceed to ablation. Atrial fibrillation ([facility]/HCC) 01/03/2015 Overview (10/23/2016): A Fib Assessment & Plan (12/22/2018 10:20 AM CDT): He is status post repeat ablation on 11/15/2018 which included catheter ablation of left septal atrial tachycardia. He is also having a workup from GI at this time regarding his abdominal pain that predated his ablation. Would recommend and have spoken with his manipulator operator about holding off on upper endoscopy for another month post ablation. He is going to have a colonoscopy today. Assessment & Plan (08/01/2018 4:37 PM OPERATORS SCHOOL MANAGER): The patient is 6 months status post ablation for paroxysmal atrial fibrillation/tachycardia. He continues to do well, without recurrent sustained atrial arrhythmia. He is experiencing asymptomatic atrial ectopy. I have conceded that the patient may discontinue metoprolol at this time. We will continue close follow-up for arrhythmia and treat recurrent / new arrhythmia expectantly. 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
--- OUTSIDE RECORDS SUMMARY | 2024-07-04 16:46 | XMS_ITS | Encounter Summary ---
Author Organization [facility] Medical [facility] Address [address] [place] [address] Care Team Providers Care Personal Care Service Provider Name Role Phone Nasra Jasso MD Primary Care Provider Encounter Details Date Type Department Care Team (Late st Contact Info) Description 11/16/2018 Telephone Arrhythmia Center [address] [facility] [address] [place] [address] Betito Luo MD [address] [facility] [address] [place] [address] Social History Tobacco Use Types Packs/Day Years Used Date Smoking Tobacco: Never Smokeless Tobacco: Never Alcohol Use Standard Drinks/Week Comments Yes 0 (1 standard drink = 0.6 oz pur e alcohol) weekends Sex and Gender Information Value Date Recorded Sex Assigned at Not on file Legal 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
--- OUTSIDE RECORDS SUMMARY | 2024-07-04 16:46 | XMS_ITS | Encounter Summary ---
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
--- OUTSIDE RECORDS SUMMARY | 2024-07-04 16:46 | XMS_ITS | Encounter Summary ---
Author Organization [facility] Medical Group Address [address] [facility] [address] [place] [address] Care Team Providers Care Food General Manager Name Role Phone Nasra Jasso MD Primary Care Provider [phone] Reason for Visit * Reason Comments Atrial Fibrillation Encounter Details Date Type Department Care Team (Latest Contact Info) Description 12/22/2018 9:30 AM CDT Office Visit Arrhythmia Center [address] [facility] [address] [place] [address] Etelvina Loyola, MIAH [address] [facility] [address] [place] [address] S/P ablation of atrial fibrillation (Primary Dx); Atrial fibrillation, unspecified type (CMS/HCC); detention current use of antiarrhythmic drug; Anticoagulation management encounter Social History Tobacco Use Types Packs/Day Years Used Date Smoking Tobacco: Never Smokeless Tobacco: Never Alcohol Use Standard Drinks/Week Comments Yes 0 (1 standard drink = 0.6 oz pur e alcohol) weekends Sex and Gender Information Value Date Recorded Sex Assigned at Not on file Legal Sex Male 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 At that time [...] Would recommend and have spoken with his associate professor of media arts about holding off on upper endoscopy for [...] - 12/22/2018 10:19 AM CDT Associated Problem(s): detention current use of antiarrhythmic drug He remains on flecainide 50 mg twice daily. His EKG today does not demonstrate any changes that would prohibit the use of flecainide. documented in this encounter Plan of Treatment Not on file documented as of this encounter Visit Diagnoses Diagnosis S/P ablation of atrial fibrillation- Primary Other postprocedural status Atrial fibrillation, unspecified type (HCC) detention current use of antiarrhythmic drug Anticoagulation management encounter Encounter for therapeutic drug monitoring documented in this encounter Care Teams Food General Manager Relationship Specialty Start Date End Date Nasra Jasso MD [address] [place] [address] PCP - General 10/16/16 documented as of this encounter
--- OUTSIDE RECORDS SUMMARY | 2024-07-04 16:46 | XMS_ITS | Encounter Summary ---
Author Organization [facility] Medical Group Address [address] [facility] [address] [place] [address] Care Team Providers Care Search Advertising Strategist Name Role Phone Nasra Jasso MD Primary Care Provider Reason for Visit * Reason Onset Date Comments hold AC 09/03/2022 Encounter Details Date Type Department Care Team (Late st Contact Info) Description 09/03/2022 Telephone Arrhythmia Center [address] [facility] [address] [place] [phone] Betito Luo MD [address] [facility] [place] [address] hold AC Social History Tobacco Use Types Packs/Day Years Used Date Smoking Tobacco: Never Smokeless Tobacco: Never Alcohol Use Standard Drinks/Week Comments Yes 0 (1 standard drink = 0.6 oz pur e alcohol) weekends Sex and Gender Information Value Date Recorded Sex Assigned at Not on file Legal Sex Male 8:32 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 RVISOR PRODUCT INSPECTION * Telephone Encounter - Etelvina Loyola NP - 09/04/2022 10:00 AM SUPERVISOR PRODUCT INSPECTION Yes, hold for 2 days RVISOR PRODUCT INSPECTION * Telephone Encounter - JaylancarlosMalathi - 09/03/2022 2:12 PM CST Pt to have tooth extraction, needs ok to hold Eliquis prior and how long? RVISOR PRODUCT INSPECTION documented in this encounter Plan of Treatment Not on file documented as of this encounter Visit Diagnoses Not on filedocumented in this encounter Care Teams Search Advertising Strategist Relationship Specialty Start Date End Date Nasra Jasso MD [address] [place] [address] PCP - General 10/16/16 documented as of this encounter
--- OUTSIDE RECORDS SUMMARY | 2024-07-04 16:47 | XMS_ITS | Encounter Summary ---
Author Organization [facility] Medical Group Address [address] [facility] [address] [place] [address] Care Team Providers Care Fur Sorter Name Role Phone Nasra Jasso MD Primary Care Provider [phone] Reason for Visit * Reason Onset Date Comments Medication question 09/15/2018 Encounter Details Date Type Department Care Team (Late st Contact Info) Description 09/15/2018 Telephone Arrhythmia Center [address] [facility] [address] [place] [address] Betito Luo MD [address] [facility] [address] [place] [address] Medication question Social History Tobacco Use Types Packs/Day Years Used Date Smoking Tobacco: Never Smokeless Tobacco: Never Alcohol Use Standard Drinks/Week Comments Yes 0 (1 standard drink = 0.6 oz pur e alcohol) weekends Sex and Gender Information Value Date Recorded Sex Assigned at Not on file Legal Sex Male 8:32 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 Luo it is okay to go back on Metoprolol 25 mg qd. Rx was send to [facility] per patient request. STRY FIRE AIDE * Telephone Encounter - Martina Martin - 09/16/2018 8:54 AM CST Pt called back to see if we had an answer. Please advise. STRY FIRE AIDE * Telephone Encounter - Betty Eaton MA - 09/15/2018 8:14 AM CST Pt is calling to see if he can restart Metoprolol. He states he's been feeling a little bit of an irregular heart beat off and on and states that Dr. Luo told him this could happen when he saw him last. Please advise STRY FIRE AIDE documented in this encounter Plan of Treatment Not on file documented as of this encounter Visit Diagnoses Not on filedocumented in this encounter Care Teams Fur Sorter Relationship Specialty Start Date End Date Nasra Jasso MD [address] [place] [address] PCP - General 10/16/16 documented as of this encounter
--- OUTSIDE RECORDS SUMMARY | 2024-07-04 16:47 | XMS_ITS | Encounter Summary ---
Author Organization [facility] Medical Group Address [address] [facility] [address] [place] [address] Care Team Providers Care Housekeeping Aide Name Role Phone Nasra Jasso MD Primary Care Provider [phone] Reason for Visit * Reason Onset Date Comments Med Refill 02/22/2018 Encounter Details Date Type Department Care Team (Late st Contact Info) Description 02/22/2018 Telephone Arrhythmia Center [address] [facility] [address] [place] [address] Mana Bautista RMA Med Refill Social History Tobacco Use Types Packs/Day Years Used Date Smoking Tobacco: Never Smokeless Tobacco: Never Alcohol Use Standard Drinks/Week Comments Yes 0 (1 standard drink = 0.6 oz pur e alcohol) weekends Sex and Gender Information Value Date Recorded Sex Assigned at Not on file Legal 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
--- OUTSIDE RECORDS SUMMARY | 2024-07-04 16:47 | XMS_ITS | Encounter Summary ---
Author Organization [facility] Address [address] [facility] [address] [place] [address] Care Team Providers Care Biomedical Manager Name Role Phone Nasra Jasso MD Primary Care Provider [phone] Reason for Visit * (Routine) - Closed Specialty Diagnoses / Procedures Referred By Contac t Referred To Contact Diagnoses Paroxysmal atrial fibrillation (CMS/HCC) (HCC) Procedures [facility] Mobile Cardiac Telemetry Event Monitor Deirdre Baca MD Phone: tel: fax: [facility] Referral ID Status Reason Start Date Expiration Date Visits Re quested Visits Authorized [id number] Closed 10/27/2018 05/07/2020 1 1 Encounter Details Date Type Department Care Team (Latest Contact Info) Description 10/27/2018 11:45 AM CDT Ancillary Procedure [facility] Cardiology [address] [facility] [address] [place] [id number] Paroxysmal atrial fibrillation (CMS/HCC) Social History Tobacco Use Types Packs/Day Years Used Date Smoking Tobacco: Never Smokeless Tobacco: Never Alcohol Use Standard Drinks/Week Comments Yes 0 (1 standard drink = 0.6 oz pur e alcohol) weekends Sex and Gender Information Value Date Recorded Sex Assigned at Not on file Legal 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 Luo. Job ID/VF Job ID: [id number] documented in this encounter Plan of Treatment Pending Results Name Type Priority Associated Diagnoses Date /Time [facility] Mobile Cardiac Telemetry Event Monitor Cardiac Services Routine Paroxysmal atrial fibrillation (CMS/HCC) 10/27/2018 11:06 AM CDT documented as of this encounter Visit Diagnoses Diagnosis Paroxysmal atrial fibrillation (CMS/HCC) (HCC) Atrial fibrillation documented in this encounter Care Teams Biomedical Manager Relationship Specialty Start Date End Date Nasra Jasso MD [address] [place] [address] PCP - General 10/16/16 documented as of this encounter
--- OUTSIDE RECORDS SUMMARY | 2024-07-04 16:47 | XMS_ITS | Encounter Summary ---
Author Organization [facility] Medical Group Address [address] [facility] [address] [place] [address] Care Team Providers Care Epic Anesthesia Analyst Name Role Phone Nasra Jasso MD Primary Care Provider [phone] Reason for Referral * Diagnostic Imaging (Routine) - Closed Specialty Diagnoses / Procedures Referred By Contac t Referred To Contact Radiology Diagnoses Paroxysmal atrial fibrillation (CMS/HCC) (HCC) Procedures CT Heart Morphology W Contrast Betito Luo MD Phone: tel: fax: [facility] [address] [place] [address] Referral ID Status Reason Start Date Expiration Date Visits Re quested Visits Authorized [id number] Closed 01/06/2018 07/18/2019 1 1 Encounter Details Date Type Department Care Team (Late st Contact Info) Description 01/06/2018 Orders Only Arrhythmia Center [address] [facility] [address] [place] [address] Betito Luo MD [address] [facility] [address] [place] [address] Paroxysmal atrial fibrillation (CMS/HCC) (Primary Dx) Social History Tobacco Use Types Packs/Day Years Used Date Smoking Tobacco: Never Smokeless Tobacco: Never Alcohol Use Standard Drinks/Week Comments Yes 0 (1 standard drink = 0.6 oz pur e alcohol) Sex and Gender Information Value Date Recorded Sex Assigned at Not on file Legal 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
--- OUTSIDE RECORDS SUMMARY | 2024-07-04 16:47 | XMS_ITS | Encounter Summary ---
Author Organization [facility] Medical Group Address [address] [facility] [address] [place] [address] Care Team Providers Care Student Life Coordinator Name Role Phone Nasra Jasso MD Primary Care Provider [phone] Encounter Details Date Type Department Care Team (Late st Contact Info) Description 10/22/2017 Telephone Arrhythmia Center [address] 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 documented in this encounter Plan of Treatment Not on file documented as of this encounter Visit Diagnoses Not on filedocumented in this encounter Care Teams Student Life Coordinator Relationship Specialty Start Date End Date Nasra Jasso MD [address] [place] [address] PCP - General 10/16/16 documented as of this encounter
--- OUTSIDE RECORDS SUMMARY | 2024-07-04 16:47 | XMS_ITS | Encounter Summary ---
Author Organization [facility] Healthcare Address [address] [place] [address] Care Team Providers Care Customer Contact Sales Associate Name Role Phone Nasra Jasso MD Primary Care Provider [phone] Encounter Details Date Type Department Care Team (Latest Contact Info) Description 11/15/2018 10:57 AM CDT - 11/16/2018 11:56 AM CDT Hospital Encounter [facility] [address] [place] [id number] Betito Luo MD [address] [address] Paroxysmal atrial fibrillation ([facility]/HCC) Discharge Disposition: Discharge to home or self care Social History Tobacco Use Types Packs/Day Years Used Date Smoking Tobacco: Never Smokeless Tobacco: Never Alcohol Use Standard Drinks/Week Comments Yes 0 (1 standard drink = 0.6 oz pur e alcohol) weekends Sex and Gender Information Value Date Recorded Sex Assigned at Not on file 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 * Apixaban (By mouth) (Iranian) * Cardiac Ablation (Discharge Care) (Iranian) documented in this encounter Medications at Time [...] Luo MD - 11/15/2018 12:30 PM CDT [facility] Arr[facility]ia Center [address] [facility], [address] [place] [address] Patient Name: Kulwant Hart Date of : 1960 Primary Physician: Nasra Jasso MD Admission Date: 11/15/2018 This note was dictated with voice-recognition software, and assistant professor of life sciences errors may be present. . . . [...] file Gets together: Not on file Attends yazidi service: Not on file Active member of [...] benefits were discussed. Betito Luo M.D., M.P.H., [facility] Arrhythmia Center 11/15/2018 12:30 PM [...] or equal to 350 seconds. An 8 Greek deflectable phased-array ultrasound catheter was advanced to [...] throughout the case. A 20-pole mapping catheter (Upkeep Charlie) and Smart Touch irrigated pressure-sensing ablation catheter [...] the left atrium and a duodecapolar catheter (LocoMobi) was advanced to the lateral and high [...] in 4-6 weeks Betito Luo MD MPH [facility] Arrhythmia [facility] documented in this encounter Plan [...] PM CDT) 11/15/2018 4:34 PM CDT Narrative [facility] - 11/16/2018 10:41 AM CDT Vent Rate: 58 bpm RR Interval: 1021 msec PA Interval: 169 msec QRS Duration: 110 msec QT Interval: 447 msec QTC Interval: 444 msec P-R-T Scurry: 73 - 61 - 32 degrees SINUS BRADYCARDIA INCOMPLETE RIGHT BUNDLE BRANCH BLOCK MODERATE ST DEPRESSION ABNORMAL ECG Compared with 11/15/2018 at 11:58 a.m. heart rate is faster and PACs are no longer present Electronically Signed By: Raquel Leo MD us Betito Luo MD ECG ORDERABLES Final R esult [facility] * Activated Clotting Time (11/15/2018 3:46 PM CDT) ACT, POC 187 sec [facility] Comment: The normal clotting time for [...] PM CDT 11/15/2018 3:46 PM CDT Narrative [facility] - 11/15/2018 4:14 PM CDT Betito Luo MD LAB BLOOD ORDERABLES Fi nal Result Performing Organization Address [facility] de Phone Number [facility] [address] Department [place] [address] * ELECTROPHYSIOLOGIC EVALUATION (EPS) / ATRIAL FIBRILLATION ABLATION VIA PULMONARY VEIN ISOLATION, 3DMAPPING OF TACHYCARDIA, LEFT VENTRICLE PACING AND RECORDING, ATRIAL FIBRILLATION ABLATION ADDITIONAL LINE OR FOCI, POST DRUG PROGRAM STIM AND PACING, ABLATE ADDTL ARRHYTHMIA ATRIA OR VENT (11/15/20183:27 PM CDT) Anatomical Region Laterality Modality X-Ray Angiograph y Betito Luo MD CV ELECTROPHYSIOLOGY PA OCS Final Result * Activated Clotting Time [...] PM CDT 11/15/2018 3:00 PM CDT Narrative [facility] - 11/15/2018 4:14 PM CDT Betito Luo MD LAB BLOOD ORDERABLES Fi nal Result Performing Organization Address [facility] Co de Phone Number [facility] [address] [place] [address] * Activated Clotting Time (11/15/2018 2:29 PM CDT) Pathologist [facility] ACT, POC 328 sec [facility] [...] PM CDT 11/15/2018 2:29 PM CDT Narrative [facility] - 11/15/2018 4:14 PM CDT Betito Luo MD LAB BLOOD ORDERABLES Fi nal Result Performing Organization Address [facility] de Phone Number [facility] [address] [place] [address] * Activated Clotting Time (11/15/2018 2:01 PM CDT) [facility] ACT, POC 328 sec [facility] [...] PM CDT 11/15/2018 2:01 PM CDT Narrative [facility] - 11/15/2018 4:14 PM CDT Betito Luo MD LAB BLOOD ORDERABLES Fi nal Result Performing Organization Address [facility] Co de Phone Number [facility] [address] [place] [address] * Activated Clotting Time (11/15/2018 1:44 PM CDT) [facility] ACT, POC 265 sec [facility] [...] [facility] - 11/15/2018 4:14 PM CDT us Betito Luo MD LAB BLOOD ORDERABLES Fi nal Result [facility] [address] Department [place] [address] * eGFR (11/15/2018 12:12 PM CDT) [facility] eGFR 84 mL/min/1.7 3 m2 [facility] Comment: Interpretive Data Reference Interval Normal ?>/= 90 mL/min/1.73m2 Mildly decreased* ? 60 - 89 mL/min/1.73m2 Mildly to moderately decreased ?45 - 59 mL/min/1.73m2 Moderately to severely decreased ??30 - 44 mL/min/1.73m2 Severely decreased ?15 - 29 mL/min/1.73m2 Kidney Failure ?< 15 ??mL/min/1.73m2 *Relative to young adult level If -Russian multiply value by 1.16. Estimated glomerular filtration [...] ORDERABLES Fi nal Result [facility] [address] Department [place] [address] * Differential, auto (11/15/2018 12:12 PM CDT) [...] [address] Department [place] [address] * CBC with auto differential [...] [facility] - 11/15/2018 12:18 PM CDT Betito Luo MD LAB BLOOD ORDERABLES Fi nal Result [facility] [address] Department [place] [address] * Basic metabolic panel (11/15/2018 12:12 PM [...] ORDERABLES Fi nal Result Performing Organization Address [facility] Co de Phone Number [facility] [address] Department [place] [address] * ECG 12 lead (11/15/2018 11:58 AM CDT) 11/15/2018 11:5 8 AM CDT Narrative [facility] - 11/16/2018 9:27 AM CDT Vent Rate: 48 bpm RR Interval: 1225 msec PA Interval: 165 msec QRS Duration: 104 msec QT Interval: 454 msec QTC Interval: 422 msec P-R-T Scurry: 54 - -5 - 10 degrees SINUS BRADYCARDIA WITH OCCASIONAL SUPRAVENTRICULAR PREMATURE COMPLEXES INCOMPLETE RIGHT BUNDLE BRANCH BLOCK BORDERLINE ECG Compared with 2018 P-waves are newly seen Electronically Signed By: Raquel Leo MD Betito Luo MD ECG ORDERABLES Final R esult Performing Organization Address [facility] Co de Phone Number [facility] [employer] [facility] documented in this encounter Visit [...] Elena MINGO) 0534 (Given - Provider: Kylah Elena, RN) documented in this encounter Orders Medications [...] 11/15/2018 documented in this encounter Care Teams Customer Contact Sales Associate Relationship Specialty Start Date End Date Nasra Jasso MD [address] [place] [address] PCP - General 10/16/16 documented as of this encounter
--- OUTSIDE RECORDS SUMMARY | 2024-07-04 16:47 | XMS_ITS | Encounter Summary ---
Author Organization [facility] Medical Group Address [address] [place] [address] Care Team Providers Care Supervisor Scouring Pads Name Role Phone Nasra Jasso MD Primary Care Provider [phone] Encounter Details Date Type Department Care Team (Late st Contact Info) Description 06/22/2018 Telephone Arrhythmia Center [address] [facility] [address] [place] [address] Betito Luo MD [address] [facility] [address] [place] [address] Social History Tobacco Use Types Packs/Day Years Used Date Smoking Tobacco: Never Smokeless Tobacco: Never Alcohol Use Standard Drinks/Week Comments Yes 0 (1 standard drink = 0.6 oz pur e alcohol) weekends Sex and Gender Information Value Date Recorded Sex Assigned at Not on file Legal 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 Hart called with CC about having some episodes here and there for few min(lightheaded)I will check with Dr. Luo tomorrow and will call him back. PURIFICATION EQUIPMENT OPERATOR documented in this encounter Plan of Treatment Not on file documented as of this encounter Visit Diagnoses Not on filedocumented in this encounter Care Teams Supervisor Scouring Pads Relationship Specialty Start Date End Date Nasra Jasso MD [address] [place] [address] PCP - General 10/16/16 documented as of this encounter
--- OUTSIDE RECORDS SUMMARY | 2024-07-04 16:47 | XMS_ITS | Encounter Summary ---
Author Organization [facility] Medical Group Address [address] [place] [address] Care Team Providers Care Release Engineer Name Role Phone Nasra Jasso MD Primary Care Provider [phone] Reason for Visit * Reason Comments Atrial Fibrillation Encounter Details Date Type Department Care Team (Late st Contact Info) Description 03/03/2018 4:45 PM CDT Office Visit Arrhythmia Center [address] [facility] [address] [place] [address] Betito Luo MD [address] [facility] [address] [place] [address] Paroxysmal atrial fibrillation (CMS/HCC) (Primary [...] on file Legal Sex Male 8:32 PM LAUNCH CHECK OUT Gender Identity Not on file Sexual Orientation [...] documented in this encounter Progress Notes * Betiot Luo MD - 03/03/2018 4:45 PM CDT [facility] Arrhythmia Center [address] [place] [address], [address] [place], [place] [address] Patient Name: Kulwant Hart Date of : 1960 Primary Physician: Nasra Jasso MD This note was dictated with voice-recognition software, and etiquette coach errors may be present. Subjective/Objective Patient ID: Kulwant Hart is a 58 y.o. male Chief Complaint Atrial Fibrillation HPI Mr. Hart presented to the [facility] Arrhythmia Center on 03/03/2018, for follow-up regarding [...] Rhythm Strip: 03/03/2018: Sinus rhythm (55). Normal ME, QRS duration, and QT interval. ECG HISTORY: 10/21/2017: Sinus rhythm (50). Normal ME, QRS, and QT interval 03/25/2017: Sinus rhythm (47). Normal ME, QRS duration (118 msec). Normal QT interval. [...] Assessment & Plan: The patient has a [id number] score of 0 (annualized risk of stroke [...] Anticoagulation management encounter The patient has a [id number] score of 0 (annualized risk of stroke [...] documented as of this encounter Care Teams Release Engineer Relationship Specialty Start Date End Date Nasra Jasso MD [address] [place] [address] PCP - General 10/16/16 documented as of this encounter
--- OUTSIDE RECORDS SUMMARY | 2024-07-04 16:47 | XMS_ITS | Encounter Summary ---
Author Organization [facility] Medical Group Address [address] [place] [address] Care Team Providers Care Machine Scallop Cutter Name Role Phone Nasra Jasso MD Primary Care Provider [phone] Encounter Details Date Type Department Care Team (Late st Contact Info) Description 10/25/2018 Telephone Arrhythmia Center [address] [facility] [address] [place] [address] Betito Luo MD [address] [facility] [address] [place] [address] Social History Tobacco Use Types Packs/Day Years Used Date Smoking Tobacco: Never Smokeless Tobacco: Never Alcohol Use Standard Drinks/Week Comments Yes 0 (1 standard drink = 0.6 oz pur e alcohol) weekends Sex and Gender Information Value Date Recorded Sex Assigned at Not on file 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
--- OUTSIDE RECORDS SUMMARY | 2024-07-04 16:47 | XMS_ITS | Encounter Summary ---
Author Organization [facility] Healthcare Address [address] [place] [address] Care Team Providers Care Plant Wrapper Name Role Phone Nasra Jasso MD Primary Care Provider [phone] Encounter Details Date Type Department Care Team (Late st Contact Info) Description 11/15/2018 12:38 PM CDT Anesthesia Event [facility] [address] [place] [address] Gamal Saldivar MD [address] [facility] [place], [place] [id number] Christen Moon CRNA [address] [place], [place] [id number] Anesthesia Record Procedure Summary Procedure Name Responsible Anesthesiologist Anesthesia Start Time Anesthesia Stop Time ABLATION ATRIAL FIBRILLATION (A-FIB) VIA PULMONARY VEIN ISOLATION 14599 Gamal Saldivar MD 11/15/18 1238 11/15/18 1618 [...] on file 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 Gender Identity Not on file Sexual Orientation Not on file documented as of this encounter OR Notes * Anesthesia Postprocedure Evaluation - Benji Lindsey MD - 11/15/2018 4:54 PM CDT Patient: Kulwant Hart Procedure Summary Date: 11/15/18 Room / Location: [facility] CATH/EP LAB C / [facility] CARDIAC WILDFIRE PREVENTION SPECIALIST Anesthesia Start: 1238 Anesthesia Stop: 1614 Procedures: ABLATION ATRIAL FIBRILLATION (A-FIB) VIA PULMONARY VEIN ISOLATION 31136 (N/A ) 3D MAPPING OF TACHYCARDIA (+) 15007 (N/A ) LEFT VENTRICLE PACING AND RECORDING 20618 (N/A ) ABLATION ATRIAL FIBRILLATION ADDITIONAL LINE OR FOCI (+) 59178 (N/A ) POST DRUG PROGRAM STIM AND PACING (+) 04633 (N/A ) ABLATE ADDTN'L ARRHYTHMIA, ATRIAL OR VENTRICULAR (+) 86612 (N/A ) Diagnosis: Paroxysmal atrial fibrillation (CMS/HCC) [...] anesthesia Difficult airway: no Staff: Placed by: BAG MACHINE ADJUSTER: Christen Moon CRNA Emergent airway documentation: Consent [...] 58 y.o. male Procedure(s): Atrial Flutter ablation(SVT) 40710 NPO after [place] HISTORY Past Medical History [...] tachycardia (CMS/HCC) ??? Atrial fibrillation (CMS/HCC) ??? [facility] current use of antiarrhythmic drug ??? Anticoagulation [...] Medication protocol when under care of a BAG MACHINE ADJUSTER Planned anesthesia: General Team communication plan: oral [...] Procedure Name Priority Date/Time Associated Diagnosis Comments DE AN PROCEDURE PLACEHOLDER Routine 11/15/2018 1:05 PM CDT Procedure Note - Christen Moon CRNA - 11/15/2018 1:05 PM CDTThis note is in progress. Airway Patient location: OR Urgency: elective Date/time: 11/15/2018 12:50 PM Indications for airway management: anesthesia Difficult airway: no Staff: Placed by: BAG MACHINE ADJUSTER: Christen Moon CRNA Emergent airway documentation: Consent [...] with: silk tape Number of attempts: 1no DE AN ELECTIVE ENDOTRACHEAL AIRWAY Routine 11/15/2018 1:05 PM CDT Procedure Note - Christen Moon CRNA - 11/15/2018 1:05 PM CDTThis note is in progress. Airway Patient location: OR Urgency: elective Date/time: 11/15/2018 12:50 PM Indications for airway management: anesthesia Difficult airway: no Staff: Placed by: BAG MACHINE ADJUSTER: Christen Moon CRNA Emergent airway documentation: Consent [...] 11/15/2018 documented in this encounter Care Teams Plant Wrapper Relationship Specialty Start Date End Date Nasra Jasso MD [address] [place] [address] PCP - General 10/16/16 documented as of this encounter
--- OUTSIDE RECORDS SUMMARY | 2024-07-04 16:47 | XMS_ITS | Encounter Summary ---
Author Organization [facility] Healthcare Address [address] [place] [address] Care Team Providers Care Plug Sorter Name Role Phone Nasra Jasso MD Primary Care Provider [phone] Encounter Details Date Type Department Care Team (Late st Contact Info) Description 01/28/2018 7:52 AM CDT Anesthesia Event [facility] [place] [address] Tony Mcconnell MD [address] [facility] [place], [place] [id number] Anesthesia Record Procedure Summary Procedure Name Responsible Anesthesiologist Anesthesia Start Time Anesthesia Stop Time ABLATION ATRIAL FIBRILLATION (A-FIB) VIA PULMONARY VEIN ISOLATION 48806 with Carto and ICE Tony Mcconnell MD [...] file Legal 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 Male 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 Gender Identity Not on file Sexual Orientation Not on file documented as of this encounter OR Notes * Anesthesia Postprocedure Evaluation - Tony Mcconnell MD - 01/28/2018 12:08 PM CDT Patient: Kulwant Hart Procedure Summary Date: 01/28/18 Room / Location: [facility] CATH/EP LAB C / [facility] CARDIAC TECHNICAL CLERK Anesthesia Start: 075 Anesthesia Stop: 115 Procedures: ABLATION ATRIAL FIBRILLATION (A-FIB) VIA PULMONARY VEIN ISOLATION 81659 with Carto and ICE (N/A ) 3D MAPPING OF TACHYCARDIA (+) 82768 (N/A ) LEFT VENTRICLE PACING AND RECORDING 62456 (N/A ) ABLATION ATRIAL FIBRILLATION ADDITIONAL LINE OR FOCI (+) 51189 (N/A ) ABLATE ADDTN'L ARRHYTHMIA, ATRIAL OR VENTRICULAR (+) 14876 (N/A ) Diagnosis: (AFIB) Provider: Betito Luo [...] Procedure Summary Date: 01/28/18 Room / Location: [facility] CATH/EP LAB C / [facility] CARDIAC TECHNICAL CLERK Anesthesia Start: 751 Anesthesia Stop: 1151 Procedures: ABLATION ATRIAL FIBRILLATION (A-FIB) VIA PULMONARY VEIN ISOLATION 06506 with Carto and ICE (N/A ) 3D MAPPING OF TACHYCARDIA (+) 24237 (N/A ) LEFT VENTRICLE PACING AND RECORDING 12812 (N/A ) ABLATION ATRIAL FIBRILLATION ADDITIONAL LINE OR FOCI (+) 38603 (N/A ) ABLATE ADDTN'L ARRHYTHMIA, ATRIAL OR VENTRICULAR (+) 82939 (N/A ) Diagnosis: (AFIB) Provider: Betito Luo [...] anesthesia Difficult airway: no Staff: Placed by: PLACEMENT DIRECTOR: CARRI CHESTER Emergent airway documentation: Risks and [...] ATRIAL FIBRILLATION (A-FIB) VIA PULMONARY VEIN ISOLATION 23476 with Carto and ICE Patient Active Problem List Diagnosis ??? Paroxysmal supraventricular tachycardia (CMS/HCC) ??? Atrial fibrillation (CMS/HCC) ??? 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 Anticoagulation [...] Medication protocol when under care of a PLACEMENT DIRECTOR Planned anesthesia: General/TIVA Team communication plan: LMA and mask Induction: Induction: intravenous. Postoperative Plan: No plan for postoperative opioid use. No postoperative mechanical ventilation intended. Informed Consent: Discussed plan with PLACEMENT DIRECTOR. Anesthesia plan and risks discussed with patient. [...] Procedure Name Priority Date/Time Associated Diagnosis Comments VA AN ELECTIVE ENDOTRACHEAL AIRWAY Routine 01/28/2018 8:19 AM CDT Procedure Note - Carri Chester CRNA - 01/28/2018 8:19 AM CDTThis note is in progress. Airway Patient location: OR Urgency: elective Date/time: 01/28/2018 8:10 AM Indications for airway management: anesthesia Difficult airway: no Staff: Placed by: PLACEMENT DIRECTOR: CARRI CHESTER Emergent airway documentation: Risks and [...] direct laryngoscopy Insertion site: oral Blade type: Anan Blade size: 4 Cormack-Lehane (direct): grade IIa [...] 01/28/2018 documented in this encounter Care Teams Plug Sorter Relationship Specialty Start Date End Date Nasra Jasso MD [address] [place] [address] PCP - General 10/16/16 documented as of this encounter
--- OUTSIDE RECORDS SUMMARY | 2024-07-04 16:47 | XMS_ITS | Encounter Summary ---
Author Organization [facility] Medical Group Address [address] [place] [address] Care Team Providers Care Waterproof Coating Machine Tender Name Role Phone Nasra Jasso MD Primary Care Provider [phone] Encounter Details Date Type Department Care Team (Late st Contact Info) Description 12/01/2017 Telephone Arrhythmia Center [address] [facility] [address] [place] [address] Betito Luo MD [address] [facility] [address] [place] [address] Social History Tobacco Use Types Packs/Day Years Used Date Smoking Tobacco: Never Smokeless Tobacco: Never Alcohol Use Standard Drinks/Week Comments Yes 0 (1 standard drink = 0.6 oz pur e alcohol) Sex and Gender Information Value Date Recorded Sex Assigned at Not on file 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
--- OUTSIDE RECORDS SUMMARY | 2024-07-04 16:47 | XMS_ITS | Encounter Summary ---
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
--- OUTSIDE RECORDS SUMMARY | 2024-07-04 16:47 | XMS_ITS | Encounter Summary ---
Author Organization [facility] Care Team Providers Care Instructor Dancing Name Role Phone Nasra Jasso MD Primary Care Provider [phone] Encounter Details Date Type Department Care Team [...] file Legal Sex Male 8:32 PM DIRECTOR ENVIRONMENTAL Gender Identity Not on file Sexual Orientation Not on file documented as of this encounter Plan of Treatment Not on file documented as of this encounter Visit Diagnoses Not on filedocumented in this encounter Care Teams Instructor Dancing Relationship Specialty Start Date End Date Nasra Jasso MD [address] [place] [address] PCP - General 10/16/16 documented as of this encounter
--- OUTSIDE RECORDS SUMMARY | 2024-07-04 16:47 | XMS_ITS | Encounter Summary ---
Author Organization [facility] Address [address] [place] [address] Care Team Providers Care Truck Service Technician Name Role Phone Nasra Jasso MD Primary Care Provider [phone] Reason for Visit * Reason Comments Atrial Fibrillation Encounter Details Date Type Department Care Team (Latest Contact Info) Description 03/25/2017 4:30 PM CDT Office Visit [facility] 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 Subjective/Objective Patient ID: Kulwant Hart is a 57 y.o. male Chief Complaint Atrial Fibrillation HPI Mr. Hart presented to the [facility] on 03/25/2017, for [...] Rhythm Strip: 03/25/2017: Sinus rhythm (47). Normal [place], QRS duration (118 msec). Normal QT interval. [...] - ECG 12 lead Clinic Performed 2. 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
--- OUTSIDE RECORDS SUMMARY | 2024-07-04 16:47 | XMS_ITS | Encounter Summary ---
Author Organization [facility] Address [address] [place] [address] Care Team Providers Care Seat Pack Inspector Name Role Phone Nasra Jasso MD Primary Care Provider [phone] Encounter Details Date Type Department Care Team (Late st Contact Info) Description 03/01/2018 Telephone [facility]ia Center [address] [place] [address] Mana Bautista RMA Social History Tobacco Use Types Packs/Day Years Used Date Smoking Tobacco: Never Smokeless Tobacco: Never Alcohol Use Standard Drinks/Week Comments Yes 0 (1 standard drink = 0.6 oz pur e alcohol) weekends Sex and Gender Information Value Date Recorded Sex Assigned at Not on file Legal Sex Male 8:32 PM AIR QUALITY MANAGER Gender Identity Not on file Sexual Orientation Not on file documented as of this encounter Miscellaneous Notes * Telephone Encounter - Mana Bautista MA - 03/01/2018 11:11 AM CDT Nile has been approved documented in this encounter Plan of Treatment Not on file documented as of this encounter Visit Diagnoses Not on filedocumented in this encounter Care Teams Seat Pack Inspector Relationship Specialty Start Date End Date Nasra Jasso MD [address] [place] [place] [address] PCP - General 10/16/16 documented as of this encounter
--- OUTSIDE RECORDS SUMMARY | 2024-07-04 16:47 | XMS_ITS | Encounter Summary ---
Author Organization [facility] Address [address] [place] [address] Care Team Providers Care Die Sinker Name Role Phone Nasra Jasso MD Primary Care Provider [phone] Reason for Visit * Reason Comments Atrial Fibrillation Encounter Details Date Type Department Care Team (Late st Contact Info) Description 07/28/2018 4:00 PM DIRECTOR OF REIMBURSEMENT Office Visit [facility] [address] [place] [address] Betito Luo MD [address] [facility] [address] [place] [address] Paroxysmal atrial fibrillation (CMS/HCC) (Primary [...] Legal Sex Male 8:32 PM DIRECTOR OF REIMBURSEMENT Gender Identity Not on file Sexual Orientation Not on file documented as of this encounter Last Filed Vital Signs Vital Sign Reading Time Taken Comments Blood Pressure 130/88 07/28/2018 4:20 PM DIRECTOR OF REIMBURSEMENT Pulse 72 07/28/2018 4:20 PM DIRECTOR OF REIMBURSEMENT Temperature - - Respiratory Rate - - Oxygen Saturation - - Inhaled Oxygen Concentration - - Weight 89.8 kg (198 lb) 07/28/2018 4:20 PM DIRECTOR OF REIMBURSEMENT Height 180.3 cm (5' 11 ) 07/28/2018 4:20 PM DIRECTOR OF REIMBURSEMENT Body Mass Index 27.62 07/28/2018 4:20 PM DIRECTOR OF REIMBURSEMENT documented in this encounter Progress Notes * Betito Luo MD - 07/28/2018 4:00 PM CST [facility] [address] [place] [address], [address] [place], [place] [address] Patient Name: Kulwant Hart Date of : 1960 Primary Physician: Nasra Jasso MD This note was dictated with voice-recognition software, and yarn sorter errors may be present. Subjective/Objective Patient ID: Kulwant Hart is a 58 y.o. male Chief Complaint Atrial Fibrillation HPI Mr. Hart presented to the [facility] on 07/28/2018, for follow-up [...] 07/28/2018: Sinus rhythm with PACs (72). Normal SD, QRS, and QT interval ECG HISTORY: 03/03/2018: Sinus rhythm (55). Normal SD, QRS duration, and QT interval. 10/21/2017: Sinus rhythm (50). Normal SD, QRS, and QT interval 03/25/2017: Sinus rhythm (47). Normal SD, QRS duration (118 msec). Normal QT interval. [...] new arrhythmia expectantly. The patient has a [id number] score of 0 (annualized risk of stroke approximately 0%). The patientwill continue on aspirin, and we will re-evaluate the need for anticoagulation in the future. The patient will follow-up with me in 6 months for an office visit and twelve- lead ECG. Orders: - ECG 12 lead; Future S/P ablation of atrial fibrillation Betito Luo MD 07/28/2018 CTOR OF REIMBURSEMENT documented in this encounter Miscellaneous Notes * Assessment & Plan Note - Betito Luo MD - 08/01/2018 4:35 PM DIRECTOR OF REIMBURSEMENT Associated Problem(s): Atrial fibrillation (CMS/HCC) (HCC) The [...] new arrhythmia expectantly. The patient has a [id number] score of 0 (annualized risk of stroke approximately 0%). The patientwill continue on aspirin, and we will re-evaluate the need for anticoagulation in the future. The patient will follow-up with me in 6 months for an office visit and twelve- lead ECG. CTOR OF REIMBURSEMENT documented in this encounter Plan of Treatment [...] documented as of this encounter Care Teams Die Sinker Relationship Specialty Start Date End Date Nasra Jasso MD [address] [place] [address] PCP - General 10/16/16 documented as of this encounter
--- OUTSIDE RECORDS SUMMARY | 2024-07-04 16:47 | XMS_ITS | Encounter Summary ---
Author Organization [facility] Address [address] [place] [address] Care Team Providers Care Telephonic Case Manager Name Role Phone Nasra Jasso MD Primary Care Provider [phone] Reason for Visit * Reason Comments Atrial Fibrillation Encounter Details Date Type Department Care Team (Latest Contact Info) Description 10/21/2017 4:45 PM CDT Office Visit Arrhythmia Center [address] [facility] [address] [place] [address] Betito Luo MD [address] [facility] [address] [place] [address] Paroxysmal SVT (supraventricular tachycardia) (CMS/HCC) (Primary Dx); Paroxysmal atrial fibrillation (CMS/HCC); longterm current use of antiarrhythmic drug; Anticoagulation management encounter Social History Tobacco Use Types Packs/Day Years Used Date Smoking Tobacco: Never Smokeless Tobacco: Never Alcohol Use Standard Drinks/Week Comments Yes 0 (1 standard drink = 0.6 oz pur e alcohol) Sex and Gender Information Value Date Recorded Sex Assigned at Not on file 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 Subjective/Objective Patient ID: Kulwant Hart is a 57 y.o. male Chief Complaint Atrial Fibrillation HPI Mr. Hart presented to the [facility] on 10/21/2017, for [...] Rhythm Strip: 10/21/2017: Sinus rhythm (50). Normal [place], QRS, and QT interval ECG HISTORY: 03/25/2017: Sinus rhythm (47). Normal [place], QRS duration (118 msec). Normal QT interval. 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 I have therefore recommended that he remain anticoagulated for thromboprophylaxis. Betito Luo MD 10/21/2017 documented in this encounter Miscellaneous Notes * Assessment & Plan Note - Betito Luo MD - 10/24/2017 10:42 AM CDT Associated Problem(s): Anticoagulation management encounter The patient has a [id number] score of 2 (annualized risk of stroke 2%). I have therefore recommended that he remain anticoagulated for thromboprophylaxis. * Assessment & Plan Note - Betito Luo MD - 10/24/2017 10:42 AM CDT Associated Problem(s): longterm current use of antiarrhythmic drug 12-lead ECG [...] ablation. * Assessment & Plan Note - Beitto Luo MD - 10/24/2017 10:39 AM CDT [...] Paroxysmal atrial fibrillation (CMS/HCC) (HCC) Atrial fibrillation longterm current use of antiarrhythmic drug Anticoagulation management encounter Encounter for therapeutic drug monitoring documented in this encounter Care Teams Telephonic Case Manager Relationship Specialty Start Date End Date Nasra Jasso MD [address] [place] [address] PCP - General 10/16/16 documented as of this encounter
--- OUTSIDE RECORDS SUMMARY | 2024-07-04 16:47 | XMS_ITS | Encounter Summary ---
Author Organization [facility] Address [address] [facility] [address] [place] [address] Care Team Providers Care Digital Color Press Operator Name Role Phone Nasra Jasso MD Primary Care Provider [phone] Reason for Visit * Reason Onset Date Comments Advice Only 03/15/2018 sx lightheadedne ss Encounter Details Date Type Department Care Team (Late st Contact Info) Description 03/15/2018 Telephone [facility] [address] [place] [address] Betito Luo MD [address] [facility] [address] [place] [address] Advice Only (sx lightheadedness ) Social History Tobacco Use Types Packs/Day Years Used Date Smoking Tobacco: Never Smokeless Tobacco: Never Alcohol Use Standard Drinks/Week Comments Yes 0 (1 standard drink = 0.6 oz pur e alcohol) weekends Sex and Gender Information Value Date Recorded Sex Assigned at Not on file 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
--- OUTSIDE RECORDS SUMMARY | 2024-07-04 16:47 | XMS_ITS | Encounter Summary ---
Author Organization [facility] Healthcare Address [address] [place] [address] Care Team Providers Care Optical Engineering Manager Name Role Phone Nasra Jasso MD Primary Care Provider [phone] Encounter Details Date Type Department Care Team (Late st Contact Info) Description 11/15/2018 12:30 PM CDT - 11/15/2018 2:30 PM CDT Surgery [facility] [address] [place] [id number] Betito Luo MD [address] [address] ABLATION ATRIAL FIBRILLATION (A-FIB) VIA PULMONARY VEIN ISOLATION [address]861 Surgery Details Date/Time Status Location OR Service Patient Class Case Class Case Type Trauma Case? 11/15/2018 12:30 PM Posted [facility] CARDIAC GRADER PATROL CCL/ EP C Cardiovascular Outpatient Elective Panel 1 Procedure LRB Anes Op Region Wound Class Comments ABLATION ATRIAL FIBRILLATION (A-FIB) VIA PULMONARY VEIN ISOLATION 93417 N/A General 3D MAPPING OF TACHYCARDIA (+) 95463 N/A LEFT VENTRICLE PACING AND RECORDING 32407 N/A ABLATION ATRIAL FIBRILLATION ADDITIONAL LINE OR FOCI (+) 65429 N/A POST DRUG PROGRAM STIM AND P ACING (+) 36805 N/A ABLATE ADDTN'L ARRHYTHMIA, A TRIAL OR VENTRICULAR (+) 62397 N/A Surgeon Surgeon Role Service Panel Betito Luo MD Primary Cardiovascular 1 Case Notes Orders In BCBS NPR / ref# [id number] / CARTOAflutter Ablation documented in this encounter Social History Tobacco Use Types Packs/Day Years Used Date Smoking Tobacco: Never Smokeless Tobacco: Never Alcohol Use Standard Drinks/Week Comments Yes 0 (1 standard drink = 0.6 oz pur e alcohol) weekends Sex and Gender Information Value Date Recorded Sex Assigned at Not on file 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 * Apixaban (By mouth) (Italian) * Cardiac Ablation (Discharge Care) (Italian) documented in this encounter Medications at Time [...] Luo MD - 11/15/2018 12:30 PM CDT [facility] [address] [place] [address], [address] [address] Patient Name: Kulwant Hart Date of : 1960 Primary Physician: Nasra Jasso MD Admission Date: 11/15/2018 This note was dictated with voice-recognition software, and audio video technician errors may be present. . . . [...] file Gets together: Not on file Attends confucianist service: Not on file Active member of [...] benefits were discussed. Betito Luo M.D., M.P.H., [facility] 11/15/2018 12:30 PM [...] into left atrium was confirmed, two sheaths (Mobskyrockitth deflectable and SL1) were advanced into the left atrium. The sheaths were flushed with a constant infusion of heparinized saline throughout the case. A 20-pole mapping catheter (TwoF) and Smart Touch irrigated pressure-sensing ablation catheter [...] the left atrium and a duodecapolar catheter ([employer] was advanced to the lateral and high [...] to the IVC in the 6:00 position (YI clock). The line was constructed during CS [...] Center in 4-6 weeks Betito Luo MD [facility] Arr[facility]ia Center [facility] documented in this encounter Plan of [...] PM CDT) 11/15/2018 4:34 PM CDT Narrative [facility] - 11/16/2018 10:41 AM CDT Vent Rate: 58 bpm RR Interval: 1021 msec VA Interval: 169 msec QRS Duration: 110 msec QT Interval: 447 msec QTC Interval: 444 msec P-R-T [place]: 73 - 61 - 32 degrees SINUS BRADYCARDIA INCOMPLETE RIGHT BUNDLE BRANCH BLOCK MODERATE ST DEPRESSION ABNORMAL ECG Compared with 11/15/2018 at 11:58 a.m. heart rate is faster and PACs are no longer present Electronically Signed By: Raquel Leo MD Betito Luo MD ECG ORDERABLES Final R esult Performing Organization Address City/[facility] Co de Phone Number [facility] * Activated Clotting Time (11/15/2018 3:46 PM CDT) ACT, POC [address] [facility] Comment: The normal clotting time for [...] PM CDT 11/15/2018 3:[address] [facility] - 11/15/2018 4:14 PM CDT Betito Luo MD LAB BLOOD ORDERABLES Fi nal Result Performing Organization Address [facility] Co de Phone Number [facility] [address] Department [place] [address] * ELECTROPHYSIOLOGIC EVALUATION (EPS) / ATRIAL FIBRILLATION ABLATION VIA PULMONARY VEIN ISOLATION, 3DMAPPING OF TACHYCARDIA, LEFT VENTRICLE PACING AND RECORDING, ATRIAL FIBRILLATION ABLATION ADDITIONAL LINE OR FOCI, POST DRUG PROGRAM STIM AND PACING, ABLATE ADDTL ARRHYTHMIA ATRIA OR VENT (11/15/20183:27 PM CDT) Anatomical Region Laterality Modality X-Ray Angiograph y Betito Luo MD CV ELECTROPHYSIOLOGY [facility] OCS Final Result * Activated Clotting Time (11/15/2018 3:00 PM CDT) ACT, POC [address] [facility] Comment: The normal clotting time for [...] PM CDT 11/15/2018 3:00 PM CDT [facility] - 11/15/2018 4:14 PM CDT Betito Luo MD LAB BLOOD ORDERABLES Fi nal Result Performing Organization Address [facility] de Phone Number [facility] [address] [facility] [place] [address] * Activated Clotting Time (11/15/2018 2:29 PM CDT) ACT, POC [address] [facility] Comment: The normal clotting time for [...] PM CDT 11/15/2018 2:[address] [facility] - 11/15/2018 4:14 PM CDT Betito Luo MD LAB BLOOD ORDERABLES nal Result Performing Organization Address [facility] de Phone Number [facility] [address] [facility] [place] [address] * Activated Clotting Time (11/15/2018 2:01 PM CDT) ACT, POC [address] [facility] Comment: The normal clotting time for [...] PM CDT 11/15/2018 2:01 PM CDT Narrative [facility] - 11/15/2018 4:14 PM CDT Result [facility] Betito Luo MD LAB BLOOD ORDERABLES Fi nal Result Performing Organization Address [facility] de Phone Number [facility] [address] [facility] [place] [address] * Activated Clotting Time (11/15/2018 1:44 PM CDT) [facility] ACT, POC [address] [facility] Comment: The normal clotting time for [...] PM CDT 11/15/2018 1:[address] [facility] - 11/15/2018 4:14 PM CDT Result [facility] Betito Luo MD LAB BLOOD ORDERABLES Fi nal Result Performing Organization Address [facility] de Phone Number [facility] [address] [facility] [place] [address] * eGFR (11/15/2018 12:12 PM CDT) [facility] eGFR 84 mL/min/1.[address] [facility] Comment: Interpretive Data Reference Interval Normal ?>/= 90 mL/min/1.73m2 Mildly decreased* ? 60 - 89 mL/min/1.73m2 Mildly to moderately decreased ?45 - 59 mL/min/1.73m2 Moderately to severely decreased ??30 - 44 mL/min/1.73m2 Severely decreased ?15 - 29 mL/min/1.73m2 Kidney Failure ?< 15 ??mL/min/1.73m2 *Relative to young adult level If -Namibian multiply value by 1.16. Estimated glomerular filtration [...] PM CDT 11/15/2018 12:[address] [facility] - 11/15/2018 12:43 PM CDT us Betito Luo MD LAB BLOOD ORDERABLES Fi nal Result [facility] [address] Department [place] [address] * Differential, auto (11/15/2018 12:12 PM CDT) Neutrophil abs 3.2 1.7 - 6.5 K/cumm [facility] Imm gran abs 0.0 0.0 - 0.1 K/cumm [facility] Lymphocyte abs 1.9 0.8 - 3.3 K/cumm [facility] Monocyte abs 0.6 0.2 - 0.8 K/cumm [facility] Eosinophil abs 0.1 0.0 - 0.5 K/cumm [facility] Basophil abs 0.0 0.0 - 0.1 K/cumm [facility] Neutrophil pct 54.8 % [facility] Comment: Interpretive Data Percent cell count reference ranges are not reported, since discordance with absolute values may lead to misinterpretation of CBC data. Current Interpretive Data was last revised on 2017. Imm gran pct 0.5 % [facility] Comment: Interpretive Data Percent cell count reference ranges are not reported, since discordance with absolute values may lead to misinterpretation of CBC data. Current Interpretive Data was last revised on 2017. Lymphocyte pct 32.4 % [facility] Comment: Interpretive Data Percent cell count reference ranges are not reported, since discordance with absolute values may lead to misinterpretation of CBC data. Current Interpretive Data was last revised on 2017. Monocyte pct 10.6 % [facility] Comment: Interpretive Data Percent cell count reference ranges are not reported, since discordance with absolute values may lead to misinterpretation of CBC data. Current Interpretive Data was last revised on 2017. Eosinophil pct 1.2 % [facility] Comment: Interpretive Data Percent cell count reference ranges are not reported, since discordance with absolute values may lead to misinterpretation of CBC data. Current Interpretive Data was last revised on 2017. Basophil pct 0.5 % [facility] Comment: Interpretive Data Percent cell count reference ranges are not reported, since discordance with absolute values may lead to misinterpretation of CBC data. Current Interpretive Data was last revised on 2017. Blood specimen (specimen) 11/15/2018 12:12 PM CDT 11/15/2018 12:[address] [facility] - 11/15/2018 12:18 PM CDT us Betito Luo MD LAB BLOOD ORDERABLES Fi nal Result [facility] [address] Department [place] [address] * CBC with auto differential (11/15/2018 12:12 PM CDT) WBC 5.8 3.8 - 9.9 K/cumm [facility] Hgb 14.5 13.0 - 17.5 g/dL [facility] Hct 42.7 38.9 - 50.3 % [facility] Plt 186 150 - 400 K/cumm [facility] MPV 10.4 9.1 - 12.[address] [facility] RBC 4.62 4.30 - 5.80 M/cumm [facility] MCV 92.4 81.3 - 96.[address] [facility] MCH 31.4 27.1 - 33.[address] [facility] MCHC 34.0 32.3 - 35.7 g/dL [facility] RDW CV 12.6 11.1 - 14.9 % [facility] RDW SD 43.1 35.7 - 48.[address] [facility] NRBC abs 0.00 0.00 - 0.01 K/cumm [facility] Blood specimen (specimen) 11/15/2018 12:12 PM CDT 11/15/2018 12:[address] [facility] - 11/15/2018 12:18 PM CDT us Betito Luo MD LAB BLOOD ORDERABLES Fi nal Result [facility] [address] Department [place] [address] * Basic metabolic panel (11/15/2018 12:12 PM CDT) Sodium 140 135 - 145 mmol/L [facility] Potassium, pl 4.3 3.3 - 4.9 mmol/L [facility] Chloride 105 97 - 110 mmol/L [facility] CO2 24 22 - 32 mmol/L [facility] Anion gap 11 2 - 15 mmol/L [facility] BUN 18 8 - 25 mg/dL [facility] Creatinine 0.99 0.80 - 1.30 mg/dL [facility] Glucose 98 70 - 199 mg/dL [facility] Comment: Interpretive Data Fasting glucose >/= [...] 2017. Calcium 9.9 8.5 - 10.3 mg/dL [facility] Blood specimen (specimen) 11/15/2018 12:12 PM CDT 11/15/2018 12:[address] [facility] - 11/15/2018 12:43 PM CDT us Betito Luo MD LAB BLOOD ORDERABLES Fi nal Result Performing Organization Address [facility] Co de Phone Number [facility] [address] Department [place] [address] * ECG 12 lead (11/15/2018 11:58 AM CDT) 11/15/2018 11:5 8 AM CDT Narrative [facility] - 11/16/2018 9:27 AM CDT Vent Rate: 48 bpm RR Interval: 1225 msec VA Interval: 165 msec QRS Duration: 104 msec QT Interval: 454 msec QTC Interval: 422 msec P-R-T [place]: 54 - -5 - 10 degrees SINUS BRADYCARDIA WITH OCCASIONAL SUPRAVENTRICULAR PREMATURE COMPLEXES INCOMPLETE RIGHT BUNDLE BRANCH BLOCK BORDERLINE ECG Compared with 2018 P-waves are newly seen Electronically Signed By: Raquel Leo MD us Betito Luo MD ECG ORDERABLES Final R esult Performing Organization Address [facility] Co de Phone Number Advise Only [facility] documented in this encounter Visit Diagnoses [...] 11/15/2018 documented in this encounter Care Teams Optical Engineering Manager Relationship Specialty Start Date End Date Nasra Jasso MD [address] [place] [address] PCP - General 10/16/16 documented as of this encounter
--- OUTSIDE RECORDS SUMMARY | 2024-07-04 16:47 | XMS_ITS | Encounter Summary ---
Author Organization [facility] Medical Group Address [address] [place] [address] Care Team Providers Care Skin Piler Name Role Phone Nasra Jasso MD Primary Care Provider [phone] Encounter Details Date Type Department Care Team (Late st Contact Info) Description 11/01/2018 Telephone [facility] [address] [place] [phone] Sherrell Weiner NP [address] [place] [address] Social History Tobacco Use Types Packs/Day Years Used Date Smoking Tobacco: Never Smokeless Tobacco: Never Alcohol Use Standard Drinks/Week Comments Yes 0 (1 standard drink = 0.6 oz pur e alcohol) weekends Sex and Gender Information Value Date Recorded Sex Assigned at Not on file 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 Patient appears to be having wide complex tachycardia, afib, SVT, SR, PAC's junctional escape beats. Spoke with Martina at Dr. Luo's office and notified them of patients arrhythmias. Faxed strips attention to Martina at [phone]. * Telephone Encounter - Jigna Paniagua RN - 11/01/2018 11:58 AM CDT Spoke with [facility]. States that patient had an episode of wide complex tachycardia at 240 beats per minutes today at 1107. They will fax strips. * Telephone Encounter - Rimma Olivo - 11/01/2018 11:19 AM CDT [facility] called to report abnormal EKG, cb [phone] documented in this encounter Plan of Treatment Not on file documented as of this encounter Visit Diagnoses Not on filedocumented in this encounter Care Teams Skin Piler Relationship Specialty Start Date End Date Nasra Jasso MD [address] [place] [address] PCP - General 10/16/16 documented as of this encounter
--- OUTSIDE RECORDS SUMMARY | 2024-07-04 16:47 | XMS_ITS | Encounter Summary ---
Author Organization [facility] Healthcare Address [address] [place] [address] Care Team Providers Care Repossession Agent Name Role Phone Nasra Jasso MD Primary Care Provider [phone] Reason for Referral * Diagnostic Imaging (Routine) - Closed Specialty Diagnoses / Procedures Referred By Contac t Referred To Contact Radiology Diagnoses Paroxysmal atrial fibrillation (CMS/HCC) (HCC) Procedures CT Heart Morphology W Betito Hernandez MD Phone: tel: fax: [place] [address] [place] [address] Referral ID Status Reason Start Date Expiration Date Visits Re quested Visits Authorized [id number] Closed 01/06/2018 07/18/2019 1 1 Reason for Visit * Diagnostic Imaging (Routine) - Closed Specialty Diagnoses / Procedures Referred By Contwillie t Referred To Contact Radiology Diagnoses Paroxysmal atrial fibrillation (CMS/HCC) (HCC) Procedures CT Heart Morphology W Betito Hernandez MD Phone: tel: fax: [place] [address] [place] [address] Referral ID Status Reason Start Date Expiration Date Visits Re quested Visits Authorized [id number] Closed 01/06/2018 07/18/2019 1 1 Encounter Details Date Type Department Care Team (Latest Contact Info) Description 01/26/2018 1:00 PM CDT - 01/26/2018 11:59 PM CDT Hospital Encounter [facility] - Imaging [address] [place] [address] Betito Luo MD [address] [place] [address] Paroxysmal atrial fibrillation (CMS/HCC) Discharge Disposition: Discharge to home or self care Social History Tobacco Use Types Packs/Day Years Used Date Smoking Tobacco: Never Smokeless Tobacco: Never Alcohol Use Standard Drinks/Week Comments Yes 0 (1 standard drink = 0.6 oz pur e alcohol) weekends Sex and Gender Information Value Date Recorded Sex Assigned at Not on file 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
--- OUTSIDE RECORDS SUMMARY | 2024-07-04 16:47 | XMS_ITS | Encounter Summary ---
Author Organization [facility] Healthcare Address [address] [place] [address] Care Team Providers Care Round Cutter Operator Name Role Phone Nasra Jasso MD Primary Care Provider [phone] Encounter Details Date Type Department Care Team (Late st Contact Info) Description 01/28/2018 8:00 AM CDT - 01/28/2018 12:00 PM CDT Surgery [facility] [address] [place] [phone] Betito Luo MD [address] [address] ABLATION ATRIAL FIBRILLATION (A-FIB) VIA PULMONARY VEIN ISOLATION 20939 with Carto and ICE Surgery Details Date/Time Status Location OR Service Patient Class Case Class Case Type Trauma Case? 01/28/2018 8:00 AM Posted [facility] CARDIAC BLOOD DONOR RECRUITER CCL/ EP C Cardiovascular Outpatient Elective Panel 1 Procedure LRB Anes Op Region Wound Class Comments ABLATION ATRIAL FIBRILLATION (A-FIB) VIA PULMONARY VEIN ISOLATION 77135 with Carto and ICE N/A General 3D MAPPING OF TACHYCARDIA (+) 49447 N/A LEFT VENTRICLE PACING AND RECORDING 50430 N/A ABLATION ATRIAL FIBRILLATION ADDITIONAL LINE OR FOCI (+) 02612 N/A ABLATE ADDTN'L ARRHYTHMIA, A TRIAL OR VENTRICULAR (+) 14795 N/A Surgeon Surgeon Role Service Panel Betito Luo MD Primary Cardiovascular 1 Case Notes Orders InBCBS no auth required per Hugo Cardoza ref# [id number] / HEAD SILVERMAN / ICE Special Needs 01/28/2018 at 8:00am documented in this encounter Social History Tobacco Use Types Packs/Day Years Used Date Smoking Tobacco: Never Smokeless Tobacco: Never Alcohol Use Standard Drinks/Week Comments Yes 0 (1 standard drink = 0.6 oz pur e alcohol) weekends Sex and Gender Information Value Date Recorded Sex Assigned at Not on file 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 ?? Some [...] may report side effects to FDA at 1-200-IWU-8917 ?? 2016 [employer]. Information is for End User's use only and may not be sold, redistributed or otherwise used for commercial purposes. The above information is an basket braider only. It is not intended as medical [...] Follow up with your healthcare provider or media relations manager in 7 to 10 days or as [...] as directed. Contact your healthcare provider or media relations manager if: ?? You have a fever or [...] breath or have chest pain. ?? 2016 [employer]. Information is for End User's use only and may not be sold, redistributed or otherwise used for commercial purposes. All illustrations and images included in CareNotes?? are the copyrighted property of [employer] or [employer]. The above information is an basket braider only. It is not intended as medical [...] in this encounter H&P Notes * Nir Etelvina Pacheco, MIAH - 01/28/2018 7:28 AM CDT H&P Note Patient Name: Kulwant Hart Date of : 1960 Primary Physician: Nasra Jasso MD Admission Date: 01/28/2018 Problem List Patient Active Problem List Diagnosis ??? Paroxysmal supraventricular tachycardia (CMS/HCC) ??? Atrial fibrillation (CMS/HCC) ??? 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 Anticoagulation [...] or equal to 350 seconds. An 8 Mosotho deflectable phased-array ultrasound catheter was advanced to [...] the left atrium and a duodecapolar catheter ([employer]) was advanced to the lateral and high [...] to the IVC in the 6:00 position (KAZAKH clock). The line was constructed during CS [...] in 4-6 weeks Betito Luo MD MPH [facility] Medical [facility] Arrhythmia Center [facility] documented in this encounter [...] 10:40 AM CDT) Patient age 58 years [facility] Interpretation Text SUPRAVENTRICULAR BRADYCARDIANONSPECIFIC ST ABNORMALITYABNORMAL RHYTHM ECGPREVIOUS TRACIN01/28/[address] ABNORMALITY is now improved [facility] Comment:Physician Interprete r Dr. Benji Pierson M.D. [facility] Ventricular Rate EKG/Min 58 /min [facility] P Wave Duration ms [facility] QRS-Interval (MSEC) 105 ms [facility] OK-Interval (MSEC) ms [facility] QT Interval 444 ms [facility] QTc 440 ms [facility] QTC Interval ms [facility] P [place] deg [facility] QRS [place] -4 deg [facility] T [place] 25 deg [facility] 2018 10:4 0 AM CDT us Betito Luo MD ECG ORDERABLES Final R esult [facility] * ECG 12 lead (01/28/2018 12:18 PM CDT) Patient age 58 years [facility] Interpretation Text SUPRAVENTRICULAR RHYTHMLEFT AXIS DEVIATIONMODERATE INTRAVENTRICULAR CONDUCTION DELAYMODERATE ST DEPRESSION,, CONSIDER ANTERIOR/ANTEROLATE RAL ISCHEMIAPROLONGED QT INTERVALABNORMAL ECGPREVIOUS TRACIN01/28/2018 06.33 [facility] Comment:Physician Interprete r Dr. Santana Bazan M.D. Ventricular Rate EKG/Min 74 /min [facility] P Wave Duration ms [facility] QRS-Interval (MSEC) 116 ms [facility] OK-Interval (MSEC) ms [facility] QT Interval 447 ms [facility] QTc 471 ms [facility] QTC Interval ms [facility] P [place] deg [facility] QRS [place] -38 deg [facility] T [place] -5 deg [facility] 01/28/2018 12:1 8 PM CDT us Notinfile Unknown ECG ORDERABLES Final Result Performing Organization Address City/[facility] de Phone Number [facility] * Activated Clotting Time (01/28/2018 11:14 AM CDT) ACT, POC 185 sec [facility] Comment: The normal clotting time for nonheparinized [...] AM CDT 01/28/2018 11:14 AM CDT Narrative [facility] - 01/28/2018 11:53 AM CDT Betito Luo MD LAB BLOOD ORDERABLES Fi nal Result Performing Organization Address [facility] de Phone Number [facility] [address] Department [place] [address] * ELECTROPHYSIOLOGIC EVALUATION (EPS) / ATRIAL FIBRILLATION ABLATION VIA PULMONARY VEIN ISOLATION, 3DMAPPING OF TACHYCARDIA, LEFT VENTRICLE PACING AND RECORDING, ATRIAL FIBRILLATION ABLATION ADDITIONAL LINE OR FOCI, ABLATE ADDTL ARRHYTHMIA ATRIA OR VENT (01/28/2018 10:48 AM CDT) Anatomical Region Laterality Modality X-Ray Angiograph y Betito Luo MD CV ELECTROPHYSIOLOGY [facility] Final Result * Activated Clotting Time (01/28/2018 10:06 AM CDT) ACT, POC 402 sec [facility] Comment: The normal clotting time for nonheparinized [...] AM CDT 01/28/2018 10:06 AM CDT Narrative [facility] - 01/28/2018 11:53 AM CDT Betito Luo MD LAB BLOOD ORDERABLES Fi nal Result Performing Organization Address [facility] de Phone Number [facility] [address] [place] [address] * Activated Clotting Time (01/28/2018 9:29 AM CDT) ACT, POC 351 sec [facility] Comment: The normal clotting time for nonheparinized [...] AM CDT 01/28/2018 9:29 AM CDT Narrative [facility] 01/28/2018 11:53 AM CDT Betito Luo MD LAB BLOOD ORDERABLES Fi nal Result Performing Organization Address [facility] de Phone Number [facility] [address] [place] [address] * Activated Clotting Time (01/28/2018 8:55 AM CDT) ACT, POC 307 sec [facility] Comment: The normal clotting time for nonheparinized [...] AM CDT 01/28/2018 8:55 AM CDT Narrative [facility] 01/28/2018 11:53 AM CDT us Betito Luo MD LAB BLOOD ORDERABLES Fi nal Result Performing Organization Address [facility]/[place] Phone Number [facility] [address] Department [place] [address] * eGFR (01/28/2018 6:56 AM CDT) eGFR 73 mL/min/1.7 3 m2 [facility] Comment: Interpretive Data Reference Interval Normal ?>/= 90 mL/min/1.73m2 Mildly decreased* ? 60 - 89 mL/min/1.73m2 Mildly to moderately decreased ?45 - 59 mL/min/1.73m2 Moderately to severely decreased ??30 - 44 mL/min/1.73m2 Severely decreased ?15 - 29 mL/min/1.73m2 Kidney Failure ?< 15 ??mL/min/1.73m2 *Relative to young adult level If -Polish multiply value by 1.16. Estimated glomerular filtration [...] AM CDT 01/28/2018 6:58 AM CDT Narrative [facility] - 01/28/2018 7:26 AM CDT us Betito Luo MD LAB BLOOD ORDERABLES Fi nal Result [facility] [address] Department [place] [address] * Differential, auto (01/28/2018 6:56 AM CDT) Neutrophil abs 3.4 1.7 - 6.5 K/cumm [facility] Imm gran abs 0.0 0.0 - 0.1 K/cumm [facility] Lymphocyte abs 1.9 0.8 - 3.3 K/cumm [facility] Monocyte abs 0.8 0.2 - 0.8 K/cumm [facility] Eosinophil abs 0.2 0.0 - 0.5 K/cumm [facility] Basophil abs 0.0 0.0 - 0.1 K/cumm [facility] Neutrophil pct 53.4 % [facility] Comment: Interpretive Data Percent cell count reference ranges are not reported, since discordance with absolute values may lead to misinterpretation of CBC data. Current Interpretive Data was last revised on 2017. Imm gran pct 0.6 % [facility] Comment: Interpretive Data Percent cell count reference ranges are not reported, since discordance with absolute values may lead to misinterpretation of CBC data. Current Interpretive Data was last revised on 2017. Lymphocyte pct 29.6 % [facility] Comment: Interpretive Data Percent cell count reference ranges are not reported, since discordance with absolute values may lead to misinterpretation of CBC data. Current Interpretive Data was last revised on 2017. Monocyte pct 13.1 % [facility] Comment: Interpretive Data Percent cell count reference ranges are not reported, since discordance with absolute values may lead to misinterpretation of CBC data. Current Interpretive Data was last revised on 2017. Eosinophil pct 2.5 % [facility] Comment: Interpretive Data Percent cell count reference ranges are not reported, since discordance with absolute values may lead to misinterpretation of CBC data. Current Interpretive Data was last revised on 2017. Basophil pct 0.8 % [facility] Comment: Interpretive Data Percent cell count reference ranges are not reported, since discordance with absolute values may lead to misinterpretation of CBC data. Current Interpretive Data was last revised on 2017. Blood specimen (specimen) 01/28/2018 6:56 AM CDT 01/28/2018 6:58 AM CDT Narrative [facility] - 01/28/2018 7:05 AM CDT Betito Luo MD LAB BLOOD ORDERABLES Fi nal Result Performing Organization Address [facility] de Phone Number [facility] [address] Department [place] [address] * CBC with auto differential (01/28/2018 6:56 AM CDT) WBC 6.4 3.8 - 9.9 K/cumm [facility] Hgb 15.2 13.0 - 17.5 g/dL [facility] Hct 45.2 38.9 - 50.3 % [facility] Plt 206 150 - 400 K/cumm [facility] MPV 10.1 9.1 - 12.3 fL [facility] RBC 4.79 4.30 - 5.80 M/cumm [facility] MCV 94.4 81.3 - 96.4 fL [facility] MCH 31.7 27.1 - 33.3 pg [facility] MCHC 33.6 32.3 - 35.7 g/dL [facility] RDW CV 12.9 11.1 - 14.9 % [facility] RDW SD 44.2 35.7 - 48.1 fL [facility] NRBC abs 0.00 0.00 - 0.01 K/cumm [facility] Blood specimen (specimen) 01/28/2018 6:56 AM CDT 01/28/2018 6:58 AM CDT Yanick [facility] - 01/28/2018 7:05 AM CDT If most recent labs were drawn prior to 4 AM, draw only prior to initiating procedure. Betito Luo MD LAB BLOOD ORDERABLES Fi nal Result Performing Organization Address [facility] de Phone Number [facility] [address] Department [place] [address] * (ABNORMAL) Basic metabolic panel (01/28/2018 6:56 AM CDT) [facility] Sodium 141 135 - 145 mmol/L [facility] Potassium, pl 4.7 3.3 - 4.9 mmol/L [facility] Chloride 103 97 - 110 mmol/L [facility] CO2 27 22 - 32 mmol/L [facility] Anion gap 11 2 - 15 mmol/L [facility] BUN 27(H) 8 - 25 mg/dL [facility] Creatinine 1.11 0.80 - 1.30 mg/dL [facility] Glucose 109 70 - 199 mg/dL [facility] Comment: Interpretive Data Fasting glucose >/= 126 [...] 2017. Calcium 9.8 8.5 - 10.3 mg/dL [facility] Blood specimen (specimen) 01/28/2018 6:56 AM CDT 01/28/2018 6:58 AM CDT Narrative [facility] - 01/28/2018 7:26 AM CDT us Betito Luo MD LAB BLOOD ORDERABLES Fi nal Result [facility] [address] [place] [address] * ECG 12 lead (01/28/2018 6:33 AM CDT) [facility] Patient age 58 years [facility] Interpretation Text SINUS BRADYCARDIAINCOMPLETE RIGHT BUNDLE BRANCH BLOCKBORDERLINE ECGPREVIOUS TRACIN05/23/2014 06.56 [facility] Comment:Physician Interprete r Dr. Santana Bazan M.D. Ventricular Rate EKG/Min 44 /min [facility] P Wave Duration 151 ms [facility] QRS-Interval (MSEC) 117 ms [facility] OK-Interval (MSEC) 195 ms [facility] QT Interval 497 ms [facility] QTc 469 ms [facility] QTC Interval ms [facility] P [place] 37 deg [facility] QRS [place] 1 deg [facility] T [place] 13 deg [facility] 01/28/2018 6:33 AM CDT us Betito Luo MD ECG ORDERABLES Final R esult [facility] documented in this encounter Visit Diagnoses [...] 01/28/2018 documented in this encounter Care Teams Round Cutter Operator Relationship Specialty Start Date End Date Nasra Jasso MD [address] [place] [address] PCP - General 10/16/16 documented as of this encounter
--- OUTSIDE RECORDS SUMMARY | 2024-07-04 16:47 | XMS_ITS | Encounter Summary ---
Author Organization [facility] Address [address] [place] [address] Care Team Providers Care Business Investor Name Role Phone aNsra Jasso MD Primary Care Provider [phone] Encounter Details Date Type Department Care Team (Late st Contact Info) Description 10/31/2018 Telephone Arrhythmia Center [address] [place] [address] Betito Luo MD [address] 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
--- OUTSIDE RECORDS SUMMARY | 2024-07-04 16:47 | XMS_ITS | Encounter Summary ---
Author Organization [facility] Address [address] [place] [address] Care Team Providers Care Reclamation Furnace Operator Name Role Phone Nasra Jasso MD Primary Care Provider [phone] Encounter Details Date Type Department Care Team (Latest Contact Info) Description 01/28/2018 6:10 AM CDT - 2018 11:41 AM CDT Hospital Encounter [facility] [address] [place] [id number] Betito Luo MD [address] [address] Paroxysmal supraventricular tachycardia (CMS/HCC) (Primary Dx) Discharge [...] on file Legal Sex Male 8:32 PM [employer] Gender Identity Not on file Sexual Orientation [...] pharmacist before using any other medicine, including [id number]-goobccn medicines, vitamins, and herbal products. ?? Some [...] may report side effects to FDA at 9-366-UHI-8828 ?? 2016 [employer]. Information is for End User's use only and may not be sold, redistributed or otherwise used for commercial purposes. The above information is an medical aide only. It is not intended as [...] Follow up with your healthcare provider or vp transportation in 7 to 10 days or as [...] as directed. Contact your healthcare provider or vp transportation if: ?? You have a fever or [...] breath or have chest pain. ?? 2016 [employer]. Information is for End User's use only and may not be sold, redistributed or otherwise used for commercial purposes. All illustrations and images included in CareNotes?? are the copyrighted property of [employer]. or [employer]. The above information is an medical aide only. It is not intended as [...] tachycardia (CMS/HCC) ??? Atrial fibrillation (CMS/HCC) ??? retirement current use of antiarrhythmic drug ??? Anticoagulation [...] or equal to 350 seconds. An 8 Nepali deflectable phased-array ultrasound catheter was advanced to [...] the left atrium and a duodecapolar catheter ([email or web address]) was advanced to the lateral and high [...] to the IVC in the 6:00 position (ITALIAN clock). The line was constructed during CS [...] Center in 4-6 weeks Betito Luo MD [facility] Arrhythmia [facility] documented in this encounter Plan [...] 10:40 AM CDT) Patient age 58 years [facility] Interpretation Text SUPRAVENTRICULAR BRADYCARDIANONSPECIFIC ST ABNORMALITYABNORMAL RHYTHM ECGPREVIOUS TRACIN01/28/[address] ABNORMALITY is now improved [facility] Comment:Physician Interprete r Dr. eBnji Pierson M.D. [facility] Ventricular Rate EKG/Min 58 /min [facility] P Wave Duration ms [facility] QRS-Interval (MSEC) 105 ms [facility] CT-Interval (MSEC) ms [facility] QT Interval 444 ms [facility] QTc 440 ms [facility] QTC Interval ms [facility] P Mcgregor deg [facility] QRS Mcgregor -4 deg [facility] T Mcgregor 25 deg [facility] 2018 10:4 0 AM CDT Betito Luo MD ECG ORDERABLES Final R esult [facility] * ECG 12 lead (01/28/2018 12:18 PM CDT) Patient age 58 years [facility] Interpretation Text SUPRAVENTRICULAR RHYTHMLEFT AXIS DEVIATIONMODERATE INTRAVENTRICULAR CONDUCTION DELAYMODERATE ST DEPRESSION,, CONSIDER ANTERIOR/ANTEROLATE RAL ISCHEMIAPROLONGED QT INTERVALABNORMAL ECGPREVIOUS TRACIN01/28/2018 06.33 [facility] Comment:Physician Interprete r Dr. Santana Bazan M.D. Ventricular Rate EKG/Min 74 /min [facility] P Wave Duration ms [facility] QRS-Interval (MSEC) [address] [facility] CT-Interval (MSEC) ms [facility] QT Interval 447 ms [facility] QTc 471 ms [facility] QTC Interval ms [facility] P Mcgregor deg [facility] QRS Mcgregor -38 deg [facility] T Mcgregor -5 deg [facility] 01/28/2018 12:1 8 PM CDT Notinfile Unknown ECG ORDERABLES Final Result Performing Organization Address [facility] Co de Phone Number [facility] * Activated Clotting Time (01/28/2018 11:14 AM CDT) ACT, POC 185 sec [facility] Comment: The normal clotting time for [...] CDT 01/28/2018 11:14 AM CDT Narrative [facility] - 01/28/2018 11:53 AM CDT us Betito Luo MD LAB BLOOD ORDERABLES Fi nal Result Performing Organization Address [facility] Co de Phone Number [facility] [address] [place] [place] [address] * ELECTROPHYSIOLOGIC EVALUATION (EPS) / ATRIAL FIBRILLATION ABLATION VIA PULMONARY VEIN ISOLATION, 3DMAPPING OF TACHYCARDIA, LEFT VENTRICLE PACING AND RECORDING, ATRIAL FIBRILLATION ABLATION ADDITIONAL LINE OR FOCI, ABLATE ADDTL ARRHYTHMIA ATRIA OR VENT (01/28/2018 10:48 AM CDT) Anatomical Region Laterality Modality X-Ray Angiograph y Betito Luo MD CV ELECTROPHYSIOLOGY CT OCS Final Result * Activated Clotting Time (01/28/2018 10:06 AM CDT) ACT, POC 402 sec [facility] Comment: The normal clotting time for [...] AM CDT 01/28/2018 10:06 AM CDT Narrative [facility] - 01/28/2018 11:53 AM CDT Betito Luo MD LAB BLOOD ORDERABLES Fi nal Result Performing Organization Address [facility] Co de Phone Number [facility] [address] [place] [address] * Activated Clotting Time (01/28/2018 9:29 AM CDT) ACT, POC 351 sec [facility] Comment: The normal clotting time for [...] AM CDT 01/28/2018 9:29 AM CDT Narrative [facility] - 01/28/2018 11:53 AM CDT Betito Luo MD LAB BLOOD ORDERABLES Fi nal Result Performing Organization Address [facility] de Phone Number [facility] [address] [place] [address] * Activated Clotting Time (01/28/2018 8:55 AM CDT) [facility] ACT, POC 307 sec [facility] Comment: The normal clotting time for [...] AM CDT 01/28/2018 8:55 AM CDT Narrative [facility] - 01/28/2018 11:53 AM CDT Betito Luo MD LAB BLOOD ORDERABLES Fi nal Result Performing Organization Address [facility] de Phone Number [facility] [address] [facility] [place] [address] * eGFR (01/28/2018 6:56 AM CDT) [facility] eGFR 73 mL/min/1.7 3 m2 [facility] Comment: Interpretive Data Reference Interval Normal ?>/= 90 mL/min/1.73m2 Mildly decreased* ? 60 - 89 mL/min/1.73m2 Mildly to moderately decreased ?45 - 59 mL/min/1.73m2 Moderately to severely decreased ??30 - 44 mL/min/1.73m2 Severely decreased ?15 - 29 mL/min/1.73m2 Kidney Failure ?< 15 ??mL/min/1.73m2 *Relative to young adult level If -[place] multiply value by 1.16. Estimated glomerular [...] AM CDT 01/28/2018 6:58 AM CDT Narrative [facility] - 01/28/2018 7:26 AM CDT us Betito Luo MD LAB BLOOD ORDERABLES Fi nal Result [facility] [address] [place] [address] * Differential, auto (01/28/2018 6:56 AM CDT) Neutrophil abs 3.4 1.7 - 6.5 K/cumm [facility] Imm gran abs 0.0 0.0 - 0.1 K/cumm [facility] Lymphocyte abs 1.9 0.8 - 3.3 K/cumm [facility] Monocyte abs 0.8 0.2 - 0.8 K/cumm [facility] Eosinophil abs 0.2 0.0 - 0.5 K/cumm [facility] Basophil abs 0.0 0.0 - 0.1 K/cumm [facility] Neutrophil pct 53.4 % [facility] Comment: Interpretive Data Percent cell count reference ranges are not reported, since discordance with absolute values may lead to misinterpretation of CBC data. Current Interpretive Data was last revised on 2017. Imm gran pct 0.6 % [facility] Comment: Interpretive Data Percent cell count reference ranges are not reported, since discordance with absolute values may lead to misinterpretation of CBC data. Current Interpretive Data was last revised on 2017. Lymphocyte pct 29.6 % [facility] Comment: Interpretive Data Percent cell count reference ranges are not reported, since discordance with absolute values may lead to misinterpretation of CBC data. Current Interpretive Data was last revised on 2017. Monocyte pct 13.1 % [facility] Comment: Interpretive Data Percent cell count reference ranges are not reported, since discordance with absolute values may lead to misinterpretation of CBC data. Current Interpretive Data was last revised on 2017. Eosinophil pct 2.5 % [facility] Comment: Interpretive Data Percent cell count reference ranges are not reported, since discordance with absolute values may lead to misinterpretation of CBC data. Current Interpretive Data was last revised on 2017. Basophil pct 0.8 % [facility] Comment: Interpretive Data Percent cell count reference ranges are not reported, since discordance with absolute values may lead to misinterpretation of CBC data. Current Interpretive Data was last revised on 2017. Blood specimen (specimen) 01/28/2018 6:56 AM CDT 01/28/2018 6:58 AM CDT Narrative [facility] - 01/28/2018 7:05 AM CDT us Betito Luo MD LAB BLOOD ORDERABLES Fi nal Result [facility] [address] [place] [address] * CBC with auto differential (01/28/2018 6:56 AM CDT) WBC 6.4 3.8 - 9.9 K/cumm [facility] Hgb 15.2 13.0 - 17.5 g/dL [facility] Hct 45.2 38.9 - 50.3 % [facility] Plt 206 150 - 400 K/cumm [facility] MPV 10.1 9.1 - 12.3 fL [facility] RBC 4.79 4.30 - 5.80 M/cumm [facility] MCV 94.4 81.3 - 96.4 fL [facility] MCH 31.7 27.1 - 33.3 pg [facility] MCHC 33.6 32.3 - 35.7 g/dL [facility] RDW CV 12.9 11.1 - 14.9 % [facility] RDW SD 44.2 35.7 - 48.1 fL [facility] NRBC abs 0.00 0.00 - 0.01 K/cumm [facility] Blood specimen (specimen) 01/28/2018 6:56 AM CDT 01/28/2018 6:58 AM CDT Narrative [facility] - 01/28/2018 7:05 AM CDT If most recent labs were drawn prior to 4 AM, draw only prior to initiating procedure. us Betito Luo MD LAB BLOOD ORDERABLES nal Result [facility] [address] [place] [address] * (ABNORMAL) Basic metabolic panel (01/28/2018 6:56 AM CDT) Sodium 141 135 - 145 mmol/L [facility] Potassium, pl 4.7 3.3 - 4.9 mmol/L [facility] Chloride 103 97 - 110 mmol/L [facility] CO2 27 22 - 32 mmol/L [facility] Anion gap 11 2 - 15 mmol/L [facility] BUN 27(H) 8 - 25 mg/dL [facility] Creatinine 1.11 0.80 - 1.30 mg/dL [facility] Glucose 109 70 - 199 mg/dL [facility] Comment: Interpretive Data Fasting glucose >/= [...] 2017. Calcium 9.8 8.5 - 10.3 mg/dL [facility] Blood specimen (specimen) 01/28/2018 6:56 AM CDT 01/28/2018 6:58 AM CDT Narrative [facility] - 01/28/2018 7:26 AM CDT us Betito Luo MD LAB BLOOD ORDERABLES Fi nal Result Performing Organization Address [facility] Co de Phone Number [facility] [address] [place] [address] * ECG 12 lead (01/28/2018 6:33 AM CDT) Patient age 58 years [facility] Interpretation Text SINUS BRADYCARDIAINCOMPLETE RIGHT BUNDLE BRANCH BLOCKBORDERLINE ECGPREVIOUS TRACIN05/23/2014 06.56 [facility] Comment:Physician Interprete r Dr. Santana Bazan M.D. Ventricular Rate EKG/Min 44 /min [facility] P Wave Duration 151 ms [facility] QRS-Interval (MSEC) 117 ms [facility] CT-Interval (MSEC) 195 ms [facility] QT Interval 497 ms [facility] QTc 469 ms [facility] QTC Interval ms [facility] P Mcgregor 37 deg [facility] QRS Mcgregor 1 deg [facility] T Mcgregor 13 deg [facility] 01/28/2018 6:33 AM CDT us Betito Luo MD ECG ORDERABLES Final R esult Performing Organization Address [facility] Co de Phone Number [facility] documented in this encounter Visit [...] 01/28/2018 documented in this encounter Care Teams Reclamation Furnace Operator Relationship Specialty Start Date End Date Nasra Jasso MD [address] [place] [address] PCP - General 10/16/16 documented as of this encounter
--- OUTSIDE RECORDS SUMMARY | 2024-07-04 16:48 | XMS_ITS | Encounter Summary ---
Author Organization [facility] Care Team Providers Care Clinical Outcomes Manager Name Role Phone Nasra Jasso MD Primary Care Provider [phone] Encounter Details Date Type Department Care Team (Latest Contact Info) Description 05/23/2014 6:26 AM GIN INSPECTOR - 05/23/2014 6:00 PM GIN INSPECTOR Hospital Encounter [facility] Valerio, Betito Morillo MD [address] [address] Paroxysmal supraventricular tachycardia (HCC); Atrial fibrillation (CMS/HCC) (HCC); Personal history of allergy to penicillin Social History Tobacco Use Types Packs/Day Years Used Date Smoking Tobacco: Never Assessed Sex and Gender Information Value Date Recorded Sex Assigned at Not on file Legal Sex Male 8:32 PM GIN INSPECTOR Gender Identity Not on file Sexual Orientation Not on file documented as of this encounter Last Filed Vital Signs Vital Sign Reading Time Taken Comments Blood Pressure - - Pulse - - Temperature - - Respiratory Rate - - Oxygen Saturation - - Inhaled Oxygen Concentration - - Weight 87.9 kg (193 lb 12.8 oz) 05/23/2014 7:14 AM GIN INSPECTOR Height 180.3 cm (5' 10.98 ) 05/23/2014 7:14 AM Silvestre WATT Body Mass Index 27.04 05/23/2014 7:14 AM GIN INSPECTOR documented in this encounter Medications at Time of Discharge flecainide (TAMBOCOR) 150 mg tablet take 1 tablet by oral route every 12 hours 180 3 05/23/2014 09/26/2017 documented as of this encounter Plan of Treatment Not on file documented as of this encounter Procedures Procedure Name Priority Date/Time Associated Diagnosis Comments PLASMA BASIC METABOLIC PANEL Routine 05/23/2014 7:10 AM GIN INSPECTOR BLOOD CELL COUNT (CBC), MORPHOLOGIC EXAM Routine 05/23/2014 7:09 AM GIN INSPECTOR PLASMA PROTHROMBIN TIME (PT) Routine 05/23/2014 7:08 AM GIN INSPECTOR PLASMA PARTIAL THROMBOPLASTIN TIME (PTT) Routine 05/23/2014 7:08 AM GIN INSPECTOR ELECTROCARDIOGRAPHY (ECG) 05/23/2014 DISCHARGE LABORATORY CUMULATIVE REPORT 05/23/2014 documented in this encounter Results * (ABNORMAL) Plasma basic metabolic panel (05/23/2014 7:10 AM GIN INSPECTOR) Sodium 137 136 - 146 mmol/L HISTORICAL [...] mg/dl HISTORICAL RESULTS Plasma 05/23/2014 7:10 AM GIN INSPECTOR Betito Luo MD LAB BLOOD ORDERABLES Fi nal Result HISTORICAL RESULTS * (ABNORMAL) Blood cell count (CBC), morphologic exam (05/23/2014 7:09 AM GIN INSPECTOR) WBC 7.8 4.5 - 11.0 K/cumm HISTORICAL [...] RESULTS Blood specimen (specimen) 05/23/2014 7:09 AM GIN INSPECTOR Betito Luo MD LAB BLOOD ORDERABLES Fi nal Result HISTORICAL RESULTS * Plasma prothrombin time (PT) (05/23/2014 7:08 AM GIN INSPECTOR) Pathologist [facility] Prothrombin time (PT) 13.2 11.7 - 14.8 [...] 2.0 to 3.0 Plasma 05/23/2014 7:08 AM GIN INSPECTOR us Betito Luo MD LAB BLOOD ORDERABLES Fi nal Result HISTORICAL RESULTS * Plasma partial thromboplastin time (PTT) (05/23/2014 7:08 AM GIN INSPECTOR) Pathologist [facility] APTT 30.5 24.0 - 36.1 seconds HISTORICAL RESULTS Comment: ? Therapeutic Heparin Range: ??60-100 seconds Plasma 05/23/2014 7:08 AM GIN INSPECTOR us Betito Luo MD LAB BLOOD ORDERABLES [...] penicillin documented in this encounter Care Teams Clinical Outcomes Manager Relationship Specialty Start Date End Date Nasra Jasso MD [address] [place] [address] PCP - General 03/22/14 01/02/15 documented as of this encounter
== END 2024-07-01 00:39 | disposition home or self-care (01) ==
PROVIDERS: Emergency Provider Student in an Organized Health Care Education/Training Program; PCP Emergency Medicine
DX: R55 Syncope and collapse (principal); S01.21XA Laceration without foreign body of nose, initial encounter; E86.0 Dehydration; R11.2 Nausea with vomiting, unspecified; I48.91 Unspecified atrial fibrillation; M16.0 Bilateral primary osteoarthritis of hip; M47.812 Spondylosis without myelopathy or radiculopathy, cervical region; Z79.01 Long term (current) use of anticoagulants; R00.1 Bradycardia, unspecified; I45.10 Unspecified right bundle-branch block; W18.39XA Other fall on same level, initial encounter
CPT/HCPCS: 12011; 36415; 70450; 70486; 71045; 72125; 72170; 80053; 82077; 83605; 83735; 84484; 85025; 86850; 86900; 86901; 93005; 96361; 96374; 99284; J2405; J7030